=== PATIENT | male | born 1940 | race Caucasian/White ===

== ENCOUNTER → 2019-09-15 | Outpatient (CLI) | payer MEDICARE ==
[~2019-09-15] MED LIST: CIPR-225 PO; HYDR-3870 PO; IMIP50TA4 PO; OMEP20CA13 PO; PHEN-640 PO; QUET50TA PO; TAMS0.4C2 PO; VENL150C PO
[2019-09-15 11:06] LABS: BUN/CREATININE RATIO 14; CALCIUM 9.4 MG/DL (8.5-10.1); CARBON DIOXIDE 24 MMOL/L (21-32); CHLORIDE 96 MMOL/L (98-107); CREATININE SERUM 1.08 MG/DL (0.60-1.30); GFR ESTIMATED > 60; POTASSIUM 4.2 MMOL/L (3.6-5.0); SODIUM 135 MMOL/L (135-145)
[2019-09-15 11:14] LABS: GLUCOSE 408 MG/DL (70-105)
== END ==
LOC: LAB FS 09:45
PROVIDERS: ATTEND Urology
DX: N40.0 Benign prostatic hyperplasia without lower urinary tract symptoms (principal)
CPT/HCPCS: 36415; 80048; 84153; 84403

== ENCOUNTER → 2019-11-24 | Outpatient (CLI) | payer MEDICARE ==
[~2019-11-24] MED LIST changes: +AMLO5TAB4 PO; +IBUP-30 PO; +LISI10TA2 PO; -OMEP20CA13 PO; +OMEP20CA18 PO; +OMEP40CA27 PO; +QUET25TA73 PO; +TMSL.4C PO; +VENL150C98 PO
== END ==
LOC: CARD 13:42
PROVIDERS: ATTEND Internal Medicine Cardiovascular Disease
DX: K21.9 Gastro-esophageal reflux disease without esophagitis (principal); E11.9 Type 2 diabetes mellitus without complications; I10 Essential (primary) hypertension
CPT/HCPCS: 93306

== ENCOUNTER → 2019-11-28 | Outpatient (CLI) | payer MEDICARE ==
[~2019-11-28] VITALS: Ht 178 cm; Wt 108.0 kg
[~2019-11-28] MED LIST changes: +CATHETER FLUSH 10 ML SYR IV PRN
[2019-11-28 09:45] VITALS: BP 152/86
--- NOTE | 2019-11-28 12:03 | STRESS TEST ---
DATE OF SERVICE: 11/28/2019 EXERCISE MYOVIEW STRESS TEST REPORT REFERRING PHYSICIAN: Dr. Shena Mckeon. Baseline heart rate is 72. Baseline blood pressure 152/86. Baseline EKG is sinus rhythm with no ischemic changes. In summary, the patient was injected with 10.5 mCi of technetium-99 Myoview and the resting images were obtained. Then, the patient started exercising with a baseline heart rate, blood pressure and EKG mentioned above. The patient was able to exercise for a total of 4 minutes on standard Deion protocol. With peak exercise level, EKG was showing nondiagnostic changes. Blood pressure was 200/79. During recovery, heart rate and blood pressure returned to baseline. EKG returned to baseline. The resting and stress images were reviewed and compared in the short axis, horizontal long axis, and vertical long axis views. Review of the images showed good radiotracer uptake with no significant ischemia or infarction on SPECT images. SSS 1, SDS 1. TID value 0.98. On the gated images, the left ventricle appeared to be normal size with normal contractility. Calculated ejection fraction 57%. CONCLUSION: 1. Fair exercise tolerance, a total of 4 minutes on standard Deion protocol, 5.8 achieving 88% of maximum expected heart rate. 2. Hypertensive response to exercise with peak blood pressure 200/79 returned to baseline during recovery. 3. Nondiagnostic EKG changes with exercise returned to baseline during recovery. 4. No ischemia or infarction on SPECT images. 5. Normal left ventricular size with normal contractility. Calculated ejection fraction 57%. Job ID: [id number] DocumentID: [id number] Dictated Date: 11/28/2019 11:24:22 Veneer Taper Date: 11/28/2019 12:02:47 Dictated By: MICHELLE HOUGH MD
== END ==
LOC: CARD 07:48
PROVIDERS: ATTEND Internal Medicine Cardiovascular Disease
DX: I10 Essential (primary) hypertension (principal); E11.9 Type 2 diabetes mellitus without complications; K21.9 Gastro-esophageal reflux disease without esophagitis
CPT/HCPCS: 78452; 93017

== ENCOUNTER → 2020-02-28 | Outpatient (CLI) | payer MEDICARE ==
[~2020-02-28] MED LIST changes: -CATHETER FLUSH 10 ML SYR IV PRN
[2020-02-28 15:07] LABS: CREATININE SERUM 1.17 MG/DL (0.60-1.30); POTASSIUM 3.7 MMOL/L (3.6-5.0)
[2020-02-28 15:08] LABS: CALCIUM 9.2 MG/DL (8.5-10.1)
== END ==
LOC: LAB FS 14:21
PROVIDERS: ATTEND Family Medicine
DX: E11.9 Type 2 diabetes mellitus without complications (principal)
CPT/HCPCS: 36415; 80048; 83036

== ENCOUNTER → 2020-05-31 | Outpatient (CLI) | payer MEDICARE ==
[2020-05-31 14:18] LABS: BUN/CREATININE RATIO 17; CALCIUM 8.7 MG/DL (8.5-10.1); CARBON DIOXIDE 24 MMOL/L (21-32); CHLORIDE 98 MMOL/L (98-107); CREATININE SERUM 0.88 MG/DL (0.60-1.30); GFR ESTIMATED > 60; GLUCOSE 183 MG/DL (70-105); POTASSIUM 3.9 MMOL/L (3.6-5.0); SODIUM 135 MMOL/L (135-145)
[2020-05-31 14:19] LABS: ALANINE AMINOTRANSFERASE 12 U/L (0-55); ALKALINE PHOSPHATASE 93 U/L (40-136); BILIRUBIN,TOTAL 0.8 MG/DL (0.1-1.0); TOTAL PROTEIN 6.7 GM/DL (6.4-8.2)
[2020-06-01 12:01] LABS: CHOLESTEROL 185 MG/DL (< 200); HDL CHOLESTEROL 34 MG/DL (40-60); TRIGLYCERIDES 164 MG/DL (<150); VLDL CHOLESTEROL 33 MG/DL (5-40)
== END ==
LOC: LAB FS 13:11
PROVIDERS: ATTEND Family Medicine
DX: I10 Essential (primary) hypertension (principal); E11.9 Type 2 diabetes mellitus without complications
CPT/HCPCS: 36415; 80053; 80061; 83036

== ENCOUNTER → 2020-12-31 | Outpatient (CLI) | payer MEDICARE ==
[~2020-12-31] MED LIST changes: -LISI10TA2 PO; +LISI10TA25 PO; +QUET25TA34 PO; -QUET25TA73 PO
[2020-12-31 15:27] LABS: ALANINE AMINOTRANSFERASE 14 U/L (0-55); ALKALINE PHOSPHATASE 104 U/L (40-136); BILIRUBIN,TOTAL 0.8 MG/DL (0.1-1.0); BUN/CREATININE RATIO 24; CALCIUM 8.9 MG/DL (8.5-10.1); CARBON DIOXIDE 23 MMOL/L (21-32); CHLORIDE 101 MMOL/L (98-107); CREATININE SERUM 0.92 MG/DL (0.60-1.30); GFR ESTIMATED > 60; GLUCOSE 233 MG/DL (70-105); POTASSIUM 3.8 MMOL/L (3.6-5.0); SODIUM 137 MMOL/L (135-145); TOTAL PROTEIN 6.6 GM/DL (6.4-8.2)
[2021-01-01 15:04] LABS: CHOLESTEROL 178 MG/DL (< 200); HDL CHOLESTEROL 37 MG/DL (40-60); TRIGLYCERIDES 166 MG/DL (<150); VLDL CHOLESTEROL 33 MG/DL (5-40)
== END ==
LOC: LAB FS 14:23
PROVIDERS: ATTEND Family Medicine
DX: I10 Essential (primary) hypertension (principal); E11.9 Type 2 diabetes mellitus without complications
CPT/HCPCS: 36415; 80053; 80061; 83036

== ENCOUNTER → 2021-04-26 | Outpatient (CLI) | payer MEDICARE ==
[~2021-04-26] MED LIST changes: -OMEP40CA27 PO; +OMEP40CA6 PO
--- NOTE | 2021-04-26 13:22 | Diagnostic Imaging Report ---
EXAMINATION: Left knee 3 views HISTORY: Left knee osteoarthritis. COMPARISON: None available. FINDINGS: There is mild tricompartment osteoarthritis of the left knee. No fracture is seen. No joint effusion. IMPRESSION: 1. Mild tricompartmental osteoarthritis of the left knee. Dictated by: Dictated on workstation # [id number]
== END ==
LOC: RAD FS 10:44
PROVIDERS: ATTEND Family Medicine
DX: M17.12 Unilateral primary osteoarthritis, left knee (principal)
CPT/HCPCS: 73562

== ENCOUNTER 2021-06-12 19:45 | Inpatient (IN) | payer MEDICARE ==
[~2021-06-12] VITALS: Ht 177.8 cm; Wt 108.3 kg
[2021-06-12] MEDS ORDERED: NS IV 1000 ML 1,000 ML IV STA (19:51)
--- NOTE | 2021-06-12 19:51 | ED Neurological Problem ---
General Stated Complaint: STROKE LIKE SYMPTOMS History of Present Illness Date Seen by Provider: Jun 12, 2021 Time Seen by Provider: 19:51 Initial Comments 81-year-old male presents with left-sided weakness in both his arm and leg and left-sided facial droop and slurred speech. Patient reports on June 10 he went to [employer] and got his second vaccine shot and it "kicked my butt" patient reports that sometime on the he fell due to left-sided weakness laid there on the floor for 2 nights. Patient got numbness and decreased sensation in his left side. Patient denies any fever chills cough or other systemic complaints. Patient was found by his neighbor and EMS was called. Allergies and Home Medications Allergies Coded Allergies: No Known Drug Allergies (Unverified , 08/26/16) Patient Home Medication List Home Medication List Reviewed: Yes Amlodipine Besylate (Norvasc) 5 Mg Tablet, 5 MG PO DAILY Prescribed by: CIRO CABRERA on 10/12/19 113 Lisinopril (Lisinopril) 10 Mg Tablet, 10 MG PO DAILY Prescribed by: CIRO CABRERA on 10/12/19 1134 Omeprazole (Omeprazole) 40 Mg Capsule.dr, 40 MG PO DAILY, (Reported) Entered as Reported by: JULIANA MADRIGAL on 10/10/191921 Quetiapine Fumarate (Quetiapine Fumarate) 25 Mg Tablet, 25 MG PO HS, (Reported) Entered as Reported by: JULIANA MADRIGAL on 10/10/191921 Tamsulosin HCl (Flomax) 0.4 Mg Cap, 0.4 MG PO HS, (Reported) Entered as Reported by: JULIANA MADRIGAL on 10/10/191921 Venlafaxine HCl (Venlafaxine HCl ER) 150 Mg Cap.er.24h, 150 MG PO DAILY, (Repo rted) Entered as Reported by: CLARI GUERRERO on 10/11/19 1043 Review of Systems Review of Systems Constitutional: No chills, No fever Eyes: No Symptoms Reported Ears, Nose, Mouth, Throat: see HPI Respiratory: no symptoms reported; No cough, No short of breath Cardiovascular: No chest pain, No palpitations Gastrointestinal: No abdominal pain, No nausea, No vomiting Genitourinary: no symptoms reported Musculoskeletal: see HPI Skin: no symptoms reported Psychiatric/Neurological: See HPI Endocrine: No Symptoms Reported Hematologic/Lymphatic: No Symptoms Reported Past Vhhsebf-Gycgbz-Uoqpjf Hx Seasonal Allergies Seasonal Allergies: Yes (MILD) Past Medical History Surgeries: Yes (LEFT SHOULDER RCR, JAW, RIGHT KNEE SCOPE) Vasectomy Respiratory: No Cardiac: No Neurological: Yes (FRONTAL TEMPORAL DEMENTIA) Dementia Reproductive Disorders: No Sexually Transmitted Disease: No HIV/AIDS: No Genitourinary: Yes Prostate Problems, Kidney Stones Gastrointestinal: Yes Gastroesophageal Reflux, Diverticulosis Musculoskeletal: Yes Chronic Back Pain Endocrine: Yes (NOTIFIED BY UROLOGIST IN JUL 2019 BLOOD SUGAR 400) Loss of Vision: Bilateral Hearing Impairment: Denies Cancer: No Psychosocial: No (TAKES SEROQUEL AND EFFEXOR FOR DEMENTIA) Integumentary: No Blood Disorders: No Adverse Reaction/Blood Tranf: No (N/A) Physical Exam Vital Signs Vital Signs - First Documented 06/12/21 19:45 Temp 36.1 Pulse 102 Resp 19 B/P (MAP) 161/95 (117) Pulse Ox 94 O2 Delivery Room Air Capillary Refill : Height, Weight, BMI Height: 5'10.00" Weight: 252lbs. 1.0oz. 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, alert, normal mood/affect, oriented x 3 Crainal Nerves: normal hearing, facial droop (left sided ) Motor/Sensory: weak motor strength LUE, weak motor strength LLE Skin: normal color, warm/dry Stroke NIH Stroke Scale Assessment Select: Initial Level of Consciousness: 0=Alert (0), Level of Consciousness- Questions: 0=Answers both month/age (0), Visual Tamez: 0=No visual loss (0), Facial Movement (Facial Paresis): 2=Partial paralysis (2), Motor Function-Ar ms Right: 0=No drift (0), Motor Function-Arms Left: 3=No effort/gravity (3), Motor Function-Legs Right: 0=No drift (0), Motor Function-Legs Left: 3=No effort/gravity (3), Sensory: 1=Mild to Moderate loss (1), Best Language: 0=No aphasia (0), Dysarthria: 0=Normal (0), Total: 9 Progress/Results/Core Measures Results/Orders Lab Results Laboratory Tests Test 06/12/21 19:57 06/12/21 20:32 06/12/21 20:40 Range/Units White Blood Count 12.2 H 4.3-11.0 10^3/uL Red Blood Count 4.63 4.30-5.52 10^6/uL Hemoglobin 14.5 13.3-17.7 g/dL Hematocrit 42 40-54 % Mean Corpuscular Volume 90 80-99 fL Mean Corpuscular Hemoglobin 31 25-34 pg Mean Corpuscular Hemoglobin Concent 35 32-36 g/dL Red Cell Distribution Width 13.0 10.0-14.5 % Platelet Count 264 130-400 10^3/uL Mean Platelet Volume 10.7 9.0-12.2 fL Immature Granulocyte % (Auto) 1 % Neutrophils (%) (Auto) 82 H 42-75 % Lymphocytes (%) (Auto) 10 L 12-44 % Monocytes (%) (Auto) 7 0-12 % Eosinophils (%) (Auto) 0 0-10 % Basophils (%) (Auto) 0 0-10 % Neutrophils # (Auto) 10.0 H 1.8-7.8 X 10^3 Lymphocytes # (Auto) 1.2 1.0-4.0 X 10^3 Monocytes # (Auto) 0.9 0.0-1.0 X 10^3 Eosinophils # (Auto) 0.0 0.0-0.3 10^3/uL Basophils # (Auto) 0.0 0.0-0.1 10^3/uL Immature Granulocyte # (Auto) 0.1 0.0-0.1 10^3/uL Prothrombin Time 14.0 12.2-14.7 SEC INR Comment 1.1 0.8-1.4 Activated Partial Thromboplast Time 27 24-35 SEC D-Dimer 3.79 H 0.00-0.49 UG/ML Sodium Level 137 135-145 MMOL/L Potassium Level 4.3 3.6-5.0 MMOL/L Chloride Level 99 98-107 MMOL/L Carbon Dioxide Level 22 21-32 MMOL/L Anion Gap 16 H 5-14 MMOL/L Blood Urea Nitrogen 36 H 7-18 MG/DL Creatinine 1.24 0.60-1.30 MG/DL Estimat Glomerular Filtration Rate 56 BUN/Creatinine Ratio 29 Glucose Level 230 H 70-105 MG/DL Calcium Level 9.0 8.5-10.1 MG/DL Corrected Calcium 8.9 8.5-10.1 MG/DL Total Bilirubin 1.2 H 0.1-1.0 MG/DL Aspartate Amino Transf (AST/SGOT) 42 H 5-34 U/L Alanine Aminotransferase (ALT/SGPT) 19 0-55 U/L Alkaline Phosphatase 96 40-136 U/L Troponin I < 0.30 <0.30 NG/ML Total Protein 7.1 6.4-8.2 GM/DL Albumin 4.1 3.2-4.5 GM/DL Glucometer 192 H 70-110 MG/DL Urine Color YELLOW Urine Clarity CLEAR Urine pH 5.5 5-9 Urine Specific Randolph >=1.030 1.016-1.022 Urine Protein NEGATIVE NEGATIVE Urine Glucose (UA) 2+ H NEGATIVE Urine Ketones 1+ H NEGATIVE Urine Nitrite NEGATIVE NEGATIVE Urine Bilirubin NEGATIVE NEGATIVE Urine Urobilinogen 0.2 < = 1.0 MG/DL Urine Leukocyte Esterase NEGATIVE NEGATIVE Urine RBC (Auto) 1+ H NEGATIVE Urine RBC 2-5 H /HPF Urine WBC 2-5 /HPF Urine Squamous Epithelial Cells 0-2 /HPF Urine Crystals NONE /LPF Urine Bacteria TRACE /HPF Urine Casts PRESENT /LPF Urine Hyaline Casts 25-50 H /LPF Urine Mucus MODERATE H /LPF Urine Culture Indicated NO My Orders Orders - TALBOT,ROHIT L DO Cbc With Automated Diff (06/12/21 19:51) Protime With Inr (06/12/21 19:51) Partial Thromboplastin Time (06/12/21 19:51) Comprehensive Metabolic Panel (06/12/21 19:51) Fibrin Degradation Products (06/12/21 19:51) Troponin I Fs (06/12/21 19:51) Ua Culture If Indicated (06/12/21 19:51) Chest 1 View Ap/Pa Only (06/12/21 19:51) Catheter(Urinary) Insert & Ass 03,15 (06/12/21 19:51) Ekg Tracing (06/12/21 19:51) Nothing By Mouth (06/12/21 Dinner) Accucheck Stat ONCE (06/12/21 19:51) Ed Iv/Invasive Line Start (06/12/21 19:51) Vital Signs Stroke Patient Q15M (06/12/21 19:51) Ct Head Wo-R/O Stroke (06/12/21 19:51) Intake & Output 06,14,22 (06/12/21 19:51) Monitor-Rhythm Ecg Trace Only (06/12/21 19:51) Dysphagia Screening Tool (06/12/21 19:51) Lipid Panel (06/13/21 06:00) Creatine Kinase (06/12/21 19:51) Ns Iv 1000 Ml (Sodium Chloride 0.9%) (06/12/21 19:51) Ct Angio Head/Neck (06/12/21 20:37) Iohexol Injection (Omnipaque 350 Mg/Ml 1 (06/12/21 21:00) Received Contrast (Hold Metformin- Contr (06/12/21 21:00) Sodium Chloride Flush (Catheter Flush Sy (06/12/21 21:00) Ns (Ivpb) (Sodium Chloride 0.9% Ivpb Bag (06/12/21 21:00) Medications Given in ED Current Medications Medications Dose Ordered Sig/Srini Route Start Time Stop Time Status Last Admin Dose Admin Iohexol 75 ml ONCE ONCE IV 06/12/21 21:00 06/12/21 21:27 DC 06/12/21 21:31 75 ML Sodium Chloride 10 ml NEEDED PRN IV 06/12/21 21:00 06/12/21 21:31 10 ML Sodium Chloride 100 ml ONCE ONCE IV 06/12/21 21:00 06/12/21 21:27 DC 06/12/21 21:30 67 ML Vital Signs/I&O 06/12/21 06/12/21 06/12/21 06/12/21 19:45 20:00 20:15 20:30 Temp 36.1 Pulse 102 102 97 91 Resp 19 20 15 18 B/P (MAP) 161/95 (117) 152/92 135/69 179/83 Pulse Ox 94 94 94 95 O2 Delivery Room Air 06/12/21 06/12/21 06/12/21 06/12/21 21:00 21:30 22:00 22:30 Pulse 92 88 89 94 Resp 14 17 13 19 B/P (MAP) 163/92 142/94 126/92 154/77 Pulse Ox 94 95 95 94 06/12/21 06/12/21 06/12/21 22:47 23:28 23:30 Temp 36.1 36.3 Pulse 94 91 Resp 19 21 B/P (MAP) 154/77 171/102 (125) Pulse Ox 94 93 95 O2 Delivery Room Air Room Air Room Air Progress Progress Note : Progress Note Patient with CVA with left-sided deficit. CTA and CT show no definite stroke or large vessel occlusion. Discussed with neurology team at and they state that patient can be admitted to [facility] with stroke work-up, PT OT. Discussed with Dr. Cabrera who accepted patient. Patient was transferred to [facility] in stable condition Initial ECG Impression Date: Jun 13, 2021 Initial ECG Impression Time: 20:23 Initial ECG Rhythm: Normal Sinus, PAC Initial ECG Impression: Nonspecific Changes Comment nsr, PAC, no acute changes Departure Impression Primary Impression: Cerebrovascular accident due to cerebral artery occlusion Disposition: 30 STILL A PATIENT Condition: Stable Admissions Decision to Admit Reason: Admit from ER (General) Decision to Admit/Date: Jun 12, 2021 Time/Decision to Admit Time: 22:10 Departure-Patient Inst. Referrals: DENNY BRIGGS MD (PCP/Family) Primary Care Physician ROHIT TLABOT DO Jun 12, 2021 19:51
[2021-06-12 20:19] LABS: BASOPHILS % (AUTO) 0 % (0-10); EOSINOPHILS % (AUTO) 0 % (0-10); HEMATOCRIT 42 % (40-54); HEMOGLOBIN 14.5 g/dL (13.3-17.7); LYMPHOCYTES # (AUTO) 1.2 X 10^3 (1.0-4.0); LYMPHOCYTES % (AUTO) 10 % (12-44); MEAN CORPUSCULAR HEMOGLOBIN 31 pg (25-34); MEAN CORPUSCULAR HGB CONC 35 g/dL (32-36); MEAN CORPUSCULAR VOLUME 90 fL (80-99); MEAN PLATELET VOLUME 10.7 fL (9.0-12.2); MONOCYTES # (AUTO) 0.9 X 10^3 (0.0-1.0); MONOCYTES % (AUTO) 7 % (0-12); NEUTROPHILS % (AUTO) 82 % (42-75); PLATELET COUNT 264 10^3/uL (130-400); WHITE BLOOD COUNT 12.2 10^3/uL (4.3-11.0)
--- NOTE | 2021-06-12 20:21 | Diagnostic Imaging Report ---
EXAMINATION: CT head without contrast. TECHNIQUE: Multiple contiguous axial images were obtained through the brain without the use of intravenous contrast. All CT scans use one or more of the following dose optimizing techniques: automated exposure control, MA and/or KvP adjustment based on patient size and exam type or iterative reconstruction. HISTORY: Strokelike symptoms. COMPARISON: None available. FINDINGS: No large acute territorial ischemia, mass, or hemorrhage. No midline shift or mass effect. Decreased attenuation is seen in the periventricular and subcortical white matter. The ventricles and cortical sulci are prominent. The basilar cisterns are patent and unremarkable. The orbits are normal. Paranasal sinuses are normal. Mastoid air cells are clear. No soft tissue abnormality is seen. No osseus lesions or fractures are seen. IMPRESSION: 1. No large acute territorial ischemia, mass, or hemorrhage. 2. Chronic microvascular disease. 3. Generalized parenchymal volume loss. Dictated by: Dictated on workstation # [id number]
--- NOTE | 2021-06-12 20:24 | Diagnostic Imaging Report ---
EXAMINATION: Chest 1 view HISTORY: Strokelike symptoms. Left-sided weakness. COMPARISON: 10/10/2019. FINDINGS: The lung volumes are normal. No focal consolidation is seen. No large pleural effusion or pneumothorax is seen. The cardiomediastinal silhouette is prominent. No acute osseous abnormality is seen. IMPRESSION: Prominent cardiac silhouette, which may be partially due to technique. No evidence of pulmonary edema. Dictated by: Dictated on workstation # [id number]
[2021-06-12 20:35] LABS: FIBRIN DEGRADATION PRODUCTS 3.79 UG/ML (0.00-0.49); INR 1.1 (0.8-1.4)
[2021-06-12 20:36] LABS: ALANINE AMINOTRANSFERASE 19 U/L (0-55); ALKALINE PHOSPHATASE 96 U/L (40-136); BILIRUBIN,TOTAL 1.2 MG/DL (0.1-1.0); BUN/CREATININE RATIO 29; CARBON DIOXIDE 22 MMOL/L (21-32); CHLORIDE 99 MMOL/L (98-107); CREATININE SERUM 1.24 MG/DL (0.60-1.30); GFR ESTIMATED 56; GLUCOSE 230 MG/DL (70-105); POTASSIUM 4.3 MMOL/L (3.6-5.0); SODIUM 137 MMOL/L (135-145)
[2021-06-12 20:37] LABS: ALBUMIN 4.1 GM/DL (3.2-4.5); TOTAL PROTEIN 7.1 GM/DL (6.4-8.2)
[2021-06-12 20:47] LABS: BILIRUBIN,URINE NEGATIVE (NEGATIVE); CLARITY,URINE CLEAR; COLOR,URINE YELLOW; GLUCOSE, URINE (UA) 2+ (NEGATIVE); KETONES,URINE 1+ (NEGATIVE); LEUKOCYTE ESTERASE ,URINE NEGATIVE (NEGATIVE); NITRITE,URINE NEGATIVE (NEGATIVE); PH,URINE 5.5 (5-9); PROTEIN,URINE NEGATIVE (NEGATIVE)
[2021-06-12 20:52] LABS: BACTERIA,URINE TRACE /HPF; HYALINE CASTS, URINE 25-50 /LPF; SQUAMOUS EPITHELIAL CELL,UR 0-2 /HPF
[2021-06-12] MEDS ORDERED: NS 100 ML (IVPB) BAG IV ONE (21:00)
[2021-06-12] MEDS ORDERED: IOHEXOL 350 MG/ML 100 ML (OMNIPAQUE 350) VIAL IV ONE (21:00)
[2021-06-12] MEDS ORDERED: HOLD METFORMIN - RECEIVED CONTRAST 20 ML VIAL IV SCH (21:00)
[2021-06-12] MEDS ORDERED: CATHETER FLUSH 10 ML SYR IV PRN (21:00)
--- NOTE | 2021-06-12 22:05 | Diagnostic Imaging Report ---
PROCEDURE: CT angiography of the head and CT angiography of the neck with and without contrast. TECHNIQUE: Contiguous noncontrast images were obtained from the skull base through the vertex. After intravenous contrast administration, helical CT angiography of the neck was performed. Source data was reformatted into 3D MIP projections. Delayed post contrast acquisition was also obtained. Auto Exposure Controls were utilized during the CT exam to meet ALARA standards for radiation dose reduction. INDICATION: Left-sided weakness. Facial droop. COMPARISON: CT head performed earlier the same date. FINDINGS: CTA neck: The visualized portions of the aortic arch demonstrate no evidence of aneurysm or dissection. There is conventional branching pattern of the great vessels of the aorta. The brachiocephalic artery is normal in course and caliber. The right and left common carotid origins are unremarkable. The origin of the left subclavian artery is patent. The common carotid arteries and internal carotid arteries demonstrate a tortuous course. There is retropharyngeal course of the right ICA. There is calcified atherosclerotic plaque in the bilateral carotid bulbs and proximal internal carotid arteries without flow-limiting stenosis. No evidence of dissection in the carotid systems. The external carotid arteries are patent and unremarkable. The left vertebral artery is dominant. The origin of the right vertebral artery is seen and is unremarkable. The origin of the left vertebral artery is seen and is unremarkable. There is no focal stenosis seen within the neck. There is no dissection. The vertebral arteries are well visualized to up to the level of the basilar artery. The osseous structures of the cervical spine are unremarkable. Included views through the lung apices demonstrate no focal consolidation. CTA brain: Atherosclerotic plaque is seen in the charles of the bilateral terminal internal carotid arteries without significant stenosis. There is focal occlusion of the A2 segment of the left [place]. The right [place] demonstrates focal stenosis of 50-69% in the A2 segment. No stenosis is seen in the bilateral middle and posterior cerebral arteries. No evidence of aneurysm of the [place]. In the posterior circulation, both of the vertebral arteries demonstrate normal opacification. Both the right and left PICA arteries are identified. The basilar artery is normal in course and caliber. The terminal branch vessels including the superior cerebellar arteries are unremarkable. IMPRESSION: 1. Focal occlusion of the A2 segment of the left [place]. No associated parenchymal findings are seen at this time. Findings also do not correlate to the patient's symptoms of left-sided weakness and may be chronic. Consider MRI of the brain to further evaluate. 2. Stenosis of approximately 50-69% in the A2 segment of the right [place]. 3. No focal stenosis or large vessel occlusion in the bilateral MCA. No aneurysm in the [place]. 4. No stenosis or dissection the bilateral carotid and vertebral arteries. Findings were called to the emergency department at 9:55 PM on 06/12/[address] Chilo Pham. Dictated by: Dictated on workstation # [id number]
[2021-06-12 23:30] VITALS: BP 171/102
--- NOTE | 2021-06-12 23:42 | Tele-ICU Consult ---
History of Present Illness History of Present Illness Date Seen by Provider: Jun 12, 2021 Time Seen by Provider: 23:40 Date of Admission 81-year-old male presents with left-sided weakness in both his arm and leg and left-sided facial droop and slurred speech. Patient reports on June 10 he went to [employer] and got his second vaccine shot and it "kicked my butt" patient reports that sometime on the he fell due to left-sided weakness laid there on the floor for 2 nights. Patient got numbness and decreased sensation in his left side. Patient denies any fever chills cough or other systemic complaints. Patient was found by his neighbor and EMS was called. Neuro stroke service advised admission to [facility] with stroke protocol. Allergies and Home Medications Allergies Coded Allergies: No Known Drug Allergies (Unverified , 08/26/16) Home Medications Amlodipine Besylate 5 Mg Tablet, 5 MG PO DAILY Prescribed by: CIRO CABRERA on 10/12/19 1134 Lisinopril 10 Mg Tablet, 10 MG PO DAILY Prescribed by: CIRO CABRERA on 10/12/19 1134 Omeprazole 40 Mg Capsule.dr, 40 MG PO DAILY, (Reported) Quetiapine Fumarate 25 Mg Tablet, 25 MG PO HS, (Reported) Tamsulosin HCl 0.4 Mg Cap, 0.4 MG PO HS, (Reported) Venlafaxine HCl 150 Mg Cap.er.24h, 150 MG PO DAILY, (Reported) Past Medical/Social/Family Hx Patient Social History Employed/Student: retired Tobacco Use?: No Substance use?: No Alcohol Use?: Yes Alcohol type: Other Alcohol Frequency: Once in a while one mixed drink every 1-2 weeks Pt stated abuse/neglect: No Immunizations Up To Date Influenza Vaccine Up-to-Date: Yes; Up-to-Date First/Initial COVID19 Vaccinat: April 2021 Second COVID19 Vaccination [place]: 06/10/2021 Tetanus Booster (TDap): Unknown TB Skin Test: None Date of Pneumonia Vaccine: Jul 07, 2016 Current Status Advance Directives: No Communicates: Verbally Primary Language: Hungarian Preferred Spoken Language: Hungarian Is interpretation needed?: No Past Medical History HTN, BPH Review of Systems Constitutional: see HPI Sepsis Event Evaluation Height, Weight, BMI Height: 5'10.00" Weight: 252lbs. 1.0oz. 114.374204wp; 34.08 BMI Method: Exam Exam Patient acknowledged, consented, and participated in this virtual visit which was conducted using real time audio/video Vital Signs Date Time Temp Pulse Resp B/P (MAP) Pulse Ox O2 Delivery O2 Flow Rate FiO2 06/12/21 22:47 36.1 94 19 154/77 94 Room Air 06/12/21 22:30 94 19 154/77 94 06/12/21 22:00 89 13 126/92 95 06/12/21 21:30 88 17 142/94 95 06/12/21 21:00 92 14 163/92 94 06/12/21 20:30 91 18 179/83 95 06/12/21 20:15 97 15 135/69 94 06/12/21 20:00 102 20 152/92 94 06/12/21 19:45 36.1 102 19 161/95 (117) 94 Room Air Height & Weight Height: 5'10.00" Weight: 252lbs. 1.0oz. 114.818387og; 34.08 BMI Method: General Appearance: No Apparent Distress Gastrointestinal: non tender, soft Results Lab Laboratory Tests 06/12/21 19:57 Assessment/Plan Assessment/Plan 1. Acute CVA -cva protocol/ MRI in am -sp fall check lactic acid/ ck ro covid pt got his second shot 9.13 RADHA DODGE MD Jun 12, 2021 23:42
[2021-06-12 23:45] VITALS: BP 166/96
[2021-06-13] VITALS (12 sets, daily range): BP systolic 134–182; BP diastolic 91–107
[2021-06-13] MEDS: CATHETER FLUSH 10 ML SYR IV SCH ×3 (05:59→20:59)
[2021-06-13 06:42] LABS: CHOLESTEROL 152 MG/DL (< 200); HDL CHOLESTEROL 33 MG/DL (40-60); TRIGLYCERIDES 137 MG/DL (<150); VLDL CHOLESTEROL 27 MG/DL (5-40)
[2021-06-13] MEDS ORDERED: DOCUSATE SODIUM 100 MG (COLACE) CAP PO PRN (07:00)
[2021-06-13] MEDS ORDERED: CALCIUM CARBONATE 500 MG (TUMS) TAB.CHEW PO PRN (07:00)
--- NOTE | 2021-06-13 07:27 | Progress Note ---
AMISH MURILLO MED STUDENT 06/13/21 0727: Subjective Date Seen by a Provider: Jun 13, 2021 Time Seen by a Provider: 06:50 Subjective/Events-last exam Patient awake and alert in room. Denies and complaints. Has no questions currently. Vitals stable per monitor. Review of Systems General: No Chills, No Night Sweats HEENT: No Head Aches, No Visual Changes Pulmonary: No Dyspnea, No Cough Cardiovascular: No: Chest Pain, Palpitations, Edema Gastrointestinal: No: Nausea, Vomiting, Abdominal Pain Genitourinary: No Dysuria, No Frequency Musculoskeletal: No: neck pain, back pain Neurological: Weakness (L arm and L leg), Change in speech (Dyarthric); No: Confusion, Seizures Focused Exam Lactate Level 06/12/21 23:51: Lactic Acid Level 1.69 Objective Exam Last Set of Vital Signs Vital Signs Date Time Temp Pulse Resp B/P (MAP) Pulse Ox O2 Delivery O2 Flow Rate FiO2 06/13/21 06:00 70 19 134/100 (111) 95 Room Air 06/13/21 04:25 36.0 Capillary Refill : I&O Intake and Output 06/13/21 00:00 Daily Weight Change No General: Alert, Oriented X3, Cooperative, No Acute Distress, Other (Elderly appearing male appearing stated age in no acute distress. Obvious left facial droop present. ) HEENT: Atraumatic, EOMI, Mucous Memb Moist/[place]ck: Supple, No LAD Lungs: Clear to Auscultation, Normal Air Movement Heart: Regular Rate, No Murmurs Abdomen: Normal Bowel Sounds, Soft, No Tenderness Extremities: No Clubbing, No Cyanosis, No Edema, Normal Pulses, No Tenderness/Swelling Skin: No Rashes, No Significant Lesion Neuro: Sensation Intact, Other (Left sided facial droop obvious. Left arm weakness and Left leg weakness. Motor strength 3/5 left arm and left leg. Speech is slightly dysarthric. ) Psych/Mental Status: Mental Status NL, Mood NL Results Lab Laboratory Tests 06/12/21 19:57: White Blood Count 12.2H, Red Blood Count 4.63, Hemoglobin 14.5, Hematocrit 42, Mean Corpuscular Volume 90, Mean Corpuscular Hemoglobin 31, Mean Corpuscular Hemoglobin Concent 35, Red Cell Distribution Width 13.0, Platelet Count 264, Mean Platelet Volume 10.7, Immature Granulocyte % (Auto) 1, Neutrophils (%) (Auto) 82H, Lymphocytes (%) (Auto) 10L, Monocytes (%) (Auto) 7, Eosinophils (%) (Auto) 0, Basophils (%) (Auto) 0, Neutrophils # (Auto) 10.0H, Lymphocytes # (Auto) 1.2, Monocytes # (Auto) 0.9, Eosinophils # (Auto) 0.0, Basophils # (Auto) 0.0, Immature Granulocyte # (Auto) 0.1, Prothrombin Time 14.0, INR Comment 1.1, Activated Partial Thromboplast Time 27, D-Dimer 3.79H, Sodium Level 137, Potassium Level 4.3, Chloride Level 99, Carbon Dioxide Level 22, Anion Gap 16H, Blood Urea Nitrogen 36H, Creatinine 1.24, Estimat Glomerular Filtration Rate 56, BUN/Creatinine Ratio 29, Glucose Level 230H, Calcium Level 9.0, Corrected Calcium 8.9, Total Bilirubin 1.2H, Aspartate Amino Transf (AST/SGOT) 42H, Alanine Aminotransferase (ALT/SGPT) 19, Alkaline Phosphatase 96, Troponin I < 0.30, Total Protein 7.1, Albumin 4.1 06/12/21 20:32: Glucometer 192H 06/12/21 20:40: Urine Color YELLOW, Urine Clarity CLEAR, Urine pH 5.5, Urine Specific [place] >=1.030, Urine Protein NEGATIVE, Urine Glucose (UA) 2+H, Urine Ketones 1+H, Urine Nitrite NEGATIVE, Urine Bilirubin NEGATIVE, Urine Urobilinogen 0.2, Urine Leukocyte Esterase NEGATIVE, Urine RBC (Auto) 1+H, Urine RBC 2-5H, Urine WBC 2- 5, Urine Squamous Epithelial Cells 0-2, Urine Crystals NONE, Urine Bacteria TRACE, Urine Casts PRESENT, Urine Hyaline Casts 25-50H, Urine Mucus MODERATEH, Urine Culture Indicated NO 06/12/21 23:51: Lactic Acid Level 1.69, Total Creatine Kinase 1839H, Triglycerides Level 137, Cholesterol Level 152, LDL Cholesterol Direct 121, VLDL Cholesterol 27, HDL Cholesterol 33L 06/13/21 00:40: Assessment/Plan Assessment/Plan Assess & Plan/Chief Complaint CVA -[facility] neuro stroke consulted -aspiration precautions -lipitor and ASA -continue to monitor -Brain MRI today -consult cardiology -echocardiogram Elevated CK -ck 1839 -IVF's -continue to trend Elevated D dimer -US venous doppler lower extrem today -D dimer 3.79 -lovenox Hyperglycemia -add accuchecks achs, SSI HTN -monitor GERD -antacids Dementia -restart home dose effexor Diverticulosis BPH by history -restart home flomax MILLA CABRERA DO 06/14/21 1141: Supervisory-Addendum Brief Verification & Attestation Participated in pt care: history, MDM, physical Personally performed: exam, history, MDM, supervision of care Care discussed with: Medical Student Procedures: n/a Results interpretation: Verified all documentation Verification and Attestation of Medical Student E/M Service A medical student performed and documented this service in my presence. I reviewed and verified all information documented by the medical student and made modifications to such information, when appropriate. I personally performed the physical exam and medical decision making. Milla Cabrera, Jun 14, 2021,11:41 AMISH MURILLO MED STUDENT Jun 13, 2021 07:27 MILLA CABRERA DO Jun 14, 2021 11:41
[2021-06-13 07:48] LABS: BASOPHILS % (AUTO) 0 % (0-10); EOSINOPHILS # (AUTO) 0.3 10^3/uL (0.0-0.3); EOSINOPHILS % (AUTO) 3 % (0-10); HEMATOCRIT 42 % (40-54); HEMOGLOBIN 14.2 g/dL (13.3-17.7); LYMPHOCYTES # (AUTO) 1.3 10^3/uL (1.0-4.0); LYMPHOCYTES % (AUTO) 14 % (12-44); MEAN CORPUSCULAR HEMOGLOBIN 32 pg (25-34); MEAN CORPUSCULAR HGB CONC 34 g/dL (32-36); MEAN CORPUSCULAR VOLUME 93 fL (80-99); MEAN PLATELET VOLUME 10.6 fL (9.0-12.2); MONOCYTES # (AUTO) 0.9 10^3/uL (0.0-1.0); MONOCYTES % (AUTO) 10 % (0-12); NEUTROPHILS # (AUTO) 6.7 10^3/uL (1.8-7.8); NEUTROPHILS % (AUTO) 72 % (42-75); PLATELET COUNT 220 10^3/uL (130-400); WHITE BLOOD COUNT 9.2 10^3/uL (4.3-11.0)
[2021-06-13] MEDS: ASPIRIN E.C. 81 MG (ECOTRIN) TAB PO SCH (08:02)
[2021-06-13] MEDS: SENNA W/DOCUSATE (SENOKOT S) TABLET PO SCH ×2 (08:03→20:59)
[2021-06-13] MEDS: ENOXAPARIN 40 MG/0.4 ML (LOVENOX) SYR SC SCH (08:03)
[2021-06-13 08:10] LABS: ALBUMIN 3.7 GM/DL (3.2-4.5); BILIRUBIN,TOTAL 1.9 MG/DL (0.1-1.0); CALCIUM 8.9 MG/DL (8.5-10.1); CREATININE SERUM 0.85 MG/DL (0.60-1.30); POTASSIUM 3.7 MMOL/L (3.6-5.0); TOTAL PROTEIN 6.2 GM/DL (6.4-8.2)
--- NOTE | 2021-06-13 11:53 | Diagnostic Imaging Report ---
Clinical indication: Patient with left-sided weakness and facial droop. Comparison: CT angiogram of head/neck dated 06/12/2021 at 2128 hours. Exam: Real-time carotid Doppler duplex imaging is performed bilaterally. Peak systolic velocity, ICA/CCA peak systolic ratio, spectral analysis, and vascular morphology are studied. Findings: ARTERY VELOCITY Right Left CCA 0.86 m/s 0.98 m/s ICA 0.69 m/s 0.69 m/s ECA 0.73 m/s not visualized. ICA/CCA 0.8 0.7 VERT.ART Antegrade Antegrade The proximal cervical right ICA is patent. The mid and distal right ICA is not visualized. The right cervical ICA is tortuous with medialization likely limits evaluation by ultrasound. The cervical right ICA and right ECA are patent on the comparison CT angiogram. The left ECA is not visualized on this exam and cannot be evaluated by ultrasound. The left ECA was patent on the prior CT angiogram. Impression: 1: The mid and distal cervical right ICA and left ECA are not visualized on this exam and cannot be evaluated on this exam. These vessels are patent on the comparison CT angiogram. It is noted that the mid to distal cervical right ICA are tortuous and and medialized which may have limited evaluation on this exam. 2: Otherwise, there is no grayscale or Doppler evidence of significant vascular stenosis. Dictated by: Dictated on workstation # [id number]
--- NOTE | 2021-06-13 12:00 | Diagnostic Imaging Report ---
PROCEDURE: US Venous Lower Ext Jean [place]. TECHNIQUE: Multiple real-time grayscale images were obtained over the lower extremities in various projections, bilaterally. Additional duplex Doppler and color Doppler images were also obtained. INDICATION: Bilateral lower extremity pain. FINDINGS: There is no evidence of right or left lower extremity DVT. Both lower extremity deep venous systems show normal compressibility with normal response to augmentation and Valsalva. No fluid collection or mass is detected. IMPRESSION: No evidence of right or left lower extremity DVT. Dictated by: Dictated on workstation # [id number]
--- NOTE | 2021-06-13 12:46 | History & Physical ---
SYLWIA TAPIA MED STUDENT 06/13/21 1246: History of Present Illness History of Present Illness Reason for visit/HPI Harsh Capps is a 81 y.o. M with history of DM2, depression, HTN, and 2nd covid vaccination 06/10 (3 days ago) with nausea, vomiting, and left sided weakness at the arm and leg on 06/11 (2 days ago). The patient states he fell on 06/11 and was unable to get up, spending two nights on the floor. No headache, vision changes, cough, shortness of breath, calf pain, abdominal pain. No numbness, no paresthesias, no slurred speech. No current nausea or vomiting. Harsh does complain of chronic left knee pain and states he has a scheduled steroid injection with his PCP in 4 days. CTA of the head and neck in the ER indicated a focal occlusion of the A2 segment of the left JOSE GUADALUPE without parenchymal changes, not expected to produce his symptoms. The patient's CK and creatinine were elevated and he was admitted in the ICU to monitor potential rhabdomyolysis. Date of Admission Jun 12, 2021 at 23:32 I consulted on this patient on 06/13/21 12:46 Attending Physician Milla Cabrera DO Admitting Physician Shena Mckeon MD Consult Allergies and Home Medications Allergies Coded Allergies: No Known Drug Allergies (Unverified , 08/26/16) Patient Home Medication List Acetaminophen (Tylenol Extra Strength) 500 Mg Tablet, 1,000 MG PO Q8H PRN for PAIN-MILD (1-4), (Reported) Entered as Reported by: SAEED ARORA on 06/13/21 931 Last Action: Continued Amlodipine Besylate (Amlodipine Besylate) 5 Mg Tablet, 5 MG PO DAILY, (Reported) Entered as Reported by: SAEED ARORA on 06/13/211449 Last Action: Continued Ibuprofen (Ibuprofen) 200 Mg Tablet, 400-600 MG PO Q8H PRN for PAIN-MILD (1-4), (Reported) Entered as Reported by: SAEED ARORA on 06/13/211449 Last Action: Held Lisinopril (Lisinopril) 10 Mg Tablet, 10 MG PO DAILY, (Reported) Entered as Reported by: SAEED ARORA on 06/13/211449 Last Action: Continued Metformin HCl (Metformin HCl) 1,000 Mg Tablet, 1,000 MG PO BID, (Reported) Entered as Reported by: SAEED ARORA on 06/13/21 1458 Last Action: Converted Omeprazole (Omeprazole) 40 Mg Capsule.dr, 40 MG PO DAILY, (Reported) Entered as Reported by: JULIANA MADRIGAL on 10/10/191921 Last Action: Converted Quetiapine Fumarate (Quetiapine Fumarate) 25 Mg Tablet, 25 MG PO HS, (Reported) Entered as Reported by: JULIANA MADRIGAL on 10/10/191921 Last Action: Continued Tamsulosin HCl (Flomax) 0.4 Mg Cap, 0.4 MG PO HS, (Reported) Entered as Reported by: JULIANA MADRIGAL on 10/10/191921 Last Action: Continued Venlafaxine HCl (Venlafaxine HCl ER) 150 Mg Cap.er.24h, 150 MG PO DAILY, (Reported) Entered as Reported by: CLARI GUERRERO on 10/11/19 1043 Last Action: Converted Discontinued Medications Amlodipine Besylate (Norvasc) 5 Mg Tablet, 5 MG PO DAILY Discontinued Reason: Duplicate Order Prescribed by: MILLA CABRERA on 10/12/19 113 Last Action: Discontinued Lisinopril (Lisinopril) 10 Mg Tablet, 10 MG PO DAILY Discontinued Reason: New Order Prescribed by: MILLA CABRERA on 10/12/191133 Last Action: Discontinued Past Oxwbyqa-Kvvfwf-Bfjqqk Hx Patient Social History Living Status: lives alone, was independent with no assistive device for walking Employed/Student: retired Tobacco Use?: No Smoking Status: Never a Smoker Use of E-Cig and/or Vaping dev: No Substance use?: No Alcohol Use?: Yes Alcohol type: Hard Liquor, Wine Alcohol Frequency: Couple times a week Additional Alcohol Comments: one mixed drink every 1-2 weeks Pt feels they are or have been: No Immunizations Up To Date Date of Influenza Vaccine: Aug 16, 2019 First/Initial COVID19 Vaccinat: April 2021 Second COVID19 Vaccination [place]: 06/10/2021 Tetanus Booster (TDap): Unknown Hepatitis A: No Hepatitis B: No Date of Pneumonia Vaccine: Jul 07, 2016 Seasonal Allergies Seasonal Allergies: Yes (MILD) Current Status Advance Directives: Yes Communicates: Verbally Primary Language: Jamaican Preferred Spoken Language: Jamaican Is interpretation needed?: No Sensory deficits: Vision impairment Implanted or Applied Medical D: None Past Medical History Surgeries: Vasectomy Dementia Sexually Transmitted Disease: No HIV/AIDS: No Prostate Problems, Kidney Stones Gastroesophageal Reflux, Diverticulosis Chronic Back Pain Loss of Vision: Bilateral Hearing Impairment: Denies Blood Disorders: No Adverse Reaction/Blood Tranf: No (N/A) HTN, BPH Review of Systems Constitutional: No chills, No diaphoresis, No fever EENTM: No hearing loss, No double vision Respiratory: No cough, No short of breath Cardiovascular: No chest pain, No palpitations Gastrointestinal: No abdominal pain; vomiting (2 days ago; resolved) Genitourinary: No dysuria, No hematuria; other (retention; takes flomax at home) Musculoskeletal: joint pain (chronic left knee pain. Denies pain elsewhere.); No muscle pain (denies pain in the calves) Skin: No rash Psychiatric/Neurological: Depressed (takes Venlafaxine); Denies Numbness, Denies Paresthesia; Weakness (left arm, left leg, left facial droop) Physical Exam Vital Signs Vital Signs - First Documented 06/12/21 19:45 Temp 36.1 Pulse 102 Resp 19 B/P (MAP) 161/95 (117) Pulse Ox 94 O2 Delivery Room Air Capillary Refill : Height, Weight, BMI Height: 5'10.00" Weight: 252lbs. 1.0oz. 114.309417hh; 34.25 BMI Method: General Appearance: No Apparent Distress, WD/WN HEENT: PERRL/EOMI, Other (left sided facial droop.) Neck: Full Range of Motion, Normal Inspection Respiratory: Chest Non Tender, Lungs Clear, Normal Breath Sounds, No Accessory Muscle Use, No Respiratory Distress Cardiovascular: Regular Rate, Rhythm, No Edema, No Gallop, No JVD, No Murmur, Normal Peripheral Pulses Gastrointestinal: Non Tender, Soft Extremity: Normal Capillary Refill, No Pedal Edema; No Calf Tenderness; Other (left patella mild tenderness without erythema, abrasions, warmth, or swelling. Nontender distal femur, nontender tibia and fibula.) Neurologic/Psychiatric: Alert, Oriented x3, Normal Mood/Affect, Facial Droop (left), Motor Weakness (+3/5 strength with left hand flexion and extension of all digits. +3/5 left forefoot dorsiflexion and plantarflexion. 5/5 strength RUE and RLE); No Sensory Deficit Skin: Normal Color, Warm/Dry; No Diaphoresis Assessment/Plan Assessment and Plan Left sided weakness, left facial droop -CT and CTA head and neck show left JOSE GUADALUPE infarct which is not expected to be cause of the patient's symptoms -MRI scheduled today -no sensory deficits CRISTIN, immobility x2 days, concern for rhabdomyolysis -CK elevated in the 1799's. Patient is receiving IVF in the ICU. -creatinine improved to 0.85 from 1.24 yesterday. No complaint of flank pain elevated D-dimer -likely embolic stroke. COVID test pending. -US lower extremity -further workup may be warranted if MRI returns normal. DM2 -on sliding scale. States he takes metformin at home. HTN hx depression GERD hx urinary retention -resume home medications DVT/PE prophylaxis recent covid-19 vaccination nausea and vomiting -resolved 2 days ago, well prior to hospital admission. MILLA CABRERA DO 06/14/21 1211: History of Present Illness History of Present Illness Reason for visit/HPI Chief complaint: CVA History of present illness: This is a 81-year-old white male history of dementia who was found down at home for 2 days and brought to the ER found to have a CVA with left-sided weakness with left facial droop. He was not a TPA candidate. Currently we are waiting for bed on fourth floor and MRI will be ordered and he is a PUI for Covid swab. Cardiology has been consulted too. Time Seen by a Provider: 11:00 Allergies and Home Medications Allergies Coded Allergies: No Known Drug Allergies (Unverified , 08/26/16) Patient Home Medication List Home Medication List Reviewed: Yes Acetaminophen (Tylenol Extra Strength) 500 Mg Tablet, 1,000 MG PO Q8H PRN for PAIN-MILD (1-4), (Reported) Entered as Reported by: SAEED ARORA on 06/13/21 8056 Last Action: Continued Amlodipine Besylate (Amlodipine Besylate) 5 Mg Tablet, 5 MG PO DAILY, (Reported) Entered as Reported by: SAEED ARORA on 06/13/21 0040 Last Action: Continued Ibuprofen (Ibuprofen) 200 Mg Tablet, 400-600 MG PO Q8H PRN for PAIN-MILD (1-4), (Reported) Entered as Reported by: SAEED ARORA on 06/13/211449 Last Action: Held Lisinopril (Lisinopril) 10 Mg Tablet, 10 MG PO DAILY, (Reported) Entered as Reported by: SAEED ARORA on 06/13/211449 Last Action: Continued Metformin HCl (Metformin HCl) 1,000 Mg Tablet, 1,000 MG PO BID, (Reported) Entered as Reported by: SAEED ARORA on 06/13/211457 Last Action: Converted Omeprazole (Omeprazole) 40 Mg Capsule.dr, 40 MG PO DAILY, (Reported) Entered as Reported by: JULIANA MADRIGAL on 10/10/191921 Last Action: Converted Quetiapine Fumarate (Quetiapine Fumarate) 25 Mg Tablet, 25 MG PO HS, (Reported) Entered as Reported by: JULIANA MADRIGAL on 10/10/191921 Last Action: Continued Tamsulosin HCl (Flomax) 0.4 Mg Cap, 0.4 MG PO HS, (Reported) Entered as Reported by: JULIANA MADRIGAL on 10/10/191921 Last Action: Continued Venlafaxine HCl (Venlafaxine HCl ER) 150 Mg Cap.er.24h, 150 MG PO DAILY, (Reported) Entered as Reported by: CLARI GUERRERO on 10/11/19 1043 Last Action: Converted Discontinued Medications Amlodipine Besylate (Norvasc) 5 Mg Tablet, 5 MG PO DAILY Discontinued Reason: Duplicate Order Prescribed by: MILLA CABRERA on 10/12/19 113 Last Action: Discontinued Lisinopril (Lisinopril) 10 Mg Tablet, 10 MG PO DAILY Discontinued Reason: New Order Prescribed by: MILLA CABRERA on 10/12/19 113 Last Action: Discontinued Past Hhxyava-Lehixf-Mnyuwl Hx Patient Social History Marrital Status: single Employed/Student: retired Smoking Status: Unknown if Ever Smoked Past Medical History Sleep Apnea High Cholesterol, Hypertension Stroke (06/12/21) Diabetes, Non-Insulin dep Review of Systems Constitutional: see HPI, malaise, weakness EENTM: no symptoms reported Respiratory: no symptoms reported Cardiovascular: no symptoms reported Gastrointestinal: no symptoms reported Genitourinary: no symptoms reported Skin: no symptoms reported Psychiatric/Neurological: Depressed (takes Venlafaxine), Weakness (left arm, left leg, left facial droop) Physical Exam General Appearance: WD/WN, Chronically ill Eyes: Bilateral Eye Normal Inspection, Bilateral Eye PERRL, Bilateral Eye EOMI HEENT: PERRL/EOMI, Normal ENT Inspection, Pharynx Normal Neck: Full Range of Motion, Normal Inspection, Non Tender, Supple, Carotid Bruit Respiratory: Chest Non Tender, Lungs Clear, Normal Breath Sounds, No Accessory Muscle Use, No Respiratory Distress Cardiovascular: Regular Rate, Rhythm, No Edema, No Gallop, No JVD, No Murmur, Normal Peripheral Pulses Gastrointestinal: Normal Bowel Sounds, No Organomegaly, No Pulsatile Mass, Non Tender, Soft Back: Normal Inspection, No CVA Tenderness, No Vertebral Tenderness Extremity: Normal Capillary Refill, Normal Inspection, Normal Range of Motion, Non Tender, No Calf Tenderness, No Pedal Edema Neurologic/Psychiatric: Alert, Oriented x3, Normal Mood/Affect, 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 +3/5 left forefoot dorsiflexion and plantarflexion. 5/5 strength RUE and RLE) Skin: Normal Color, Warm/Dry Lymphatic: No Adenopathy Assessment/Plan Assessment and Plan Assessment: CVA with left-sided weakness and left facial droop Dementia Found down at home for 2 days Plan: Restart home meds MRI Covid swab pending Problems: (1) Cerebrovascular accident due to cerebral artery occlusion Status: Acute Admission Diagnosis Admission Status: Inpatient Order (span 2 midnights) Reason for Inpatient Admission: CVA Supervisory-Addendum Brief Verification & Attestation Participated in pt care: history, MDM, physical Personally performed: exam, history, MDM, supervision of care Care discussed with: Medical Student Procedures: n/a Results interpretation: Verified all documentation Verification and Attestation of Medical Student E/M Service A medical student performed and documented this service in my presence. I reviewed and verified all information documented by the medical student and made modifications to such information, when appropriate. I personally performed the physical exam and medical decision making. Milla Cabrera, Jun 14, 2021,12:11 SYLWIA TAPIA MED STUDENT Jun 13, 2021 12:46 MILLA CABRERA DO Jun 14, 2021 12:11
--- NOTE | 2021-06-13 13:10 | Consultation-Cardiology ---
HPI-Cardiology Cardiology Consultation Date of Consultation 06/13/21 Date of Admission Time Seen by Provider: 13:04 Indication: Acute CVA HPI 81 years old gentleman with history of hypertension, diabetes mellitus and depression, patient received his second COVID-19 Vaccine on June 10, 2021, had generalized weakness, progressed to the point that he was unable to move his left side of the body. Came into the emergency room with right hemiplegia, facial droop. Work-up showed focal occlusion of the left JOSE GUADALUPE without parenchymal changes. On my evaluation patient reported feeling weak, significant weakness on the left side, able to move his left arm with difficulties. No chest pain. No palpitation. Home Medications & Allergies Allergies: Coded Allergies: No Known Drug Allergies (Unverified , 08/26/16) Home Medication List Reviewed: Yes Discussed below ZNI-Jftthd-Sndiow Hx Patient Social History Employed/Student: retired Smoking Status: Never a Smoker Recent Hopitalizations: No Have you traveled recently?: No Alcohol Use?: Yes Immunizations Up To Date Date of Pneumonia Vaccine: Jul 07, 2016 Date of Influenza Vaccine: Aug 16, 2019 Past Medical History Discussed with Family Medical History Family Medical Hx Noncontributory Review of Systems-General Review of Systems Constitutional: see HPI; No chills, No fever; malaise, weakness EENTM: see HPI, no symptoms reported Respiratory: no symptoms reported; No cough; dyspnea on exertion; No short of breath Cardiovascular: see HPI; No chest pain; edema; No palpitations Gastrointestinal: no symptoms reported, see HPI; No abdominal pain, No nausea, No vomiting Genitourinary: no symptoms reported Musculoskeletal: see HPI Skin: no symptoms reported Psychiatric/Neurological: No Symptoms Reported, See HPI Reviewed Test Results Reviewed Test Results Lab Laboratory Tests Test 06/12/21 19:57 06/12/21 20:32 06/12/21 20:40 06/12/21 23:51 Range/Units White Blood Count 12.2 H 4.3-11.0 10^3/uL Red Blood Count 4.63 4.30-5.52 10^6/uL Hemoglobin 14.5 13.3-17.7 g/dL Hematocrit 42 40-54 % Mean Corpuscular Volume 90 80-99 fL Mean Corpuscular Hemoglobin 31 25-34 pg Mean Corpuscular Hemoglobin Concent 35 32-36 g/dL Red Cell Distribution Width 13.0 10.0-14.5 % Platelet Count 264 130-400 10^3/uL Mean Platelet Volume 10.7 9.0-12.2 fL Immature Granulocyte % (Auto) 1 % Neutrophils (%) (Auto) 82 H 42-75 % Lymphocytes (%) (Auto) 10 L 12-44 % Monocytes (%) (Auto) 7 0-12 % Eosinophils (%) (Auto) 0 0-10 % Basophils (%) (Auto) 0 0-10 % Neutrophils # (Auto) 10.0 H 1.8-7.8 X 10^3 Lymphocytes # (Auto) 1.2 1.0-4.0 X 10^3 Monocytes # (Auto) 0.9 0.0-1.0 X 10^3 Eosinophils # (Auto) 0.0 0.0-0.3 10^3/uL Basophils # (Auto) 0.0 0.0-0.1 10^3/uL Immature Granulocyte # (Auto) 0.1 0.0-0.1 10^3/uL Prothrombin Time 14.0 12.2-14.7 SEC INR Comment 1.1 0.8-1.4 Activated Partial Thromboplast Time 27 24-35 SEC D-Dimer 3.79 H 0.00-0.49 UG/ML Sodium Level 137 135-145 MMOL/L Potassium Level 4.3 3.6-5.0 MMOL/L Chloride Level 99 98-107 MMOL/L Carbon Dioxide Level 22 21-32 MMOL/L Anion Gap 16 H 5-14 MMOL/L Blood Urea Nitrogen 36 H 7-18 MG/DL Creatinine 1.24 0.60-1.30 MG/DL Estimat Glomerular Filtration Rate 56 BUN/Creatinine Ratio 29 Glucose Level 230 H 70-105 MG/DL Calcium Level 9.0 8.5-10.1 MG/DL Corrected Calcium 8.9 8.5-10.1 MG/DL Total Bilirubin 1.2 H 0.1-1.0 MG/DL Aspartate Amino Transf (AST/SGOT) 42 H 5-34 U/L Alanine Aminotransferase (ALT/SGPT) 19 0-55 U/L Alkaline Phosphatase 96 40-136 U/L Troponin I < 0.30 <0.30 NG/ML Total Protein 7.1 6.4-8.2 GM/DL Albumin 4.1 3.2-4.5 GM/DL Glucometer 192 H 70-110 MG/DL Urine Color YELLOW Urine Clarity CLEAR Urine pH 5.5 5-9 Urine Specific [place] >=1.030 1.016-1.022 Urine Protein NEGATIVE NEGATIVE Urine Glucose (UA) 2+ H NEGATIVE Urine Ketones 1+ H NEGATIVE Urine Nitrite NEGATIVE NEGATIVE Urine Bilirubin NEGATIVE NEGATIVE Urine Urobilinogen 0.2 < = 1.0 MG/DL Urine Leukocyte Esterase NEGATIVE NEGATIVE Urine RBC (Auto) 1+ H NEGATIVE Urine RBC 2-5 H /HPF Urine WBC 2-5 /HPF Urine Squamous Epithelial Cells 0-2 /HPF Urine Crystals NONE /LPF Urine Bacteria TRACE /HPF Urine Casts PRESENT /LPF Urine Hyaline Casts 25-50 H /LPF Urine Mucus MODERATE H /LPF Urine Culture Indicated NO Lactic Acid Level 1.69 0.50-2.00 MMOL/L Total Creatine Kinase 1839 H 30-200 U/L Triglycerides Level 137 <150 MG/DL Cholesterol Level 152 < 200 MG/DL LDL Cholesterol Direct 121 1-129 MG/DL VLDL Cholesterol 27 5-40 MG/DL HDL Cholesterol 33 L 40-60 MG/DL Test 06/13/21 00:40 06/13/21 07:40 06/13/21 11:13 Range/Units White Blood Count 9.2 4.3-11.0 10^3/uL Red Blood Count 4.49 4.30-5.52 10^6/uL Hemoglobin 14.2 13.3-17.7 g/dL Hematocrit 42 40-54 % Mean Corpuscular Volume 93 80-99 fL Mean Corpuscular Hemoglobin 32 25-34 pg Mean Corpuscular Hemoglobin Concent 34 32-36 g/dL Red Cell Distribution Width 12.9 10.0-14.5 % Platelet Count 220 130-400 10^3/uL Mean Platelet Volume 10.6 9.0-12.2 fL Immature Granulocyte % (Auto) 1 % Neutrophils (%) (Auto) 72 42-75 % Lymphocytes (%) (Auto) 14 12-44 % Monocytes (%) (Auto) 10 0-12 % Eosinophils (%) (Auto) 3 0-10 % Basophils (%) (Auto) 0 0-10 % Neutrophils # (Auto) 6.7 1.8-7.8 10^3/uL Lymphocytes # (Auto) 1.3 1.0-4.0 10^3/uL Monocytes # (Auto) 0.9 0.0-1.0 10^3/uL Eosinophils # (Auto) 0.3 0.0-0.3 10^3/uL Basophils # (Auto) 0.0 0.0-0.1 10^3/uL Immature Granulocyte # (Auto) 0.1 0.0-0.1 10^3/uL Sodium Level 139 135-145 MMOL/L Potassium Level 3.7 3.6-5.0 MMOL/L Chloride Level 103 98-107 MMOL/L Carbon Dioxide Level 25 21-32 MMOL/L Anion Gap 11 5-14 MMOL/L Blood Urea Nitrogen 26 H 7-18 MG/DL Creatinine 0.85 0.60-1.30 MG/DL Estimat Glomerular Filtration Rate 87 BUN/Creatinine Ratio 31 Glucose Level 156 H 70-105 MG/DL Calcium Level 8.9 8.5-10.1 MG/DL Corrected Calcium 9.1 8.5-10.1 MG/DL Total Bilirubin 1.9 H 0.1-1.0 MG/DL Aspartate Amino Transf (AST/SGOT) 38 H 5-34 U/L Alanine Aminotransferase (ALT/SGPT) 21 0-55 U/L Alkaline Phosphatase 78 40-136 U/L Total Protein 6.2 L 6.4-8.2 GM/DL Albumin 3.7 3.2-4.5 GM/DL Glucometer 152 H 70-110 MG/DL Physical Exam Physical Exam Vital Signs Vital Signs - First Documented 06/12/21 19:45 Temp 36.1 Pulse 102 Resp 19 B/P (MAP) 161/95 (117) Pulse Ox 94 O2 Delivery Room Air Capillary Refill : Height, Weight, BMI Height: 5'10.00" Weight: 252lbs. 1.0oz. 114.694294pn; 34.25 BMI Method: General Appearance: No Apparent Distress Eyes: Bilateral Eye Normal Inspection, Bilateral Eye PERRL, Bilateral Eye EOMI HEENT: PERRL/EOMI, TMs Normal, Normal ENT Inspection, Pharynx Normal, Moist Mucous Membranes Neck: Full Range of Motion, Normal Inspection, Non Tender, Supple, Carotid Bruit Respiratory: Chest Non Tender, Normal Breath Sounds, No Accessory Muscle Use, No Respiratory Distress Cardiovascular: Regular Rate, Rhythm, No Gallop, No JVD, No Murmur, Normal Peripheral Pulses Gastrointestinal: Normal Bowel Sounds, No Organomegaly, No Pulsatile Mass, Non Tender, Soft Back: Normal Inspection, No CVA Tenderness Extremity: Normal Capillary Refill, Normal Inspection, Normal Range of Motion, Non Tender, No Calf Tenderness, Pedal Edema (Mild pedal) Neurologic/Psychiatric: Alert, Oriented x3, Normal Mood/Affect, Other (Left- sided weakness) Skin: Normal Color, Warm/Dry Lymphatic: No Adenopathy A/P-Cardiology Admission Diagnosis CVA Hypertension Hyperlipidemia Assessment/Plan Left side weakness, probably CVA, CT of the head showed microvascular changes, CTA suggested occlusion of a 2 level and JOSE GUADALUPE on the left which does not correlate with his physical findings, scheduled for brain MRI. Managed by primary team Elevated D-dimer, venous Doppler was negative. Maintained on Lovenox. Monitor Hypotension, monitor blood pressure Vascular dementia, had generalized weakness in the past. History of diverticulosis, BPH. Status post COVID-19 vaccination done on June 10, 2021 triggered general ized weakness, Patient was found on the floor by his neighbor MICHELLE HOUGH MD Jun 13, 2021 13:10
[2021-06-13] MEDS: ACETAMINOPHEN 325 MG TABLET PO PRN (14:18)
[2021-06-13] MEDS ORDERED: LISI10TA25 PO (14:50)
[2021-06-13] MEDS ORDERED: IBUP-2473 PO (14:50)
[2021-06-13] MEDS ORDERED: AMLO-250 PO (14:50)
[2021-06-13] MEDS ORDERED: ACET-2267 PO (14:56)
[2021-06-13] MEDS ORDERED: METF-399 PO (14:58)
--- NOTE | 2021-06-13 15:11 | Occupational Therapy Eval ---
OT Evaluation-General/PLF Medical Diagnosis Admission Date Jun 12, 2021 at 23:32 Medical Diagnosis: Ischemic CVA Onset Date: Jun 10, 2021 Therapy Diagnosis Therapy Diagnosis: Impaired ADLs, Iadls, endurance, balance, ROM, strength, coordination, Height/Weight Height (Feet): 5 Height (Inches): 10.00 Weight (Pounds): 252 Weight (Ounces): 1.0 Precautions Precautions/Isolations: Airborne Isolation, Contact Isolation, Droplet Isolation Comments PUI precutions Medical History Pertinent Medical History: DM, HTN Additional Medical History chronic L knee pain Reviewed History: Yes Social History Home: Single Level Current Living Status: Alone Entry Into Home: Level Entry Pt presented to ER with Left sided weakness and slurred speech. Per patient, he received his 2nd Covid 19 vaccine on Jun 10 and shortly after had generalized weakness where it progressed to the point that he was unable to move his left side. He fell due to weakness and laid on the floor for 2 nights. He was found by neighbor. CTA reveals occlusion of a 2 level and Left JOSE GUADALUPE infarct which does not correlate with physical findings. Pt is scheduled for brain MRI. He reports he was indep with adls and iadls prior to admission yet reports that he has been having increased difficulty with managing home, laundry and grocery shopping. He still drives and was not using any AD P[employer]. He has a tub/shower combo where he stood to bathe. ADL-Prior Level of Function SCALE: Activities may be completed with or without assistive devices. 0-Ykuroerari-ludcrdf completes the activity by him/herself with no assistance from a helper. 5-Set-up or Clean-up Assistance-helper sets up or cleans up; patient completes activity. [place] assists only prior to or following the activity. 4-Supervision or Touching Assistance-helper provides verbal cues and/or touching/steadying and/or contact guard assistance as patient completes activity. Assistance may be provided throughout the activity or intermittently. 3-Partial/Moderate Assistance-helper does LESS THAN HALF the effort. [place] lifts, holds or supports trunk or limbs, but provides less than half the effort. 2-Substantial/Maximal Assistance-helper does MORE THAN HALF the effort. [place] lifts or holds trunk or limbs and provides more than half the effort. 5-[place]-tqiqrw does ALL the effort. Patient does none of the effort to complete the activity. Or, the assistance of 2 or more helpers is required for the patient to complete the activity. If activity was not attempted, code reason: 7-Patient Refused. 9-Not Applicable-not attempted and the patient did not perform the activity before the current illness, exacerbation or injury. 10-Not Attempted due to Environmental Limitations-(lack of equipment, weather restraints, etc.). 88-Not Attempted due to Medical Conditions or Safety Concerns. Self Care: Independent Functional Cognition: Independent Drive Self: Yes OT Current Status Subjective Pt denies pain, agreeable to eval. Appearance sitting in chair, all needs within reach, rn notified at OT departure. Mental Status/Objective Patient Orientation: Person, Situation Pt presents with L sided facial droop. Able to follow simple commands. Poor problem solving/safety Current Glasses/Contacts: Yes Hand Dominance: Right Upper Extremity ROM Impaired LUE. Minimal voluntary movement. PROM to 90 degrees, no pain. Scapular asymmetry noted sitting EOB. Upper Extremity Coordination Impaired Upper Extremity Sensation Not tested Upper Extremity Strength Impaired LUE. 2/5 ADL-Treatment Shower/Bathe Self (QC): 1 Lower Body Dressing (QC): 1 On/Off Footwear (QC): 1 Toileting Hygiene (QC): 1 Pt supine at therapist arrival. Max a to sit EOB. Retropulsive in sitting and requires frequent cues and initial min-mod a to maintain upright posture. Once feet supported on floor, pt able to maintain balance with SBA and UE support on bedrail. Stand pivot to recliner (placed to R): max a. Assist to position hand and sequence correct direction of transfer. 2nd person sba for safety. Dep to don sameer socks. At this time pt would require assist of 2nd person for clothing management and lm care. Pt would also require assist with bilateral tasks such as cutting foods or set up of oral care Education OT Patient Education: Correct positioning, Progress toward Goal/Update tx plan, Purpose of tx/functional activities, Reviewed precautions, Rehab process, Safety issues, Transfer techniques Teaching Recipient: Patient Teaching Methods: Demonstration, Discussion Response to Teaching: Reinforcement Needed OT Detention Goals Impress Associate Goals Time Frame: Jun 28, 2021 Oral Hygiene (QC): 3 Toileting Hygiene (QC): 3 Upper Body Dressing (QC): 3 Lower Body Dressing (QC): 3 On/Off Footwear (QC): 3 1=Demonstrate adherence to instructed precautions during ADL tasks. 2=Patient will verbalize/demonstrate understanding of assistive devices/modifications for ADL. 3=Patient will improve strength/tolerance for activity to enable patient to perform ADL's. OT Education/Plan Problem List/Assessment Assessment: Decreased Activ Tolerance, Decreased Safety Aware, Decreased UE Strength, Dependent Transfers, Impaired Bed Mobility, Impaired Cognition, Impaired Coordination, Impaired Funct Balance, Impaired I ADL's, Impaired Self- Care Skills, Restricted Funct UE ROM Discharge Recommendations Plan/Recommendations: Continue POC Therapy Discharge Recommendati: Post Acute OT Treatment Plan/Plan of Care Treatment,Training & Education: Yes Patient would benefit from OT for education, treatment and training to promote independence in ADL's, mobility, safety and/or upper extremity function for ADL's. Plan of Care: ADL Retraining, Cognitive Retraining, Functional Mobility, UE Funct Exercise/Act, UE Neuromus Re-Ed/Coord Treatment Duration: Jun 28, 2021 Frequency: 5 times per week Estimated Hrs Per Day: .25 hour per day Agreement: Yes Rehab Potential: Fair Time/GCodes Start Time: 14:40 Stop Time: 15:00 Total Time Billed (hr/min): 20 Billed Treatment Time 1 visit, Genia Orellana OT Jun 13, 2021 15:11
--- NOTE | 2021-06-13 15:12 | Physical Therapy Evaluation ---
PT Evaluation-General Medical Diagnosis Admission Date Jun 12, 2021 at 23:32 Medical Diagnosis: left sided weakness Onset Date: Jun 12, 2021 Therapy Diagnosis Therapy Diagnosis: impaired mobility, strength, endurance, balance Height/Weight Height (Feet): 5 Height (Inches): 10.00 Weight (Pounds): 252 Weight (Ounces): 1.0 Precautions Precautions/Isolations: Contact Isolation, Droplet Isolation Referral Physician: Milla Diaz DO Reason for Referral: Evaluation/Treatment Medical History Pertinent Medical History: DM, HTN Additional Medical History Past Medical History Surgeries: Vasectomy Dementia Sexually Transmitted Disease: No HIV/AIDS: No Prostate Problems, Kidney Stones Gastroesophageal Reflux, Diverticulosis Chronic Back Pain Loss of Vision: Bilateral Reviewed History: Yes Social History Home: Single Level Current Living Status: Alone Entry Into Home: Level Entry Prior Prior Level of Function SCALE: Activities may be completed with or without assistive devices. 6-Miamlsetdq-yligagk completes the activity by him/herself with no assistance from a helper. 5-Set-up or Clean-up Assistance-helper sets up or cleans up; patient completes activity. [place] assists only prior to or following the activity. 4-Supervision or Touching Assistance-helper provides verbal cues and/or touching/steadying and/or contact guard assistance as patient completes activity. Assistance may be provided throughout the activity or intermittently. 3-Partial/Moderate Assistance-helper does LESS THAN HALF the effort. [place] lifts, holds or supports trunk or limbs, but provides less than half the effort. 2-Substantial/Maximal Assistance-helper does MORE THAN HALF the effort. [place] lifts or holds trunk or limbs and provides more than half the effort. 7-Xriqzulpq-xlobrg does ALL the effort. Patient does none of the effort to complete the activity. Or, the assistance of 2 or more helpers is required for the patient to complete the activity. If activity was not attempted, code reason: 7-Patient Refused. 9-Not Applicable-not attempted and the patient did not perform the activity before the current illness, exacerbation or injury. 10-Not Attempted due to Environmental Limitations-(lack of equipment, weather restraints, etc.). 88-Not Attempted due to Medical Conditions or Safety Concerns. Bed Mobility: 6 Transfers (B,C,W/C): 6 Gait: 6 Stairs: 6 Indoor Mobility (Ambulation): Independent Stairs: Independent PT Evaluation-Current Subjective Patient in bed pre tx, agrees to PT, has minor arthritis pain in right knee Pt/Family Goals "to be able to move around better" Objective Patient Orientation: Person, Place, Situation ROM/Strength ROM Lower Extremities WNL Strength Lower Extremities LLE (hip flexion 1/5, knee flexion 1/5, knee extension 2/5, dorsiflexion 2/5), RLE (hip flexion 4/5, knee flexion 5/5, knee extension 5/5, dorsiflexion 5/5) Neuromuscular (Tone, Coordination, Reflexes) intact peripheral vision and tracking Sensory Hearing: Functional Sensation Right Lower Extremit: Intact Sensation Left Lower Extremity: Impaired Transfers Roll Left to Right (QC): 2 Lying to Sitting/Side of Bed(Q: 2 Sit to Stand (QC): 3 Chair/Dax-im-Cuwre Xfer(QC): 3 Max assist for supine to sit, mod assist for sit to stand and stand pivot transfer to the right side, into recliner. Patient is retropulsive with sitting and standing, he cannot take any steps at this time. Balance Sitting Static: Poor Sitting Dynamic: Poor Standing Static: Poor Standing Dynamic: Poor Assessment/Needs Patient has impaired mobility, strength, endurance, balance. Patient in recliner post tx nurse call, phone, tray, all needs met. Patient doesn't have dizziness but has poor balance and is retropulsive with sitting and standing. Rehab Potential: Fair PT Detention Goals Health Social Work Professor Goals PT Detention Goals Time Frame: Jun 20, 2021 Roll Left & Right (QC): 3 Sit to Lying (QC): 3 Lying-Sitting on Side/Bed(QC): 3 Sit to Stand (QC): 3 Chair/Oju-gd-Gzcax Xfer(QC): 3 Walk 10 feet (QC): 3 PT Plan Problem List Problem List: Activity Tolerance, Functional Strength, Safety, Balance, Gait, Transfer, Bed Mobility, ROM Treatment/Plan Treatment Plan: Continue Plan of Care Treatment Plan: Bed Mobility, Education, Functional Activity Gwendolyn, Functional Strength, Gait, Safety, Therapeutic Exercise, Transfers Treatment Duration: Jun 20, 2021 Frequency: 6 times per week Estimated Hrs Per Day: .25 hour per day Patient and/or Family Agrees t: Yes Safety Risks/Education Patient Education: Transfer Techniques, Correct Positioning, Safety Issues Teaching Recipient: Patient Teaching Methods: Demonstration, Discussion Response to Teaching: Reinforcement Needed Discharge Recommendations Plan Patient will perform bed mobility and transfer training, balance and endurance training, functional strengthening, gait training, and education, to improve functional mobility and independence at home. Therapy Discharge Recommendati: 24 Hour Supervision Time/GCodes Time In: 1440 Time Out: 1500 Total Billed Treatment Time: 20 Total Billed Treatment 1 visit JANELL 20' JASVIR ALVES PT Jun 13, 2021 15:12
[2021-06-13 15:33] LABS: CREATINE KINASE 1909 U/L (30-200)
[2021-06-13] MEDS: inSUlin ASPART (NovoLOG) 1 UNIT/0.01 ML (CHARGE PER UNIT) SC SCH ×2 (15:49→20:48)
[2021-06-14] VITALS (7 sets, daily range): BP systolic 162–202; BP diastolic 91–104
[2021-06-14] MEDS: MELATONIN 3 MG TABLET PO PRN ×2 (01:02→21:08)
[2021-06-14] MEDS: ACETAMINOPHEN 325 MG TABLET PO PRN (01:02)
[2021-06-14] MEDS: inSUlin ASPART (NovoLOG) 1 UNIT/0.01 ML (CHARGE PER UNIT) SC SCH ×4 (05:24→21:09)
[2021-06-14] MEDS: CATHETER FLUSH 10 ML SYR IV SCH ×3 (05:24→21:10)
[2021-06-14] MEDS: ENOXAPARIN 40 MG/0.4 ML (LOVENOX) SYR SC SCH (08:46)
[2021-06-14] MEDS: ASPIRIN E.C. 81 MG (ECOTRIN) TAB PO SCH (08:46)
[2021-06-14] MEDS: SENNA W/DOCUSATE (SENOKOT S) TABLET PO SCH ×2 (08:46→20:00)
--- NOTE | 2021-06-14 10:32 | Progress Note ---
Subjective Date Seen by a Provider: Jun 14, 2021 Time Seen by a Provider: 12:30 Subjective/Events-last exam Patient doing well No pain reported except chronic left leg pain prior issues and was to have knee injection by Dr Mckeon Thursday for that MRI impression: 1. Acute/subacute infarct, right paramidline yolanda. 2. Extensive periventricular and subcortical white matter signal foci consistent with chronic microvascular ischemia. No acute intracranial hemorrhage is detected. No dysphagia PT OT working with him Dementia issues have cleared a bit from yesterday IRF consult Review of Systems General: Fatigue, Malaise Neurological: Weakness, Incoordination, Confusion Focused Exam Lactate Level 06/12/21 23:51: Lactic Acid Level 1.69 Objective Exam Last Set of Vital Signs Vital Signs Date Time Temp Pulse Resp B/P (MAP) Pulse Ox O2 Delivery O2 Flow Rate FiO2 06/14/21 09:00 Room Air 06/14/21 08:00 35.9 59 20 198/95 (129) 95 Capillary Refill : I&O Intake and Output 06/14/21 00:00 Intake Total 1565 ml Output Total 275 ml Balance 1290 ml Intake Oral 565 ml IV Total 1000 ml Output Urine Total 275 ml # Voids 2 # Urine Diapers 4 General: Alert, Oriented X3, Cooperative, No Acute Distress Lungs: Clear to Auscultation Heart: Regular Rate Neuro: Other (left sided weakness 3/5) Psych/Mental Status: Mental Status NL, Mood NL Results Lab Laboratory Tests 06/13/21 11:13: Glucometer 152H 06/13/21 16:09: Glucometer 194H 06/13/21 20:41: Glucometer 166H 06/14/21 04:58: Glucometer 168H Assessment/Plan Assessment/Plan Assess & Plan/Chief Complaint Assessment: Subacute CVA with residual left sided weakness and left facial droop not a tPA candidate since found down at home 2 days after fall and unknown last well time DM HTN HLP Dementia mild Left knee pain chronic Dry eyes Plan: Statin ASA Home meds PT OT IRF CIRO CABRERA DO Jun 14, 2021 10:31
[2021-06-14] MEDS: ALPRAZolam 0.25 MG (XANAX) TAB PO PRN (11:20)
[2021-06-14] MEDS ORDERED: ACETAMINOPHEN 500 MG TAB (TYLENOL) PO PRN (12:15)
--- NOTE | 2021-06-14 12:28 | Diagnostic Imaging Report ---
PROCEDURE: MR imaging of the brain without contrast. TECHNIQUE: Multiplanar, multisequence MR imaging of the brain was performed without contrast. INDICATION: Left-sided weakness. Diffusion-weighted images demonstrate area of diffusion restriction in the right para-midline location of the yolanda consistent with acute/subacute infarct. No other regions of diffusion restriction are identified. The normal expected flow-voids within the carotid siphons are identified. Patient does have extensive periventricular and subcortical white matter disease consistent with chronic microvascular ischemia. There is no midline shift. No acute intra-axial or extra-axial hemorrhage is identified. The corpus callosum is unremarkable. The sella and parasellar structures are unremarkable. IMPRESSION: 1. Acute/subacute infarct, right paramidline yolanda. 2. Extensive periventricular and subcortical white matter signal foci consistent with chronic microvascular ischemia. No acute intracranial hemorrhage is detected. Dictated by: Dictated on workstation # [id number]
--- NOTE | 2021-06-14 13:24 | Physical Therapy Daily Note ---
PT Daily Note-Current Subjective Patient in recliner pre tx, agrees to PT, has no complaints of pain. Appearance Patient in recliner post tx with nurse call, phone, tray, all needs met. Mental Status Patient Orientation: Person, Place, Situation Transfers SCALE: Activities may be completed with or without assistive devices. 9-Kxruymmtta-kdminld completes the activity by him/herself with no assistance from a helper. 5-Set-up or Clean-up Assistance-helper sets up or cleans up; patient completes activity. [place] assists only prior to or following the activity. 4-Supervision or Touching Assistance-helper provides verbal cues and/or gayle josy/steadying and/or contact guard assistance as patient completes activity. Assistance may be provided throughout the activity or intermittently. 3-Partial/Moderate Assistance-helper does LESS THAN HALF the effort. [place] lifts, holds or supports trunk or limbs, but provides less than half the effort. 2-Substantial/Maximal Assistance-helper does MORE THAN HALF the effort. [place] lifts or holds trunk or limbs and provides more than half the effort. 1-Xifhdtgyf-divdpm does ALL the effort. Patient does none of the effort to complete the activity. Or, the assistance of 2 or more helpers is required for the patient to complete the activity. If activity was not attempted, code reason: 7-Patient Refused. 9-Not Applicable-not attempted and the patient did not perform the activity before the current illness, exacerbation or injury. 10-Not Attempted due to Environmental Limitations-(lack of equipment, weather restraints, etc.). 88-Not Attempted due to Medical Conditions or Safety Concerns. Sit to Stand (QC): 3 Chair/Xht-wr-Vzlwh Xfer(QC): 3 mod assist for sit to stand and transfers, leans to the left side Gait Training Distance: 30' Walk 10 feet (QC): 3 Gait Persons Needed: 1 Gait Assistive Device: FWW mod assist to help with balance and patient needs assist guiding walker, leans to the left, unsteady, decreased stepthrough on left side Treatments gait training Assessment Current Status: Fair Progress mod assist for transfers and ambulation PT Telegraphic Typewriter Operator Goals Retirement Goals PT Telegraphic Typewriter Operator Goals Time Frame: Jun 20, 2021 Roll Left & Right (QC): 3 Sit to Lying (QC): 3 Lying-Sitting on Side/Bed(QC): 3 Sit to Stand (QC): 3 Chair/Sec-ow-Kavcf Xfer(QC): 3 Walk 10 feet (QC): 3 PT Plan Problem List Problem List: Activity Tolerance, Functional Strength, Safety, Balance, Gait, Transfer, Bed Mobility, ROM Treatment/Plan Treatment Plan: Continue Plan of Care Treatment Plan: Bed Mobility, Education, Functional Activity Gwendolyn, Functional Strength, Gait, Safety, Therapeutic Exercise, Transfers Treatment Duration: Jun 20, 2021 Frequency: 6 times per week Estimated Hrs Per Day: .25 hour per day Patient and/or Family Agrees t: Yes Safety Risks/Education Patient Education: Gait Training, Transfer Techniques, Correct Positioning, Safety Issues Teaching Recipient: Patient Teaching Methods: Demonstration, Discussion Response to Teaching: Reinforcement Needed Time/GCodes Time In: 1305 Time Out: 1317 Total Billed Treatment Time: 12 Total Billed Treatment 1 visit GT 12' JASVIR ALVES PT Jun 14, 2021 13:24
--- NOTE | 2021-06-14 13:48 | Occupational Ther Daily Note ---
OT Current Status-Daily Note Subjective Pt denies any pain, requests to use toilet for BM. Appearance Pt left sitting in recliner, all needs within reach at OT departure. ADL-Treatment Therapy Code Descriptions/Definitions Functional [place] Measure: 0=Not Assessed/NA 4=Minimal Assistance 1=Total Assistance 5=Supervision or Setup 2=Maximal Assistance 6=Modified [place] 3=Moderate Assistance 7=Complete IndependenceSCALE: Activities may be completed with or without assistive devices. 7-Pzxnrnbual-qlettdi completes the activity by him/herself with no assistance from a helper. 5-Set-up or Clean-up Assistance-helper sets up or cleans up; patient completes activity. [place] assists only prior to or following the activity. 4-Supervision or Touching Assistance-helper provides verbal cues and/or touching/steadying and/or contact guard assistance as patient completes activity. Assistance may be provided throughout the activity or intermittently. 3-Partial/Moderate Assistance-helper does LESS THAN HALF the effort. [place] lifts, holds or supports trunk or limbs, but provides less than half the effort. 2-Substantial/Maximal Assistance-helper does MORE THAN HALF the effort. [place] lifts or holds trunk or limbs and provides more than half the effort. 8-Eyafuptrx-yfaoej does ALL the effort. Patient does none of the effort to complete the activity. Or, the assistance of 2 or more helpers is required for the patient to complete the activity. If activity was not attempted, code reason: 7-Patient Refused. 9-Not Applicable-not attempted and the patient did not perform the activity before the current illness, exacerbation or injury. 10-Not Attempted due to Environmental Limitations-(lack of equipment, weather restraints, etc.). 88-Not Attempted due to Medical Conditions or Safety Concerns. Toileting Hygiene (QC): 1 Toilet Transfer (QC): 3 Pt sitting in chair at OT arrival, requests to use toilet. Max A to scoot hips to edge of chair and stand from low surface. Once standing, mod a needed for balance. He ambulated to/from bathroom, ~12 feet x2, with Mod a and use of walker. Assist to position L hand on walker, but pt able to maintain capital project engineer once placed. Poor walker management with assist to manage. Pt listing Left. Reports more difficultly with lifting R vs Left, poor foot clearance with sameer feet. Pt able to use grab bar to lower/stand from toilet with mod a. Successful with BM. Pt attempted to wipe, yet required RUE support on grab bar, thus dep to wipe in standing with min a for balance. No clothing management performed, yet pt would likely be max-dep for task. Education OT Patient Education: Correct positioning, Energy conservation, Modified ADL techniques, Progress toward Goal/Update tx plan, Purpose of tx/functional activities, Rehab process, Safety issues, Transfer techniques Teaching Recipient: Patient Teaching Methods: Demonstration, Discussion Response to Teaching: Verbalize Understanding, Return Demonstration, Reinforcement Needed OT Long-Term Goals Long-Term Goals Time Frame: Jun 28, 2021 Oral Hygiene (QC): 3 Toileting Hygiene (QC): 3 Upper Body Dressing (QC): 3 Lower Body Dressing (QC): 3 On/Off Footwear (QC): 3 1=Demonstrate adherence to instructed precautions during ADL tasks. 2=Patient will verbalize/demonstrate understanding of assistive devices/modifications for ADL. 3=Patient will improve strength/tolerance for activity to enable patient to perform ADL's. OT Education/Plan Problem List/Assessment Assessment: Decreased Activ Tolerance, Decreased Safety Aware, Decreased UE Strength, Dependent Transfers, Impaired Cognition, Impaired Coordination, Impaired Funct Balance, Impaired I ADL's, Impaired Self-Care Skills, Restricted Funct UE ROM Discharge Recommendations Plan/Recommendations: Continue POC Treatment Plan/Plan of Care Treatment,Training & Education: Yes Patient would benefit from OT for education, treatment and training to promote independence in ADL's, mobility, safety and/or upper extremity function for ADL's. Plan of Care: ADL Retraining, Cognitive Retraining, Functional Mobility, UE Funct Exercise/Act, UE Neuromus Re-Ed/Coord Treatment Duration: Jun 28, 2021 Frequency: 5 times per week Estimated Hrs Per Day: .25 hour per day Agreement: Yes Rehab Potential: Fair Time/GCodes Start Time: 13:19 Stop Time: 13:42 Total Time Billed (hr/min): 23 Billed Treatment Time 1 visit, ADL x2 GerrimarjGenia OT Jun 14, 2021 13:48
--- NOTE | 2021-06-14 13:50 | Cardiology Progress Note ---
Subjective Date Seen by Provider: Jun 14, 2021 Time Seen by Provider: 13:47 Subjective/Events-last exam Patient is seen at bedside, sitting comfortably in a chair, eating lunch, still having left-sided weakness Review of Systems General: No Chills, No Night Sweats, No Fatigue, No Malaise, No Appetite, No Other HEENT: No Head Aches, No Visual Changes, No Eye Pain, No Ear Pain, No Dysphasia, No Sinus Congestion, No Post Nasal Drip, No Sore Throat, No Other Pulmonary: No Dyspnea, No Cough, No Pleuritic Chest Pain, No Other Cardiovascular: No: Chest Pain, Palpitations, Orthopnea, Paroxysmal Noc. Dyspnea, Edema, Lt Headedness, Other Focused Exam Lactate Level 06/12/21 23:51: Lactic Acid Level 1.69 Objective-Cardiology Exam Last Set of Vital Signs Vital Signs 06/14/21 12:00 Temp 35.5 Pulse 76 Resp 20 B/P (MAP) 202/95 (130) Pulse Ox 96 O2 Delivery Room Air I&O Intake and Output 06/14/21 00:00 Intake Total 1565 ml Output Total 275 ml Balance 1290 ml Intake Oral 565 ml IV Total 1000 ml Output Urine Total 275 ml # Voids 2 # Urine Diapers 4 General: Alert, Oriented X3, Cooperative, No Acute Distress, Other (Elderly appearing male appearing stated age in no acute distress. Obvious left facial droop present. ) HEENT: Atraumatic, EOMI, Mucous Memb Moist/[place] Neck: Supple, No LAD Lungs: Clear to Auscultation, Normal Air Movement Heart: Regular Rate, Normal S1, Normal S2, No Murmurs Abdomen: Normal Bowel Sounds, Soft, No Tenderness Extremities: No Clubbing, No Cyanosis, No Edema, Normal Pulses, No Tenderness/Swelling Skin: No Rashes, No Significant Lesion Neuro: Normal Speech, Sensation Intact, Other (Left sided facial droop obvious. Left arm weakness and Left leg weakness. Motor strength 3/5 left arm and left leg. Speech is slightly dysarthric. ) Psych/Mental Status: Mental Status NL, Mood NL Results Lab Laboratory Tests Test 06/13/21 16:09 06/13/21 20:41 06/14/21 04:58 06/14/21 12:03 Range/Units Glucometer 194 H 166 H 168 H 227 H 70-110 MG/DL Procedures Procedures 1. Acute/subacute infarct, right paramidline yolanda. 2. Extensive periventricular and subcortical white matter signal foci consistent with chronic microvascular ischemia. No acute intracranial hemorrhage is detected. 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 MRI of the head reported acute/subacute yolanda stroke. Maintained on aspirin, monitor blood pressure Hypertension, malignant blood pressure, I will try to keep his blood pressure around 160, I am increasing Norvasc to 10 mg daily and add hydralazine and monitor Elevated D-dimer, venous Doppler was negative. Maintained on Lovenox. Monitor Vascular dementia, had generalized weakness in the past. History of diverticulosis, BPH. Status post COVID-19 vaccination done on June 10, 2021 triggered gen eralized weakness, Patient was found on the floor by his neighbor MICHELLE HOUGH MD Jun 14, 2021 13:50
[2021-06-14] MEDS: hydrALAZINE (APRESOLINE) 25 MG TAB PO SCH ×2 (14:03→21:07)
[2021-06-14] MEDS: ARTIFICAL TEARS 0.4 ML UNIT DOSE (REFRESH PLUS) OU PRN ×2 (14:04→19:59)
[2021-06-14] MEDS ORDERED: NON-FORMULARY MEDICATION 1 EA EA (Metformin HCl 1,000 MG) PO SCH (21:00)
[2021-06-14] MEDS: TAMSULOSIN 0.4 MG (FLOMAX) CAP PO SCH (21:07)
[2021-06-14] MEDS: QUEtiapine 25 MG (SEROquel) TAB IMMEDIATE RELEASE PO SCH (21:08)
[2021-06-15] VITALS (7 sets, daily range): BP systolic 138–185; BP diastolic 75–95
[2021-06-15] MEDS: inSUlin ASPART (NovoLOG) 1 UNIT/0.01 ML (CHARGE PER UNIT) SC SCH ×4 (06:21→21:16)
[2021-06-15] MEDS: VENlafaxine XR 75 MG (EFFEXOR XR) CAP PO SCH (06:23)
[2021-06-15] MEDS: hydrALAZINE (APRESOLINE) 25 MG TAB PO SCH ×3 (06:23→21:16)
[2021-06-15] MEDS: CATHETER FLUSH 10 ML SYR IV SCH ×3 (06:23→21:17)
[2021-06-15 07:23] LABS: BASOPHILS % (AUTO) 0 % (0-10); EOSINOPHILS # (AUTO) 0.4 10^3/uL (0.0-0.3); EOSINOPHILS % (AUTO) 5 % (0-10); HEMATOCRIT 44 % (40-54); HEMOGLOBIN 14.9 g/dL (13.3-17.7); LYMPHOCYTES # (AUTO) 1.8 10^3/uL (1.0-4.0); LYMPHOCYTES % (AUTO) 24 % (12-44); MEAN CORPUSCULAR HEMOGLOBIN 32 pg (25-34); MEAN CORPUSCULAR HGB CONC 34 g/dL (32-36); MEAN CORPUSCULAR VOLUME 93 fL (80-99); MEAN PLATELET VOLUME 11.2 fL (9.0-12.2); MONOCYTES # (AUTO) 0.7 10^3/uL (0.0-1.0); MONOCYTES % (AUTO) 9 % (0-12); NEUTROPHILS # (AUTO) 4.5 10^3/uL (1.8-7.8); NEUTROPHILS % (AUTO) 60 % (42-75); PLATELET COUNT 182 10^3/uL (130-400); WHITE BLOOD COUNT 7.5 10^3/uL (4.3-11.0)
[2021-06-15 07:29] LABS: ALBUMIN 3.6 GM/DL (3.2-4.5)
[2021-06-15 07:30] LABS: POTASSIUM 4.1 MMOL/L (3.6-5.0)
[2021-06-15 07:32] LABS: TOTAL PROTEIN 6.5 GM/DL (6.4-8.2)
[2021-06-15 07:34] LABS: BILIRUBIN,TOTAL 1.7 MG/DL (0.1-1.0)
[2021-06-15 07:36] LABS: CREATININE SERUM 0.71 MG/DL (0.60-1.30)
[2021-06-15] MEDS ORDERED: lisINopril 10 MG (PRINIVIL) TABLET PO SCH (09:00)
[2021-06-15] MEDS ORDERED: NON-FORMULARY MEDICATION 1 EA EA (Omeprazole 40 MG) PO SCH (09:00)
[2021-06-15] MEDS ORDERED: amLODIPine 5 MG (NORVASC) TAB PO SCH (09:00)
[2021-06-15] MEDS: SENNA W/DOCUSATE (SENOKOT S) TABLET PO SCH ×2 (09:53→21:16)
[2021-06-15] MEDS: ASPIRIN E.C. 81 MG (ECOTRIN) TAB PO SCH (09:53)
[2021-06-15] MEDS: amLODIPine 10 MG (NORVASC) TAB PO SCH (09:53)
[2021-06-15] MEDS: metFORMIN 500 MG (GLUCOPHAGE) TAB PO SCH ×2 (09:53→16:27)
[2021-06-15] MEDS: ENOXAPARIN 40 MG/0.4 ML (LOVENOX) SYR SC SCH (09:54)
[2021-06-15] MEDS: lisINopril 20 MG (PRINIVIL) TABLET PO SCH (09:54)
[2021-06-15] MEDS: PANTOPRAZOLE 40 MG (PROTONIX) TAB PO SCH (09:54)
--- NOTE | 2021-06-15 11:20 | Physical Therapy Daily Note ---
PT Daily Note-Current Subjective Pt in recliner upon arrival and agrees to tx. Pt states he feels fatigued d/t just finishing a shower, but will still attempt to amb. Mental Status Patient Orientation: Person, Situation Transfers SCALE: Activities may be completed with or without assistive devices. 7-Hjvksojxep-hokovte completes the activity by him/herself with no assistance from a helper. 5-Set-up or Clean-up Assistance-helper sets up or cleans up; patient completes activity. [place] assists only prior to or following the activity. 4-Supervision or Touching Assistance-helper provides verbal cues and/or touching/steadying and/or contact guard assistance as patient completes activity. Assistance may be provided throughout the activity or intermittently. 3-Partial/Moderate Assistance-helper does LESS THAN HALF the effort. [place] lifts, holds or supports trunk or limbs, but provides less than half the effort. 2-Substantial/Maximal Assistance-helper does MORE THAN HALF the effort. [place] lifts or holds trunk or limbs and provides more than half the effort. 0-Irrlaodvu-mleymf does ALL the effort. Patient does none of the effort to complete the activity. Or, the assistance of 2 or more helpers is required for the patient to complete the activity. If activity was not attempted, code reason: 7-Patient Refused. 9-Not Applicable-not attempted and the patient did not perform the activity before the current illness, exacerbation or injury. 10-Not Attempted due to Environmental Limitations-(lack of equipment, weather restraints, etc.). 88-Not Attempted due to Medical Conditions or Safety Concerns. Sit to Stand (QC): 3 Gait Training Does the Patient Walk?: Yes Distance: 15' Walk 10 feet (QC): 3 Gait Persons Needed: 2 Gait Assistive Device: FWW Pt has slow, shuffling gait and slouched posture. Pt required VC to keep FWW close to self and to advance L LE. Pt amb to door in room and turned to go back to chair, but pt became extremely fatigued. PT tech brought recliner closer to pt. Pt able to turn to chair w/ A from IDENTITY MANAGEMENT DEVELOPER to advance L LE. Pt sat in recliner and recliner was placed back by the bed where it was previously. Treatments Pt sit to stand ModA x2 and held standing balance Marie x2. Pt stated he felt slightly dizzy, so instructed to not amb until pt felt better. Once dizziness subsided, pt amb to door in room and turned to go back to chair, but pt became extremely fatigued. PT tech brought recliner closer to pt. Pt able to turn to chair w/ A from IDENTITY MANAGEMENT DEVELOPER to advance L LE. Pt sat in recliner and recliner was placed back by the bed where it was previously. Pt required A w/ positioning of L UE and LE in chair, and was left with all needs met and call light in hand. Assessment Current Status: Fair Progress Pt limited by weakness and fatigues quickly. PT Intermediate Goals Rehabilitator Goals PT Intermediate Goals Time Frame: Jun 20, 2021 Roll Left & Right (QC): 3 Sit to Lying (QC): 3 Lying-Sitting on Side/Bed(QC): 3 Sit to Stand (QC): 3 Chair/Cta-md-Odmpj Xfer(QC): 3 Walk 10 feet (QC): 3 PT Plan Treatment/Plan Treatment Plan: Continue Plan of Care Treatment Plan: Bed Mobility, Education, Functional Activity Gwendolyn, Functional Strength, Gait, Safety, Therapeutic Exercise, Transfers Treatment Duration: Jun 20, 2021 Frequency: 6 times per week Estimated Hrs Per Day: .25 hour per day Patient and/or Family Agrees t: Yes Time/GCodes Time In: 1056 Time Out: 1108 Total Billed Treatment Time: 12 Total Billed Treatment 1, GT BRINA NAVA IDENTITY MANAGEMENT DEVELOPER Jun 15, 2021 11:20
--- NOTE | 2021-06-15 11:56 | Cardiology Progress Note ---
Subjective Date Seen by Provider: Jun 15, 2021 Time Seen by Provider: 11:54 Subjective/Events-last exam Patient was seen at bedside, sitting comfortably, feeling better. Review of Systems General: No Chills, No Night Sweats; Fatigue; No Malaise, No Appetite, No Other HEENT: No Head Aches, No Visual Changes, No Eye Pain, No Ear Pain, No Dysphasia, No Sinus Congestion, No Post Nasal Drip, No Sore Throat, No Other Pulmonary: No Dyspnea, No Cough, No Pleuritic Chest Pain, No Other Cardiovascular: No: Chest Pain, Palpitations, Orthopnea, Paroxysmal Noc. Dyspnea, Edema, Lt Headedness, Other Focused Exam Lactate Level 06/12/21 23:51: Lactic Acid Level 1.69 Objective-Cardiology Exam Last Set of Vital Signs Vital Signs 06/15/21 08:00 Temp 36.2 Pulse 72 Resp 20 B/P (MAP) 155/90 (111) Pulse Ox 93 O2 Delivery Room Air I&O Intake and Output 06/15/21 00:00 Intake Total 1500 ml Output Total 1025 ml Balance 475 ml Intake Oral 1500 ml Output Urine Total 1025 ml # Voids 4 # Bowel Movements 2 General: Alert, Oriented X3, Cooperative, No Acute Distress HEENT: Atraumatic, EOMI, Mucous Memb Moist/[place] Neck: Supple, No LAD Lungs: Clear to Auscultation Heart: Regular Rate, Normal S1, Normal S2 Abdomen: Normal Bowel Sounds, Soft, No Tenderness Extremities: No Clubbing, No Cyanosis, No Edema, Normal Pulses, No Tenderness/Swelling Skin: No Rashes, No Significant Lesion Neuro: Normal Speech, Other (left sided weakness 3/5) Psych/Mental Status: Mental Status NL, Mood NL Results Lab Laboratory Tests 06/15/21 07:02 Procedures Procedures 1. Acute/subacute infarct, right paramidline yolanda. 2. Extensive periventricular and subcortical white matter signal foci consistent with chronic microvascular ischemia. No acute intracranial hemorrhage is detected. 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 MRI of the head reported acute/subacute yolanda stroke. Maintained on aspirin, monitor blood pressure Malignant hypertension, maintained on Norvasc 10 mg and hydralazine 25 mg, started on lisinopril 20 mg daily, trying to keep systolic blood pressure around 150-160. Elevated D-dimer, venous Doppler was negative. Maintained on Lovenox. Monitor Vascular dementia, had generalized weakness in the past. History of diverticulosis, BPH. Status post COVID-19 vaccination done on June 10, 2021 triggered generalized weakness, Patient was found on the floor by his neighbor MICHELLE HOUGH MD Jun 15, 2021 11:56
[2021-06-15] MEDS: HYDROcodone/APAP 5 MG/325 MG (LORTAB) TAB PO PRN (13:06)
--- NOTE | 2021-06-15 13:21 | Progress Note - Hospitalist ---
Subjective HPI/CC On Admission Date Seen by Provider: Jun 15, 2021 Time Seen by Provider: 11:00 Subjective/Events-last exam He is feeling tired. He just worked with physical therapy. He is having some trouble with chewing his food. He denies any trouble swallowing. Focused Exam Lactate Level 06/12/21 23:51: Lactic Acid Level 1.69 Objective Exam Vital Signs Vital Signs Date Time Temp Pulse Resp B/P (MAP) Pulse Ox O2 Delivery O2 Flow Rate FiO2 06/15/21 12:00 36.4 89 16 140/78 (98) 98 Room Air Capillary Refill : General Appearance: No Apparent Distress, Obese Respiratory: Lungs Clear, Normal Breath Sounds, No Respiratory Distress Cardiovascular: Regular Rate, Rhythm, No Edema, No Murmur Gastrointestinal: Normal Bowel Sounds, Non Tender, Soft Extremity: Normal Inspection, Non Tender, No Pedal Edema Neurologic/Psychiatric: Alert, Oriented x3, Facial Droop (left), Motor Weakness Skin: Normal Color, Warm/Dry Results/Procedures Lab Laboratory Tests 06/15/21 07:02 Patient resulted labs reviewed. Imaging: Reviewed Imaging Report Assessment/Plan Assessment and Plan Assess & Plan/Chief Complaint Acute ischemic right pontine stroke HLD Debility MRI revealed right pontine stroke Continue aspirin and Lipitor PT/OT IRF accepted, awaiting insurance approval Will benefit from ongoing rehabilitation to regain function HTN Increasing antihypertensives Cardiology following T2DM Metformin Sliding scale insulin Vascular dementia Mild, no acute management needs BPH Flomax Obesity Clinically significant, no acute management needs DVT prophylaxis: Lovenox Diagnosis/Problems Diagnosis/Problems (1) Right pontine stroke Status: Acute (2) HTN (hypertension) Status: Acute Qualifiers: Hypertension type: primary hypertension Qualified Codes: I10 - Essential (primary) hypertension (3) HLD (hyperlipidemia) Status: Chronic (4) T2DM (type 2 diabetes mellitus) Status: Chronic (5) Obesity Status: Chronic (6) Dementia Status: Chronic (7) Debility Status: Acute ARLENE LAZARO MD Jun 15, 2021 13:21
[2021-06-15] MEDS: MELATONIN 3 MG TABLET PO PRN (21:16)
[2021-06-15] MEDS: QUEtiapine 25 MG (SEROquel) TAB IMMEDIATE RELEASE PO SCH (21:16)
[2021-06-15] MEDS: ALPRAZolam 0.25 MG (XANAX) TAB PO PRN (21:16)
[2021-06-15] MEDS: TAMSULOSIN 0.4 MG (FLOMAX) CAP PO SCH (21:16)
[2021-06-16 04:18] VITALS: BP 133/76
[2021-06-16] MEDS: ACETAMINOPHEN 325 MG TABLET PO PRN (05:15)
[2021-06-16] MEDS: inSUlin ASPART (NovoLOG) 1 UNIT/0.01 ML (CHARGE PER UNIT) SC SCH ×4 (06:46→20:27)
[2021-06-16] MEDS: CATHETER FLUSH 10 ML SYR IV SCH ×3 (06:52→22:26)
[2021-06-16] MEDS: hydrALAZINE (APRESOLINE) 25 MG TAB PO SCH ×3 (06:52→20:30)
[2021-06-16] MEDS: VENlafaxine XR 75 MG (EFFEXOR XR) CAP PO SCH (06:58)
[2021-06-16 07:38] VITALS: BP 150/75
[2021-06-16] MEDS: amLODIPine 10 MG (NORVASC) TAB PO SCH (08:46)
[2021-06-16] MEDS: metFORMIN 500 MG (GLUCOPHAGE) TAB PO SCH ×2 (08:46→17:27)
[2021-06-16] MEDS: PANTOPRAZOLE 40 MG (PROTONIX) TAB PO SCH (08:46)
[2021-06-16] MEDS: lisINopril 20 MG (PRINIVIL) TABLET PO SCH (08:46)
[2021-06-16] MEDS: ASPIRIN E.C. 81 MG (ECOTRIN) TAB PO SCH (08:46)
[2021-06-16] MEDS: SENNA W/DOCUSATE (SENOKOT S) TABLET PO SCH ×2 (08:46→20:27)
[2021-06-16] MEDS: ENOXAPARIN 40 MG/0.4 ML (LOVENOX) SYR SC SCH (08:47)
[2021-06-16 08:50] LABS: BASOPHILS # (AUTO) 0.1 10^3/uL (0.0-0.1); BASOPHILS % (AUTO) 1 % (0-10); EOSINOPHILS # (AUTO) 0.5 10^3/uL (0.0-0.3); EOSINOPHILS % (AUTO) 5 % (0-10); HEMATOCRIT 45 % (40-54); HEMOGLOBIN 15.6 g/dL (13.3-17.7); LYMPHOCYTES # (AUTO) 1.7 10^3/uL (1.0-4.0); LYMPHOCYTES % (AUTO) 16 % (12-44); MEAN CORPUSCULAR HEMOGLOBIN 32 pg (25-34); MEAN CORPUSCULAR HGB CONC 35 g/dL (32-36); MEAN CORPUSCULAR VOLUME 91 fL (80-99); MEAN PLATELET VOLUME 10.9 fL (9.0-12.2); MONOCYTES # (AUTO) 0.8 10^3/uL (0.0-1.0); MONOCYTES % (AUTO) 8 % (0-12); NEUTROPHILS # (AUTO) 7.4 10^3/uL (1.8-7.8); NEUTROPHILS % (AUTO) 70 % (42-75); PLATELET COUNT 202 10^3/uL (130-400); WHITE BLOOD COUNT 10.5 10^3/uL (4.3-11.0)
[2021-06-16 08:51] LABS: SMEAR SCAN COMMENT YES
[2021-06-16 09:03] LABS: CALCIUM 8.9 MG/DL (8.5-10.1)
[2021-06-16 09:07] LABS: CREATININE SERUM 0.79 MG/DL (0.60-1.30)
--- NOTE | 2021-06-16 10:17 | Cardiology Progress Note ---
Subjective Date Seen by Provider: Jun 16, 2021 Time Seen by Provider: 10:16 Subjective/Events-last exam Patient is laying down in bed, feeling better today. No new complaint. Review of Systems General: No Chills, No Night Sweats; Fatigue; No Malaise, No Appetite, No Other HEENT: No Head Aches, No Visual Changes, No Eye Pain, No Ear Pain, No Dysphasia, No Sinus Congestion, No Post Nasal Drip, No Sore Throat, No Other Pulmonary: No Dyspnea, No Cough, No Pleuritic Chest Pain, No Other Cardiovascular: No: Chest Pain, Palpitations, Orthopnea, Paroxysmal Noc. Dyspnea, Edema, Lt Headedness, Other Objective-Cardiology Exam Last Set of Vital Signs Vital Signs 06/16/21 06/16/21 07:38 08:48 Temp 36.0 Pulse 62 Resp 16 B/P (MAP) 150/75 (100) Pulse Ox 92 O2 Delivery Room Air I&O Intake and Output 06/16/21 00:00 Intake Total 1650 ml Output Total 1655 ml Balance -5 ml Intake Oral 1650 ml Output Urine Total 1655 ml # Urine Diapers 3 # Bowel Movements 1 General: Alert, Oriented X3, Cooperative, No Acute Distress HEENT: Atraumatic, EOMI, Mucous Memb Moist/[place] Neck: Supple, No LAD Lungs: Clear to Auscultation Heart: Regular Rate, Normal S1, Normal S2 Abdomen: Normal Bowel Sounds, Soft, No Tenderness Extremities: No Clubbing, No Cyanosis, No Edema, Normal Pulses, No Tenderness/Swelling Skin: No Rashes, No Significant Lesion Neuro: Normal Speech, Other (left sided weakness 3/5) Psych/Mental Status: Mental Status NL, Mood NL Results Lab Laboratory Tests 06/16/21 08:44 Procedures Procedures 1. Acute/subacute infarct, right paramidline yolanda. 2. Extensive periventricular and subcortical white matter signal foci consistent with chronic microvascular ischemia. No acute intracranial hemorrhage is detected. 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 MRI of the head reported acute/subacute pontine stroke. Maintained on aspirin, monitor blood pressure Malignant hypertension, maintained on Norvasc 10 mg and hydralazine 25 mg and started on lisinopril 20 mg daily, blood pressure is better, it dipped slightly around 130 but overall within target blood pressure around 150 Elevated D-dimer, venous Doppler was negative. Maintained on Lovenox. Monitor Vascular dementia, had generalized weakness in the past. History of diverticulosis, BPH. Status post COVID-19 vaccination done on June 10, 2021 triggered genera lized weakness, Patient was found on the floor by his neighbor MICHELLE HOUGH MD Jun 16, 2021 10:17
--- NOTE | 2021-06-16 12:40 | Progress Note - Hospitalist ---
Subjective HPI/CC On Admission Date Seen by Provider: Jun 16, 2021 Time Seen by Provider: 11:15 Subjective/Events-last exam He is doing well this morning. He says he keeps biting his lip. He is not having any trouble swallowing. He is having some left knee pain. He is asking about getting a steroid injection. Objective Exam Vital Signs Vital Signs Date Time Temp Pulse Resp B/P (MAP) Pulse Ox O2 Delivery O2 Flow Rate FiO2 06/16/21 08:48 Room Air 06/16/21 07:38 36.0 62 16 150/75 (100) 92 Capillary Refill : General Appearance: No Apparent Distress, Obese Respiratory: Lungs Clear, Normal Breath Sounds, No Respiratory Distress Cardiovascular: Regular Rate, Rhythm, No Edema, No Murmur Gastrointestinal: Normal Bowel Sounds, Non Tender, Soft Extremity: Normal Inspection, Non Tender, No Pedal Edema Neurologic/Psychiatric: Alert, Oriented x3, Facial Droop, Motor Weakness Skin: Normal Color, Warm/Dry Results/Procedures Lab Laboratory Tests 06/16/21 08:44 Patient resulted labs reviewed. Imaging: Reviewed Imaging Report Assessment/Plan Assessment and Plan Assess & Plan/Chief Complaint Acute ischemic right pontine stroke HLD Debility MRI revealed right pontine stroke Continue aspirin and Lipitor PT/OT/ST IRF accepted, awaiting insurance approval Will benefit from ongoing rehabilitation to regain function HTN Continue antihypertensives Cardiology following T2DM Metformin Sliding scale insulin Vascular dementia Mild, no acute management needs BPH Flomax Obesity Clinically significant, no acute management needs DVT prophylaxis: Lovenox Diagnosis/Problems Diagnosis/Problems (1) Right pontine stroke Status: Acute (2) HTN (hypertension) Status: Acute Qualifiers: Hypertension type: primary hypertension Qualified Codes: I10 - Essential (primary) hypertension (3) HLD (hyperlipidemia) Status: Chronic (4) T2DM (type 2 diabetes mellitus) Status: Chronic (5) Obesity Status: Chronic (6) Dementia Status: Chronic (7) Debility Status: Acute ARLENE LAZARO MD Jun 16, 2021 12:40
[2021-06-16 12:46] VITALS: BP 133/80
[2021-06-16 16:40] VITALS: BP 159/79
[2021-06-16 20:02] VITALS: BP 132/96
[2021-06-16] MEDS: TAMSULOSIN 0.4 MG (FLOMAX) CAP PO SCH (20:30)
[2021-06-16] MEDS: QUEtiapine 25 MG (SEROquel) TAB IMMEDIATE RELEASE PO SCH (20:30)
[2021-06-16] MEDS: HYDROcodone/APAP 5 MG/325 MG (LORTAB) TAB PO PRN (21:16)
[2021-06-16] MEDS: MELATONIN 3 MG TABLET PO PRN (21:16)
[2021-06-17] VITALS: BP 147/82
[2021-06-17 04:14] VITALS: BP 137/71
[2021-06-17] MEDS: inSUlin ASPART (NovoLOG) 1 UNIT/0.01 ML (CHARGE PER UNIT) SC SCH ×2 (05:53→12:00)
[2021-06-17] MEDS: CATHETER FLUSH 10 ML SYR IV SCH (05:53)
[2021-06-17 06:06] LABS: POTASSIUM 3.8 MMOL/L (3.6-5.0)
[2021-06-17 06:11] LABS: CREATININE SERUM 0.76 MG/DL (0.60-1.30)
[2021-06-17] MEDS: hydrALAZINE (APRESOLINE) 25 MG TAB PO SCH (06:31)
[2021-06-17] MEDS: VENlafaxine XR 75 MG (EFFEXOR XR) CAP PO SCH (06:31)
[2021-06-17 08:00] VITALS: BP 103/67
--- NOTE | 2021-06-17 08:26 | Cardiology Progress Note ---
Subjective Date Seen by Provider: Jun 17, 2021 Time Seen by Provider: 08:24 Subjective/Events-last exam Patient is sitting up in bed, c/o left knee pain, states was scheduled to see PCP this morning regarding knee pain. Denies any chest pain or dyspnea. Review of Systems General: No Chills, No Night Sweats; Fatigue, Malaise; No Appetite, No Other Pulmonary: No Dyspnea, No Cough, No Pleuritic Chest Pain, No Other Cardiovascular: No: Chest Pain, Palpitations, Orthopnea, Paroxysmal Noc. Dyspnea, Edema, Lt Headedness, Other Objective-Cardiology Exam Last Set of Vital Signs Vital Signs 06/17/21 06/17/21 08:00 08:30 Temp 36.9 Pulse 80 Resp 20 B/P (MAP) 103/67 (79) Pulse Ox 94 O2 Delivery Room Air I&O Intake and Output 06/17/21 00:00 Intake Total 1780 ml Output Total 600 ml Balance 1180 ml Intake Oral 1780 ml Output Urine Total 600 ml # Voids 6 # Urine Diapers 1 # Bowel Movements 1 General: Alert, Oriented X3, Cooperative, No Acute Distress HEENT: Atraumatic, EOMI, Mucous Memb Moist/[place] Neck: Supple, No LAD Lungs: Clear to Auscultation Heart: Regular Rate, Normal S1, Normal S2 Abdomen: Normal Bowel Sounds, Soft, No Tenderness Extremities: No Clubbing, No Cyanosis, No Edema, Normal Pulses, No Tenderness/Swelling Skin: No Rashes, No Significant Lesion Neuro: Normal Speech, Other (left sided weakness 3/5) Psych/Mental Status: Mental Status NL, Mood NL Results Lab Laboratory Tests 06/17/21 05:20 A/P-Cardiology Admission Diagnosis CVA Hypertension Hyperlipidemia Assessment/Plan 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 MRI of the head reported ac [place]/subacute pontine stroke. Maintained on aspirin, monitor blood pressure Malignant hypertension, maintained on Norvasc 10 mg and hydralazine 25 mg and lisinopril 20 mg daily, blood pressure is better, continue to monitor. Elevated D-dimer, venous Doppler was negative. Maintained on Lovenox. Monitor Vascular dementia, had generalized weakness in the past. History of diverticulosis, BPH. Status post COVID-19 vaccination done on June 10, 2021 triggered generalized weakness, Patient was found on the floor by his neighbor Supervisory-Addendum Brief Supervisory Addendum Participated in pt care: history, MDM, physical Personally performed: exam, history, MDM Care discussed with: CARISSA Results interpretation: Verified all documentation Notes: Patient was seen and evaluated with Mike, examination performed, management plan was discussed, agree with the current scribed note, I made few changes to the note using Italic font Patient was seen at bedside sitting comfortably, still having some right knee pain Blood pressure is better controlled Cardiac status is stable, continue to monitor blood pressure and lipids No changes from cardiology standpoint MIKE MILLER Jun 17, 2021 08:26 MICHELLE HOUGH MD Jun 17, 2021 11:02
[2021-06-17] MEDS: ASPIRIN E.C. 81 MG (ECOTRIN) TAB PO SCH (09:18)
[2021-06-17] MEDS: amLODIPine 10 MG (NORVASC) TAB PO SCH (09:18)
[2021-06-17] MEDS: ENOXAPARIN 40 MG/0.4 ML (LOVENOX) SYR SC SCH (09:18)
[2021-06-17] MEDS: lisINopril 20 MG (PRINIVIL) TABLET PO SCH (09:18)
[2021-06-17] MEDS: SENNA W/DOCUSATE (SENOKOT S) TABLET PO SCH (09:18)
[2021-06-17] MEDS: metFORMIN 500 MG (GLUCOPHAGE) TAB PO SCH (09:18)
[2021-06-17] MEDS: PANTOPRAZOLE 40 MG (PROTONIX) TAB PO SCH (09:18)
[2021-06-17] MEDS ORDERED: BUPIVACAINE 0.25% 30 ML (SENSORCAINE) VIAL INJ ONE (11:00)
[2021-06-17] MEDS ORDERED: methylPREDNISolone 80 MG/ML (DEPO MEDROL) VIAL IM ONE (11:00)
[2021-06-17 12:00] VITALS: BP 156/69
--- NOTE | 2021-06-17 12:26 | Discharge Summary ---
Diagnosis/Chief Complaint Date of Admission Jun 12, 2021 at 23:32 Date of Discharge Discharge Date: Jun 17, 2021 Primary Care Shena Mckeon MD Discharge Diagnosis (1) Right pontine stroke Status: Acute (2) HTN (hypertension) Status: Acute (3) HLD (hyperlipidemia) Status: Chronic (4) T2DM (type 2 diabetes mellitus) Status: Chronic (5) Obesity Status: Chronic (6) Dementia Status: Chronic (7) Debility Status: Acute Discharge Summary Discharge Physical Exam Allergies: Coded Allergies: No Known Drug Allergies (Unverified , 08/26/16) Vitals & I&Os Vital Signs Date Time Temp Pulse Resp B/P (MAP) Pulse Ox O2 Delivery O2 Flow Rate FiO2 06/17/21 08:30 Room Air 06/17/21 08:00 36.9 80 20 103/67 (79) 94 Hospital Course Labs (last 24 hrs) Laboratory Tests 06/16/21 16:39: Glucometer 245H 06/16/21 20:25: Glucometer 131H 06/17/21 05:20: Sodium Level 138, Potassium Level 3.8, Chloride Level 104, Carbon Dioxide Level 22, Anion Gap 12, Blood Urea Nitrogen 17, Creatinine 0.76, Estimat Glomerular Filtration Rate 99, BUN/Creatinine Ratio 22, Glucose Level 139H, Calcium Level 9.0 06/17/21 05:37: Glucometer 143H 06/17/21 11:50: Glucometer 189H Patient resulted labs reviewed. Pending Labs Laboratory Tests 06/17/21 05:20: Sodium Level 138, Potassium Level 3.8, Chloride Level 104, Carbon Dioxide Level 22, Anion Gap 12, Blood Urea Nitrogen 17, Creatinine 0.76, Estimat Glomerular Filtration Rate 99, BUN/Creatinine Ratio 22, Glucose Level 139, Calcium Level 9.0 06/17/21 05:37: Glucometer 143 06/17/21 11:50: Glucometer 189 Imaging: Reviewed Imaging Report Discharge Home Medications: Active Scripts Active Reported Metformin HCl 1,000 Mg Tablet 1,000 Mg PO BID Tylenol Extra Strength (Acetaminophen) 500 Mg Tablet 1,000 Mg PO Q8H PRN Ibuprofen 200 Mg Tablet 400-600 Mg PO Q8H PRN Amlodipine Besylate 5 Mg Tablet 5 Mg PO DAILY Lisinopril 10 Mg Tablet 10 Mg PO DAILY Venlafaxine HCl ER (Venlafaxine HCl) 150 Mg Cap.er.24h 150 Mg PO DAILY Omeprazole 40 Mg Capsule.dr 40 Mg PO DAILY Quetiapine Fumarate 25 Mg Tablet 25 Mg PO HS LAST FILLED 12-05-2020 #90 Flomax (Tamsulosin HCl) 0.4 Mg Cap 0.4 Mg PO HS Instructions to patient/family Please see electronic discharge instructions given to patient. Problem Qualifiers (1) HTN (hypertension): Hypertension type: primary hypertension Qualified Codes: I10 - Essential (primary) hypertension ARLYN HUBBARD MD Jun 17, 2021 12:26
--- NOTE | 2021-06-17 13:44 | Consultation - Ortho ---
Consult - Ortho Subjective Date of Exam 06/17/21 Chief Complaint Left knee pain HPI/Events since last exam Mr. Capps is a 81-year-old white male who has been complaining of left knee pain for several years. He stated in high school he injured his knee and then reinjured it college. He has had cortisone injections in the past last being [address] Mckeon in [place]. He states that the shot he got 3 months ago helped but did not help as much as he has had in the past with cortisone injections. He had a recent stroke and on ambulation he is having some increased pain in the left knee. He is requesting a repeat cortisone injection. I checked Dr. Harrington notes and his last injection of the left knee was on 03/11/2021.He has had no issues with injections in the past. He is diabetic. He is not sure if his blood sugar goes up after the cortisone injections or not. He has had recent x-rays Of his left knee the last being 04/26/[address] Mckeon which showed tricompartment arthritis Medical, Surgical History Reviewed and no additions or change Social History Reviewed and no additions or change Family History Reviewed and no additions or changes Review of Systems Reviewed and no additions or changes Allergies: Coded Allergies: No Known Drug Allergies (Unverified , 08/26/16) Home Meds Reported Medications Metformin HCl (Metformin HCl) 1,000 Mg Tablet, 1000 MG PO BID, TAB 06/13/21 Acetaminophen (Tylenol Extra Strength) 500 Mg Tablet, 1000 MG PO Q8H PRN for PAIN-MILD (1-4), TAB 06/13/21 Ibuprofen (Ibuprofen) 200 Mg Tablet, 400-600 MG PO Q8H PRN for PAIN-MILD (1-4), TAB 06/13/21 Amlodipine Besylate (Amlodipine Besylate) 5 Mg Tablet, 5 MG PO DAILY, TAB 06/13/21 Lisinopril (Lisinopril) 10 Mg Tablet, 10 MG PO DAILY, TAB 06/13/21 Venlafaxine HCl (Venlafaxine HCl ER) 150 Mg Cap.er.24h, 150 MG PO DAILY, CAP 10/11/19 Omeprazole (Omeprazole) 40 Mg Capsule.dr, 40 MG PO DAILY, CAP 10/10/19 Quetiapine Fumarate (Quetiapine Fumarate) 25 Mg Tablet, 25 MG PO HS, TAB LAST FILLED 12-05-2020 #90 10/10/19 Tamsulosin HCl (Flomax) 0.4 Mg Cap, 0.4 MG PO HS, CAP 10/10/19 Discontinued Scripts Amlodipine Besylate (Norvasc) 5 Mg Tablet, 5 MG PO DAILY, #30 TAB Prov:CIRO CABRERA DO 10/12/19 Lisinopril (Lisinopril) 10 Mg Tablet, 10 MG PO DAILY, #30 TAB Prov:CIRO CABRERA DO 10/12/19 Objective Exam Constitutional: [] HEENT: [] Neck: [] Cardiovascular: [] Respiratory: [] Gastrointestinal: [] Genitourinary: [] Skin: [] Back/Spine: [] Extremities: [No pain left hip with range of motion. Pain with range of motion of left knee which is full. He has increasing pain with increased flexion. He does have some joint line pain both medial laterally as well as patellofemoral pain. Good tracking the patella. No instability of the knee. Mild effusion of the knee. No calf tenderness negative Homans. Good motion ankle without pain. No instability.Does have normal sensation of the foot and toes with good cap refill and equal pulses] Neurologic: [] Psychiatric: [] Hematologic/lymphatic/immunologic: [] Vital Signs Vital Signs Date Time Temp Pulse Resp B/P (MAP) Pulse Ox O2 Delivery O2 Flow Rate FiO2 06/17/21 12:00 35.4 71 18 156/69 (98) 91 Room Air 06/17/21 08:30 Room Air 06/17/21 08:00 36.9 80 20 103/67 (79) 94 Room Air 06/17/21 04:14 36.0 67 19 137/71 (93) 93 Room Air 06/17/21 00:00 36.0 74 18 147/82 (103) 95 Room Air 06/16/21 20:30 Room Air 06/16/21 20:02 36.2 82 20 132/96 (108) 95 Room Air 06/16/21 16:40 36.4 86 20 159/79 (105) 94 Room Air I & O 06/17/21 07:00 Intake Total 1290 ml Output Total 600 ml Balance 690 ml Lab Results Laboratory Tests 06/16/21 16:39: Glucometer 245H 06/16/21 20:25: Glucometer 131H 06/17/21 05:20: Sodium Level 138, Potassium Level 3.8, Chloride Level 104, Carbon Dioxide Level 22, Anion Gap 12, Blood Urea Nitrogen 17, Creatinine 0.76, Estimat Glomerular Filtration Rate 99, BUN/Creatinine Ratio 22, Glucose Level 139H, Calcium Level 9.0 06/17/21 05:37: Glucometer 143H 06/17/21 11:50: Glucometer 189H Imaging X-rays were reviewed from 04/26/2021 Which shows tricompartment arthritis. No loose bodies. These are nonweightbearing films and the joint spaces are well- maintained but spurring is noted medial and lateral as well as patellofemoral. No evidence of fracture Assessment and Plan Assessment Tricompartment arthritis left knee Problem List Unchanged Plan Patient requested a cortisone injection. I discussed this with him and he would like to proceed. Procedureagain I discussed the procedure risk complications and the patient would like to proceed. His lateral joint space was prepped with Betadine alcohol and then cleansed with alcohol and he was injected through the lateral joint space with Depo-Medrol 80 mg and 4 mL of 0.25% Marcaine.The skin was then cleansed with alcohol and a Band-Aid was applied. Use ice as needed. 26 mL of the 0.25% Marcaine was wasted. Also 1 mL of the Depo-Medrol was wasted Final Diagonsis Tricompartment osteoarthritis left knee Level of the visit: Level 3 ARCENIO BELLA MD Jun 17, 2021 13:44
--- NOTE | 2021-06-17 14:39 | Occupational Ther Daily Note ---
OT Current Status-Daily Note ADL-Treatment Therapy Code Descriptions/Definitions Functional [place] Measure: 0=Not Assessed/NA 4=Minimal Assistance 1=Total Assistance 5=Supervision or Setup 2=Maximal Assistance 6=Modified [place] 3=Moderate Assistance 7=Complete IndependenceSCALE: Activities may be completed with or without assistive devices. 8-Svrbcxtkbn-mhojwwh completes the activity by him/herself with no assistance from a helper. 5-Set-up or Clean-up Assistance-helper sets up or cleans up; patient completes activity. [place] assists only prior to or following the activity. 4-Supervision or Touching Assistance-helper provides verbal cues and/or touching/steadying and/or contact guard assistance as patient completes activity. Assistance may be provided throughout the activity or intermittently. 3-Partial/Moderate Assistance-helper does LESS THAN HALF the effort. [place] lifts, holds or supports trunk or limbs, but provides less than half the effort. 2-Substantial/Maximal Assistance-helper does MORE THAN HALF the effort. [place] lifts or holds trunk or limbs and provides more than half the effort. 4-Soiamypkw-ykqahx does ALL the effort. Patient does none of the effort to complete the activity. Or, the assistance of 2 or more helpers is required for the patient to complete the activity. If activity was not attempted, code reason: 7-Patient Refused. 9-Not Applicable-not attempted and the patient did not perform the activity before the current illness, exacerbation or injury. 10-Not Attempted due to Environmental Limitations-(lack of equipment, weather restraints, etc.). 88-Not Attempted due to Medical Conditions or Safety Concerns. OT Mcc Goals Aligner Typewriter Goals Time Frame: Jun 28, 2021 Oral Hygiene (QC): 3 Toileting Hygiene (QC): 3 Upper Body Dressing (QC): 3 Lower Body Dressing (QC): 3 On/Off Footwear (QC): 3 1=Demonstrate adherence to instructed precautions during ADL tasks. 2=Patient will verbalize/demonstrate understanding of assistive devices/modifications for ADL. 3=Patient will improve strength/tolerance for activity to enable patient to perform ADL's. OT Education/Plan Treatment Plan/Plan of Care Patient would benefit from OT for education, treatment and training to promote independence in ADL's, mobility, safety and/or upper extremity function for ADL's. Plan of Care: ADL Retraining, Cognitive Retraining, Functional Mobility, UE Funct Exercise/Act, UE Neuromus Re-Ed/Coord Treatment Duration: Jun 28, 2021 Frequency: 5 times per week Estimated Hrs Per Day: .25 hour per day Agreement: Yes Rehab Potential: Fair HEMA RICHARDS Jun 17, 2021 14:39
== END 2021-06-17 13:10 | DRG 65 ==
LOC: EDUNIT# 19:45 → ER FS 19:46 → ICU 23:32 → 4TH 06-13 14:45
PROVIDERS: ADMIT Internal Medicine; ATTEND Internal Medicine
PROC: 3E0U33Z Introduction of Anti-inflammatory into Joints, Percutaneous Approach (ICD-10-PCS; principal; 2021-06-17)
DX: I63.50 Cerebral infarction due to unspecified occlusion or stenosis of unspecified cerebral artery (principal); G81.94 Hemiplegia, unspecified affecting left nondominant side; N17.9 Acute kidney failure, unspecified; R29.810 Facial weakness; R47.1 Dysarthria and anarthria; R47.81 Slurred speech; R29.709 NIHSS score 9; F01.50 Vascular dementia, unspecified severity, without behavioral disturbance, psychotic disturbance, mood disturbance, and anxiety; Z20.822 Contact with and (suspected) exposure to COVID-19; K21.9 Gastro-esophageal reflux disease without esophagitis; K57.90 Diverticulosis of intestine, part unspecified, without perforation or abscess without bleeding; M54.9 Dorsalgia, unspecified; H54.3 Unqualified visual loss, both eyes; E11.65 Type 2 diabetes mellitus with hyperglycemia; Z79.84 Long term (current) use of oral hypoglycemic drugs; I10 Essential (primary) hypertension; N40.0 Benign prostatic hyperplasia without lower urinary tract symptoms; E78.5 Hyperlipidemia, unspecified; M17.12 Unilateral primary osteoarthritis, left knee; H04.129 Dry eye syndrome of unspecified lacrimal gland
CPT/HCPCS: 36415; 70450; 70496; 70498; 70551; 71045; 80048; 80053; 80061; 81000; 82550; 82947; 83605; 84484; 85025; 85379; 85610; 85730; 87635; 93005; 93306; 93880; 93970

== ENCOUNTER 2021-06-17 12:08 | Inpatient (IN) | payer MEDICARE ==
[~2021-06-17] VITALS: Ht 177.8 cm; Wt 108.5 kg
[~2021-06-17 12:08] MED LIST changes: +ACET-2267 PO; +AMLO-250 PO; +IBUP-2473 PO; +METF-399 PO; -QUET25TA34 PO; +QUET25TA35 PO
[2021-06-17] MEDS ORDERED: guaiFENesin/CODEINE (ROBITUSSIN AC) 10ML UDC PO PRN (13:00)
[2021-06-17] MEDS ORDERED: CALCIUM CARBONATE 500 MG (TUMS) TAB.CHEW PO PRN ×2 (13:00→19:15)
[2021-06-17] MEDS ORDERED: BISACODYL 10 MG SUPP (DULCOLAX) PR PRN (13:00)
[2021-06-17] MEDS ORDERED: ONDANSETRON 4 MG (ZOFRAN) ORAL DISSOLVE TAB PO PRN (13:00)
[2021-06-17] MEDS ORDERED: DOCUSATE SODIUM 100 MG (COLACE) CAP PO PRN ×2 (13:00→19:15)
[2021-06-17] MEDS ORDERED: LACTULOSE SYRUP 10GM/15ML (ENULOSE) 30ML UDC PO PRN (13:00)
[2021-06-17] MEDS ORDERED: FLEET ENEMA ADULT 1 EA BTL PR PRN (13:00)
[2021-06-17] MEDS ORDERED: LOPERAMIDE 2 MG (IMODIUM) TABLET PO PRN (13:00)
--- NOTE | 2021-06-17 14:15 | Physical Therapy Evaluation ---
PT Evaluation-General Medical Diagnosis Admission Date Medical Diagnosis: CVA Onset Date: Jun 12, 2021 Therapy Diagnosis Therapy Diagnosis: impaired mobility, strength, endurance, balance Height/Weight Height (Feet): 5 Height (Inches): 10.00 Weight (Pounds): 252 Weight (Ounces): 1.0 Referral Physician: Milla Diaz DO Reason for Referral: Evaluation/Treatment Medical History Pertinent Medical History: DM, HTN Additional Medical History Past Medical History Surgeries: Vasectomy Dementia Sexually Transmitted Disease: No HIV/AIDS: No Prostate Problems, Kidney Stones Gastroesophageal Reflux, Diverticulosis Chronic Back Pain Loss of Vision: Bilateral Reviewed History: Yes Social History Home: Apartment Current Living Status: Alone Entry Into Home: Level Entry Prior Prior Level of Function SCALE: Activities may be completed with or without assistive devices. 3-Dhpsxztagv-guxtpvs completes the activity by him/herself with no assistance from a helper. 5-Set-up or Clean-up Assistance-helper sets up or cleans up; patient completes activity. [place] assists only prior to or following the activity. 4-Supervision or Touching Assistance-helper provides verbal cues and/or touching/steadying and/or contact guard assistance as patient completes activity. Assistance may be provided throughout the activity or intermittently. 3-Partial/Moderate Assistance-helper does LESS THAN HALF the effort. [place] lifts, holds or supports trunk or limbs, but provides less than half the effort. 2-Substantial/Maximal Assistance-helper does MORE THAN HALF the effort. [place] lifts or holds trunk or limbs and provides more than half the effort. 9-Nyzshtybp-jngbay does ALL the effort. Patient does none of the effort to complete the activity. Or, the assistance of 2 or more helpers is required for the patient to complete the activity. If activity was not attempted, code reason: 7-Patient Refused. 9-Not Applicable-not attempted and the patient did not perform the activity before the current illness, exacerbation or injury. 10-Not Attempted due to Environmental Limitations-(lack of equipment, weather restraints, etc.). 88-Not Attempted due to Medical Conditions or Safety Concerns. Bed Mobility: 6 Transfers (B,C,W/C): 6 Gait: 6 Stairs: 6 Indoor Mobility (Ambulation): Independent Stairs: Independent PT Evaluation-Current Subjective Patient in recliner pre tx, agrees to PT, has no complaints of pain. Will be co-treating with OT due to poor patient mobility, strength, endurance, left hemiparesis, coordinate UE and LE during activity, safety and reduce risk of falls. Pt/Family Goals to be independent at home Objective Patient Orientation: Person, Place, Situation ROM/Strength ROM Lower Extremities WNL Strength Lower Extremities LLE (hip flexion 1/5, knee flexion 0/5, knee extension 1/5, dorsiflexion 0/5), RLE (hip flexion 3+/5, knee flexion 4+/5, knee extension 4+/5, dorsiflexion 5/5) Sensory Vision: Wears Glasses Hearing: Functional Sensation Right Lower Extremit: Intact Sensation Left Lower Extremity: Intact Transfers Roll Left & Right (QC): 2 Sit to Lying (QC): 2 Lying to Sitting/Side of Bed(Q: 2 Sit to Stand (QC): 3 Chair/Pfg-xa-Eurgi Xfer(QC): 3 Toilet Transfer (QC): 3 Car Transfer (QC): 88 Patient performs bed mobility and supine <-> sit with max assist, sit <-> stand mod assist, transfers mod assist. Patient is not safe to perform a car transfer at this time. Patient needs cues for positioning and safety. He says he is very afraid of falling. Gait Does the Patient Walk?: Yes Mode of Locomotion: Walk Anticipated Mode of Locomotion: Walk Walk 10 feet (QC): 88 Walk 50 ft with 2 Turns(QC): 88 Walk 150 ft (QC): 88 Walking 10ft/uneven surface-QC: 88 Distance: 3' Gait Assistive Device: Parallel Bars Comments/Gait Description Patient can ambulate 3' in the parallel bars with max assist. Cues for steps, very afraid of falling, leans to the left side. Wheelchair Training Does the Pt Use a Wheelchair?: Yes Distance: 50' Wheel 50 ft with 2 turns (QC): 2 Wheel 150 ft (QC): 88 Type of Wheelchair: Manual Stairs 1 Step (curb) (QC): 88 4 Steps (QC): 88 12 Steps (QC): 88 Balance Sitting Static: Poor Sitting Dynamic: Poor Standing Static: Poor Standing Dynamic: Poor Picking up an Object (QC): 88 Treatment PT performed bed mobility and transfers, ambulation, WC mobility, standing and balance during bathing and dressing, patient also stood in the parallel bars x2 with max assist for about 30 seconds each time. OT performed bathing, dressing, UE positioning and safety during activity. Assessment/Needs Patient in recliner post tx with nurse call, phone, tray, all needs met. Patient has impaired mobility, strength, endurance, balance. He has left hemiparesis, leans to the left side. Rehab Potential: Guarded PT Short Term Goals Short Term Goals Time Frame: Jun 24, 2021 Roll Left & Right: 3 Sit to lyin Lying to sitting on side of be: 3 Sit to stand: 3 Chair/lbc-ls-ryywb transfer: 3 Walk 10 feet: 3 PT Fpc Goals Double Cutter Goals PT Fpc Goals Time Frame: Jul 08, 2021 Roll Left & Right (QC): 3 (Dora) Sit to Lying (QC): 3 (Dora) Lying-Sitting on Side/Bed(QC): 3 (Dora) Sit to Stand (QC): 4 (CGA) Chair/Klw-xt-Kovtj Xfer(QC): 4 (CGA) Toilet Transfer (QC): 4 (CGA) Car Transfer (QC): 4 (CGA) Does the Patient Walk: Yes Walk 10 feet (QC): 4 (CGA) Walk 50ft with 2 Turns (QC): 88 Walk 150 ft (QC): 88 Walking 10ft on Uneven Surface: 3 (Dora) 1 Step (curb) (QC): 3 (Dora) 4 Steps (QC): 88 12 Steps (QC): 88 Picking up an Object (QC): 88 Wheel 50 feet with 2 turns (QC: 5 Wheel 150 feet: 5 PT Plan Problem List Problem List: Activity Tolerance, Functional Strength, Safety, Balance, Gait, Transfer, Bed Mobility, ROM Treatment/Plan Treatment Plan: Continue Plan of Care Treatment Plan: Bed Mobility, Education, Functional Activity Gwendolyn, Functional Strength, Group Therapy, Gait, Safety, Therapeutic Exercise, Transfers Treatment Duration: Jul 08, 2021 Frequency: At least 5 of 7 days/Wk (IRF) Estimated Hrs Per Day: 1.5 hours per day Patient and/or Family Agrees t: Yes Safety Risks/Education Patient Education: Gait Training, Transfer Techniques, Correct Positioning, W/C Management, Safety Issues Teaching Recipient: Patient Teaching Methods: Demonstration, Discussion Response to Teaching: Reinforcement Needed Discharge Recommendations Plan Patient will perform bed mobility and transfer training, balance and endurance training, functional strengthening, stair training, gait training, and education, to improve functional mobility and independence at home. Therapy Discharge Recommendati: 24 Hour Supervision Time/GCodes Time In: 1310 Time Out: 1450 Total Billed Treatment Time: 90 Total Billed Treatment 1 visit EVM 10' FA 80' PT eval from [id number], OT eval from [id number], co-treat from [id number] JASVIR ALVES PT Jun 17, 2021 14:15
--- NOTE | 2021-06-17 14:35 | Occupational Therapy Eval ---
OT Evaluation-General/PLF Medical Diagnosis Admission Date Jun 17, 2021 at 13:00 Medical Diagnosis: CVA Onset Date: Jun 12, 2021 Therapy Diagnosis Therapy Diagnosis: Impaired adls, iadls, mobilty, rom, strenght, endurance, problem solving Height/Weight Height (Feet): 5 Height (Inches): 10.00 Weight (Pounds): 252 Weight (Ounces): 1.0 Referral Physician: Milla Diaz DO Referral Reason: Evaluation/Treatment Medical History Pertinent Medical History: DM, HTN Current History Pt presented to ER with Left sided weakness and slurred speech. Per patient, he received his 2nd Covid 19 vaccine on Jun 10 and shortly after had generalized weakness where it progressed to the point that he was unable to move his left side. He fell due to weakness and laid on the floor for 2 nights. He was found by neighbor. CTA reveals occlusion of a 2 level and Left JOSE GUADALUPE infarct which does not correlate with physical findings. MRI reveals: Acute/subacute infarct, right paramidline yolanda.Extensive periventricular and subcortical white matter signal foci consistent with chronic microvascular ischemia. No acute intracranial hemorrhage is detected. He reports he was indep with adls and iadls prior to admission yet reports that he has been having increased difficulty with managing home, laundry and grocery shopping. Per patient, his son has been trying to have him move in with him for a long time. his son lives in [place]. He still drives and was not using any AD MATE RELIEF. He has a tub/shower combo where he stood to bathe. Social History Home: Apartment Current Living Status: Alone Entry Into Home: Level Entry ADL-Prior Level of Function SCALE: Activities may be completed with or without assistive devices. 1-Trgwykhjrr-iwtmxry completes the activity by him/herself with no assistance from a helper. 5-Set-up or Clean-up Assistance-helper sets up or cleans up; patient completes activity. [place] assists only prior to or following the activity. 4-Supervision or Touching Assistance-helper provides verbal cues and/or touching/steadying and/or contact guard assistance as patient completes activity. Assistance may be provided throughout the activity or intermittently. 3-Partial/Moderate Assistance-helper does LESS THAN HALF the effort. [place] lifts, holds or supports trunk or limbs, but provides less than half the effort. 2-Substantial/Maximal Assistance-helper does MORE THAN HALF the effort. [place] lifts or holds trunk or limbs and provides more than half the effort. 7-Zeeipppbl-ktrsvb does ALL the effort. Patient does none of the effort to complete the activity. Or, the assistance of 2 or more helpers is required for the patient to complete the activity. If activity was not attempted, code reason: 7-Patient Refused. 9-Not Applicable-not attempted and the patient did not perform the activity before the current illness, exacerbation or injury. 10-Not Attempted due to Environmental Limitations-(lack of equipment, weather restraints, etc.). 88-Not Attempted due to Medical Conditions or Safety Concerns. Self Care: Independent Functional Cognition: Independent Drive Self: Yes OT Current Status Subjective Pt agreeable to eval. Appearance Pt left in therapy gym, DORSEY to take over treatment. Mental Status/Objective Patient Orientation: Person, Situation Current Glasses/Contacts: Yes Hand Dominance: Right Upper Extremity ROM LUE: flaccid, Full PROM (shoulder to 90 degrees only) RUE: shoulder 3/4 AROM, elbow-distally WFL Upper Extremity Coordination Impaired, Decreased proprioception. Upper Extremity Sensation intact light touch (10 out of 10) Upper Extremity Strength LUE: impaired RUE: 4/5 throughout ADL-Treatment Eating (QC): 4 Oral Hygiene (QC): 3 Shower/Bathe Self (QC): 1 Upper Body Dressing (QC): 7 Lower Body Dressing (QC): 1 On/Off Footwear (QC): 1 Toileting Hygiene (QC): 1 Pt sitting in chair at OT arrival. Incontinent of urine. Dep to thread BLE's into clean brief. Unable to lift LLE despite assist from RUE, requires assist from OT. Dep x2 to stand, maintain balance, and manage brief over hips. MAX A x1 to maintain balance as second person performed lm care. Poor body awareness/proprioception. Cues for upright posture in both sitting and standing. Able to self correct post cues to use mirror as visual aid. Scapula Asymmetry noted. LUE flaccid this date, requires assist to position/place prior to transfers. Assist x2 to take minimal steps with cues to shift body weight and transition L foot. At this time, pt would require assist with all bilateral tasks such as cutting food or tieing shoes. Pt left in therapy gym, DORSEY to take over treatment. Education OT Patient Education: Correct positioning, Disease process, Energy conservation , Modified ADL techniques, Progress toward Goal/Update tx plan, Purpose of tx/functional activities, Reviewed precautions, Rehab process, Safety issues, Transfer techniques, W/C management Teaching Recipient: Patient Teaching Methods: Demonstration, Discussion Response to Teaching: Reinforcement Needed OT Short Term Goals Short Term Goals Time Frame: Jun 28, 2021 Eatin Oral hygiene: 4 Toileting hygiene: 2 Shower/bathe self: 2 Upper body dressin Lower body dressin Putting on/taking off footwear: 2 OT Care Home Goals Customer Service Consultant Goals Time Frame: Jul 08, 2021 Eating (QC): 4 Oral Hygiene (QC): 4 Toileting Hygiene (QC): 4 Shower/Bathe Self (QC): 4 Upper Body Dressing (QC): 4 Lower Body Dressing (QC): 4 On/Off Footwear (QC): 4 1=Demonstrate adherence to instructed precautions during ADL tasks. 2=Patient will verbalize/demonstrate understanding of assistive devices/modifications for ADL. 3=Patient will improve strength/tolerance for activity to enable patient to perform ADL's. OT Education/Plan Problem List/Assessment Assessment: Decreased Activ Tolerance, Decreased Safety Aware, Decreased UE Strength, Dependent Transfers, Impaired Bed Mobility, Impaired Cognition, Impaired Coordination, Impaired Funct Balance, Impaired I ADL's, Impaired Self- Care Skills, Restricted Funct UE ROM Discharge Recommendations Plan/Recommendations: Continue POC Comment ongoing assessment Treatment Plan/Plan of Care Treatment,Training & Education: Yes Patient would benefit from OT for education, treatment and training to promote independence in ADL's, mobility, safety and/or upper extremity function for ADL's. Plan of Care: ADL Retraining, Cognitive Retraining, Functional Mobility, Group Exercise/Act as Ind, UE Funct Exercise/Act, UE Neuromus Re-Ed/Coord, W/C Management Training Treatment Duration: Jul 08, 2021 Frequency: At least 5 of 7 days/Wk (IRF) Estimated Hrs Per Day: 1.5 hours per day Agreement: Yes Rehab Potential: Fair Time/GCodes Start Time: 13:20 Stop Time: 13:45 Total Time Billed (hr/min): 25 Billed Treatment Time 1 visit, EVH 10 min, FA (15 min) PT eval [id number], OT eval [id number], co-treat: [id number] Genia Mckeon OT Jun 17, 2021 14:35
--- NOTE | 2021-06-17 14:52 | Occupational Ther Daily Note ---
OT Current Status-Daily Note Subjective Pt alert, in therapy gym. Took over care for OTR/L. Pt c/o headache, reported to nrsg. Mental Status/Objective Patient Orientation: Person, Place, Time, Situation Attachments: IV ADL-Treatment Pt. propelled w/c to shower room using R UE/LE. Pt. able to cleanse face, chest, L underarm, abdomen, lm, tops of legs using R UE while seated on BSC. Pt. required assist to cleanse R arm, lower legs, buttocks, feet. Pt. mod a. x2 to stand doff/don brief. Pt. required assist doff/don socks. Pt set up for meal. After therapy, pt sitting in recliner with call light/phone in reach. All needs met in room. Therapy Code Descriptions/Definitions Functional [place] Measure: 0=Not Assessed/NA 4=Minimal Assistance 1=Total Assistance 5=Supervision or Setup 2=Maximal Assistance 6=Modified [place] 3=Moderate Assistance 7=Complete IndependenceSCALE: Activities may be completed with or without assistive devices. 9-Ntvftbabqp-ehhtbwc completes the activity by him/herself with no assistance from a helper. 5-Set-up or Clean-up Assistance-helper sets up or cleans up; patient completes activity. [place] assists only prior to or following the activity. 4-Supervision or Touching Assistance-helper provides verbal cues and/or touching/steadying and/or contact guard assistance as patient completes activity. Assistance may be provided throughout the activity or intermittently. 3-Partial/Moderate Assistance-helper does LESS THAN HALF the effort. [place] lifts, holds or supports trunk or limbs, but provides less than half the effort. 2-Substantial/Maximal Assistance-helper does MORE THAN HALF the effort. [place] lifts or holds trunk or limbs and provides more than half the effort. 0-Seiddkoqc-qzemxh does ALL the effort. Patient does none of the effort to complete the activity. Or, the assistance of 2 or more helpers is required for the patient to complete the activity. If activity was not attempted, code reason: 7-Patient Refused. 9-Not Applicable-not attempted and the patient did not perform the activity before the current illness, exacerbation or injury. 10-Not Attempted due to Environmental Limitations-(lack of equipment, weather restraints, etc.). 88-Not Attempted due to Medical Conditions or Safety Concerns. Eating (QC): 5 (Set up for meals) Bathing Location: L Arm, R Arm, L Upper Leg, R Upper Leg, Chest, Abdomen, Perineal Area Shower/Bathe Self (QC): 3 Lower Body Dressing (QC): 1 On/Off Footwear: 2 Other Treatment Co-treat with PT ([id number]), 2 clinicians required to decrease fall risk, increase functional mobility and increase active movement in L UE/LE. PT focusing on ambulation, mobility, and transfer while OT focusing on ADLs, L UE placement during functional transfer/mobility. Assist x2 for standing at parallel bars and to ambulate using parallel bars. See PT notes for progress. OT Half-Way Goals Can Operator Goals Eating (QC): 4 Oral Hygiene (QC): 4 Toileting Hygiene (QC): 4 Shower/Bathe Self (QC): 4 Upper Body Dressing (QC): 4 Lower Body Dressing (QC): 4 On/Off Footwear (QC): 4 1=Demonstrate adherence to instructed precautions during ADL tasks. 2=Patient will verbalize/demonstrate understanding of assistive devices/modifications for ADL. 3=Patient will improve strength/tolerance for activity to enable patient to perform ADL's. OT Education/Plan Problem List/Assessment Assessment: Decreased Activ Tolerance, Decreased Safety Aware, Decreased UE Strength, Dependent Transfers, Impaired Bed Mobility, Impaired Coordination, Impaired Funct Balance, Impaired Self-Care Skills, Restricted Funct UE ROM Discharge Recommendations Plan/Recommendations: Continue POC Treatment Plan/Plan of Care Patient would benefit from OT for education, treatment and training to promote independence in ADL's, mobility, safety and/or upper extremity function for ADL's. Plan of Care: ADL Retraining, Caregiver Training, Cognitive Retraining, Functional Mobility, Group Exercise/Act as Ind, UE Funct Exercise/Act, UE Neuromus Re-Ed/Coord, W/C Management Training Treatment Duration: Jul 08, 2021 Frequency: At least 5 of 7 days/Wk (IRF) Estimated Hrs Per Day: 1.5 hours per day Agreement: Yes Rehab Potential: Fair Time/GCodes Start Time: 13:45 Stop Time: 14:50 Total Time Billed (hr/min): 65 Billed Treatment Time 1 visit-NM 1 (20 min) ADL 3 (45 min) co-treat with PT [id number] HEMA RICHARDS Jun 17, 2021 14:52
--- NOTE | 2021-06-17 14:57 | Progress Note ---
SYLWIA TAPIA MED STUDENT 06/17/21 1457: Progress Note History and Physical Harsh Capps is a 81 y.o. M with history of DM2, depression, HTN, and 2nd covid vaccination 06/10. He experienced with nausea, vomiting, and left sided weakness at the arm and leg on 06/11. The patient fell on 06/11 and was unable to get up, spending two nights on the floor before a friend called EMS. Mr. Capps was outside the tPA window for his stroke symptoms. He was admitted to the ICU on 06/13 and initially had CRISTIN with concerns of rhabdomyolysis but creatinine rapidly stabilized to normal. MRI identified a right paramidline yolanda infarct. The patient had some issues with chronic arthritic knee pain and ortho was consulted regarding a steroid shot option. The patient was transferred to rehab in stable condition to improve functionality on 06/17/21. PMH: DM2, depression, hypertension, GERD, left knee arthritis, obesity, new onset left pontine CVA PSH: jaw surgery, left shoulder surgery, right knee surgery Medications: metformin, amlodipine, lisinopril, omeprazole, Quetiapine, Venlafaxine, Tamsulosin Allergies: NKDA. Denies food allergies. Social History: 4 cousins live in [place] and are close. Lives alone at home. Family History: father: history of lung cancer in his 70's, (4 pack per year smoker). Sister: history of lung cancer, former smoker, . ROS: Constitutional: denies fevers, chills HEENT: denies sore throat, congestion CV: denies palpitations, chest pain Respiratory: denies SOB, cough GI: denies abdominal pain, nausea Neuro: reports left facial droop, left arm weakness, left leg weakness. Denies loss of sensation Extremities: reports left knee pain, denies leg swelling PE: Constitutional: A&O x3, alert, pleasant HEENT: left sided facial droop. mucous membranes moist. CV: regular rate and rhythm, no JVD Respiratory: lungs clear, no dyspnea Abdominal: nontender, nondistended Neuro: left arm strength +0/5, left forefoot plantarflexion and dorsiflexion +0/5, +5/5 strength RUE and RLE. left facial droop. A&P: right pontine CVA left hemiparesis -strength significantly decreased compared to strength at initial hospitalization. -PT and OT left knee arthritic pain -received glucocorticoid shot today DM2 -glycemic control HTN -continue home medications GERD -continue home medications DVT/PE prophylaxis MILLA CABRERA DO 06/18/21 0537: Supervisory-Addendum Brief Verification & Attestation Participated in pt care: history, MDM, physical Personally performed: exam, history, MDM, supervision of care Care discussed with: Medical Student Procedures: n/a Results interpretation: Verified all documentation Verification and Attestation of Medical Student E/M Service A medical student performed and documented this service in my presence. I reviewed and verified all information documented by the medical student and made modifications to such information, when appropriate. I personally performed the physical exam and medical decision making. Milla Cabrera, Jun 18, 2021,05:37 SYLWIA TAPIA MED STUDENT Jun 17, 2021 14:57 MILLA CABRERA DO Jun 18, 2021 05:37
[2021-06-17 15:00] VITALS: BP 112/68
[2021-06-17] MEDS ORDERED: ALPRAZolam 0.25 MG (XANAX) TAB PO PRN (19:15)
[2021-06-17] MEDS ORDERED: MELATONIN 3 MG TABLET PO PRN (19:15)
[2021-06-17 20:00] VITALS: BP 152/71
[2021-06-17] MEDS: polyethylene glycoL POWDER 17 GM (MIRALAX) PACK PO SCH (21:00)
[2021-06-17] MEDS: SENNA W/DOCUSATE (SENOKOT S) TABLET PO SCH ×2 (21:00→22:24)
--- NOTE | 2021-06-17 21:10 | PM&R Post Admission Assessment ---
PM&R HP Date of Visit: Jun 17, 2021 Time of Visit: 19:00 History of Present Illness Chief complaint: CVA History of present illness: This is a 81-year-old white male who presented to the inpatient rehab unit in need of aggressive rehab following CVA and subsequent left-sided weakness. He was not a TPA candidate due to presenting at least 2 days after last well time after being found down at home for 2 days. Currently patient is just received a steroid injection in his left knee which he obtains every 3 months by his primary care provider and now doing a lot better. Bowels are moving really well and denies any other new issues. Harsh Capps is a 81 y.o. M with history of DM2, depression, HTN, and 2nd covid vaccination 06/10. He experienced with nausea, vomiting, and left sided weakness at the arm and leg on 06/11. The patient fell on 06/11 and was unable to get up, spending two nights on the floor before a friend called EMS. Mr. Capps was outside the tPA window for his stroke symptoms. He was admitted to the ICU on 06/13 and initially had CRISTIN with concerns of rhabdomyolysis but creatinine rapidly stabilized to normal. MRI identified a right paramidline yolanda infarct. The patient had some issues with chronic arthritic knee pain and ortho was consulted regarding a steroid shot option. The patient was transferred to rehab in stable condition to improve functionality on 06/17/21. PMH: DM2, depression, hypertension, GERD, left knee arthritis, obesity, new onset left pontine CVA PSH: jaw surgery, left shoulder surgery, right knee surgery Medications: metformin, amlodipine, lisinopril, omeprazole, Quetiapine, Venlafaxine, Tamsulosin Allergies: NKDA. Denies food allergies. Social History: 4 cousins live in [place] and are close. Lives alone at home. Family History: father: history of lung cancer in his 70's, (4 pack per year smoker). Sister: history of lung cancer, former smoker, . ROS: Constitutional: denies fevers, chills HEENT: denies sore throat, congestion CV: denies palpitations, chest pain Respiratory: denies SOB, cough GI: denies abdominal pain, nausea Neuro: reports left facial droop, left arm weakness, left leg weakness. Denies loss of sensation Extremities: reports left knee pain, denies leg swelling PE: Constitutional: A&O x3, alert, pleasant HEENT: left sided facial droop. mucous membranes moist. CV: regular rate and rhythm, no JVD Respiratory: lungs clear, no dyspnea Abdominal: nontender, nondistended Neuro: left arm strength +0/5, left forefoot plantarflexion and dorsiflexion +0/5, +5/5 strength RUE and RLE. left facial droop. A&P: right pontine CVA left hemiparesis -strength significantly decreased compared to strength at initial hospit alization. -PT and OT left knee arthritic pain -received glucocorticoid shot today DM2 -glycemic control HTN -continue home medications GERD -continue home medications DVT/PE prophylaxis SYLWIA TAPIA MED STUDENT Past Qgbsyts-Nqghqr-Nepqon Hx Past Med/Social Hx: Reviewed Nursing Past Med/Soc Hx, Reviewed and Corrections made Patient Social History Marrital Status: single Employed/Student: retired Alcohol Use: Denies Use Smoking Status: Former Smoker Recent Hopitalizations: No Immunizations Up To Date Date of Pneumonia Vaccine: Jul 07, 2016 Date of Influenza Vaccine: Aug 16, 2019 Seasonal Allergies Seasonal Allergies: Yes (MILD) Past Medical History Surgeries: Vasectomy Cardiac: High Cholesterol, Hypertension Neurological: Stroke Reproductive: No Sexually Transmitted Disease: No HIV/AIDS: No Genitourinary: Prostate Problems, Kidney Stones Gastrointestinal: Gastroesophageal Reflux, Diverticulosis Musculoskeletal: Chronic Back Pain Endocrine: Diabetes, Non-Insulin dep Loss of Vision: Bilateral Hearing Impairment: Denies History of Blood Disorders: No Adverse Reaction to Blood Bridges: No (N/A) Prior Level of Function Bed Mobility: 6 Transfers: 6 Gait: 6 Stairs: 6 Indoor Mobility (Ambulation): Independent Stairs: Independent Self Care: Independent Functional Cognition: Independent Occupation: retired Drive Self: Yes Current Level of Fuctioning Roll Left to Right: 2 Sit to Lyin Lying to Sitting/Side of Bed: 2 Sit to Stand: 3 Chair/Cwj-ru-Tnonz Xfer: 3 Car Transfer: 88 Does the Patient Walk: Yes Mode of Locomotion: Walk Anticipated Mode of Locomotion: Walk Walk 10 feet: 88 Walk 50 ft with 2 Turns: 88 Walk 150 ft: 88 Walking 10ft on uneven surface: 88 Gait Assistive Device: Parallel Bars Does the Pt Use a Wheelchair: Yes Wheelchair Distance: 50' Wheel 50 ft with 2 turns: 2 Wheel 150 ft: 88 Type of Wheelchair: Manual 1 Step (curb): 88 4 Steps: 88 12 Steps: 88 Picking up an Object: 88 Eatin (Set up for meals) Oral Hygiene: 3 Shower/Bathe Self: 3 Upper Body Dressin Lower Body Dressin On/Off Footwear: 2 Toileting Hygiene: 1 PM&R Allergy/Meds/Data Review Allergies Coded Allergies: No Known Drug Allergies (Unverified , 08/26/16) Home Medications Scheduled Amlodipine Besylate (Amlodipine Besylate), 5 MG PO DAILY, (Reported) Lisinopril (Lisinopril), 10 MG PO DAILY, (Reported) Metformin HCl (Metformin HCl), 1,000 MG PO BID, (Reported) Omeprazole (Omeprazole), 40 MG PO DAILY, (Reported) Quetiapine Fumarate (Quetiapine Fumarate), 25 MG PO HS, (Reported) Tamsulosin HCl (Flomax), 0.4 MG PO HS, (Reported) Venlafaxine HCl (Venlafaxine HCl ER), 150 MG PO DAILY, (Reported) Scheduled PRN Acetaminophen (Tylenol Extra Strength), 1,000 MG PO Q8H PRN for PAIN-MILD (1-4), (Reported) Ibuprofen (Ibuprofen), 400-600 MG PO Q8H PRN for PAIN-MILD (1-4), (Reported) Discontinued Medications Amlodipine Besylate (Norvasc), 5 MG PO DAILY Discontinued Reason: Duplicate Order Lisinopril (Lisinopril), 10 MG PO DAILY Discontinued Reason: New Order Current Medications Current Medications Reviewed Laboratory Data Laboratory Tests 06/17/21 16:53: Glucometer 214H Review of Systems Constitutional: see HPI, malaise, weakness EENTM: no symptoms reported Respiratory: no symptoms reported Cardiovascular: no symptoms reported Gastrointestinal: no symptoms reported Genitourinary: no symptoms reported Musculoskeletal: joint pain Skin: no symptoms reported Psychiatric/Neurological: Weakness All Other Systems Reviewed Negative Unless Noted: Yes Physical Exam Physical Exam Vital Signs Vital Signs - First Documented 06/17/21 15:00 Temp 36.9 Pulse 80 Resp 20 B/P (MAP) 112/68 (83) Pulse Ox 94 O2 Delivery Room Air Capillary Refill : Height, Weight, BMI Height: 5'10.00" Weight: 252lbs. 1.0oz. [id number]; 34.25 BMI Method: General Appearance: No Apparent Distress, WD/WN, Chronically ill, Obese Eyes: Bilateral Eye Normal Inspection, Bilateral Eye PERRL HEENT: PERRL/EOMI, Normal ENT Inspection, Pharynx Normal Neck: Full Range of Motion, Normal Inspection, Non Tender, Supple, Carotid Bruit Respiratory: Chest Non Tender, Lungs Clear, Normal Breath Sounds, No Accessory Muscle Use, No Respiratory Distress Cardiovascular: Regular Rate, Rhythm, No Edema, No Gallop, No JVD, No Murmur, Normal Peripheral Pulses Gastrointestinal: Normal Bowel Sounds, No Organomegaly, No Pulsatile Mass, Non Tender, Soft Back: Normal Inspection, No CVA Tenderness, No Vertebral Tenderness Extremity: Normal Capillary Refill, Normal Inspection, Normal Range of Motion, Non Tender, No Calf Tenderness, No Pedal Edema Neurologic/Psychiatric: Alert, Oriented x3, 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 assistant II-XII Norm as Tested, Abnormal Gait, Depressed Affect, Facial Droop (Left), Motor Weakness (Left-sided weakness 2/5) Skin: Normal Color, Warm/Dry Lymphatic: No Adenopathy PM&R Medical Assessment & Plan REHAB/MEDICAL ASSESSMENT AND PLAN: REHAB IMPAIRMENT GROUP: CVA ETIOLOGIC DIAGNOSIS: CVA The comorbidities that impact the patients function and/or functional outcome by: Advanced age, profound deficit, mild dementia, left knee pain none REHAB PLAN: The patient is being admitted to our comprehensive inpatient rehabilitation facility and can tolerate the intensity of service consisting of at least: 180 minutes of therapy a day, 5 out of 7 days a week Rehab treatment will consist of: PT and OT will focus on regaining function of the left sided weakness to increase ambulatory skills with assistive devices and increase independence in ADLs in order to return home to independent living The patient/family has a good understanding of our discharge process and will benefit from an interdisciplinary inpatient rehabilitation program. The patient has potential to make improvement and is in need of at least two of the following multidisciplinary therapies including but not limited to physical, occupational, speech, and prosthetics and orthotics. Additionally the patient will need services from respiratory, nutritional services, wound care, psychology, etc. (Customize this to each patient). Given the patients complex condition and risk of further medical complications, rehabilitation services cannot be safely or effectively provided at a lower level of care such as a long term facility. BARRIERS TO DISCHARGE: Advanced age ESTIMATED LOS: 14 days DISPOSITION: Home RELEVANT CHANGES SINCE PREADMISSION SCREENING: I have compared the patients medical and functional status at the time of the preadmission screening and there are: No changes PROGNOSIS: Fair REHABILITATION GOALS: 1. PT and OT will focus on regaining function of the left sided weakness to increase ambulatory skills with assistive devices and increase independence in ADLs in order to return home to independent living All the above goals were reviewed with the patient and he/she is in agreement. By signing this document, I acknowledge that I have personally performed a full physical examination on this patient within 24 hours of admission to this inpatient rehabilitation facility and have determined the patient to be able to tolerate the above course of treatment at an intensive level for a reasonable period of time. I will be completing a detailed individualized Plan of Care for this patient by day #4 of the patients stay based upon the Preadmission Screen, the Post-Admission Evaluation, and the therapy evaluations. Admission Dx/Comorbidities: (1) Cerebrovascular accident due to cerebral artery occlusion Status: Acute ICD Codes: I63.50 - Cerebral infarction due to unspecified occlusion or stenosis of unspecified cerebral artery (2) T2DM (type 2 diabetes mellitus) Status: Chronic ICD Codes: E11.9 - Type 2 diabetes mellitus without complications (3) HLD (hyperlipidemia) Status: Chronic ICD Codes: E78.5 - Hyperlipidemia, unspecified (4) Obesity Status: Chronic ICD Codes: E66.9 - Obesity, unspecified (5) Debility Status: Acute ICD Codes: R53.81 - Other malaise (6) Dementia Status: Chronic ICD Codes: F03.90 - Unspecified dementia without behavioral disturbance (7) Right pontine stroke Status: Acute ICD Codes: I63.50 - Cerebral infarction due to unspecified occlusion or stenosis of unspecified cerebral artery (8) HTN (hypertension) Status: Acute ICD Codes: I10 - Essential (primary) hypertension Assessment/Plan Assessment and Plan Assess & Plan/Chief Complaint Assessment: CVA with left-sided weakness Diabetes Hypertension Hyperlipidemia Dementia Left knee pain chronic status post steroid injection per Dr. Cummings Plan: Aggressive therapy Supportive care [facility] CIRO CABRERA DO Jun 17, 2021 21:10
[2021-06-17] MEDS: ENOXAPARIN 40 MG/0.4 ML (LOVENOX) SYR SC SCH (22:24)
[2021-06-17] MEDS: TAMSULOSIN 0.4 MG (FLOMAX) CAP PO SCH (22:24)
[2021-06-17] MEDS: DOCUSATE SODIUM 100 MG (COLACE) CAP PO SCH (22:24)
[2021-06-17] MEDS: QUEtiapine 25 MG (SEROquel) TAB IMMEDIATE RELEASE PO SCH (22:25)
[2021-06-17] MEDS: inSUlin ASPART (NovoLOG) 1 UNIT/0.01 ML (CHARGE PER UNIT) SC SCH (22:30)
[2021-06-17] MEDS: hydrALAZINE (APRESOLINE) 25 MG TAB PO SCH (22:30)
[2021-06-17] MEDS: CATHETER FLUSH 10 ML SYR IV SCH (22:55)
[2021-06-18] MEDS: MELATONIN 3 MG TABLET PO PRN ×2 (01:09→21:42)
[2021-06-18] MEDS: inSUlin ASPART (NovoLOG) 1 UNIT/0.01 ML (CHARGE PER UNIT) SC SCH ×4 (05:36→21:57)
[2021-06-18] MEDS: CATHETER FLUSH 10 ML SYR IV SCH ×3 (06:52→21:43)
[2021-06-18] MEDS: hydrALAZINE (APRESOLINE) 25 MG TAB PO SCH ×3 (06:52→21:42)
[2021-06-18] MEDS: VENlafaxine XR 75 MG (EFFEXOR XR) CAP PO SCH (06:52)
[2021-06-18 07:16] LABS: BASOPHILS % (AUTO) 0 % (0-10); EOSINOPHILS % (AUTO) 0 % (0-10); HEMATOCRIT 42 % (40-54); HEMOGLOBIN 14.1 g/dL (13.3-17.7); LYMPHOCYTES # (AUTO) 1.3 10^3/uL (1.0-4.0); LYMPHOCYTES % (AUTO) 11 % (12-44); MEAN CORPUSCULAR HEMOGLOBIN 31 pg (25-34); MEAN CORPUSCULAR HGB CONC 33 g/dL (32-36); MEAN CORPUSCULAR VOLUME 94 fL (80-99); MEAN PLATELET VOLUME 10.8 fL (9.0-12.2); MONOCYTES # (AUTO) 0.6 10^3/uL (0.0-1.0); MONOCYTES % (AUTO) 5 % (0-12); NEUTROPHILS # (AUTO) 9.2 10^3/uL (1.8-7.8); NEUTROPHILS % (AUTO) 82 % (42-75); PLATELET COUNT 225 10^3/uL (130-400); WHITE BLOOD COUNT 11.2 10^3/uL (4.3-11.0)
[2021-06-18 07:30] LABS: ALBUMIN 3.6 GM/DL (3.2-4.5); POTASSIUM 4.4 MMOL/L (3.6-5.0)
[2021-06-18 07:32] LABS: CALCIUM 9.3 MG/DL (8.5-10.1)
[2021-06-18 07:33] LABS: TOTAL PROTEIN 6.3 GM/DL (6.4-8.2)
[2021-06-18 07:35] LABS: BILIRUBIN,TOTAL 1.2 MG/DL (0.1-1.0)
[2021-06-18 07:37] LABS: CREATININE SERUM 0.77 MG/DL (0.60-1.30)
[2021-06-18 08:08] VITALS: BP 162/71
--- NOTE | 2021-06-18 08:24 | Cardiology Progress Note ---
Subjective Date Seen by Provider: Jun 18, 2021 Time Seen by Provider: 08:22 Subjective/Events-last exam Patient is sitting up in chair, no new complaints. Review of Systems General: No Chills, No Night Sweats; Fatigue, Malaise; No Appetite, No Other HEENT: No Head Aches, No Visual Changes, No Eye Pain, No Ear Pain, No Dysphasia, No Sinus Congestion, No Post Nasal Drip, No Sore Throat, No Other Pulmonary: Dyspnea; No Cough, No Pleuritic Chest Pain, No Other Cardiovascular: No: Chest Pain, Palpitations, Orthopnea, Paroxysmal Noc. Dyspnea, Edema, Lt Headedness, Other Objective-Cardiology Exam Last Set of Vital Signs Vital Signs 06/18/21 06/18/21 08:08 09:00 Temp 36.2 Pulse 73 Resp 16 B/P (MAP) 162/71 (101) Pulse Ox 98 O2 Delivery Room Air General: Alert, Oriented X3, Cooperative HEENT: Atraumatic, PERRLA Neck: Supple, No JVD, No Thyromegaly Lungs: Clear to Auscultation, Normal Air Movement Heart: Regular Rate, Normal S1, Normal S2, No Murmurs Abdomen: Soft, No Tenderness Extremities: No Clubbing, No Edema Skin: No Rashes, No Significant Lesion Neuro: Other (right sided facial droop, right sided weakness) Psych/Mental Status: Mental Status NL, Mood NL Results Lab Laboratory Tests 06/18/21 06:09 06/18/21 07:02 A/P-Cardiology Admission Diagnosis CVA HTN Dementia Assessment/Plan 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 MRI of the head reported acute/subacute pontine stroke. Maintained on aspirin, monitor blood pressure Malignant hypertension, maintained on Norvasc 10 mg and hydralazine 25 mg and lisinopril 20 mg daily, blood pressure is better, continue to monitor. Elevated D-dimer, venous Doppler was negative. Maintained on Lovenox. Monitor Vascular dementia, had generalized weakness in the past. History of diverticulosis, BPH. Status post COVID-19 vaccination done on June 10, 2021 triggered generalized weakness, Patient was found on the floor by his neighbor Patient was seen and evaluated with Fern, examination performed, management plan was discussed, agree with the current scribed note, I made few changes to the note using Italic font Patient was seen at bedside, sitting comfortably Blood pressure is moderately elevated Continue on current medication continue to monitor, monitor blood pressure No changes from cardiology standpoint FERN MILLER Jun 18, 2021 08:24 MICHELLE HOUGH MD Jun 18, 2021 11:57
[2021-06-18] MEDS: SENNA W/DOCUSATE (SENOKOT S) TABLET PO SCH ×4 (08:28→21:57)
[2021-06-18] MEDS: DOCUSATE SODIUM 100 MG (COLACE) CAP PO SCH ×2 (08:42→21:41)
[2021-06-18] MEDS: polyethylene glycoL POWDER 17 GM (MIRALAX) PACK PO SCH ×2 (08:42→21:58)
[2021-06-18] MEDS: lisINopril 20 MG (PRINIVIL) TABLET PO SCH (08:42)
[2021-06-18] MEDS: ENOXAPARIN 40 MG/0.4 ML (LOVENOX) SYR SC SCH ×3 (08:42→18:23)
[2021-06-18] MEDS: PANTOPRAZOLE 40 MG (PROTONIX) TAB PO SCH (08:42)
[2021-06-18] MEDS: ASPIRIN E.C. 81 MG (ECOTRIN) TAB PO SCH (08:42)
[2021-06-18] MEDS: amLODIPine 10 MG (NORVASC) TAB PO SCH (08:42)
[2021-06-18] MEDS: metFORMIN 500 MG (GLUCOPHAGE) TAB PO SCH ×2 (08:42→18:17)
--- NOTE | 2021-06-18 08:48 | PM&R Progress Note ---
Subjective HPI/CC On Admission Date Seen by Provider: Jun 18, 2021 Time Seen by Provider: 08:45 Subjective/Events-last exam 06/18/2021: Pt doing really well Eating very well Sugars are okay Incontinent Bowels are moving No pain Obtaining good relief with left knee injection Review of Systems Musculoskeletal: leg pain Neurological: Weakness, Incoordination Objective Exam Vital Signs Vital Signs Date Time Temp Pulse Resp B/P (MAP) Pulse Ox O2 Delivery O2 Flow Rate FiO2 06/18/21 21:00 Room Air 06/18/21 20:36 36.2 80 20 137/65 (89) 96 Capillary Refill : General Appearance: No Apparent Distress, WD/WN, Chronically ill, Obese HEENT: PERRL/EOMI, Normal ENT Inspection, Pharynx Normal Neck: Full Range of Motion, Normal Inspection, Non Tender, Supple, Carotid Bruit Respiratory: Chest Non Tender, Lungs Clear, Normal Breath Sounds, No Accessory Muscle Use, No Respiratory Distress Cardiovascular: Regular Rate, Rhythm, No Edema, No Gallop, No JVD, No Murmur, Normal Peripheral Pulses Gastrointestinal: Normal Bowel Sounds, No Organomegaly, No Pulsatile Mass, Non Tender, Soft Back: Normal Inspection, No CVA Tenderness, No Vertebral Tenderness Extremity: Normal Capillary Refill, Normal Inspection, Normal Range of Motion, Non Tender, No Calf Tenderness, No Pedal Edema Neurologic/Psychiatric: Alert, Oriented x3, dungeon master II-XII Norm as Tested, Abnormal Gait, Depressed Affect, Facial Droop (Left), Motor Weakness (Left-sided weakness 2/5) Skin: Normal Color, Warm/Dry Lymphatic: No Adenopathy Results/Procedures Lab Laboratory Tests 06/18/21 06:09 06/18/21 07:02 Patient resulted labs reviewed. FIM Transfers Therapy Code Descriptions/Definitions Functional [place] Measure: 0=Not Assessed/NA 4=Minimal Assistance 1=Total Assistance 5=Supervision or Setup 2=Maximal Assistance 6=Modified [place] 3=Moderate Assistance 7=Complete IndependenceSCALE: Activities may be completed with or without assistive devices. 3-Elxbfxwslx-lbefkpr completes the activity by him/herself with no assistance from a helper. 5-Set-up or Clean-up Assistance-helper sets up or cleans up; patient completes activity. Kulm assists only prior to or following the activity. 4-Supervision or Touching Assistance-helper provides verbal cues and/or touching/steadying and/or contact guard assistance as patient completes activity. Assistance may be provided throughout the activity or intermittently. 3-Partial/Moderate Assistance-helper does LESS THAN HALF the effort. Kulm lif ts, holds or supports trunk or limbs, but provides less than half the effort. 2-Substantial/Maximal Assistance-helper does MORE THAN HALF the effort. Kulm lifts or holds trunk or limbs and provides more than half the effort. 1-Xsajvyhsf-pimwde does ALL the effort. Patient does none of the effort to complete the activity. Or, the assistance of 2 or more helpers is required for the patient to complete the activity. If activity was not attempted, code reason: 7-Patient Refused. 9-Not Applicable-not attempted and the patient did not perform the activity before the current illness, exacerbation or injury. 10-Not Attempted due to Environmental Limitations-(lack of equipment, weather restraints, etc.). 88-Not Attempted due to Medical Conditions or Safety Concerns. Roll Left to Right (QC): 2 Sit to Lying (QC): 2 Sit to Stand (QC): 3 Chair/Xee-ah-Frqyh Xfer(QC): 3 Car Transfer (QC): 88 Gait Training Does the Patient Walk?: Yes Walk 10 feet (QC): 88 Walk 50 ft with 2 Turns(QC): 88 Walk 150 ft (QC): 88 Walking 10ft/uneven surface-QC: 88 Gait Assistive Device: Parallel Bars Wheelchair Training Does the Pt Use a Wheelchair?: Yes Distance: 50' Wheel 50 ft with 2 turns (QC): 2 Wheel 150 ft (QC): 88 Type of Wheelchair: Manual Stair Training 1 Step (curb) (QC): 88 4 Steps (QC): 88 12 Steps (QC): 88 Balance Picking up an Object (QC): 88 ADL-Treatment Eating (QC): 5 (Set up for meals) Oral Hygiene (QC): 3 Bathing Location: L Arm, R Arm, L Upper Leg, R Upper Leg, Chest, Abdomen, Perineal Area Shower/Bathe Self (QC): 3 Upper Body Dressing (QC): 7 Lower Body Dressing (QC): 1 On/Off Footwear (QC): 2 Toileting Hygiene (QC): 1 Assessment/Plan Assessment and Plan Assess & Plan/Chief Complaint Assessment: CVA with left-sided weakness Diabetes Hypertension Hyperlipidemia Dementia Left knee pain chronic status post steroid injection per Dr. Cummings Plan: Aggressive therapy Supportive care [facility] 06/18/2021: Much improved status Fall risk (1) Cerebrovascular accident due to cerebral artery occlusion Status: Acute (2) T2DM (type 2 diabetes mellitus) Status: Chronic (3) HLD (hyperlipidemia) Status: Chronic (4) Obesity Status: Chronic (5) Debility Status: Acute (6) Dementia Status: Chronic (7) Right pontine stroke Status: Acute (8) HTN (hypertension) Status: Acute CIRO CABRERA DO Jun 18, 2021 08:48
--- NOTE | 2021-06-18 08:49 | Individualized Plan of Care ---
Individualized Plan of Care Rehab Nursing IPOC Order Admission Date Jun 17, 2021 at 13:00 Current Orders Orders Admission Order(Inpt,Obs,Sdc) (06/17/21 12:46) Vital Signs: Per Unit Policy ( ,16,00 (06/17/21 12:46) Assembler Insulator-Inpt Rehab Con (06/17/21 12:46) Rehab Nursing Orders-Ipoc (06/17/21 12:46) Physical Therapy Rehab Orders (06/17/21 12:46) Occupational Therapy Rehab Ord (06/17/21 12:46) Speech Therapy Rehab Orders (06/17/21 12:46) Cbc With Automated Diff (06/18/21 06:00) Comprehensive Metabolic Panel (06/18/21 06:00) Precautions (Aru) (06/17/21 12:46) Weekly Weight WEEK (06/17/21 12:46) Rehab-Intensity Of Therapy (06/17/21 12:46) Initiate Admission Nursing Pro .admission (06/17/21 12:46) Alprazolam Tablet (Xanax Tablet) (06/17/21 13:00) Calcium Carbonate Chew Tablet (Antacid C (06/17/21 13:00) Diphenhydramine Tablet (Benadryl Tablet) (06/17/21 13:00) Docusate Sodium Capsule (Colace Capsule) (06/17/21 21:00) Docusate Sodium Capsule (Colace Capsule) (06/17/21 13:00) Bisacodyl Suppository (Dulcolax Supposit (06/17/21 13:00) Lactulose Oral Solution (Enulose Oral So (06/17/21 13:00) Na Phos/Na Biphos Enema (Fleet Enema [place] (06/17/21 13:00) Guaifenesin/Codeine Syrup (Robitussin Ac (06/17/21 13:00) Loperamide Tablet (Imodium Tablet) (06/17/21 13:00) Melatonin Tablet (Melatonin Tablet) (06/17/21 13:00) Polyethylene Glycol Powder Pkt (Miralax (06/17/21 21:00) Ondansetron Oral Dissolve Tab (Zofran (06/17/21 13:00) Senna S Tablet (Senokot S Tablet) (06/17/21 21:00) Initiate Admission Nursing Pro .admission (06/17/21 12:46) Transfer - Bed/Room/Location (06/17/21 13:42) Enoxaparin Injection (Lovenox Injection) (06/18/21 09:00) Patient Visit (06/17/21 ) Pt Eval Moderate Complexity (06/17/21 ) Functional Activities, Ea 15 (06/17/21 ) Code/Resuscitation (06/17/21 19:12) Alprazolam Tablet (Xanax Tablet) (06/17/21 19:15) Acetaminophen Tablet/Caplet (Tylenol T (06/17/21 19:15) Aspirin Enteric Coated Tablet (Ecotrin T (06/18/21 09:00) Atorvastatin Tablet (Lipitor Tablet) (06/17/21 21:00) Calcium Carbonate Chew Tablet (Antacid C (06/17/21 19:15) Hydrocodone/Apap 5/325 Tablet (Lortab 5 (06/17/21 19:15) Melatonin Tablet (Melatonin Tablet) (06/17/21 19:15) Pantoprazole Tablet (Protonix Tablet) (06/18/21 09:00) Quetiapine Immediate Release (Seroquel I (06/17/21 21:00) Senna S Tablet (Senokot S Tablet) (06/17/21 21:00) Sodium Chloride Flush (Catheter Flush Sy (06/17/21 22:00) Tamsulosin Capsule (Flomax Capsule) (06/17/21 21:00) Venlafaxine Xr Capsule (Effexor Xr Capsu (06/18/21 07:00) Amlodipine Tablet (Norvasc Tablet) (06/18/21 09:00) Hydralazine Tablet (Apresoline Tablet) (06/17/21 22:00) Insulin Aspart (Novolog) (Novolog (Charg (06/17/21 21:00) Lisinopril Tablet (Zestril Tablet) (06/18/21 09:00) Metformin Tablet (Glucophage Tablet) (06/18/21 08:00) Consult Cardiology (06/17/21 19:12) Cho 60g/M 0snack (16-2000 Curt) (06/17/21 Dinner) Carboxymethylcell Ophth Soln (Refresh Pl (06/17/21 19:15) Docusate Sodium Capsule (Colace Capsule) (06/17/21 19:15) Enoxaparin Injection (Lovenox Injection) (06/17/21 19:15) Diabetes Education (06/18/21 10:00) Functional Activities, Ea 15 (06/17/21 ) Patient Visit (06/18/21 ) Exercise Therap, Ea 15 Min (06/18/21 ) Functional Activities, Ea 15 (06/18/21 ) Rehab Nursing Orders: Ongoing Assess. of Cognitive Status, Ongoing Assess. of Function Status, Bladder Management, Bladder Scan, Bladder Training, Bowel Management, Bowel Training, Disease Management & Educaiton, DVT Prophylaxis, Fall Prevention, Fluid/Electrolyte/Nutrition Mgmt, Infection Prevention, Medication Management & Education, Management of Risks & Complications, Management of Skin Intergrity, Nutrition Management, Pain Management, Pat ient/Family Support, Safety Management Intensity of Therapy to be met Patient to be seen: Min.3h per day/5 of 7d PT IPOC Problem List: Activity Tolerance, Functional Strength, Safety, Balance, Gait, Transfer, Bed Mobility, ROM Treatment Plan: Continue Plan of Care Bed Mobility, Education, Functional Activity Gwendolyn, Functional Strength, Group Therapy, Gait, Safety, Therapeutic Exercise, Transfers Treatment Duration: Jul 08, 2021 Frequency: At least 5 of 7 days/Wk (IRF) Estimated Hrs Per Day: 1.5 hours per day OT IPOC Problems: Decreased Activ Tolerance, Decreased Safety Aware, Decreased UE Strength, Dependent Transfers, Impaired Bed Mobility, Impaired Coordination, Impaired Funct Balance, Impaired Self-Care Skills, Restricted Funct UE ROM OT Treatment, Training and Edu: Yes Plan of Care: ADL Retraining, Caregiver Training, Cognitive Retraining, Functional Mobility, Group Exercise/Act as Ind, UE Funct Exercise/Act, UE Neuromus Re-Ed/Coord, W/C Management Training Treatment Duration: Jul 08, 2021 Frequency: At least 5 of 7 days/Wk (IRF) Estimated Hrs Per Day: 1.[address] IPOC Speech Therapy Treatment Plan: Continue Plan of Care Treatment Duration: Jun 18, 2021 Frequency: Modified Program (IRF) Estimated Hrs Per Day: Other Assembler Insulator/Case Mgmt Assembler Insulator/Case Managemen: Discharge Planning Dietitian/Motion Picture Director Dietitian/Motion Picture Director to monitor nutritional status and make changes and/or recommendations as needed and work with speech pathology on dietary upgrades as the occur. Physician IPOC Medical Issues being managed closely and that require the 24 hour availability of a physician: Recent CVA with labile diabetes and hypertension with high risk for falls will require close monitoring for any decompensation or expansion of CVA Medical Issues: Bowel/Bladder Function, DVT Prophylaxis, Falls Precautions, Fluid/Electrolyte/Nutrition Balance, Infection Protection, Pain Management Brief Synthesis of Preadmission Screen, Post-Admission Evaluation, and Therapy Evaluations: PT and OT will focus on regaining function with the use of assistive devices to help with ambulation with fall risk prevention and speech therapy will focus on cognition Medical Prognosis: Fair Anticipated Length of Stay: 14 days CIRO CABRERA DO Jun 18, 2021 08:48
--- NOTE | 2021-06-18 09:57 | Physical Therapy Daily Note ---
PT Daily Note-Current Subjective Patient in recliner pre tx, agrees to PT, has a headache. Patient needs dressed and brief changed. Appearance Patient in WC post tx, will continue with OT Mental Status Patient Orientation: Person, Place, Situation Transfers SCALE: Activities may be completed with or without assistive devices. 3-Jmcsmgwgsb-zibbtpl completes the activity by him/herself with no assistance from a helper. 5-Set-up or Clean-up Assistance-helper sets up or cleans up; patient completes activity. [place] assists only prior to or following the activity. 4-Supervision or Touching Assistance-helper provides verbal cues and/or touching/steadying and/or contact guard assistance as patient completes activity. Assistance may be provided throughout the activity or intermittently. 3-Partial/Moderate Assistance-helper does LESS THAN HALF the effort. [place] lifts, holds or supports trunk or limbs, but provides less than half the effort. 2-Substantial/Maximal Assistance-helper does MORE THAN HALF the effort. [place] lifts or holds trunk or limbs and provides more than half the effort. 0-Hltmtnvkf-rdipbi does ALL the effort. Patient does none of the effort to complete the activity. Or, the assistance of 2 or more helpers is required for the patient to complete the activity. If activity was not attempted, code reason: 7-Patient Refused. 9-Not Applicable-not attempted and the patient did not perform the activity before the current illness, exacerbation or injury. 10-Not Attempted due to Environmental Limitations-(lack of equipment, weather restraints, etc.). 88-Not Attempted due to Medical Conditions or Safety Concerns. Sit to Stand (QC): 3 Chair/Bhf-sz-Kcytd Xfer(QC): 3 Wheelchair Training Does the Pt Use a Wheelchair?: Yes Wheel 50 ft with 2 turns (QC): 3 Type of Wheelchair: Manual 120'x2, mod assist, patient can propel with his right foot and arm Exercises practiced seated limits of stability training and trunk strengthening, forward and back and side to side, then 3 sets of sit to stands from [facility] therapy table 5 reps Treatments PT performed transfers, WC mobility, trunk strengthening, LE strengthening, standing and positioning with dressing, OT performed dressing, assisted with transfers, UE positioning and safety during activity Assessment Current Status: Poor Progress Patient needs detailed cues for positioning during transfers PT Short Term Goals Short Term Goals Time Frame: Jun 24, 2021 Roll Left & Right: 3 Sit to lyin Lying to sitting on side of be: 3 Sit to stand: 3 Chair/tjb-xb-koxeb transfer: 3 Walk 10 feet: 3 PT Commercial Sales Specialist Goals Residential Goals PT Commercial Sales Specialist Goals Time Frame: Jul 08, 2021 Roll Left & Right (QC): 3 (Dora) Sit to Lying (QC): 3 (Dora) Lying-Sitting on Side/Bed(QC): 3 (Dora) Sit to Stand (QC): 4 (CGA) Chair/Jvo-ri-Xqdsz Xfer(QC): 4 (CGA) Toilet Transfer (QC): 4 (CGA) Car Transfer (QC): 4 (CGA) Does the Patient Walk: Yes Walk 10 feet (QC): 4 (CGA) Walk 50ft with 2 Turns (QC): 88 Walk 150 ft (QC): 88 Walking 10ft on Uneven Surface: 3 (Dora) 1 Step (curb) (QC): 3 (Dora) 4 Steps (QC): 88 12 Steps (QC): 88 Picking up an Object (QC): 88 Wheel 50 feet with 2 turns (QC: 5 Wheel 150 feet: 5 PT Plan Problem List Problem List: Activity Tolerance, Functional Strength, Safety, Balance, Gait, Transfer, Bed Mobility, ROM Treatment/Plan Treatment Plan: Continue Plan of Care Treatment Plan: Bed Mobility, Education, Functional Activity Gwendolyn, Functional Strength, Group Therapy, Gait, Safety, Therapeutic Exercise, Transfers Treatment Duration: Jul 08, 2021 Frequency: At least 5 of 7 days/Wk (IRF) Estimated Hrs Per Day: 1.5 hours per day Patient and/or Family Agrees t: Yes Safety Risks/Education Patient Education: Transfer Techniques, Correct Positioning, W/C Management, Safety Issues Teaching Recipient: Patient Teaching Methods: Demonstration, Discussion Response to Teaching: Reinforcement Needed Time/GCodes Time In: 0900 Time Out: 1000 Total Billed Treatment Time: 60 Total Billed Treatment 1 visit EX 15' FA 45' co-treated for 60' JASVIR ALVES PT Jun 18, 2021 09:57
[2021-06-18] MEDS: ACETAMINOPHEN 325 MG TABLET PO PRN (10:21)
--- NOTE | 2021-06-18 10:24 | Occupational Ther Daily Note ---
OT Current Status-Daily Note Subjective Pt. alert in recliner. Pt. agrees to therapy. Mental Status/Objective Patient Orientation: Person, Place, Time, Situation ADL-Treatment Pt. edu. on techniques for one handed dressing, required continued verbal cues to utilize technique. Pt. participated in w/c mobility to propel self to gym. Pt. transported back from gym using w/c to bathroom sink, able to perform oral care after set up seated in w/c. Therapy Code Descriptions/Definitions Functional [place] Measure: 0=Not Assessed/NA 4=Minimal Assistance 1=Total Assistance 5=Supervision or Setup 2=Maximal Assistance 6=Modified [place] 3=Moderate Assistance 7=Complete IndependenceSCALE: Activities may be completed with or without assistive devices. 6-Jixaorpsha-fxzzony completes the activity by him/herself with no assistance from a helper. 5-Set-up or Clean-up Assistance-helper sets up or cleans up; patient completes activity. [place] assists only prior to or following the activity. 4-Supervision or Touching Assistance-helper provides verbal cues and/or touching/steadying and/or contact guard assistance as patient completes activity. Assistance may be provided throughout the activity or intermittently. 3-Partial/Moderate Assistance-helper does LESS THAN HALF the effort. [place] lifts, holds or supports trunk or limbs, but provides less than half the effort. 2-Substantial/Maximal Assistance-helper does MORE THAN HALF the effort. [place] lifts or holds trunk or limbs and provides more than half the effort. 1-Zzcwvlklz-dgxhyt does ALL the effort. Patient does none of the effort to complete the activity. Or, the assistance of 2 or more helpers is required for the patient to complete the activity. If activity was not attempted, code reason: 7-Patient Refused. 9-Not Applicable-not attempted and the patient did not perform the activity before the current illness, exacerbation or injury. 10-Not Attempted due to Environmental Limitations-(lack of equipment, weather restraints, etc.). 88-Not Attempted due to Medical Conditions or Safety Concerns. Eating (QC): 5 (Set up, per clinical judgment.) Oral Hygiene (QC): 5 Upper Body Dressing (QC): 2 Lower Body Dressing (QC): 1 (1 person to stand and stabalize, 2nd person to manipulate clothing. ) On/Off Footwear: 2 (Max A) Toileting Hygiene (QC): 1 (Per clinical judgment. 1 person assist to stand, while other person assist to cleanse and manipulate clothing.) Other Treatment Co-treat with PT ([id number]) 2 clinicians required to decrease fall risk, pain, and increase functional mobility. PT focusing on standing, dynamic sitting balance, and transfers while OT focusing on ADLs, B UE strengthening/weight bearing, and functional mobility. Pt. participating in w/c mobility from room to therapy gym by propelling w/c. Pt. participated in core strengthening front/back , weight bearing side/side for sitting balance focusing on position of L UE, sit to stands 15 reps. Pt. transported from gym to room using w/c. Education OT Patient Education: Modified ADL techniques Teaching Recipient: Patient Teaching Methods: Demonstration, Discussion Response to Teaching: Reinforcement Needed OT Short Term Goals Short Term Goals Time Frame: Jun 28, 2021 Eatin Oral hygiene: 4 Toileting hygiene: 2 Shower/bathe self: 2 Upper body dressin Lower body dressin Putting on/taking off footwear: 2 OT Nursing Home Goals Receptionist Nurse Goals Time Frame: Jul 08, 2021 Eating (QC): 4 Oral Hygiene (QC): 4 Toileting Hygiene (QC): 4 Shower/Bathe Self (QC): 4 Upper Body Dressing (QC): 4 Lower Body Dressing (QC): 4 On/Off Footwear (QC): 4 1=Demonstrate adherence to instructed precautions during ADL tasks. 2=Patient will verbalize/demonstrate understanding of assistive devices/modifications for ADL. 3=Patient will improve strength/tolerance for activity to enable patient to perform ADL's. OT Education/Plan Problem List/Assessment Assessment: Decreased Activ Tolerance, Decreased Safety Aware, Decreased UE Strength, Dependent Transfers, Impaired Coordination, Impaired Funct Balance, Impaired Self-Care Skills, Restricted Funct UE ROM Discharge Recommendations Plan/Recommendations: Continue POC Treatment Plan/Plan of Care Patient would benefit from OT for education, treatment and training to promote independence in ADL's, mobility, safety and/or upper extremity function for ADL's. Plan of Care: ADL Retraining, Caregiver Training, Cognitive Retraining, Functional Mobility, Group Exercise/Act as Ind, UE Funct Exercise/Act, UE Neuromus Re-Ed/Coord, W/C Management Training Treatment Duration: Jul 08, 2021 Frequency: At least 5 of 7 days/Wk (IRF) Estimated Hrs Per Day: 1.5 hours per day Agreement: Yes Rehab Potential: Guarded Time/GCodes Start Time: 09:00 Stop Time: 10:30 Total Time Billed (hr/min): 90 Billed Treatment Time 1 visit- ADL 3 (45 min), NM 2 (30 min), Ex 1 (15 min) Co-Treat with PT (0900- 1000) Individual [id number] HEMA RICHARDS Jun 18, 2021 10:24
--- NOTE | 2021-06-18 13:51 | Physical Therapy Daily Note ---
PT Daily Note-Current Subjective Patient in recliner pre tx, agrees to PT, has no complaints of pain at rest. Appearance Patient in recliner post tx with nurse call, phone, tray, all needs met. Mental Status Patient Orientation: Person, Place, Situation Transfers SCALE: Activities may be completed with or without assistive devices. 8-Limmxgsmdy-opuqtra completes the activity by him/herself with no assistance from a helper. 5-Set-up or Clean-up Assistance-helper sets up or cleans up; patient completes activity. [place] assists only prior to or following the activity. 4-Supervision or Touching Assistance-helper provides verbal cues and/or touching/steadying and/or contact guard assistance as patient completes activity. Assistance may be provided throughout the activity or intermittently. 3-Partial/Moderate Assistance-helper does LESS THAN HALF the effort. [place] lifts, holds or supports trunk or limbs, but provides less than half the effort. 2-Substantial/Maximal Assistance-helper does MORE THAN HALF the effort. [place] lifts or holds trunk or limbs and provides more than half the effort. 0-Puecvirtu-wxhrfo does ALL the effort. Patient does none of the effort to complete the activity. Or, the assistance of 2 or more helpers is required for the patient to complete the activity. If activity was not attempted, code reason: 7-Patient Refused. 9-Not Applicable-not attempted and the patient did not perform the activity before the current illness, exacerbation or injury. 10-Not Attempted due to Environmental Limitations-(lack of equipment, weather restraints, etc.). 88-Not Attempted due to Medical Conditions or Safety Concerns. Exercises Supine Ex: Ankle pumps, Quad Set, Glut sets, Heel Slides, Short Arc Quads, Straight leg raise, Hip abd/add Supine Reps: 20 (done in recliner with legs elevated) Seated Therapy Exercises: Ankle pumps, Hip flexion, Hamstring Curls Seated Reps: 20 all exercises on the left side done with AAROM, patient is able to assist very little Treatments LE exercise Assessment Current Status: Poor Progress very little active movement in left leg PT Short Term Goals Short Term Goals Time Frame: Jun 24, 2021 Roll Left & Right: 3 Sit to lyin Lying to sitting on side of be: 3 Sit to stand: 3 Chair/bnd-zd-vnbpv transfer: 3 Walk 10 feet: 3 PT Penitentiary Goals Penitentiary Goals PT Fermenting Cellars Supervisor Goals Time Frame: Jul 08, 2021 Roll Left & Right (QC): 3 (Dora) Sit to Lying (QC): 3 (Dora) Lying-Sitting on Side/Bed(QC): 3 (Dora) Sit to Stand (QC): 4 (CGA) Chair/Kma-pm-Jkxum Xfer(QC): 4 (CGA) Toilet Transfer (QC): 4 (CGA) Car Transfer (QC): 4 (CGA) Does the Patient Walk: Yes Walk 10 feet (QC): 4 (CGA) Walk 50ft with 2 Turns (QC): 88 Walk 150 ft (QC): 88 Walking 10ft on Uneven Surface: 3 (Dora) 1 Step (curb) (QC): 3 (Dora) 4 Steps (QC): 88 12 Steps (QC): 88 Picking up an Object (QC): 88 Wheel 50 feet with 2 turns (QC: 5 Wheel 150 feet: 5 PT Plan Problem List Problem List: Activity Tolerance, Functional Strength, Safety, Balance, Gait, Transfer, Bed Mobility, ROM Treatment/Plan Treatment Plan: Continue Plan of Care Treatment Plan: Bed Mobility, Education, Functional Activity Gwendolyn, Functional Strength, Group Therapy, Gait, Safety, Therapeutic Exercise, Transfers Treatment Duration: Jul 08, 2021 Frequency: At least 5 of 7 days/Wk (IRF) Estimated Hrs Per Day: 1.5 hours per day Patient and/or Family Agrees t: Yes Safety Risks/Education Patient Education: Correct Positioning, Safety Issues Teaching Recipient: Patient Teaching Methods: Demonstration, Discussion Response to Teaching: Reinforcement Needed Time/GCodes Time In: 1330 Time Out: 1400 Total Billed Treatment Time: 30 Total Billed Treatment 1 visit EX 30' JASVIR ALVES PT Jun 18, 2021 13:51
[2021-06-18 20:36] VITALS: BP 137/65
[2021-06-18] MEDS: TAMSULOSIN 0.4 MG (FLOMAX) CAP PO SCH (21:41)
[2021-06-18] MEDS: QUEtiapine 25 MG (SEROquel) TAB IMMEDIATE RELEASE PO SCH (21:42)
[2021-06-19] MEDS: ALPRAZolam 0.25 MG (XANAX) TAB PO PRN (01:08)
[2021-06-19] MEDS: ACETAMINOPHEN 325 MG TABLET PO PRN ×2 (01:09→14:39)
[2021-06-19] MEDS: inSUlin ASPART (NovoLOG) 1 UNIT/0.01 ML (CHARGE PER UNIT) SC SCH ×4 (06:01→20:40)
[2021-06-19] MEDS: VENlafaxine XR 75 MG (EFFEXOR XR) CAP PO SCH (06:42)
[2021-06-19] MEDS: CATHETER FLUSH 10 ML SYR IV SCH ×3 (06:42→20:52)
[2021-06-19 07:39] VITALS: BP 139/70
[2021-06-19] MEDS: ASPIRIN E.C. 81 MG (ECOTRIN) TAB PO SCH (08:59)
[2021-06-19] MEDS: metFORMIN 500 MG (GLUCOPHAGE) TAB PO SCH ×2 (08:59→17:42)
[2021-06-19] MEDS: amLODIPine 10 MG (NORVASC) TAB PO SCH (09:00)
[2021-06-19] MEDS: SENNA W/DOCUSATE (SENOKOT S) TABLET PO SCH ×4 (09:00→19:36)
[2021-06-19] MEDS: hydrALAZINE (APRESOLINE) 25 MG TAB PO SCH ×3 (09:00→20:52)
[2021-06-19] MEDS: PANTOPRAZOLE 40 MG (PROTONIX) TAB PO SCH (09:00)
[2021-06-19] MEDS: lisINopril 20 MG (PRINIVIL) TABLET PO SCH (09:00)
--- NOTE | 2021-06-19 09:00 | Occupational Ther Daily Note ---
OT Current Status-Daily Note Subjective Pt. alert in recliner eating breakfast. Pt. states didn't sleep well, 04/06 pain in L knee nursing notified. Mental Status/Objective Patient Orientation: Person, Place, Time, Situation Attachments: IV ADL-Treatment Pt. educated on figure 4 technique to don brief, attempted required assist to thread R foot through proper hole. Pt.showing signs of impulsiveness wanting to thread R LE through brief/pants despite cues to place affected limb through clothing first. Pt Max A to stand from recliner assist to manipulate clothing over hips. Pt. Max A to transfer from standing to recliner, required verbal cues/encouragement. Pt. able to perform oral care by self with supervision. Pt. requested to use toilet Max A x2, one to stand and stabilize while the second person manipulated clothing and cleansed buttocks/lm area, toilet transfer Therapy Code Descriptions/Definitions Functional [place] Measure: 0=Not Assessed/NA 4=Minimal Assistance 1=Total Assistance 5=Supervision or Setup 2=Maximal Assistance 6=Modified [place] 3=Moderate Assistance 7=Complete IndependenceSCALE: Activities may be completed with or without assistive devices. 8-Ukusuxsmmq-lmwidej completes the activity by him/herself with no assistance from a helper. 5-Set-up or Clean-up Assistance-helper sets up or cleans up; patient completes activity. [place] assists only prior to or following the activity. 4-Supervision or Touching Assistance-helper provides verbal cues and/or touching/steadying and/or contact guard assistance as patient completes act ivity. Assistance may be provided throughout the activity or intermittently. 3-Partial/Moderate Assistance-helper does LESS THAN HALF the effort. [place] lifts, holds or supports trunk or limbs, but provides less than half the effort. 2-Substantial/Maximal Assistance-helper does MORE THAN HALF the effort. [place] lifts or holds trunk or limbs and provides more than half the effort. 8-Sddrcxifp-yokktx does ALL the effort. Patient does none of the effort to complete the activity. Or, the assistance of 2 or more helpers is required for the patient to complete the activity. If activity was not attempted, code reason: 7-Patient Refused. 9-Not Applicable-not attempted and the patient did not perform the activity before the current illness, exacerbation or injury. 10-Not Attempted due to Environmental Limitations-(lack of equipment, weather restraints, etc.). 88-Not Attempted due to Medical Conditions or Safety Concerns. Oral Hygiene (QC): 4 Lower Body Dressing (QC): 1 Toileting Hygiene (QC): 1 Toilet Transfer (QC): 1 Other Treatment Co-Treat with PT ([id number]) 2 clinicians needed for safety standing and with transfers. PT focusing on transfers, LE strengthening while OT focusing on UE strengthening, endurance to activity tolerance, safety awareness, attention to task. Pt. participated in w/c mobility from room to therapy gym. Pt. wheeled to // bars, participating in sit to stand activities, noted L neglect/vision field cut required verbal cues to scan to that side and maintain proper alignment/positioning of L arm through weight bearing with bars to stabilize. Pt. tired was transferred using w/c to room from gym. Pt. transferred to recliner Max A. x2. Pt. requested to doff pants Max A x2. Pt. seated in recliner, call light/phone in reach. All needs met in room. OT Short Term Goals Short Term Goals Time Frame: Jun 28, 2021 Eatin Oral hygiene: 4 Toileting hygiene: 2 Shower/bathe self: 2 Upper body dressin Lower body dressin Putting on/taking off footwear: 2 OT Custodial Goals Custodial Goals Time Frame: Jul 08, 2021 Eating (QC): 4 Oral Hygiene (QC): 4 Toileting Hygiene (QC): 4 Shower/Bathe Self (QC): 4 Upper Body Dressing (QC): 4 Lower Body Dressing (QC): 4 On/Off Footwear (QC): 4 1=Demonstrate adherence to instructed precautions during ADL tasks. 2=Patient will verbalize/demonstrate understanding of assistive devices/modifications for ADL. 3=Patient will improve strength/tolerance for activity to enable patient to perform ADL's. OT Education/Plan Problem List/Assessment Assessment: Decreased Activ Tolerance, Decreased Safety Aware, Decreased UE Strength, Impaired Cognition, Impaired Funct Balance, Impaired Self-Care Skills, Restricted Funct UE ROM, Visual-Perceptual Deficit Discharge Recommendations Plan/Recommendations: Continue POC Treatment Plan/Plan of Care Patient would benefit from OT for education, treatment and training to promote independence in ADL's, mobility, safety and/or upper extremity function for ADL's. Plan of Care: ADL Retraining, Caregiver Training, Cognitive Retraining, Functional Mobility, Group Exercise/Act as Ind, UE Funct Exercise/Act, UE Neuromus Re-Ed/Coord, W/C Management Training Treatment Duration: Jul 08, 2021 Frequency: At least 5 of 7 days/Wk (IRF) Estimated Hrs Per Day: 1.5 hours per day Agreement: Yes Rehab Potential: Guarded Time/GCodes Start Time: 07:30 Stop Time: 09:00 Total Time Billed (hr/min): 90 Billed Treatment Time 1 visit- ADL 5 (70 min), FA (20 min) Individual (45 min) [id number], [id number] Co- Treat ([id number]) HEMA RICHARDS Jun 19, 2021 09:00
[2021-06-19] MEDS: ENOXAPARIN 40 MG/0.4 ML (LOVENOX) SYR SC SCH (09:01)
[2021-06-19] MEDS: DOCUSATE SODIUM 100 MG (COLACE) CAP PO SCH ×2 (09:02→19:35)
[2021-06-19] MEDS: polyethylene glycoL POWDER 17 GM (MIRALAX) PACK PO SCH ×2 (09:03→19:36)
--- NOTE | 2021-06-19 09:44 | Physical Therapy Daily Note ---
PT Daily Note-Current Subjective Pt brushing teeth in BR with OT upon arrival. Pt agree to PT/OT co-treat. Pain Numeric Pain Scale: 7 Location: Left Location Body Site: Knee Pain Description: Ache Mental Status Patient Orientation: Person, Place, Situation Transfers SCALE: Activities may be completed with or without assistive devices. 4-Lbhwiarydu-stmvlam completes the activity by him/herself with no assistance from a helper. 5-Set-up or Clean-up Assistance-helper sets up or cleans up; patient completes activity. [place] assists only prior to or following the activity. 4-Supervision or Touching Assistance-helper provides verbal cues and/or touching/steadying and/or contact guard assistance as patient completes activity. Assistance may be provided throughout the activity or intermittently. 3-Partial/Moderate Assistance-helper does LESS THAN HALF the effort. [place] lifts, holds or supports trunk or limbs, but provides less than half the effort. 2-Substantial/Maximal Assistance-helper does MORE THAN HALF the effort. [place] lifts or holds trunk or limbs and provides more than half the effort. 3-Keieteeeg-twpodo does ALL the effort. Patient does none of the effort to complete the activity. Or, the assistance of 2 or more helpers is required for the patient to complete the activity. If activity was not attempted, code reason: 7-Patient Refused. 9-Not Applicable-not attempted and the patient did not perform the activity before the current illness, exacerbation or injury. 10-Not Attempted due to Environmental Limitations-(lack of equipment, weather restraints, etc.). 88-Not Attempted due to Medical Conditions or Safety Concerns. Sit to Stand (QC): 2 Toilet Transfer (QC): 2 Weight Bearing Full Weight Bearing Full Weight Bearing Wheelchair Training Does the Pt Use a Wheelchair?: Yes Wheel 50 ft with 2 turns (QC): 3 Wheel 150 ft (QC): 3 Type of Wheelchair: Manual Treatments Co-Treat with PT ([id number]) 2 clinicians needed for safety standing and with transfers. PT focusing on transfers, LE strengthening while OT focusing on UE strengthening, endurance to activity tolerance, safety awareness, attention to task. Pt. participated in w/c mobility from room to therapy gym. Pt. wheeled to // bars, participating in sit to stand activities, noted L neglect/vision field cut required verbal cues to scan to that side and maintain proper alignment/positioning of L arm through weight bearing with bars to stabilize. Pt. tired was transferred using w/c to room from gym. Pt. transferred to [facility] A. x2. PT departs and OT finishes tx. Assessment Current Status: Fair Progress Pt fatigues easily, needing RB. Pt given VC & TC to engage L thigh muscle to lock L knee in place when standing. PT Short Term Goals Short Term Goals Time Frame: Jun 24, 2021 Roll Left & Right: 3 Sit to lyin Lying to sitting on side of be: 3 Sit to stand: 3 Chair/ppu-wj-fsnpa transfer: 3 Walk 10 feet: 3 PT Geriatric Personal Care Aide Goals Geriatric Personal Care Aide Goals PT Detention Goals Time Frame: Jul 08, 2021 Roll Left & Right (QC): 3 (Dora) Sit to Lying (QC): 3 (Dora) Lying-Sitting on Side/Bed(QC): 3 (Dora) Sit to Stand (QC): 4 (CGA) Chair/Lqk-ek-Gwrgf Xfer(QC): 4 (CGA) Toilet Transfer (QC): 4 (CGA) Car Transfer (QC): 4 (CGA) Does the Patient Walk: Yes Walk 10 feet (QC): 4 (CGA) Walk 50ft with 2 Turns (QC): 88 Walk 150 ft (QC): 88 Walking 10ft on Uneven Surface: 3 (Dora) 1 Step (curb) (QC): 3 (Dora) 4 Steps (QC): 88 12 Steps (QC): 88 Picking up an Object (QC): 88 Wheel 50 feet with 2 turns (QC: 5 Wheel 150 feet: 5 PT Plan Problem List Problem List: Activity Tolerance, Functional Strength, Transfer Treatment/Plan Treatment Plan: Continue Plan of Care Treatment Plan: Bed Mobility, Education, Functional Activity Gwendolyn, Functional Strength, Group Therapy, Gait, Safety, Therapeutic Exercise, Transfers Treatment Duration: Jul 08, 2021 Frequency: At least 5 of 7 days/Wk (IRF) Estimated Hrs Per Day: 1.5 hours per day Patient and/or Family Agrees t: Yes Safety Risks/Education Patient Education: Transfer Techniques, Correct Positioning, W/C Management, Safety Issues Teaching Recipient: Patient Teaching Methods: Demonstration, Discussion Response to Teaching: Return Demonstration Time/GCodes Time In: 800 Time Out: 845 Total Billed Treatment Time: 45 Total Billed Treatment Co-treat w/OT for 45m (115-046) 1, WC (20m) 7 FA x2 (25m) MARIO SMITH CARAMEL CANDY MAKER Jun 19, 2021 09:44
--- NOTE | 2021-06-19 09:51 | Cardiology Progress Note ---
Subjective Date Seen by Provider: Jun 19, 2021 Time Seen by Provider: 08:25 Subjective/Events-last exam Patient with PT, no new complaints. Review of Systems General: No Chills, No Night Sweats; Fatigue; No Malaise, No Appetite, No Other HEENT: No Head Aches, No Visual Changes, No Eye Pain, No Ear Pain, No Dysphasia, No Sinus Congestion, No Post Nasal Drip, No Sore Throat, No Other Pulmonary: No Dyspnea, No Cough, No Pleuritic Chest Pain, No Other Cardiovascular: No: Chest Pain, Palpitations, Orthopnea, Paroxysmal Noc. Dyspnea, Edema, Lt Headedness, Other Objective-Cardiology Exam Last Set of Vital Signs Vital Signs 06/19/21 06/19/21 07:39 09:10 Temp 36.5 Pulse 71 Resp 18 B/P (MAP) 139/70 (93) Pulse Ox 93 O2 Delivery Room Air General: Alert, Oriented X3, Cooperative HEENT: Atraumatic, PERRLA Neck: Supple, No JVD, No Thyromegaly Lungs: Clear to Auscultation, Normal Air Movement Heart: Regular Rate, Normal S1, Normal S2, No Murmurs Abdomen: Soft, No Tenderness Extremities: No Clubbing, No Edema Skin: No Rashes, No Significant Lesion Neuro: Other (right sided facial droop, right sided weakness) Psych/Mental Status: Mental Status NL, Mood NL A/P-Cardiology Admission Diagnosis CVA HTN Dementia Assessment/Plan 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 MRI of the head reported acute/subacute pontine stroke. Maintained on aspirin, monitor blood pressure Malignant hypertension, maintained on Norvasc 10 mg and hydralazine 25 mg and lisinopril 20 mg daily, blood pressure is better, continue to monitor. Elevated D-dimer, venous Doppler was negative. Maintained on Lovenox. Monitor Vascular dementia, had generalized weakness in the past. History of diverticulosis, BPH. Status post COVID-19 vaccination done on June 10, 2021 triggered generalized weakness, Patient was found on the floor by his neighbor Patient was seen and evaluated with Fern, examination performed, management plan was discussed, agree with the current scribed note, I made few changes to the note using Italic font Patient was seen at bedside, sitting comfortably, in good spirit No new complaint Continue to monitor blood pressure, no changes are recommended by cardiology Supervisory-Addendum Brief Supervisory Addendum Participated in pt care: history, MDM, physical Personally performed: exam, history, MDM Care discussed with: PA Results interpretation: Verified all documentation FERN MILLER Jun 19, 2021 09:51 MICHELLE HOUGH MD Jun 19, 2021 16:17
--- NOTE | 2021-06-19 13:48 | PM&R Progress Note ---
Subjective HPI/CC On Admission Date Seen by Provider: Jun 19, 2021 Time Seen by Provider: 13:30 Subjective/Events-last exam 06/19/2021: Pt doing really well Left-sided weakness is a challenge Bowels moved twice today Magic mouthwash will be initiated because he keeps on biting the inside of his cheek Knee pain is chronic Voltaren gel will be added 06/18/2021: Pt doing really well Eating very well Sugars are okay Incontinent Bowels are moving No pain Obtaining good relief with left knee injection Review of Systems General: Fatigue, Malaise Musculoskeletal: leg pain Neurological: Weakness, Incoordination Objective Exam Vital Signs Vital Signs Date Time Temp Pulse Resp B/P (MAP) Pulse Ox O2 Delivery O2 Flow Rate FiO2 06/19/21 21:28 Room Air 06/19/21 20:00 36.7 77 20 135/63 (87) 94 Capillary Refill : General Appearance: No Apparent Distress, WD/WN, Chronically ill, Obese HEENT: PERRL/EOMI, Normal ENT Inspection, Pharynx Normal Neck: Full Range of Motion, Normal Inspection, Non Tender, Supple, Carotid Bruit Respiratory: Chest Non Tender, Lungs Clear, Normal Breath Sounds, No Accessory Muscle Use, No Respiratory Distress Cardiovascular: Regular Rate, Rhythm, No Edema, No Gallop, No JVD, No Murmur, Normal Peripheral Pulses Gastrointestinal: Normal Bowel Sounds, No Organomegaly, No Pulsatile Mass, Non Tender, Soft Back: Normal Inspection, No CVA Tenderness, No Vertebral Tenderness Extremity: Normal Capillary Refill, Normal Inspection, Normal Range of Motion, Non Tender, No Calf Tenderness, No Pedal Edema Neurologic/Psychiatric: Alert, Oriented x3, rapid extractor operator II-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 FIM Transfers Therapy Code Descriptions/Definitions Functional [place] Measure: 0=Not Assessed/NA 4=Minimal Assistance 1=Total Assistance 5=Supervision or Setup 2=Maximal Assistance 6=Modified [place] 3=Moderate Assistance 7=Complete IndependenceSCALE: Activities may be completed with or without assistive devices. 3-Lgvqxmgdnb-ezyeqgp completes the activity by him/herself with no assistance from a helper. 5-Set-up or Clean-up Assistance-helper sets up or cleans up; patient completes activity. [place] assists only prior to or following the activity. 4-Supervision or Touching Assistance-helper provides verbal cues and/or touching/steadying and/or contact guard assistance as patient completes activity. Assistance may be provided throughout the activity or intermittently. 3-Partial/Moderate Assistance-helper does LESS THAN HALF the effort. [place] l ifts, holds or supports trunk or limbs, but provides less than half the effort. 2-Substantial/Maximal Assistance-helper does MORE THAN HALF the effort. [place] lifts or holds trunk or limbs and provides more than half the effort. 2-Bhdcywduq-hpttau does ALL the effort. Patient does none of the effort to complete the activity. Or, the assistance of 2 or more helpers is required for t he patient to complete the activity. If activity was not attempted, code reason: 7-Patient Refused. 9-Not Applicable-not attempted and the patient did not perform the activity before the current illness, exacerbation or injury. 10-Not Attempted due to Environmental Limitations-(lack of equipment, weather restraints, etc.). 88-Not Attempted due to Medical Conditions or Safety Concerns. Roll Left to Right (QC): 2 Sit to Lying (QC): 2 Sit to Stand (QC): 2 Chair/Ger-oo-Psycn Xfer(QC): 3 Car Transfer (QC): 88 Gait Training Does the Patient Walk?: Yes Walk 10 feet (QC): 88 Walk 50 ft with 2 Turns(QC): 88 Walk 150 ft (QC): 88 Walking 10ft/uneven surface-QC: 88 Gait Assistive Device: Parallel Bars Wheelchair Training Does the Pt Use a Wheelchair?: Yes Distance: 50' Wheel 50 ft with 2 turns (QC): 3 Wheel 150 ft (QC): 3 Type of Wheelchair: Manual Stair Training 1 Step (curb) (QC): 88 4 Steps (QC): 88 12 Steps (QC): 88 Balance Picking up an Object (QC): 88 ADL-Treatment Eating (QC): 5 (Set up, per clinical judgment.) Oral Hygiene (QC): 4 Bathing Location: L Arm, R Arm, L Upper Leg, R Upper Leg, Chest, Abdomen, Perineal Area Shower/Bathe Self (QC): 3 Upper Body Dressing (QC): 2 Lower Body Dressing (QC): 1 On/Off Footwear (QC): 2 (Max A) Toileting Hygiene (QC): 1 Toilet Transfer (QC): 1 Assessment/Plan Assessment and Plan Assess & Plan/Chief Complaint Assessment: CVA with left-sided weakness Diabetes Hypertension Hyperlipidemia Dementia Left knee pain chronic status post steroid injection per Dr. Cummings Plan: Aggressive therapy Supportive care Statin Cardiology 06/18/2021: Much improved status Fall risk 06/19/2021: Continue treatment Aggressive therapy (1) Cerebrovascular accident due to cerebral artery occlusion Status: Acute (2) T2DM (type 2 diabetes mellitus) Status: Chronic (3) HLD (hyperlipidemia) Status: Chronic (4) Obesity Status: Chronic (5) Debility Status: Acute (6) Dementia Status: Chronic (7) Right pontine stroke Status: Acute (8) HTN (hypertension) Status: Acute CIRO CABRERA DO Jun 19, 2021 13:48
--- NOTE | 2021-06-19 14:07 | Physical Therapy Daily Note ---
PT Daily Note-Current Subjective Pt sitting up in recliner upon arrival. Pt agrees to PT. Pain Location: Left Location Body Site: Knee Pain Description: Ache Mental Status Patient Orientation: Person, Place Transfers SCALE: Activities may be completed with or without assistive devices. 3-Csleexvslu-zwnajjw completes the activity by him/herself with no assistance from a helper. 5-Set-up or Clean-up Assistance-helper sets up or cleans up; patient completes activity. [place] assists only prior to or following the activity. 4-Supervision or Touching Assistance-helper provides verbal cues and/or touching/steadying and/or contact guard assistance as patient completes activity. Assistance may be provided throughout the activity or intermittently. 3-Partial/Moderate Assistance-helper does LESS THAN HALF the effort. [place] lifts, holds or supports trunk or limbs, but provides less than half the effort. 2-Substantial/Maximal Assistance-helper does MORE THAN HALF the effort. [place] lifts or holds trunk or limbs and provides more than half the effort. 4-Wwbajwuaa-wqjsfu does ALL the effort. Patient does none of the effort to complete the activity. Or, the assistance of 2 or more helpers is required for the patient to complete the activity. If activity was not attempted, code reason: 7-Patient Refused. 9-Not Applicable-not attempted and the patient did not perform the activity before the current illness, exacerbation or injury. 10-Not Attempted due to Environmental Limitations-(lack of equipment, weather restraints, etc.). 88-Not Attempted due to Medical Conditions or Safety Concerns. Weight Bearing Full Weight Bearing Full Weight Bearing Exercises Supine Ex: Ankle pumps, Quad Set, Glut sets, Heel Slides, Hip abd/add Supine Reps: 10 (10-15 reps as pt can tolerate, AAROM for L side) Treatments Pt completes Supine Ex with RB as needed. Pt asks about Weekly ARU Mtg and when pt might d/c. Pt was advised that SW will visit with pt but expect to continue tx until told otherwise. Pt resting at end of tx. All needs met, call light in hand. Assessment Current Status: Good Progress Pt continues to try to work hard but fatigues easily. PT Short Term Goals Short Term Goals Time Frame: Jun 24, 2021 Roll Left & Right: 3 Sit to lyin Lying to sitting on side of be: 3 Sit to stand: 3 Chair/axp-je-arhko transfer: 3 Walk 10 feet: 3 PT Senior Care Goals Senior Care Goals PT Senior Care Goals Time Frame: Jul 08, 2021 Roll Left & Right (QC): 3 (Dora) Sit to Lying (QC): 3 (Dora) Lying-Sitting on Side/Bed(QC): 3 (Dora) Sit to Stand (QC): 4 (CGA) Chair/Qmg-jt-Tcets Xfer(QC): 4 (CGA) Toilet Transfer (QC): 4 (CGA) Car Transfer (QC): 4 (CGA) Does the Patient Walk: Yes Walk 10 feet (QC): 4 (CGA) Walk 50ft with 2 Turns (QC): 88 Walk 150 ft (QC): 88 Walking 10ft on Uneven Surface: 3 (Dora) 1 Step (curb) (QC): 3 (Dora) 4 Steps (QC): 88 12 Steps (QC): 88 Picking up an Object (QC): 88 Wheel 50 feet with 2 turns (QC: 5 Wheel 150 feet: 5 PT Plan Problem List Problem List: Activity Tolerance, Functional Strength, Transfer Treatment/Plan Treatment Plan: Continue Plan of Care Treatment Plan: Bed Mobility, Education, Functional Activity Gwendolyn, Functional Strength, Group Therapy, Gait, Safety, Therapeutic Exercise, Transfers Treatment Duration: Jul 08, 2021 Frequency: At least 5 of 7 days/Wk (IRF) Estimated Hrs Per Day: 1.5 hours per day Patient and/or Family Agrees t: Yes Safety Risks/Education Patient Education: Transfer Techniques, Correct Positioning Teaching Recipient: Patient Teaching Methods: Discussion Response to Teaching: Verbalize Understanding Time/GCodes Time In: 1330 Time Out: 1415 Total Billed Treatment Time: 45 Total Billed Treatment 1, EX x2 (30m) & FA (15m) MARIO SMITH STAFF [employer] OFFICER Jun 19, 2021 14:07
[2021-06-19] MEDS: MAGIC MOUTHWASH (ADULT) PO SCH ×8 (17:39→20:35)
[2021-06-19] MEDS: MAGIC MOUTHWASH, ADULT 155 ML BOTTLE PO SCH ×2 (17:40→19:39)
[2021-06-19] MEDS: DICLOFENAC 1% GEL 100 GM (VOLTAREN) TUBE TOP SCH ×2 (17:42→20:38)
[2021-06-19 20:00] VITALS: BP 135/63
[2021-06-19] MEDS: QUEtiapine 25 MG (SEROquel) TAB IMMEDIATE RELEASE PO SCH (20:33)
[2021-06-19] MEDS: MELATONIN 3 MG TABLET PO PRN (20:33)
[2021-06-19] MEDS: TAMSULOSIN 0.4 MG (FLOMAX) CAP PO SCH (20:33)
[2021-06-20] MEDS: hydrALAZINE (APRESOLINE) 25 MG TAB PO SCH ×3 (05:48→20:51)
[2021-06-20] MEDS: VENlafaxine XR 75 MG (EFFEXOR XR) CAP PO SCH (05:48)
[2021-06-20] MEDS: inSUlin ASPART (NovoLOG) 1 UNIT/0.01 ML (CHARGE PER UNIT) SC SCH ×4 (05:49→20:57)
[2021-06-20] MEDS: CATHETER FLUSH 10 ML SYR IV SCH (05:49)
[2021-06-20] MEDS: amLODIPine 10 MG (NORVASC) TAB PO SCH (07:35)
[2021-06-20] MEDS: PANTOPRAZOLE 40 MG (PROTONIX) TAB PO SCH (07:35)
[2021-06-20] MEDS: ASPIRIN E.C. 81 MG (ECOTRIN) TAB PO SCH (07:35)
[2021-06-20] MEDS: lisINopril 20 MG (PRINIVIL) TABLET PO SCH (07:35)
[2021-06-20] MEDS: metFORMIN 500 MG (GLUCOPHAGE) TAB PO SCH ×2 (07:35→17:10)
[2021-06-20] MEDS: ENOXAPARIN 40 MG/0.4 ML (LOVENOX) SYR SC SCH (07:35)
[2021-06-20] MEDS: MAGIC MOUTHWASH (ADULT) PO SCH ×20 (07:36→20:58)
[2021-06-20] MEDS: DICLOFENAC 1% GEL 100 GM (VOLTAREN) TUBE TOP SCH ×4 (07:37→20:51)
[2021-06-20] MEDS: DOCUSATE SODIUM 100 MG (COLACE) CAP PO SCH ×2 (07:40→19:32)
[2021-06-20 07:41] VITALS: BP 172/84
[2021-06-20] MEDS: MAGIC MOUTHWASH, ADULT 155 ML BOTTLE PO SCH ×4 (07:41→19:33)
[2021-06-20] MEDS: SENNA W/DOCUSATE (SENOKOT S) TABLET PO SCH ×4 (07:41→19:33)
[2021-06-20] MEDS: polyethylene glycoL POWDER 17 GM (MIRALAX) PACK PO SCH ×2 (07:41→19:33)
--- NOTE | 2021-06-20 08:58 | Occupational Ther Daily Note ---
OT Current Status-Daily Note Subjective Pt. alert eating breakfast in recliner. Pt. states pain in L knee, nursing notified. Pt also states frustration due to stroke symptoms. Pt. agrees to therapy. Mental Status/Objective Patient Orientation: Person, Place, Time, Situation Attachments: IV ADL-Treatment Pt. transferred from recliner to w/c with Max A. Pt. states concerned of falling. Pt. transported to shower room using w/c. Pt. transferred max a using grabbars to stand BSC switched out with w/c in shower room. Pt. able to wash face, chest, abdomen, L arm, under L arm, top of L leg, top of R leg, R lower leg, and lm area. Pt. requested assist with R arm, L lower leg, B feet, and buttocks. Pt. dried except under L arm, L lower leg, buttocks and both feet. Pt set up to [facility] gown, required max a assist to thread feet in proper holes of brief/shorts, Max x2 one to stand with pt. another to hike pants over hips. Max a for footwear and transported to therapy gym using w/c. Therapy Code Descriptions/Definitions Functional [place] Measure: 0=Not Assessed/NA 4=Minimal Assistance 1=Total Assistance 5=Supervision or Setup 2=Maximal Assistance 6=Modified [place] 3=Moderate Assistance 7=Complete IndependenceSCALE: Activities may be completed with or without assistive devices. 9-Nymiceurgq-zwylhvj completes the activity by him/herself with no assistance from a helper. 5-Set-up or Clean-up Assistance-helper sets up or cleans up; patient completes activity. [place] assists only prior to or following the activity. 4-Supervision or Touching Assistance-helper provides verbal cues and/or touching/steadying and/or contact guard assistance as patient completes activity. Assistance may be provided throughout the activity or intermittently. 3-Partial/Moderate Assistance-helper does LESS THAN HALF the effort. [place] lifts, holds or supports trunk or limbs, but provides less than half the effort. 2-Substantial/Maximal Assistance-helper does MORE THAN HALF the effort. [place] lifts or holds trunk or limbs and provides more than half the effort. 1-Ysiktzqgd-mdawxb does ALL the effort. Patient does none of the effort to complete the activity. Or, the assistance of 2 or more helpers is required for the patient to complete the activity. If activity was not attempted, code reason: 7-Patient Refused. 9-Not Applicable-not attempted and the patient did not perform the activity before the current illness, exacerbation or injury. 10-Not Attempted due to Environmental Limitations-(lack of equipment, weather restraints, etc.). 88-Not Attempted due to Medical Conditions or Safety Concerns. Eating (QC): 5 Bathing Location: L Arm, L Upper Leg, R Upper Leg, R Lower Leg (including foot), Chest, Abdomen, Buttocks Shower/Bathe Self (QC): 3 Lower Body Dressing (QC): 3 On/Off Footwear: 2 Co-Treat with PT ([id number]). 2 clinicians necessary for safety and instruction while transferring and ambu. PT focusing on dynamic standing balance, transfers, gait while OT focusing on attending to task, visual scanning, UE strength, and ADLs. Other Treatment Pt. wheeled to // bars to work on dynamic standing balance and ambu. Pt. participated in R AROM arc while standing in // bars once moving rings to op posite side of arm, after rest break moving rings back to other side. Pt. stood and with max a x2. ambulated from one end of // bars to the other, rested and performed again. Pt. was left in care of PT. All needs met in gym. OT Short Term Goals Short Term Goals Time Frame: Jun 28, 2021 Eatin Oral hygiene: 4 Toileting hygiene: 2 Shower/bathe self: 2 Upper body dressin Lower body dressin Putting on/taking off footwear: 2 OT Account Support Analyst Goals Account Support Analyst Goals Time Frame: Jul 08, 2021 Eating (QC): 4 Oral Hygiene (QC): 4 Toileting Hygiene (QC): 4 Shower/Bathe Self (QC): 4 Upper Body Dressing (QC): 4 Lower Body Dressing (QC): 4 On/Off Footwear (QC): 4 1=Demonstrate adherence to instructed precautions during ADL tasks. 2=Patient will verbalize/demonstrate understanding of assistive devices/modifications for ADL. 3=Patient will improve strength/tolerance for activity to enable patient to perform ADL's. OT Education/Plan Problem List/Assessment Assessment: Decreased Activ Tolerance, Decreased Safety Aware, Decreased UE Strength, Impaired Coordination, Impaired Funct Balance, Impaired Self-Care Skills, Restricted Funct UE ROM, Visual-Perceptual Deficit Discharge Recommendations Plan/Recommendations: Continue POC Treatment Plan/Plan of Care Patient would benefit from OT for education, treatment and training to promote independence in ADL's, mobility, safety and/or upper extremity function for ADL's. Plan of Care: ADL Retraining, Caregiver Training, Cognitive Retraining, Functional Mobility, Group Exercise/Act as Ind, UE Funct Exercise/Act, UE Neuromus Re-Ed/Coord, W/C Management Training Treatment Duration: Jul 08, 2021 Frequency: At least 5 of 7 days/Wk (IRF) Estimated Hrs Per Day: 1.5 hours per day Agreement: Yes Rehab Potential: Guarded Time/GCodes Start Time: 07:30 Stop Time: 09:00 Total Time Billed (hr/min): 90 Billed Treatment Time 1 visit- ADL 4, NM1, FA 1 co-treat [id number], individual [id number] HEMA RICHARDS Jun 20, 2021 08:58
--- NOTE | 2021-06-20 09:25 | Physical Therapy Daily Note ---
PT Daily Note-Current Subjective Patient in shower room pre tx, already working with OT, agrees to PT, has unrated pain in left knee. Will be co-treating with OT due to poor patient mobility, strength, endurance, balance, left hemiparesis, coordinate UE and LE during activity, safety and reduce risk of falls. Appearance Patient in bed post tx with nurse call, phone, tray, all needs met. Mental Status Patient Orientation: Person, Place, Situation Transfers SCALE: Activities may be completed with or without assistive devices. 3-Wmumgbcxww-zstbyrs completes the activity by him/herself with no assistance from a helper. 5-Set-up or Clean-up Assistance-helper sets up or cleans up; patient completes activity. [place] assists only prior to or following the activity. 4-Supervision or Touching Assistance-helper provides verbal cues and/or touching/steadying and/or contact guard assistance as patient completes activity. Assistance may be provided throughout the activity or intermittently. 3-Partial/Moderate Assistance-helper does LESS THAN HALF the effort. [place] lifts, holds or supports trunk or limbs, but provides less than half the effort. 2-Substantial/Maximal Assistance-helper does MORE THAN HALF the effort. [place] lifts or holds trunk or limbs and provides more than half the effort. 1-Brcffboku-nmmmry does ALL the effort. Patient does none of the effort to complete the activity. Or, the assistance of 2 or more helpers is required for the patient to complete the activity. If activity was not attempted, code reason: 7-Patient Refused. 9-Not Applicable-not attempted and the patient did not perform the activity before the current illness, exacerbation or injury. 10-Not Attempted due to Environmental Limitations-(lack of equipment, weather restraints, etc.). 88-Not Attempted due to Medical Conditions or Safety Concerns. Roll Left & Right (QC): 3 Sit to Lying (QC): 3 Sit to Stand (QC): 3 Chair/Qfr-wr-Eieiq Xfer(QC): 3 In shower room patient needs to get dressed, has to stand a couple of times to dry off and get his shorts on. After getting back to his room, mod assist for sit to supine, transfers are mod assist. Weight Bearing Full Weight Bearing Full Weight Bearing Gait Training Distance: 6'x3 Gait Assistive Device: Parallel Bars mod assist, needs assist with weight shifting and advancing his left leg, cues for foot placement and positioning Wheelchair Training Does the Pt Use a Wheelchair?: Yes Type of Wheelchair: Manual 120'x2, min/mod assist, patient uses his right arm and leg to assist propelling WC Exercises NuStep Minutes: 15 NuStep Workload: 5 Treatments PT performed standing and positioning during dressing, functional strengthening, ambulation, WC mobility, transfers and bed mobility, OT worked on bathing, dr salas, assisted with ambulation and transfers, UE positioning and safety during activity Assessment Current Status: Fair Progress improved advancement of left leg in parallel bars during ambulation PT Short Term Goals Short Term Goals Time Frame: Jun 24, 2021 Roll Left & Right: 3 Sit to lyin Lying to sitting on side of be: 3 Sit to stand: 3 Chair/ixi-wz-yiybp transfer: 3 Walk 10 feet: 3 PT Junior Copywriter Goals Mcfp Goals PT Mcfp Goals Time Frame: Jul 08, 2021 Roll Left & Right (QC): 3 (Dora) Sit to Lying (QC): 3 (Dora) Lying-Sitting on Side/Bed(QC): 3 (Dora) Sit to Stand (QC): 4 (CGA) Chair/Mdy-eu-Wwnwn Xfer(QC): 4 (CGA) Toilet Transfer (QC): 4 (CGA) Car Transfer (QC): 4 (CGA) Does the Patient Walk: Yes Walk 10 feet (QC): 4 (CGA) Walk 50ft with 2 Turns (QC): 88 Walk 150 ft (QC): 88 Walking 10ft on Uneven Surface: 3 (Dora) 1 Step (curb) (QC): 3 (Dora) 4 Steps (QC): 88 12 Steps (QC): 88 Picking up an Object (QC): 88 Wheel 50 feet with 2 turns (QC: 5 Wheel 150 feet: 5 PT Plan Problem List Problem List: Activity Tolerance, Functional Strength, Safety, Balance, Gait, Transfer, Bed Mobility, ROM Treatment/Plan Treatment Plan: Continue Plan of Care Treatment Plan: Bed Mobility, Education, Functional Activity Gwendolyn, Functional Strength, Group Therapy, Gait, Safety, Therapeutic Exercise, Transfers Treatment Duration: Jul 08, 2021 Frequency: At least 5 of 7 days/Wk (IRF) Estimated Hrs Per Day: 1.5 hours per day Patient and/or Family Agrees t: Yes Safety Risks/Education Patient Education: Gait Training, Transfer Techniques, Correct Positioning, W/C Management, Safety Issues Teaching Recipient: Patient Teaching Methods: Demonstration, Discussion Response to Teaching: Reinforcement Needed Time/GCodes Time In: 799 Time Out: 929 Total Billed Treatment Time: 90 Total Billed Treatment 1 visit EX 15' FA 75' co-treated from [id number] JASVIR ALVES PT Jun 20, 2021 09:25
--- NOTE | 2021-06-20 12:06 | PM&R Progress Note ---
Subjective HPI/CC On Admission Date Seen by Provider: Jun 20, 2021 Time Seen by Provider: 10:00 Subjective/Events-last exam 06/20/2021: Patient progressing nicely Blood sugar 128 Bowels moved yesterday Discontinue the Hep-Lock 06/19/2021: Pt doing really well Left-sided weakness is a challenge Bowels moved twice today Magic mouthwash will be initiated because he keeps on biting the inside of his cheek Knee pain is chronic Voltaren gel will be added 06/18/2021: Pt doing really well Eating very well Sugars are okay Incontinent Bowels are moving No pain Obtaining good relief with left knee injection Review of Systems General: Fatigue, Malaise Neurological: Weakness, Incoordination Objective Exam Vital Signs Vital Signs Date Time Temp Pulse Resp B/P (MAP) Pulse Ox O2 Delivery O2 Flow Rate FiO2 06/20/21 20:40 Room Air 06/20/21 20:00 37.5 80 18 142/75 (97) 94 Capillary Refill : General Appearance: No Apparent Distress, WD/WN, Chronically ill, Obese HEENT: PERRL/EOMI, Normal ENT Inspection, Pharynx Normal Neck: Full Range of Motion, Normal Inspection, Non Tender, Supple, Carotid Bruit Respiratory: Chest Non Tender, Lungs Clear, Normal Breath Sounds, No Accessory Muscle Use, No Respiratory Distress Cardiovascular: Regular Rate, Rhythm, No Edema, No Gallop, No JVD, No Murmur, Normal Peripheral Pulses Gastrointestinal: Normal Bowel Sounds, No Organomegaly, No Pulsatile Mass, Non Tender, Soft Back: Normal Inspection, No CVA Tenderness, No Vertebral Tenderness Extremity: Normal Capillary Refill, Normal Inspection, Normal Range of Motion, Non Tender, No Calf Tenderness, No Pedal Edema Neurologic/Psychiatric: Alert, Oriented x3, sample steamer II-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 FIM Transfers Therapy Code Descriptions/Definitions Functional [place] Measure: 0=Not Assessed/NA 4=Minimal Assistance 1=Total Assistance 5=Supervision or Setup 2=Maximal Assistance 6=Modified [place] 3=Moderate Assistance 7=Complete IndependenceSCALE: Activities may be completed with or without assistive devices. 5-Wyzpfrfxbk-eyoawpc completes the activity by him/herself with no assistance from a helper. 5-Set-up or Clean-up Assistance-helper sets up or cleans up; patient completes activity. [place] assists only prior to or following the activity. 4-Supervision or Touching Assistance-helper provides verbal cues and/or touching/steadying and/or contact guard assistance as patient completes activity. Assistance may be provided throughout the activity or intermittently. 3-Partial/Moderate Assistance-helper does LESS THAN HALF the effort. [place] lifts, holds or supports trunk or limbs, but provides less than half the effort. 2-Substantial/Maximal Assistance-helper does MORE THAN HALF the effort. [place] lifts or holds trunk or limbs and provides more than half the effort. 1-Idojliryk-hguktu does ALL the effort. Patient does none of the effort to complete the activity. Or, the assistance of 2 or more helpers is required for the patient to complete the activity. If activity was not attempted, code reason: 7-Patient Refused. 9-Not Applicable-not attempted and the patient did not perform the activity before the current illness, exacerbation or injury. 10-Not Attempted due to Environmental Limitations-(lack of equipment, weather restraints, etc.). 88-Not Attempted due to Medical Conditions or Safety Concerns. Roll Left to Right (QC): 3 Sit to Lying (QC): 3 Sit to Stand (QC): 3 Chair/Hmm-bp-Rkmdg Xfer(QC): 3 Car Transfer (QC): 88 Gait Training Does the Patient Walk?: Yes Distance: 6'x3 Walk 10 feet (QC): 88 Walk 50 ft with 2 Turns(QC): 88 Walk 150 ft (QC): 88 Walking 10ft/uneven surface-QC: 88 Gait Assistive Device: Parallel Bars Wheelchair Training Does the Pt Use a Wheelchair?: Yes Distance: 50' Wheel 50 ft with 2 turns (QC): 3 Wheel 150 ft (QC): 3 Type of Wheelchair: Manual Stair Training 1 Step (curb) (QC): 88 4 Steps (QC): 88 12 Steps (QC): 88 Balance Picking up an Object (QC): 88 ADL-Treatment Eating (QC): 5 Oral Hygiene (QC): 4 Bathing Location: L Arm, L Upper Leg, R Upper Leg, R Lower Leg (including foot), Chest, Abdomen, Buttocks Shower/Bathe Self (QC): 3 Upper Body Dressing (QC): 2 Lower Body Dressing (QC): 3 On/Off Footwear (QC): 2 Toileting Hygiene (QC): 1 Toilet Transfer (QC): 1 Assessment/Plan Assessment and Plan Assess & Plan/Chief Complaint Assessment: CVA with left-sided weakness Diabetes Hypertension Hyperlipidemia Dementia Left knee pain chronic status post steroid injection per Dr. Cummings Plan: Aggressive therapy Supportive care Statin Cardiology 06/18/2021: Much improved status Fall risk 06/19/2021: Continue treatment Aggressive therapy 06/20/2021: Supportive care Aggressive therapy (1) Cerebrovascular accident due to cerebral artery occlusion Status: Acute (2) T2DM (type 2 diabetes mellitus) Status: Chronic (3) HLD (hyperlipidemia) Status: Chronic (4) Obesity Status: Chronic (5) Debility Status: Acute (6) Dementia Status: Chronic (7) Right pontine stroke Status: Acute (8) HTN (hypertension) Status: Acute CIRO CABRERA DO Jun 20, 2021 12:05
--- NOTE | 2021-06-20 14:16 | ST Dysphagia Evaluation ---
Speech Evaluation-General Medical Diagnosis CVA Onset Date: Jun 12, 2021 Medical History Pertinent Medical History: DM, HTN Reviewed History: Yes Social History Current Living Status: Alone Speech PLF/Current-Dysphagia Subjective Pt asleep upon arrival with lunch tray on table. Pt woke up and agreed to eating lunch. He reports he prefers to eat soft foods like mashed potatoes as it is difficulty to chew and swallow. Cognitive Status Patient Orientation: Person, Time Oral Motor Skills Denture Type: Full- Upper & Lower Current Food Consistancy: Dysphagia Soft, Thin Liquids Ability to Follow Directions: Good Face Left side droop Oral-Facial Assessment Labial Seal Description: Droops Left Smile: Droops Left Puff Cheeks: Reduced Strength Lingual Strength: Abnormal Volitional Dry Swallow: Yes Voluntary Cough: Yes Can Clear Throat Volitionally: Yes Productive Cough: Yes Dysphagia Evaluation Consistencies Presented: Mechanical Soft, Pureed Oral Phase: Anterior Spillage Dietary Recommendations: Mechanical Soft Liquid Recommendations: Thin Swallowing Precautions: Alternate Liquids/Solids, Small Bites and Sips, Sitting Upright 90 Degrees, Sitting 90 Degrees 30 Post Intake Pt presents with mild dysphagia characterized by left side oral weakness. Pt cough x1 during observed lunch meal with puree/soft consistencies. Pt reports he bites his left side of his mouth a lot and it is very sore. RN states he has medicine that can be given after lunch. Speech Short Term Goals Short Term Goals Short Term Goals 1. The pt will follow compensatory swallow strategies for safe PO intake with 90% accy. 2. The pt will complete labial/lingual exercises to increase strength on left side. 3. Pt will complete laryngeal exercises x10. Speech Residential Goals Fire Pot Operator Goals 1. The pt will tolerate least restrictive diet with no overt s/s of aspiration/penetration during observed snack/meal. Speech-Plan Treatment Plan Speech Therapy Treatment Plan: Continue Plan of Care Treatment Duration: Jun 18, 2021 Frequency: 3 times per week Estimated Hrs Per Day: .5 hour per day Rehab Potential: Fair Time Speech Therapy Time In: 13:00 Speech Therapy Time Out: 13:15 Billed Treatment Time [address] Jun 20, 2021 14:16
--- NOTE | 2021-06-20 14:21 | ST Cognitive Linguistic Eval ---
Speech Evaluation-General Medical Diagnosis CVA Onset Date: Jun 12, 2021 Medical History Pertinent Medical History: DM, HTN Reviewed History: Yes Social History Current Living Status: Alone Speech PLF-Current Status Subjective Dysphagia evaluation also completed. Pt pleasant and cooperative. Language Eval: Auditory Comprehends Simple Yes/No Ques: Functional Indent/Objects Multiple Tamez: Functional Ident/Pics in Multiple Tamez: Functional Follows 1-Step Commands: Functional Follows Complex Directions: Functional Follows General Conversations: Functional Language Eval: Verbal Language Completes Spontaneous Greeting: Functional Produces Auto, Serial Info: Functional Imitates Simple Words/Phrases: Functional Word Finding: Functional Requests Basic Needs: Functional States Basic Personal Info: Functional Expresses Complex Ideas: Functional Objective Results Pt states he feels his speech is slurred. He rates his speech at a 7 with 10 being PLOF. Oral Motor/Speech Production Left side oral weakness and decreased coordination. Left side labial droop at rest and with movement. Impression Pt presents with mild dysarthria characterized by decreased precision of speech and left side weakness. Speech Patient Assess Expression of Ideas/Wants: Expression (4) (Expresses complex messages) Understanding Verbal Content: Understands (4) (Clear comprehension without) Brief Interview-Mental Status: Yes (Three Words) Repetition of Three Words: Three (3) Temporal Orientation: Year: Correct (3) Temporal Orientation: Month: Accurate within 5 days(2) Temporal Orientation: Day: Correct (1) Recall : Wear to say "Sock": Yes, no cue required (2) Recall : Color: Yes, no cue required (2) Recall : Bed: Yes,after cueing (1) Memory/Recall Ability: That he or she is in a hsp/hsp unit Speech Short Term Goals Short Term Goals Short Term Goals 1. The pt will follow compensatory swallow strategies for safe PO intake with 90% accy. 2. The pt will complete labial/lingual exercises to increase strength on left side. 3. Pt will complete laryngeal exercises x10. Speech Web User Experience Strategist Goals Web User Experience Strategist Goals 1. The pt will tolerate least restrictive diet with no overt s/s of aspiration/ penetration during observed snack/meal. Speech-Plan Treatment Plan Speech Therapy Treatment Plan: Continue Plan of Care Treatment Duration: Jun 18, 2021 Frequency: 3 times per week Estimated Hrs Per Day: .5 hour per day Rehab Potential: Fair Time Speech Therapy Time In: 13:15 Speech Therapy Time Out: 13:30 Billed Treatment Time 1, COGN TEST MUNA GARCIA Jun 20, 2021 14:21
[2021-06-20 14:52] VITALS: BP 125/63
[2021-06-20] MEDS: HYDROcodone/APAP 5 MG/325 MG (LORTAB) TAB PO PRN (14:52)
[2021-06-20 20:00] VITALS: BP 142/75
[2021-06-20] MEDS: TAMSULOSIN 0.4 MG (FLOMAX) CAP PO SCH (20:51)
[2021-06-20] MEDS: QUEtiapine 25 MG (SEROquel) TAB IMMEDIATE RELEASE PO SCH (20:51)
[2021-06-20] MEDS: MELATONIN 3 MG TABLET PO PRN (20:51)
[2021-06-20] MEDS: ACETAMINOPHEN 325 MG TABLET PO PRN (21:33)
[2021-06-21] MEDS: inSUlin ASPART (NovoLOG) 1 UNIT/0.01 ML (CHARGE PER UNIT) SC SCH ×4 (05:26→21:04)
[2021-06-21] MEDS: VENlafaxine XR 75 MG (EFFEXOR XR) CAP PO SCH (06:07)
[2021-06-21] MEDS: hydrALAZINE (APRESOLINE) 25 MG TAB PO SCH ×3 (06:07→21:46)
[2021-06-21 06:09] VITALS: BP 166/75
--- NOTE | 2021-06-21 06:55 | PM&R Progress Note ---
Subjective HPI/CC On Admission Date Seen by Provider: Jun 21, 2021 Time Seen by Provider: 09:00 Subjective/Events-last exam 06/21/2021: Patient doing really well Having some incontinence No pain is reported Progressing with therapy 06/20/2021: Patient progressing nicely Blood sugar 128 Bowels moved yesterday Discontinue the Hep-Lock 06/19/2021: Pt doing really well Left-sided weakness is a challenge Bowels moved twice today Magic mouthwash will be initiated because he keeps on biting the inside of his cheek Knee pain is chronic Voltaren gel will be added 06/18/2021: Pt doing really well Eating very well Sugars are okay Incontinent Bowels are moving No pain Obtaining good relief with left knee injection Review of Systems Musculoskeletal: leg pain Neurological: Weakness, Incoordination Objective Exam Vital Signs Vital Signs Date Time Temp Pulse Resp B/P (MAP) Pulse Ox O2 Delivery O2 Flow Rate FiO2 06/21/21 20:15 93 Room Air 06/21/21 20:15 37.4 75 20 134/73 (93) Capillary Refill : General Appearance: No Apparent Distress, WD/WN, Chronically ill, Obese HEENT: PERRL/EOMI, Normal ENT Inspection, Pharynx Normal Neck: Full Range of Motion, Normal Inspection, Non Tender, Supple, Carotid Bruit Respiratory: Chest Non Tender, Lungs Clear, Normal Breath Sounds, No Accessory Muscle Use, No Respiratory Distress Cardiovascular: Regular Rate, Rhythm, No Edema, No Gallop, No JVD, No Murmur, Normal Peripheral Pulses Gastrointestinal: Normal Bowel Sounds, No Organomegaly, No Pulsatile Mass, Non Tender, Soft Back: Normal Inspection, No CVA Tenderness, No Vertebral Tenderness Extremity: Normal Capillary Refill, Normal Inspection, Normal Range of Motion, Non Tender, No Calf Tenderness, No Pedal Edema Neurologic/Psychiatric: Alert, Oriented x3, drug abuse social worker II-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 FIM Transfers Therapy Code Descriptions/Definitions Functional [place] Measure: 0=Not Assessed/NA 4=Minimal Assistance 1=Total Assistance 5=Supervision or Setup 2=Maximal Assistance 6=Modified [place] 3=Moderate Assistance 7=Complete IndependenceSCALE: Activities may be completed with or without assistive devices. 2-Owxqxkydlv-jfflnua completes the activity by him/herself with no assistance from a helper. 5-Set-up or Clean-up Assistance-helper sets up or cleans up; patient completes activity. [place] assists only prior to or following the activity. 4-Supervision or Touching Assistance-helper provides verbal cues and/or touching/steadying and/or contact guard assistance as patient completes activity. Assistance may be provided throughout the activity or intermittently. 3-Partial/Moderate Assistance-helper does LESS THAN HALF the effort. [place] lifts, holds or supports trunk or limbs, but provides less than half the effort. 2-Substantial/Maximal Assistance-helper does MORE THAN HALF the effort. [place] lifts or holds trunk or limbs and provides more than half the effort. 4-Qdbklzisn-ldnlxi does ALL the effort. Patient does none of the effort to complete the activity. Or, the assistance of 2 or more helpers is required for the patient to complete the activity. If activity was not attempted, code reason: 7-Patient Refused. 9-Not Applicable-not attempted and the patient did not perform the activity before the current illness, exacerbation or injury. 10-Not Attempted due to Environmental Limitations-(lack of equipment, weather restraints, etc.). 88-Not Attempted due to Medical Conditions or Safety Concerns. Roll Left to Right (QC): 3 Sit to Lying (QC): 3 Sit to Stand (QC): 3 Chair/Goy-nz-Oluri Xfer(QC): 3 Car Transfer (QC): 88 Gait Training Does the Patient Walk?: Yes Distance: 6'x3 Walk 10 feet (QC): 88 Walk 50 ft with 2 Turns(QC): 88 Walk 150 ft (QC): 88 Walking 10ft/uneven surface-QC: 88 Gait Assistive Device: Parallel Bars Wheelchair Training Does the Pt Use a Wheelchair?: Yes Distance: 50' Wheel 50 ft with 2 turns (QC): 3 Wheel 150 ft (QC): 3 Type of Wheelchair: Manual Stair Training 1 Step (curb) (QC): 88 4 Steps (QC): 88 12 Steps (QC): 88 Balance Picking up an Object (QC): 88 ADL-Treatment Eating (QC): 5 Oral Hygiene (QC): 4 Bathing Location: L Arm, L Upper Leg, R Upper Leg, R Lower Leg (including foot), Chest, Abdomen, Buttocks Shower/Bathe Self (QC): 3 Upper Body Dressing (QC): 2 Lower Body Dressing (QC): 3 On/Off Footwear (QC): 2 Toileting Hygiene (QC): 1 Toilet Transfer (QC): 1 Assessment/Plan Assessment and Plan Assess & Plan/Chief Complaint Assessment: CVA with left-sided weakness Diabetes Hypertension Hyperlipidemia Dementia Left knee pain chronic status post steroid injection per Dr. Cummings Plan: Aggressive therapy Supportive care Statin Cardiology 06/18/2021: Much improved status Fall risk 06/19/2021: Continue treatment Aggressive therapy 06/20/2021: Supportive care Aggressive therapy 06/21/2021: Monitor closely Fall risk (1) Cerebrovascular accident due to cerebral artery occlusion Status: Acute (2) T2DM (type 2 diabetes mellitus) Status: Chronic (3) HLD (hyperlipidemia) Status: Chronic (4) Obesity Status: Chronic (5) Debility Status: Acute (6) Dementia Status: Chronic (7) Right pontine stroke Status: Acute (8) HTN (hypertension) Status: Acute CIRO CABRERA DO Jun 21, 2021 06:55
--- NOTE | 2021-06-21 07:38 | Cardiology Progress Note ---
Subjective Date Seen by Provider: Jun 21, 2021 Time Seen by Provider: 12:39 Subjective/Events-last exam Pt reports that he is doing well. Denies any concerns. Review of Systems General: No Chills; Fatigue; No Other (fever) HEENT: No Head Aches, No Visual Changes Pulmonary: No Dyspnea, No Cough Cardiovascular: No: Chest Pain, Palpitations, Lt Headedness Gastrointestinal: No: Nausea, Vomiting, Abdominal Pain Neurological: No: Numbness, Other (Tingling ) Objective-Cardiology Exam Last Set of Vital Signs Vital Signs 06/21/21 06/21/21 07:43 09:45 Temp 36.0 Pulse 62 Resp 14 B/P (MAP) 134/65 (88) Pulse Ox 92 O2 Delivery Room Air General: Alert, Oriented X3, Cooperative HEENT: Atraumatic, PERRLA Neck: Supple, No JVD Lungs: Clear to Auscultation, Normal Air Movement Heart: Regular Rate, Normal S1, Normal S2, No Murmurs Abdomen: Soft, No Tenderness Extremities: No Clubbing, No Edema Skin: No Rashes, No Significant Lesion Neuro: Other (left sided facial droop, left sided weakness) Psych/Mental Status: Mental Status NL, Mood NL Results Lab Laboratory Tests Test 06/20/21 15:52 06/20/21 20:55 06/21/21 05:23 06/21/21 11:09 Range/Units Glucometer 155 H 145 H 128 H 126 H 70-110 MG/DL A/P-Cardiology Admission Diagnosis CVA HTN Dementia Assessment/Plan 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 MRI of the head reported acute/subacute pontine stroke. Maintained on aspirin, monitor blood pressure Malignant hypertension, maintained on Norvasc 10 mg and hydralazine 25 mg and lisinopril 20 mg daily, blood pressure is better, continue to monitor. Elevated D-dimer, venous Doppler was negative. Maintained on Lovenox. Monitor Vascular dementia, had generalized weakness in the past. History of diverticulosis, BPH. Status post COVID-19 vaccination done on June 10, 2021 triggered generalized weakness, Patient was found on the floor by his neighbor Supervisory-Addendum Brief Verification & Attestation Participated in pt care: history, MDM, physical Personally performed: exam, history, MDM, supervision of care Care discussed with: Medical Student Procedures: n/a Results interpretation: Verified all documentation Verification and Attestation of Medical Student E/M Service A medical student performed and documented this service in my presence. I reviewed and verified all information documented by the medical student and made modifications to such information, when appropriate. I personally performed the physical exam and medical decision making. Patient was seen at bedside, sitting comfortably, no new complaint Blood pressure is still labile, having some reading at 150 and others at 130 systolic blood pressure. He is on hydralazine, amlodipine and lisinopril. Continue to monitor Michelle Donaldson, Jun 21, 2021,12:40 ESAU ORTEGA Jun 21, 2021 07:38 MICHELLE DONALDSON MD Jun 21, 2021 12:41
--- NOTE | 2021-06-21 07:40 | Occupational Ther Daily Note ---
OT Current Status-Daily Note Subjective Pt. alert in bed eating. Pt. not as talkative this morning, states kind of down but doesn't want to discuss. Pt. did not c/o pain agrees to therapy. Mental Status/Objective Patient Orientation: Person, Place, Time, Situation Attachments: IV Attempted to ask Pt. questions about family, just giving "yes", "no" answers. Asked about where he is planning on going when he leaves [facility], states to live with his son in [place]. Son has an A frame house on [address] acres that he has built a ramp for Pt. to get into. The shower is a tub shower. ADL-Treatment Pt. declined shower, showered yesterday. Pt. required cleansing/ changing brief. Pt. Max A x2 to stand, one person to stand while the other doffed soiled brief and cleansing then donning clean brief/shorts. Co-Treat with PT ([id number]) 2 clinicians needed for safety and instruction of techniques. PT focusing on standing, dynamic standing while OT focusing on functional mobility, endurance for participation in daily activities, ADLs. Therapy Code Descriptions/Definitions Functional [place] Measure: 0=Not Assessed/NA 4=Minimal Assistance 1=Total Assistance 5=Supervision or Setup 2=Maximal Assistance 6=Modified [place] 3=Moderate Assistance 7=Complete IndependenceSCALE: Activities may be completed with or without assistive devices. 0-Mlybpfxcur-vtkjara completes the activity by him/herself with no assistance from a helper. 5-Set-up or Clean-up Assistance-helper sets up or cleans up; patient completes activity. [place] assists only prior to or following the activity. 4-Supervision or Touching Assistance-helper provides verbal cues and/or touching/steadying and/or contact guard assistance as patient completes activity. Assistance may be provided throughout the activity or intermittently. 3-Partial/Moderate Assistance-helper does LESS THAN HALF the effort. [place] lifts, holds or supports trunk or limbs, but provides less than half the effort. 2-Substantial/Maximal Assistance-helper does MORE THAN HALF the effort. [place] lifts or holds trunk or limbs and provides more than half the effort. 8-Tnyuqictd-entven does ALL the effort. Patient does none of the effort to complete the activity. Or, the assistance of 2 or more helpers is required for the patient to complete the activity. If activity was not attempted, code reason: 7-Patient Refused. 9-Not Applicable-not attempted and the patient did not perform the activity before the current illness, exacerbation or injury. 10-Not Attempted due to Environmental Limitations-(lack of equipment, weather restraints, etc.). 88-Not Attempted due to Medical Conditions or Safety Concerns. Lower Body Dressing (QC): 1 Toileting Hygiene (QC): 1 Other Treatment Pt. participated in w/c mobility while performing scanning activity to identify hopkins bags retrieving them with sales representative business courses to increase familiarity with equipment. See PT notes for progress on transfers. Sequencing for modified squat pivot transfer difficult for Pt. due to being a new skill. Pt stood with PT in paral lel bars 5x's, OT assists with L UE for placement, stability and wt bearing. Pt then working on using sales representative business courses to thread feet through theraband loop, stand to hike over hips with verbal cues and mod A. After therapy, pt sitting in recliner with call light/phone in reach. All needs met in room. OT Short Term Goals Short Term Goals Time Frame: Jun 28, 2021 Eatin Oral hygiene: 4 Toileting hygiene: 2 Shower/bathe self: 2 Upper body dressin Lower body dressin Putting on/taking off footwear: 2 OT Mercury Purifier Goals Mercury Purifier Goals Time Frame: Jul 08, 2021 Eating (QC): 4 Oral Hygiene (QC): 4 Toileting Hygiene (QC): 4 Shower/Bathe Self (QC): 4 Upper Body Dressing (QC): 4 Lower Body Dressing (QC): 4 On/Off Footwear (QC): 4 1=Demonstrate adherence to instructed precautions during ADL tasks. 2=Patient will verbalize/demonstrate understanding of assistive devices/modifi cations for ADL. 3=Patient will improve strength/tolerance for activity to enable patient to perform ADL's. OT Education/Plan Problem List/Assessment Assessment: Decreased Activ Tolerance, Decreased Safety Aware, Decreased UE Strength, Impaired Funct Balance, Impaired Self-Care Skills, Restricted Funct UE ROM Discharge Recommendations Plan/Recommendations: Continue POC Treatment Plan/Plan of Care Patient would benefit from OT for education, treatment and training to promote independence in ADL's, mobility, safety and/or upper extremity function for ADL's. Plan of Care: ADL Retraining, Caregiver Training, Cognitive Retraining, Functional Mobility, Group Exercise/Act as Ind, UE Funct Exercise/Act, UE Neuromus Re-Ed/Coord, W/C Management Training Treatment Duration: Jul 08, 2021 Frequency: At least 5 of 7 days/Wk (IRF) Estimated Hrs Per Day: 1.5 hours per day Agreement: Yes Rehab Potential: Fair Time/GCodes Start Time: 07:30 Stop Time: 09:00 Total Time Billed (hr/min): 90 Billed Treatment Time 1 visit-ADL 3 (45 min) FA 3 (45 min) co-treat with PT [id number], individual [id number] HEMA RICHARDS Jun 21, 2021 07:40
[2021-06-21 07:43] VITALS: BP 134/65
--- NOTE | 2021-06-21 08:55 | Physical Therapy Daily Note ---
PT Daily Note-Current Subjective Patient in bed pre tx, agrees to PT, has no complaints of pain, will be co- treating with OT due to poor patient mobility, strength, endurance, left hemiparesis, coordinate UE and LE during activity, safety and reduce risk of falls. Appearance Patient in recliner post tx with nurse call, phone, tray, all needs met. Mental Status Patient Orientation: Person, Place, Situation Transfers SCALE: Activities may be completed with or without assistive devices. 8-Kfvuyccjqm-ilaoimu completes the activity by him/herself with no assistance from a helper. 5-Set-up or Clean-up Assistance-helper sets up or cleans up; patient completes activity. [place] assists only prior to or following the activity. 4-Supervision or Touching Assistance-helper provides verbal cues and/or touching/steadying and/or contact guard assistance as patient completes activity. Assistance may be provided throughout the activity or intermittently. 3-Partial/Moderate Assistance-helper does LESS THAN HALF the effort. [place] lifts, holds or supports trunk or limbs, but provides less than half the effort. 2-Substantial/Maximal Assistance-helper does MORE THAN HALF the effort. [place] lifts or holds trunk or limbs and provides more than half the effort. 4-Lafmvejiu-ptwpyu does ALL the effort. Patient does none of the effort to complete the activity. Or, the assistance of 2 or more helpers is required for the patient to complete the activity. If activity was not attempted, code reason: 7-Patient Refused. 9-Not Applicable-not attempted and the patient did not perform the activity before the current illness, exacerbation or injury. 10-Not Attempted due to Environmental Limitations-(lack of equipment, weather restraints, etc.). 88-Not Attempted due to Medical Conditions or Safety Concerns. Roll Left & Right (QC): 2 Lying to Sitting/Side of Bed(Q: 2 Sit to Stand (QC): 2 Chair/Uis-ab-Akdws Xfer(QC): 2 Patient performed worse today with transfers and bed mobility, was retropulsive in sitting and standing. Weight Bearing Full Weight Bearing Full Weight Bearing Wheelchair Training Does the Pt Use a Wheelchair?: Yes Wheel 50 ft with 2 turns (QC): 3 Wheel 150 ft (QC): 3 Type of Wheelchair: Manual mod assist with propelling WC, patient performed an activity where he had to scan for small hopkins bags, roll WC to them and pick them up with a bump grader operator Exercises standing activity practicing don/doff a theraband designed to simulate pants, sit <-> digital project coordinator parallel bars x5 (also stood about 4 times with the pants don/doff) Treatments PT performed bed mobility and transfers, LE strengthening, WC mobility, standing during theraband activity, OT performed dressing and cleaning (patient had soiled his clothes and bed initially), theraband activity, bump grader operator activity Assessment Current Status: Poor Progress Patient performed worse with general mobility PT Short Term Goals Short Term Goals Time Frame: Jun 24, 2021 Roll Left & Right: 3 Sit to lyin Lying to sitting on side of be: 3 Sit to stand: 3 Chair/frn-qo-fzjzv transfer: 3 Walk 10 feet: 3 PT Shelter Goals Shelter Goals PT Shelter Goals Time Frame: Jul 08, 2021 Roll Left & Right (QC): 3 (Dora) Sit to Lying (QC): 3 (Dora) Lying-Sitting on Side/Bed(QC): 3 (Dora) Sit to Stand (QC): 4 (CGA) Chair/Hxu-za-Fijfj Xfer(QC): 4 (CGA) Toilet Transfer (QC): 4 (CGA) Car Transfer (QC): 4 (CGA) Does the Patient Walk: Yes Walk 10 feet (QC): 4 (CGA) Walk 50ft with 2 Turns (QC): 88 Walk 150 ft (QC): 88 Walking 10ft on Uneven Surface: 3 (Dora) 1 Step (curb) (QC): 3 (Dora) 4 Steps (QC): 88 12 Steps (QC): 88 Picking up an Object (QC): 88 Wheel 50 feet with 2 turns (QC: 5 Wheel 150 feet: 5 PT Plan Problem List Problem List: Activity Tolerance, Functional Strength, Safety, Balance, Gait, Transfer, Bed Mobility, ROM Treatment/Plan Treatment Plan: Continue Plan of Care Treatment Plan: Bed Mobility, Education, Functional Activity Gwendolyn, Functional Strength, Group Therapy, Gait, Safety, Therapeutic Exercise, Transfers Treatment Duration: Jul 08, 2021 Frequency: At least 5 of 7 days/Wk (IRF) Estimated Hrs Per Day: 1.5 hours per day Patient and/or Family Agrees t: Yes Safety Risks/Education Patient Education: Transfer Techniques, Correct Positioning, W/C Management, Safety Issues Teaching Recipient: Patient Teaching Methods: Demonstration, Discussion Response to Teaching: Reinforcement Needed Time/GCodes Time In: 0800 Time Out: 0900 Total Billed Treatment Time: 60 Total Billed Treatment 1 visit FA 60' co-treated with OT for 60' JASVIR ALVES PT Jun 21, 2021 08:55
[2021-06-21] MEDS: ASPIRIN E.C. 81 MG (ECOTRIN) TAB PO SCH (09:00)
[2021-06-21] MEDS: amLODIPine 10 MG (NORVASC) TAB PO SCH (09:00)
[2021-06-21] MEDS: DICLOFENAC 1% GEL 100 GM (VOLTAREN) TUBE TOP SCH ×4 (09:01→21:46)
[2021-06-21] MEDS: PANTOPRAZOLE 40 MG (PROTONIX) TAB PO SCH (09:01)
[2021-06-21] MEDS: MAGIC MOUTHWASH, ADULT 155 ML BOTTLE PO SCH (09:01)
[2021-06-21] MEDS: ENOXAPARIN 40 MG/0.4 ML (LOVENOX) SYR SC SCH (09:01)
[2021-06-21] MEDS: metFORMIN 500 MG (GLUCOPHAGE) TAB PO SCH ×2 (09:01→17:22)
[2021-06-21] MEDS: lisINopril 20 MG (PRINIVIL) TABLET PO SCH (09:01)
[2021-06-21] MEDS: SENNA W/DOCUSATE (SENOKOT S) TABLET PO SCH ×4 (09:03→21:00)
[2021-06-21] MEDS: polyethylene glycoL POWDER 17 GM (MIRALAX) PACK PO SCH ×2 (09:03→21:00)
[2021-06-21] MEDS: DOCUSATE SODIUM 100 MG (COLACE) CAP PO SCH ×2 (09:04→21:00)
[2021-06-21] MEDS: MAGIC MOUTHWASH (ADULT) PO SCH ×16 (09:05→21:00)
--- NOTE | 2021-06-21 10:51 | Physical Therapy Daily Note ---
PT Daily Note-Current Subjective Patient in recliner pre tx, agrees to PT but is very tired, has no complaints of pain. Appearance Patient in recliner post tx with nurse call, phone, tray, legs elevated. Mental Status Patient Orientation: Person, Place, Situation Transfers SCALE: Activities may be completed with or without assistive devices. 8-Nfamqftzhp-twxnrug completes the activity by him/herself with no assistance from a helper. 5-Set-up or Clean-up Assistance-helper sets up or cleans up; patient completes a ctivity. [place] assists only prior to or following the activity. 4-Supervision or Touching Assistance-helper provides verbal cues and/or touching/steadying and/or contact guard assistance as patient completes activity. Assistance may be provided throughout the activity or intermittently. 3-Partial/Moderate Assistance-helper does LESS THAN HALF the effort. [place] lifts, holds or supports trunk or limbs, but provides less than half the effort. 2-Substantial/Maximal Assistance-helper does MORE THAN HALF the effort. [place] lifts or holds trunk or limbs and provides more than half the effort. 0-Fdooshahq-cqhqnt does ALL the effort. Patient does none of the effort to complete the activity. Or, the assistance of 2 or more helpers is required for the patient to complete the activity. If activity was not attempted, code reason: 7-Patient Refused. 9-Not Applicable-not attempted and the patient did not perform the activity before the current illness, exacerbation or injury. 10-Not Attempted due to Environmental Limitations-(lack of equipment, weather restraints, etc.). 88-Not Attempted due to Medical Conditions or Safety Concerns. Weight Bearing Full Weight Bearing Full Weight Bearing Exercises Supine Ex: Ankle pumps, Quad Set, Glut sets, Heel Slides, Short Arc Quads, Straight leg raise, Hip abd/add Seated Therapy Exercises: Ankle pumps, Long arc quads, Hip flexion Seated Reps: 20 AAROM on the left side with AP, HS, hip abd/add, SLR, LAQ, seated hip flexion Treatments BLE strengthening Assessment Current Status: Fair Progress slightly improved quad strength on the left side PT Short Term Goals Short Term Goals Time Frame: Jun 24, 2021 Roll Left & Right: 3 Sit to lyin Lying to sitting on side of be: 3 Sit to stand: 3 Chair/gyy-ri-axqbk transfer: 3 Walk 10 feet: 3 PT Usp Goals Usp Goals PT Guide Delegate Goals Time Frame: Jul 08, 2021 Roll Left & Right (QC): 3 (Dora) Sit to Lying (QC): 3 (Dora) Lying-Sitting on Side/Bed(QC): 3 (Dora) Sit to Stand (QC): 4 (CGA) Chair/Bdw-ld-Xafzz Xfer(QC): 4 (CGA) Toilet Transfer (QC): 4 (CGA) Car Transfer (QC): 4 (CGA) Does the Patient Walk: Yes Walk 10 feet (QC): 4 (CGA) Walk 50ft with 2 Turns (QC): 88 Walk 150 ft (QC): 88 Walking 10ft on Uneven Surface: 3 (Dora) 1 Step (curb) (QC): 3 (Dora) 4 Steps (QC): 88 12 Steps (QC): 88 Picking up an Object (QC): 88 Wheel 50 feet with 2 turns (QC: 5 Wheel 150 feet: 5 PT Plan Problem List Problem List: Activity Tolerance, Functional Strength, Safety, Balance, Gait, Transfer, Bed Mobility, ROM Treatment/Plan Treatment Plan: Continue Plan of Care Treatment Plan: Bed Mobility, Education, Functional Activity Gwendolyn, Functional Strength, Group Therapy, Gait, Safety, Therapeutic Exercise, Transfers Treatment Duration: Jul 08, 2021 Frequency: At least 5 of 7 days/Wk (IRF) Estimated Hrs Per Day: 1.5 hours per day Patient and/or Family Agrees t: Yes Safety Risks/Education Patient Education: Correct Positioning, Safety Issues Teaching Recipient: Patient Teaching Methods: Demonstration, Discussion Response to Teaching: Reinforcement Needed Time/GCodes Time In: 1030 Time Out: 1100 Total Billed Treatment Time: 30 Total Billed Treatment 1 visit EX 30' JASVIR ALVES PT Jun 21, 2021 10:51
[2021-06-21 13:20] VITALS: BP 141/67
[2021-06-21] MEDS: ACETAMINOPHEN 325 MG TABLET PO PRN (17:08)
[2021-06-21 20:15] VITALS: BP 134/73
[2021-06-21] MEDS: TAMSULOSIN 0.4 MG (FLOMAX) CAP PO SCH (21:46)
[2021-06-21] MEDS: QUEtiapine 25 MG (SEROquel) TAB IMMEDIATE RELEASE PO SCH (21:46)
[2021-06-21] MEDS: MELATONIN 3 MG TABLET PO PRN (21:47)
[2021-06-21] MEDS: HYDROcodone/APAP 5 MG/325 MG (LORTAB) TAB PO PRN (21:47)
[2021-06-22 06:25] VITALS: BP 160/80
[2021-06-22] MEDS: inSUlin ASPART (NovoLOG) 1 UNIT/0.01 ML (CHARGE PER UNIT) SC SCH ×2 (06:26→11:29)
[2021-06-22] MEDS: hydrALAZINE (APRESOLINE) 25 MG TAB PO SCH ×3 (06:49→21:33)
[2021-06-22] MEDS: VENlafaxine XR 75 MG (EFFEXOR XR) CAP PO SCH (06:49)
--- NOTE | 2021-06-22 07:55 | PM&R Progress Note ---
Subjective HPI/CC On Admission Date Seen by Provider: Jun 22, 2021 Time Seen by Provider: 12:30 Subjective/Events-last exam 06/22/2021: Patient doing well Knee still hurts but that is chronic Changing sliding scale to twice daily Accu-Cheks 06/21/2021: Patient doing really well Having some incontinence No pain is reported Progressing with therapy 06/20/2021: Patient progressing nicely Blood sugar 128 Bowels moved yesterday Discontinue the Hep-Lock 06/19/2021: Pt doing really well Left-sided weakness is a challenge Bowels moved twice today Magic mouthwash will be initiated because he keeps on biting the inside of his cheek Knee pain is chronic Voltaren gel will be added 06/18/2021: Pt doing really well Eating very well Sugars are okay Incontinent Bowels are moving No pain Obtaining good relief with left knee injection Review of Systems Musculoskeletal: leg pain Neurological: Weakness, Incoordination Objective Exam Vital Signs Vital Signs Date Time Temp Pulse Resp B/P (MAP) Pulse Ox O2 Delivery O2 Flow Rate FiO2 06/22/21 13:36 145/62 (89) 06/22/21 09:00 Room Air 06/22/21 08:47 36.6 78 18 95 Capillary Refill : General Appearance: No Apparent Distress, WD/WN, Chronically ill, Obese HEENT: PERRL/EOMI, Normal ENT Inspection, Pharynx Normal Neck: Full Range of Motion, Normal Inspection, Non Tender, Supple, Carotid Bruit Respiratory: Chest Non Tender, Lungs Clear, Normal Breath Sounds, No Accessory Muscle Use, No Respiratory Distress Cardiovascular: Regular Rate, Rhythm, No Edema, No Gallop, No JVD, No Murmur, Normal Peripheral Pulses Gastrointestinal: Normal Bowel Sounds, No Organomegaly, No Pulsatile Mass, Non Tender, Soft Back: Normal Inspection, No CVA Tenderness, No Vertebral Tenderness Extremity: Normal Capillary Refill, Normal Inspection, Normal Range of Motion, Non Tender, No Calf Tenderness, No Pedal Edema Neurologic/Psychiatric: Alert, Oriented x3, power 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 FIM Transfers Therapy Code Descriptions/Definitions Functional [place] Measure: 0=Not Assessed/NA 4=Minimal Assistance 1=Total Assistance 5=Supervision or Setup 2=Maximal Assistance 6=Modified [place] 3=Moderate Assistance 7=Complete IndependenceSCALE: Activities may be completed with or without assistive devices. 0-Ddioblpxrj-cvqhujx completes the activity by him/herself with no assistance from a helper. 5-Set-up or Clean-up Assistance-helper sets up or cleans up; patient completes activity. [place] assists only prior to or following the activity. 4-Supervision or Touching Assistance-helper provides verbal cues and/or touching/steadying and/or contact guard assistance as patient completes activity. Assistance may be provided throughout the activity or intermittently. 3-Partial/Moderate Assistance-helper does LESS THAN HALF the effort. [place] lifts, holds or supports trunk or limbs, but provides less than half the effort. 2-Substantial/Maximal Assistance-helper does MORE THAN HALF the effort. [place] lifts or holds trunk or limbs and provides more than half the effort. 7-Obepbhgen-dhvtqa does ALL the effort. Patient does none of the effort to complete the activity. Or, the assistance of 2 or more helpers is required for the patient to complete the activity. If activity was not attempted, code reason: 7-Patient Refused. 9-Not Applicable-not attempted and the patient did not perform the activity before the current illness, exacerbation or injury. 10-Not Attempted due to Environmental Limitations-(lack of equipment, weather restraints, etc.). 88-Not Attempted due to Medical Conditions or Safety Concerns. Roll Left to Right (QC): 2 Sit to Lying (QC): 3 Sit to Stand (QC): 2 Chair/Zek-zr-Hqnes Xfer(QC): 2 Car Transfer (QC): 88 Gait Training Does the Patient Walk?: Yes Distance: 6'x3 Walk 10 feet (QC): 88 Walk 50 ft with 2 Turns(QC): 88 Walk 150 ft (QC): 88 Walking 10ft/uneven surface-QC: 88 Gait Assistive Device: Parallel Bars Wheelchair Training Does the Pt Use a Wheelchair?: Yes Distance: 50' Wheel 50 ft with 2 turns (QC): 3 Wheel 150 ft (QC): 3 Type of Wheelchair: Manual Stair Training 1 Step (curb) (QC): 88 4 Steps (QC): 88 12 Steps (QC): 88 Balance Picking up an Object (QC): 88 ADL-Treatment Eating (QC): 5 Oral Hygiene (QC): 4 Bathing Location: L Arm, L Upper Leg, R Upper Leg, R Lower Leg (including foot), Chest, Abdomen, Buttocks Shower/Bathe Self (QC): 3 Upper Body Dressing (QC): 2 Lower Body Dressing (QC): 1 On/Off Footwear (QC): 2 Toileting Hygiene (QC): 1 Toilet Transfer (QC): 1 Assessment/Plan Assessment and Plan Assess & Plan/Chief Complaint Assessment: CVA with left-sided weakness Diabetes Hypertension Hyperlipidemia Dementia Left knee pain chronic status post steroid injection per Dr. Cmumings Plan: Aggressive therapy Supportive care Statin Cardiology 06/18/2021: Much improved status Fall risk 06/19/2021: Continue treatment Aggressive therapy 06/20/2021: Supportive care Aggressive therapy 06/21/2021: Monitor closely Fall risk 06/22/2021: Pain control Monitor closely (1) Cerebrovascular accident due to cerebral artery occlusion Status: Acute (2) T2DM (type 2 diabetes mellitus) Status: Chronic (3) HLD (hyperlipidemia) Status: Chronic (4) Obesity Status: Chronic (5) Debility Status: Acute (6) Dementia Status: Chronic (7) Right pontine stroke Status: Acute (8) HTN (hypertension) Status: Acute CIRO CABRERA DO Jun 22, 2021 07:55
[2021-06-22] MEDS: amLODIPine 10 MG (NORVASC) TAB PO SCH (08:27)
[2021-06-22] MEDS: DICLOFENAC 1% GEL 100 GM (VOLTAREN) TUBE TOP SCH ×4 (08:27→21:36)
[2021-06-22] MEDS: lisINopril 20 MG (PRINIVIL) TABLET PO SCH (08:27)
[2021-06-22] MEDS: ASPIRIN E.C. 81 MG (ECOTRIN) TAB PO SCH (08:27)
[2021-06-22] MEDS: metFORMIN 500 MG (GLUCOPHAGE) TAB PO SCH ×2 (08:27→17:46)
[2021-06-22] MEDS: PANTOPRAZOLE 40 MG (PROTONIX) TAB PO SCH (08:27)
[2021-06-22] MEDS: ENOXAPARIN 40 MG/0.4 ML (LOVENOX) SYR SC SCH (08:27)
[2021-06-22] MEDS: MAGIC MOUTHWASH (ADULT) PO SCH ×24 (08:28→21:35)
[2021-06-22] MEDS: HYDROcodone/APAP 5 MG/325 MG (LORTAB) TAB PO PRN (08:45)
[2021-06-22 08:47] VITALS: BP 136/63
[2021-06-22] MEDS: polyethylene glycoL POWDER 17 GM (MIRALAX) PACK PO SCH ×2 (09:43→21:35)
[2021-06-22] MEDS: SENNA W/DOCUSATE (SENOKOT S) TABLET PO SCH ×4 (09:43→21:35)
[2021-06-22] MEDS: DOCUSATE SODIUM 100 MG (COLACE) CAP PO SCH ×2 (09:44→21:35)
--- NOTE | 2021-06-22 12:04 | Physical Therapy Daily Note ---
PT Daily Note-Current Subjective Pt laying Supine in bed. Pt agrees to PT. Pain Numeric Pain Scale: 5-Moderate Pain Location: Left Location Body Site: Knee Pain Description: Ache Mental Status Patient Orientation: Person, Place, [place] Transfers SCALE: Activities may be completed with or without assistive devices. 2-Ekcqidpttu-tbpfasr completes the activity by him/herself with no assistance from a helper. 5-Set-up or Clean-up Assistance-helper sets up or cleans up; patient completes activity. [place] assists only prior to or following the activity. 4-Supervision or Touching Assistance-helper provides verbal cues and/or touching/steadying and/or contact guard assistance as patient completes activity. Assistance may be provided throughout the activity or intermittently. 3-Partial/Moderate Assistance-helper does LESS THAN HALF the effort. [place] lifts, holds or supports trunk or limbs, but provides less than half the effort. 2-Substantial/Maximal Assistance-helper does MORE THAN HALF the effort. [place] lifts or holds trunk or limbs and provides more than half the effort. 5-Ufayzkoov-wbtgzp does ALL the effort. Patient does none of the effort to complete the activity. Or, the assistance of 2 or more helpers is required for the patient to complete the activity. If activity was not attempted, code reason: 7-Patient Refused. 9-Not Applicable-not attempted and the patient did not perform the activity befo re the current illness, exacerbation or injury. 10-Not Attempted due to Environmental Limitations-(lack of equipment, weather re straints, etc.). 88-Not Attempted due to Medical Conditions or Safety Concerns. Weight Bearing Full Weight Bearing Full Weight Bearing Exercises Supine Ex: Ankle pumps, Quad Set, Glut sets, Heel Slides, Straight leg raise, Hip abd/add Supine Reps: 15 Treatments Pt completes Supine Ex with RB as needed as well as B hamstring stretching due to tightness. Contract/relax technique used for stretching. All needs met, call light in hand. Assessment Current Status: Fair Progress AROM for R LE & AAROM for L LE. RB for fatigue and discomfort. PT Short Term Goals Short Term Goals Time Frame: Jun 24, 2021 Roll Left & Right: 3 Sit to lyin Lying to sitting on side of be: 3 Sit to stand: 3 Chair/jva-cp-toqcs transfer: 3 Walk 10 feet: 3 PT Snf Goals Snf Goals PT Firearms Assembly Supervisor Goals Time Frame: Jul 08, 2021 Roll Left & Right (QC): 3 (Dora) Sit to Lying (QC): 3 (Dora) Lying-Sitting on Side/Bed(QC): 3 (Dora) Sit to Stand (QC): 4 (CGA) Chair/Fwi-qx-Zbjac Xfer(QC): 4 (CGA) Toilet Transfer (QC): 4 (CGA) Car Transfer (QC): 4 (CGA) Does the Patient Walk: Yes Walk 10 feet (QC): 4 (CGA) Walk 50ft with 2 Turns (QC): 88 Walk 150 ft (QC): 88 Walking 10ft on Uneven Surface: 3 (Dora) 1 Step (curb) (QC): 3 (Dora) 4 Steps (QC): 88 12 Steps (QC): 88 Picking up an Object (QC): 88 Wheel 50 feet with 2 turns (QC: 5 Wheel 150 feet: 5 PT Plan Problem List Problem List: Activity Tolerance, Functional Strength Treatment/Plan Treatment Plan: Continue Plan of Care Treatment Plan: Bed Mobility, Education, Functional Activity Gwendolyn, Functional Strength, Group Therapy, Gait, Safety, Therapeutic Exercise, Transfers Treatment Duration: Jul 08, 2021 Frequency: At least 5 of 7 days/Wk (IRF) Estimated Hrs Per Day: 1.5 hours per day Patient and/or Family Agrees t: Yes Safety Risks/Education Patient Education: Correct Positioning Teaching Recipient: Patient Teaching Methods: Discussion Response to Teaching: Verbalize Understanding Time/GCodes Time In: 1100 Time Out: 1125 Total Billed Treatment Time: 25 Total Billed Treatment 1, EX x2 (25m) MARIO SMITH PTA Jun 22, 2021 12:04
[2021-06-22 13:36] VITALS: BP 145/62
[2021-06-22 20:15] VITALS: BP 143/72
[2021-06-22] MEDS: ARTIFICAL TEARS 0.4 ML UNIT DOSE (REFRESH PLUS) OU PRN (21:32)
[2021-06-22] MEDS: TAMSULOSIN 0.4 MG (FLOMAX) CAP PO SCH (21:33)
[2021-06-22] MEDS: MELATONIN 3 MG TABLET PO PRN (21:33)
[2021-06-22] MEDS: QUEtiapine 25 MG (SEROquel) TAB IMMEDIATE RELEASE PO SCH (21:33)
[2021-06-23] MEDS: hydrALAZINE (APRESOLINE) 25 MG TAB PO SCH ×3 (06:32→20:56)
[2021-06-23] MEDS: VENlafaxine XR 75 MG (EFFEXOR XR) CAP PO SCH (06:32)
--- NOTE | 2021-06-23 06:48 | PM&R Progress Note ---
Subjective HPI/CC On Admission Date Seen by Provider: Jun 23, 2021 Time Seen by Provider: 13:30 Subjective/Events-last exam 06/23/2021: Patient in a good mood No significant concerns Check meds and labs Blood sugar is good 06/22/2021: Patient doing well Knee still hurts but that is chronic Changing sliding scale to twice daily Accu-Cheks 06/21/2021: Patient doing really well Having some incontinence No pain is reported Progressing with therapy 06/20/2021: Patient progressing nicely Blood sugar 128 Bowels moved yesterday Discontinue the Hep-Lock 06/19/2021: Pt doing really well Left-sided weakness is a challenge Bowels moved twice today Magic mouthwash will be initiated because he keeps on biting the inside of his cheek Knee pain is chronic Voltaren gel will be added 06/18/2021: Pt doing really well Eating very well Sugars are okay Incontinent Bowels are moving No pain Obtaining good relief with left knee injection Review of Systems Neurological: Weakness, Incoordination Objective Exam Vital Signs Vital Signs Date Time Temp Pulse Resp B/P (MAP) Pulse Ox O2 Delivery O2 Flow Rate FiO2 06/23/21 21:00 96 Room Air 06/23/21 20:00 35.7 72 18 133/63 (86) Capillary Refill : General Appearance: No Apparent Distress, WD/WN, Chronically ill, Obese HEENT: PERRL/EOMI, Normal ENT Inspection, Pharynx Normal Neck: Full Range of Motion, Normal Inspection, Non Tender, Supple, Carotid Bruit Respiratory: Chest Non Tender, Lungs Clear, Normal Breath Sounds, No Accessory Muscle Use, No Respiratory Distress Cardiovascular: Regular Rate, Rhythm, No Edema, No Gallop, No JVD, No Murmur, Normal Peripheral Pulses Gastrointestinal: Normal Bowel Sounds, No Organomegaly, No Pulsatile Mass, Non Tender, Soft Back: Normal Inspection, No CVA Tenderness, No Vertebral Tenderness Extremity: Normal Capillary Refill, Normal Inspection, Normal Range of Motion, Non Tender, No Calf Tenderness, No Pedal Edema Neurologic/Psychiatric: Alert, Oriented x3, 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 FIM Transfers Therapy Code Descriptions/Definitions Functional [place] Measure: 0=Not Assessed/NA 4=Minimal Assistance 1=Total Assistance 5=Supervision or Setup 2=Maximal Assistance 6=Modified [place] 3=Moderate Assistance 7=Complete IndependenceSCALE: Activities may be completed with or without assistive devices. 7-Fyjqlcrvcs-quyskmb completes the activity by him/herself with no assistance from a helper. 5-Set-up or Clean-up Assistance-helper sets up or cleans up; patient completes activity. [place] assists only prior to or following the activity. 4-Supervision or Touching Assistance-helper provides verbal cues and/or touching/steadying and/or contact guard assistance as patient completes activity. Assistance may be provided throughout the activity or intermittently. 3-Partial/Moderate Assistance-helper does LESS THAN HALF the effort. [place] lifts, holds or supports trunk or limbs, but provides less than half the effort. 2-Substantial/Maximal Assistance-helper does MORE THAN HALF the effort. [place] lifts or holds trunk or limbs and provides more than half the effort. 8-Plpxoklvg-mnexrf does ALL the effort. Patient does none of the effort to c omplete the activity. Or, the assistance of 2 or more helpers is required for the patient to complete the activity. If activity was not attempted, code reason: 7-Patient Refused. 9-Not Applicable-not attempted and the patient did not perform the activity before the current illness, exacerbation or injury. 10-Not Attempted due to Environmental Limitations-(lack of equipment, weather restraints, etc.). 88-Not Attempted due to Medical Conditions or Safety Concerns. Roll Left to Right (QC): 2 Sit to Lying (QC): 3 Sit to Stand (QC): 2 Chair/Nkm-jg-Uvecg Xfer(QC): 2 Car Transfer (QC): 88 Gait Training Does the Patient Walk?: Yes Distance: 6'x3 Walk 10 feet (QC): 88 Walk 50 ft with 2 Turns(QC): 88 Walk 150 ft (QC): 88 Walking 10ft/uneven surface-QC: 88 Gait Assistive Device: Parallel Bars Wheelchair Training Does the Pt Use a Wheelchair?: Yes Distance: 50' Wheel 50 ft with 2 turns (QC): 3 Wheel 150 ft (QC): 3 Type of Wheelchair: Manual Stair Training 1 Step (curb) (QC): 88 4 Steps (QC): 88 12 Steps (QC): 88 Balance Picking up an Object (QC): 88 ADL-Treatment Eating (QC): 5 Oral Hygiene (QC): 4 Bathing Location: L Arm, L Upper Leg, R Upper Leg, R Lower Leg (including foot), Chest, Abdomen, Buttocks Shower/Bathe Self (QC): 3 Upper Body Dressing (QC): 2 Lower Body Dressing (QC): 1 On/Off Footwear (QC): 2 Toileting Hygiene (QC): 1 Toilet Transfer (QC): 1 Assessment/Plan Assessment and Plan Assess & Plan/Chief Complaint Assessment: CVA with left-sided weakness Diabetes Hypertension Hyperlipidemia Dementia Left knee pain chronic status post steroid injection per Dr. Cummings Plan: Aggressive therapy Supportive care Statin Cardiology 06/18/2021: Much improved status Fall risk 06/19/2021: Continue treatment Aggressive therapy 06/20/2021: Supportive care Aggressive therapy 06/21/2021: Monitor closely Fall risk 06/22/2021: Pain control Monitor closely 06/23/2021: Check meds Labs due tomorrow (1) Cerebrovascular accident due to cerebral artery occlusion Status: Acute (2) T2DM (type 2 diabetes mellitus) Status: Chronic (3) HLD (hyperlipidemia) Status: Chronic (4) Obesity Status: Chronic (5) Debility Status: Acute (6) Dementia Status: Chronic (7) Right pontine stroke Status: Acute (8) HTN (hypertension) Status: Acute CIRO CABRERA DO Jun 23, 2021 06:48
[2021-06-23 07:22] VITALS: BP 147/68
[2021-06-23] MEDS: ENOXAPARIN 40 MG/0.4 ML (LOVENOX) SYR SC SCH (07:41)
[2021-06-23] MEDS: ASPIRIN E.C. 81 MG (ECOTRIN) TAB PO SCH (07:41)
[2021-06-23] MEDS: metFORMIN 500 MG (GLUCOPHAGE) TAB PO SCH ×2 (07:41→17:23)
[2021-06-23] MEDS: SENNA W/DOCUSATE (SENOKOT S) TABLET PO SCH ×4 (07:41→21:05)
[2021-06-23] MEDS: amLODIPine 10 MG (NORVASC) TAB PO SCH (07:41)
[2021-06-23] MEDS: lisINopril 20 MG (PRINIVIL) TABLET PO SCH (07:42)
[2021-06-23] MEDS: DOCUSATE SODIUM 100 MG (COLACE) CAP PO SCH ×2 (07:42→20:56)
[2021-06-23] MEDS: PANTOPRAZOLE 40 MG (PROTONIX) TAB PO SCH (07:42)
[2021-06-23] MEDS: MAGIC MOUTHWASH (ADULT) PO SCH ×16 (07:42→21:02)
[2021-06-23] MEDS: polyethylene glycoL POWDER 17 GM (MIRALAX) PACK PO SCH ×2 (07:42→21:05)
[2021-06-23] MEDS: DICLOFENAC 1% GEL 100 GM (VOLTAREN) TUBE TOP SCH ×4 (07:43→21:05)
[2021-06-23 13:16] VITALS: BP 131/67
[2021-06-23] MEDS: HYDROcodone/APAP 5 MG/325 MG (LORTAB) TAB PO PRN ×2 (13:21→20:57)
[2021-06-23 20:00] VITALS: BP 133/63
[2021-06-23] MEDS: QUEtiapine 25 MG (SEROquel) TAB IMMEDIATE RELEASE PO SCH (20:56)
[2021-06-23] MEDS: TAMSULOSIN 0.4 MG (FLOMAX) CAP PO SCH (20:56)
[2021-06-23] MEDS: diphenhydrAMINE 25 MG TAB (BENADRYL) PO PRN (20:57)
[2021-06-24 05:55] LABS: HEMOGLOBIN 13.4 g/dL (13.3-17.7)
[2021-06-24 05:57] LABS: BASOPHILS % (AUTO) 1 % (0-10); EOSINOPHILS # (AUTO) 0.4 10^3/uL (0.0-0.3); EOSINOPHILS % (AUTO) 5 % (0-10); HEMATOCRIT 40 % (40-54); LYMPHOCYTES # (AUTO) 1.6 10^3/uL (1.0-4.0); LYMPHOCYTES % (AUTO) 20 % (12-44); MEAN CORPUSCULAR HEMOGLOBIN 32 pg (25-34); MEAN CORPUSCULAR HGB CONC 34 g/dL (32-36); MEAN CORPUSCULAR VOLUME 94 fL (80-99); MONOCYTES # (AUTO) 0.5 10^3/uL (0.0-1.0); MONOCYTES % (AUTO) 6 % (0-12); NEUTROPHILS # (AUTO) 5.3 10^3/uL (1.8-7.8); NEUTROPHILS % (AUTO) 66 % (42-75); PLATELET COUNT 184 10^3/uL (130-400)
[2021-06-24 06:10] VITALS: BP 133/64
[2021-06-24] MEDS: hydrALAZINE (APRESOLINE) 25 MG TAB PO SCH ×3 (06:18→22:00)
[2021-06-24] MEDS: VENlafaxine XR 75 MG (EFFEXOR XR) CAP PO SCH (06:18)
[2021-06-24 06:19] LABS: SMEAR SCAN COMMENT YES
[2021-06-24 06:20] LABS: ALBUMIN 3.3 GM/DL (3.2-4.5); BILIRUBIN,TOTAL 0.6 MG/DL (0.1-1.0); CALCIUM 8.8 MG/DL (8.5-10.1); CREATININE SERUM 0.77 MG/DL (0.60-1.30); POTASSIUM 4.1 MMOL/L (3.6-5.0); TOTAL PROTEIN 5.8 GM/DL (6.4-8.2)
[2021-06-24 07:29] VITALS: BP 167/79
[2021-06-24] MEDS: metFORMIN 500 MG (GLUCOPHAGE) TAB PO SCH ×2 (08:24→17:59)
[2021-06-24] MEDS: lisINopril 20 MG (PRINIVIL) TABLET PO SCH (08:25)
[2021-06-24] MEDS: ASPIRIN E.C. 81 MG (ECOTRIN) TAB PO SCH (08:25)
[2021-06-24] MEDS: SENNA W/DOCUSATE (SENOKOT S) TABLET PO SCH ×4 (08:25→21:28)
[2021-06-24] MEDS: DOCUSATE SODIUM 100 MG (COLACE) CAP PO SCH ×2 (08:25→21:19)
[2021-06-24] MEDS: amLODIPine 10 MG (NORVASC) TAB PO SCH (08:25)
[2021-06-24] MEDS: PANTOPRAZOLE 40 MG (PROTONIX) TAB PO SCH (08:25)
[2021-06-24] MEDS: DICLOFENAC 1% GEL 100 GM (VOLTAREN) TUBE TOP SCH ×4 (08:26→21:26)
[2021-06-24] MEDS: ENOXAPARIN 40 MG/0.4 ML (LOVENOX) SYR SC SCH (08:26)
[2021-06-24] MEDS: HYDROcodone/APAP 5 MG/325 MG (LORTAB) TAB PO PRN ×3 (08:28→21:20)
--- NOTE | 2021-06-24 08:36 | Cardiology Progress Note ---
Subjective Date Seen by Provider: Jun 24, 2021 Time Seen by Provider: 08:35 Subjective/Events-last exam Patient is sitting up in bed, denies any chest pain or dyspnea. Continues to have left sided weakness. Review of Systems General: No Chills, No Night Sweats, No Fatigue, No Malaise, No Appetite, No Other HEENT: No Head Aches, No Visual Changes, No Eye Pain, No Ear Pain, No Dysphasia, No Sinus Congestion, No Post Nasal Drip, No Sore Throat, No Other Pulmonary: No Dyspnea, No Cough, No Pleuritic Chest Pain, No Other Cardiovascular: No: Chest Pain, Palpitations, Orthopnea, Paroxysmal Noc. Dyspnea, Edema, Lt Headedness, Other Objective-Cardiology Exam Last Set of Vital Signs Vital Signs 06/24/21 06/24/21 07:29 09:40 Temp 36.2 Pulse 76 Resp 16 B/P (MAP) 167/79 (108) Pulse Ox 95 O2 Delivery Room Air General: Alert, Oriented X3, Cooperative HEENT: Atraumatic, PERRLA Neck: Supple, No JVD Lungs: Clear to Auscultation, Normal Air Movement Heart: Regular Rate, Normal S1, Normal S2, No Murmurs Abdomen: Soft, No Tenderness Extremities: No Clubbing, No Edema Skin: No Rashes, No Significant Lesion Neuro: Other (left sided facial droop, left sided weakness) Psych/Mental Status: Mental Status NL, Mood NL Results Lab Laboratory Tests 06/24/21 05:42 A/P-Cardiology Admission Diagnosis CVA HTN Dementia Assessment/Plan 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 MRI of the head reported acute/subacute pontine stroke. Maintained on aspirin, monitor blood pressure Malignant hypertension, maintained on Norvasc 10 mg and hydralazine 25 mg and lisinopril 20 mg daily, blood pressure is better, continue to monitor. Elevated D-dimer, venous Doppler was negative. Maintained on Lovenox. Monitor Vascular dementia, had generalized weakness in the past. History of diverticulosis, BPH. Status post COVID-19 vaccination done on June 10, 2021 triggered generalized weakness, Patient was found on the floor by his neighbor Supervisory-Addendum Brief Supervisory Addendum Participated in pt care: history, MDM, physical Personally performed: exam, history, MDM Care discussed with: CARISSA Results interpretation: Verified all documentation Notes: Patient was seen and evaluated with Mike, examination performed, management plan was discussed, agree with the current scribed note, I made few changes to the note using Italic font Patient was seen at bedside, sitting comfortably Feeling better Blood pressure overall is better controlled Continue on current medication continue physical therapy. MIKE MILLER Jun 24, 2021 08:36 MICHELLE HOUGH MD Jun 24, 2021 13:00
--- NOTE | 2021-06-24 09:23 | Physical Therapy Daily Note ---
PT Daily Note-Current Subjective Patient in bed pre tx, agrees to PT, has no complaints of pain. Needs dressed, max assist for pants, patient wants to keep his gown on instead of putting on a shirt. Appearance Patient in recliner post tx with nurse call, phone, tray, all needs met. Mental Status Patient Orientation: Person, Place, Situation Transfers SCALE: Activities may be completed with or without assistive devices. 9-Cfhlzhjkzk-tbhughn completes the activity by him/herself with no assistance from a helper. 5-Set-up or Clean-up Assistance-helper sets up or cleans up; patient completes activity. [place] assists only prior to or following the activity. 4-Supervision or Touching Assistance-helper provides verbal cues and/or touching/steadying and/or contact guard assistance as patient completes activity. Assistance may be provided throughout the activity or intermittently. 3-Partial/Moderate Assistance-helper does LESS THAN HALF the effort. [place] lifts, holds or supports trunk or limbs, but provides less than half the effort. 2-Substantial/Maximal Assistance-helper does MORE THAN HALF the effort. [place] lifts or holds trunk or limbs and provides more than half the effort. 6-Qfrhteege-tgjcwh does ALL the effort. Patient does none of the effort to compl ete the activity. Or, the assistance of 2 or more helpers is required for the patient to complete the activity. If activity was not attempted, code reason: 7-Patient Refused. 9-Not Applicable-not attempted and the patient did not perform the activity before the current illness, exacerbation or injury. 10-Not Attempted due to Environmental Limitations-(lack of equipment, weather restraints, etc.). 88-Not Attempted due to Medical Conditions or Safety Concerns. Roll Left & Right (QC): 3 Lying to Sitting/Side of Bed(Q: 3 Sit to Stand (QC): 3 Chair/Ldv-dl-Iteaa Xfer(QC): 3 mod assist for supine to sit and sit to stand, min assist transfer to the right side, mod to the left Weight Bearing Full Weight Bearing Full Weight Bearing Gait Training Gait Persons Needed: 1 Gait Assistive Device: Parallel Bars 6'x3, max assist, needs assist advancing his left leg, WC follow Wheelchair Training Does the Pt Use a Wheelchair?: Yes Type of Wheelchair: Manual 120'x2, min assist Exercises NuStep Minutes: 15 NuStep Workload: 5 Treatments bed mobility and transfers, ambulation, dressing, functional strengthening, WC mobility Assessment Current Status: Poor Progress Patient has made some progress with advancing his left leg during ambulation, needs assist still after he gets fatigued, overall though has made poor progress. PT Short Term Goals Short Term Goals Time Frame: Jun 24, 2021 Roll Left & Right: 3 Sit to lyin Lying to sitting on side of be: 3 Sit to stand: 3 Chair/egm-yt-dczto transfer: 3 Walk 10 feet: 3 PT [facility] Goals Raker Buffing Wheel Goals PT Raker Buffing Wheel Goals Time Frame: Jul 08, 2021 Roll Left & Right (QC): 3 (Dora) Sit to Lying (QC): 3 (Dora) Lying-Sitting on Side/Bed(QC): 3 (Dora) Sit to Stand (QC): 4 (CGA) Chair/Wfi-ad-Pyqmy Xfer(QC): 4 (CGA) Toilet Transfer (QC): 4 (CGA) Car Transfer (QC): 4 (CGA) Does the Patient Walk: Yes Walk 10 feet (QC): 4 (CGA) Walk 50ft with 2 Turns (QC): 88 Walk 150 ft (QC): 88 Walking 10ft on Uneven Surface: 3 (Dora) 1 Step (curb) (QC): 3 (Doar) 4 Steps (QC): 88 12 Steps (QC): 88 Picking up an Object (QC): 88 Wheel 50 feet with 2 turns (QC: 5 Wheel 150 feet: 5 PT Plan Problem List Problem List: Activity Tolerance, Functional Strength, Safety, Balance, Gait, Transfer, Bed Mobility, ROM Treatment/Plan Treatment Plan: Continue Plan of Care Treatment Plan: Bed Mobility, Education, Functional Activity Gwendolyn, Functional Strength, Group Therapy, Gait, Safety, Therapeutic Exercise, Transfers Treatment Duration: Jul 08, 2021 Frequency: At least 5 of 7 days/Wk (IRF) Estimated Hrs Per Day: 1.5 hours per day Patient and/or Family Agrees t: Yes Safety Risks/Education Patient Education: Gait Training, Transfer Techniques, Correct Positioning, W/C Management, Safety Issues Teaching Recipient: Patient Teaching Methods: Demonstration, Discussion Response to Teaching: Reinforcement Needed Time/GCodes Time In: 829 Time Out: 929 Total Billed Treatment Time: 60 Total Billed Treatment 1 visit EX 15' FA 45' JASVIR ALVES PT Jun 24, 2021 09:23
[2021-06-24] MEDS: MAGIC MOUTHWASH (ADULT) PO SCH ×16 (09:34→21:24)
[2021-06-24] MEDS: polyethylene glycoL POWDER 17 GM (MIRALAX) PACK PO SCH ×2 (09:36→21:28)
--- NOTE | 2021-06-24 10:42 | Physical Therapy Daily Note ---
PT Daily Note-Current Subjective Patient in recliner pre tx, agrees to PT, has no complaints of pain. Will be co-treating with OT due to poor patient mobility, strength, endurance, left hemiparesis, coordinate UE and LE during activity, safety and reduce risk of falls. Appearance patient to continue therapy with OT Mental Status Patient Orientation: Person, Place, Situation Transfers SCALE: Activities may be completed with or without assistive devices. 3-Zrxjqfhcyg-gzcfdxn completes the activity by him/herself with no assistance from a helper. 5-Set-up or Clean-up Assistance-helper sets up or cleans up; patient completes activity. [place] assists only prior to or following the activity. 4-Supervision or Touching Assistance-helper provides verbal cues and/or touching/steadying and/or contact guard assistance as patient completes activity. Assistance may be provided throughout the activity or intermittently. 3-Partial/Moderate Assistance-helper does LESS THAN HALF the effort. [place] lifts, holds or supports trunk or limbs, but provides less than half the effort. 2-Substantial/Maximal Assistance-helper does MORE THAN HALF the effort. [place] lifts or holds trunk or limbs and provides more than half the effort. 5-Pmnlehuzt-yywxqr does ALL the effort. Patient does none of the effort to complete the activity. Or, the assistance of 2 or more helpers is required for the patient to complete the activity. If activity was not attempted, code reason: 7-Patient Refused. 9-Not Applicable-not attempted and the patient did not perform the activity before the current illness, exacerbation or injury. 10-Not Attempted due to Environmental Limitations-(lack of equipment, weather restraints, etc.). 88-Not Attempted due to Medical Conditions or Safety Concerns. Sit to Stand (QC): 3 Chair/Bif-tm-Glaje Xfer(QC): 3 Patient in recliner, transfers to with mod assist, propel to shower room, stands with mod assist and assist to remove pants, sits in shower chair, showers, stands with mod assist for dressing and drying off, sit back into and finishes dressing, left with OT. Weight Bearing Full Weight Bearing Full Weight Bearing Treatments PT performed transfers, standing, safety and positioning during shower and dressing, OT performed shower and dressing, UE positioning and safety during activity. Assessment Current Status: Poor Progress no change in mobility PT Short Term Goals Short Term Goals Time Frame: Jun 24, 2021 Roll Left & Right: 3 Sit to lyin Lying to sitting on side of be: 3 Sit to stand: 3 Chair/kij-ov-jtgjs transfer: 3 Walk 10 feet: 3 PT Director Of Social Services Goals Fpc Goals PT Fpc Goals Time Frame: Jul 08, 2021 Roll Left & Right (QC): 3 (Dora) Sit to Lying (QC): 3 (Dora) Lying-Sitting on Side/Bed(QC): 3 (Dora) Sit to Stand (QC): 4 (CGA) Chair/Grv-am-Hmlod Xfer(QC): 4 (CGA) Toilet Transfer (QC): 4 (CGA) Car Transfer (QC): 4 (CGA) Does the Patient Walk: Yes Walk 10 feet (QC): 4 (CGA) Walk 50ft with 2 Turns (QC): 88 Walk 150 ft (QC): 88 Walking 10ft on Uneven Surface: 3 (Dora) 1 Step (curb) (QC): 3 (Dora) 4 Steps (QC): 88 12 Steps (QC): 88 Picking up an Object (QC): 88 Wheel 50 feet with 2 turns (QC: 5 Wheel 150 feet: 5 PT Plan Problem List Problem List: Activity Tolerance, Functional Strength, Safety, Balance, Gait, Transfer, Bed Mobility, ROM Treatment/Plan Treatment Plan: Continue Plan of Care Treatment Plan: Bed Mobility, Education, Functional Activity Gwendolyn, Functional Strength, Group Therapy, Gait, Safety, Therapeutic Exercise, Transfers Treatment Duration: Jul 08, 2021 Frequency: At least 5 of 7 days/Wk (IRF) Estimated Hrs Per Day: 1.5 hours per day Patient and/or Family Agrees t: Yes Safety Risks/Education Patient Education: Transfer Techniques, Correct Positioning, Safety Issues Teaching Recipient: Patient Teaching Methods: Demonstration, Discussion Response to Teaching: Reinforcement Needed Time/GCodes Time In: 1030 Time Out: 1100 Total Billed Treatment Time: 30 Total Billed Treatment 1 visit FA 30' JASVIR ALVES PT Jun 24, 2021 10:42
--- NOTE | 2021-06-24 11:58 | Occupational Ther Daily Note ---
OT Current Status-Daily Note Subjective Pt. alert in recliner. Pt. agrees to therapy. Mental Status/Objective Patient Orientation: Person, Place, Time, Situation ADL-Treatment Pt. agrees to shower. Pt. Max A SPT transfer from recliner to w/c. Pt. transported using w/c to shower room. Pt. stood in shower using grabbars Max A x2 one person to stabilize the other to switch out w/c for shower commode and doff LB dressing. Pt. able to cleanse face, chest, abdomen, L UE, tops of both legs required LH sponge to cleanse under R arm, lower legs, feet, buttocks and back. Pt. dried Face, chest, abdomen, L UE, tops of both legs, required assist to dry lower legs, feet, and buttocks. Pt. required assist to thread feet through proper leg holes of brief/shorts. Pt. Max A x2 to stand, one person to stabilize, the other to pull up brief/pants and switch out BSC for w/c. Pt required assist to don footwear. Pt. propelled w/c to room min a to observe L side. Pt. able to perform oral care sitting at sink independently using modified one handed techniques. Therapy Code Descriptions/Definitions Functional [place] Measure: 0=Not Assessed/NA 4=Minimal Assistance 1=Total Assistance 5=Supervision or Setup 2=Maximal Assistance 6=Modified [place] 3=Moderate Assistance 7=Complete IndependenceSCALE: Activities may be completed with or without assistive devices. 4-Livuczlclj-aiiljad completes the activity by him/herself with no assistance from a helper. 5-Set-up or Clean-up Assistance-helper sets up or cleans up; patient completes activity. [place] assists only prior to or following the activity. 4-Supervision or Touching Assistance-helper provides verbal cues and/or touching/steadying and/or contact guard assistance as patient completes activity. Assistance may be provided throughout the activity or intermittently. 3-Partial/Moderate Assistance-helper does LESS THAN HALF the effort. [place] lifts, holds or supports trunk or limbs, but provides less than half the effort. 2-Substantial/Maximal Assistance-helper does MORE THAN HALF the effort. [place] lifts or holds trunk or limbs and provides more than half the effort. 4-Ghxcevajj-jywemx does ALL the effort. Patient does none of the effort to complete the activity. Or, the assistance of 2 or more helpers is required for the patient to complete the activity. If activity was not attempted, code reason: 7-Patient Refused. 9-Not Applicable-not attempted and the patient did not perform the activity before the current illness, exacerbation or injury. 10-Not Attempted due to Environmental Limitations-(lack of equipment, weather restraints, etc.). 88-Not Attempted due to Medical Conditions or Safety Concerns. Oral Hygiene (QC): 6 Bathing Location: L Arm, R Arm, L Upper Leg, R Upper Leg, L Lower Leg (including foot) (Pt. able to wash, rinse, unable to dry feet), R Lower Leg (including foot) (Pt able to wash, rinse, required assist to dry feet.), Chest, Abdomen, Buttocks, Perineal Area Shower/Bathe Self (QC): 3 Upper Body Dressing (QC): 2 (per clinical judgment, pt. continues to request using hospital gown.) Lower Body Dressing (QC): 1 On/Off Footwear: 1 Co-Treat with PT ([id number]) 2 clinicians needed for safety and instruction of techniques. PT focusing on standing, dynamic standing while OT focusing on functional mobility, endurance for participation in daily activities, ADLs. Other Treatment Pt. participated in fine motor activity pinching in releasing various tension clothes pins with R UE, placing on the left side of the dowel geno bin, then retrieving from L side of bin and replacing on dowels two times. Pt. then used r ight hand to pinch pegs from foam board pulling them up and placing peg in bin on L side, once all pegs removed Pt. replaced all pegs into holes in foam board this activity performed once. After therapy, pt sitting in recliner with call light/phone in reach. All needs met in room. OT Short Term Goals Short Term Goals Time Frame: Jun 28, 2021 Eatin Oral hygiene: 4 Toileting hygiene: 2 Shower/bathe self: 2 Upper body dressin Lower body dressin Putting on/taking off footwear: 2 OT Senior Living Goals Video Library Assistant Goals Time Frame: Jul 08, 2021 Eating (QC): 4 Oral Hygiene (QC): 4 Toileting Hygiene (QC): 4 Shower/Bathe Self (QC): 4 Upper Body Dressing (QC): 4 Lower Body Dressing (QC): 4 On/Off Footwear (QC): 4 1=Demonstrate adherence to instructed precautions during ADL tasks. 2=Patient will verbalize/demonstrate understanding of assistive devices/modifications for ADL. 3=Patient will improve strength/tolerance for activity to enable patient to perform ADL's. OT Education/Plan Problem List/Assessment Assessment: Decreased Activ Tolerance, Decreased Safety Aware, Decreased UE Strength, Impaired Coordination, Impaired Funct Balance, Impaired Self-Care Skills, Restricted Funct UE ROM Discharge Recommendations Plan/Recommendations: Continue POC Treatment Plan/Plan of Care Patient would benefit from OT for education, treatment and training to promote independence in ADL's, mobility, safety and/or upper extremity function for ADL's. Plan of Care: ADL Retraining, Caregiver Training, Cognitive Retraining, Functional Mobility, Group Exercise/Act as Ind, UE Funct Exercise/Act, UE Neuromus Re-Ed/Coord, W/C Management Training Treatment Duration: Jul 08, 2021 Frequency: At least 5 of 7 days/Wk (IRF) Estimated Hrs Per Day: 1.5 hours per day Agreement: Yes Rehab Potential: Fair Time/GCodes Start Time: 10:30 Stop Time: 12:00 Total Time Billed (hr/min): 90 Billed Treatment Time 1 visit- ADL4 (60 min), EX 2 (30 min) co-treat with PT [id number], individual [id number] HEMA RICHARDS Jun 24, 2021 11:57
[2021-06-24 13:17] VITALS: BP 142/72
[2021-06-24 19:37] VITALS: BP 127/72
--- NOTE | 2021-06-24 21:04 | PM&R Progress Note ---
Subjective HPI/CC On Admission Date Seen by Provider: Jun 24, 2021 Time Seen by Provider: 09:15 Subjective/Events-last exam 06/24/2021: Patient participating in therapy No bowels movement for the last couple of days will give laxatives Check meds and labs 06/23/2021: Patient in a good mood No significant concerns Check meds and labs Blood sugar is good 06/22/2021: Patient doing well Knee still hurts but that is chronic Changing sliding scale to twice daily Accu-Cheks 06/21/2021: Patient doing really well Having some incontinence No pain is reported Progressing with therapy 06/20/2021: Patient progressing nicely Blood sugar 128 Bowels moved yesterday Discontinue the Hep-Lock 06/19/2021: Pt doing really well Left-sided weakness is a challenge Bowels moved twice today Magic mouthwash will be initiated because he keeps on biting the inside of his cheek Knee pain is chronic Voltaren gel will be added 06/18/2021: Pt doing really well Eating very well Sugars are okay Incontinent Bowels are moving No pain Obtaining good relief with left knee injection Review of Systems General: Fatigue Neurological: Weakness Objective Exam Vital Signs Vital Signs Date Time Temp Pulse Resp B/P (MAP) Pulse Ox O2 Delivery O2 Flow Rate FiO2 06/24/21 21:23 94 Room Air 06/24/21 19:37 36.6 74 16 127/72 (90) Capillary Refill : General Appearance: No Apparent Distress, WD/WN, Chronically ill, Obese HEENT: PERRL/EOMI, Normal ENT Inspection, Pharynx Normal Neck: Full Range of Motion, Normal Inspection, Non Tender, Supple, Carotid Bruit Respiratory: Chest Non Tender, Lungs Clear, Normal Breath Sounds, No Accessory Muscle Use, No Respiratory Distress Cardiovascular: Regular Rate, Rhythm, No Edema, No Gallop, No JVD, No Murmur, Normal Peripheral Pulses Gastrointestinal: Normal Bowel Sounds, No Organomegaly, No Pulsatile Mass, Non Tender, Soft Back: Normal Inspection, No CVA Tenderness, No Vertebral Tenderness Extremity: Normal Capillary Refill, Normal Inspection, Normal Range of Motion, Non Tender, No Calf Tenderness, No Pedal Edema Neurologic/Psychiatric: Alert, Oriented x3, typing section chief II-XII Norm as Tested, Abnormal Gait, Depressed Affect, Facial Droop (Left), Motor Weakness (Left-sided weakness 2/5) Skin: Normal Color, Warm/Dry Lymphatic: No Adenopathy Results/Procedures Lab Laboratory Tests 06/24/21 05:42 Patient resulted labs reviewed. FIM Transfers Therapy Code Descriptions/Definitions Functional [place] Measure: 0=Not Assessed/NA 4=Minimal Assistance 1=Total Assistance 5=Supervision or Setup 2=Maximal Assistance 6=Modified [place] 3=Moderate Assistance 7=Complete IndependenceSCALE: Activities may be completed with or without assistive devices. 7-Mwdlusbtlr-zrlmfkg completes the activity by him/herself with no assistance from a helper. 5-Set-up or Clean-up Assistance-helper sets up or cleans up; patient completes activity. [place] assists only prior to or following the activity. 4-Supervision or Touching Assistance-helper provides verbal cues and/or touching/steadying and/or contact guard assistance as patient completes activity. Assistance may be provided throughout the activity or intermittently. 3-Partial/Moderate Assistance-helper does LESS THAN HALF the effort. [place] lifts, holds or supports trunk or limbs, but provides less than half the effort. 2-Substantial/Maximal Assistance-helper does MORE THAN HALF the effort. [place] lifts or holds trunk or limbs and provides more than half the effort. 7-Errfavqvz-ghhlvx does ALL the effort. Patient does none of the effort to complete the activity. Or, the assistance of 2 or more helpers is required for the patient to complete the activity. If activity was not attempted, code reason: 7-Patient Refused. 9-Not Applicable-not attempted and the patient did not perform the activity before the current illness, exacerbation or injury. 10-Not Attempted due to Environmental Limitations-(lack of equipment, weather restraints, etc.). 88-Not Attempted due to Medical Conditions or Safety Concerns. Roll Left to Right (QC): 3 Sit to Lying (QC): 3 Sit to Stand (QC): 3 Chair/Liv-wg-Lmtae Xfer(QC): 3 Car Transfer (QC): 88 Gait Training Does the Patient Walk?: Yes Distance: 6'x3 Walk 10 feet (QC): 88 Walk 50 ft with 2 Turns(QC): 88 Walk 150 ft (QC): 88 Walking 10ft/uneven surface-QC: 88 Gait Persons Needed: 1 Gait Assistive Device: Parallel Bars Wheelchair Training Does the Pt Use a Wheelchair?: Yes Distance: 50' Wheel 50 ft with 2 turns (QC): 3 Wheel 150 ft (QC): 3 Type of Wheelchair: Manual Stair Training 1 Step (curb) (QC): 88 4 Steps (QC): 88 12 Steps (QC): 88 Balance Picking up an Object (QC): 88 ADL-Treatment Eating (QC): 5 Oral Hygiene (QC): 6 Bathing Location: L Arm, R Arm, L Upper Leg, R Upper Leg, L Lower Leg (including foot) (Pt. able to wash, rinse, unable to dry feet), R Lower Leg (including foot) (Pt able to wash, rinse, required assist to dry feet.), Chest, Abdomen, Buttocks, Perineal Area Shower/Bathe Self (QC): 3 Upper Body Dressing (QC): 2 (per clinical judgment, pt. continues to request using hospital gown.) Lower Body Dressing (QC): 1 On/Off Footwear (QC): 1 Toileting Hygiene (QC): 1 Toilet Transfer (QC): 1 Assessment/Plan Assessment and Plan Assess & Plan/Chief Complaint Assessment: CVA with left-sided weakness Diabetes Hypertension Hyperlipidemia Dementia Left knee pain chronic status post steroid injection per Dr. Cummings Plan: Aggressive therapy Supportive care Statin Cardiology 06/18/2021: Much improved status Fall risk 06/19/2021: Continue treatment Aggressive therapy 06/20/2021: Supportive care Aggressive therapy 06/21/2021: Monitor closely Fall risk 06/22/2021: Pain control Monitor closely 06/23/2021: Check meds Labs due tomorrow 06/24/2021: Supportive care Monitor closely (1) Cerebrovascular accident due to cerebral artery occlusion Status: Acute (2) T2DM (type 2 diabetes mellitus) Status: Chronic (3) HLD (hyperlipidemia) Status: Chronic (4) Obesity Status: Chronic (5) Debility Status: Acute (6) Dementia Status: Chronic (7) Right pontine stroke Status: Acute (8) HTN (hypertension) Status: Acute CIRO CABRERA DO Jun 24, 2021 21:04
[2021-06-24] MEDS: TAMSULOSIN 0.4 MG (FLOMAX) CAP PO SCH (21:19)
[2021-06-24] MEDS: QUEtiapine 25 MG (SEROquel) TAB IMMEDIATE RELEASE PO SCH (21:19)
[2021-06-24] MEDS: diphenhydrAMINE 25 MG TAB (BENADRYL) PO PRN (21:20)
[2021-06-25 06:20] VITALS: BP 126/60
[2021-06-25] MEDS: hydrALAZINE (APRESOLINE) 25 MG TAB PO SCH ×3 (06:20→21:41)
[2021-06-25] MEDS: VENlafaxine XR 75 MG (EFFEXOR XR) CAP PO SCH (06:24)
[2021-06-25 07:51] VITALS: BP 158/72
[2021-06-25] MEDS: ENOXAPARIN 40 MG/0.4 ML (LOVENOX) SYR SC SCH (08:00)
[2021-06-25] MEDS: PANTOPRAZOLE 40 MG (PROTONIX) TAB PO SCH (08:00)
[2021-06-25] MEDS: amLODIPine 10 MG (NORVASC) TAB PO SCH (08:00)
[2021-06-25] MEDS: ASPIRIN E.C. 81 MG (ECOTRIN) TAB PO SCH (08:00)
[2021-06-25] MEDS: metFORMIN 500 MG (GLUCOPHAGE) TAB PO SCH ×2 (08:00→17:23)
[2021-06-25] MEDS: DOCUSATE SODIUM 100 MG (COLACE) CAP PO SCH ×2 (08:00→21:41)
[2021-06-25] MEDS: lisINopril 20 MG (PRINIVIL) TABLET PO SCH (08:00)
[2021-06-25] MEDS: polyethylene glycoL POWDER 17 GM (MIRALAX) PACK PO SCH ×2 (08:01→21:50)
[2021-06-25] MEDS: SENNA W/DOCUSATE (SENOKOT S) TABLET PO SCH ×4 (08:01→21:50)
[2021-06-25] MEDS: MAGIC MOUTHWASH (ADULT) PO SCH ×16 (08:02→21:47)
[2021-06-25] MEDS: DICLOFENAC 1% GEL 100 GM (VOLTAREN) TUBE TOP SCH ×4 (08:02→21:48)
--- NOTE | 2021-06-25 08:10 | Cardiology Progress Note ---
Subjective Date Seen by Provider: Jun 25, 2021 Time Seen by Provider: 08:10 Subjective/Events-last exam Patient is sitting up in bed, complaining of dry cough, no chest pain or sh ortness of breath Review of Systems General: No Chills, No Night Sweats; Fatigue; No Malaise, No Appetite, No Other HEENT: No Head Aches, No Visual Changes, No Eye Pain, No Ear Pain, No Dysphasia, No Sinus Congestion, No Post Nasal Drip, No Sore Throat, No Other Pulmonary: No Dyspnea; Cough; No Pleuritic Chest Pain, No Other Cardiovascular: No: Chest Pain, Palpitations, Orthopnea, Paroxysmal Noc. Dyspnea, Edema, Lt Headedness, Other Objective-Cardiology Exam Last Set of Vital Signs Vital Signs 06/25/21 07:51 Temp 36.7 Pulse 79 Resp 16 B/P (MAP) 158/72 (100) Pulse Ox 92 O2 Delivery Room Air General: Alert, Oriented X3, Cooperative HEENT: Atraumatic, PERRLA Neck: Supple, No JVD Lungs: Clear to Auscultation, Normal Air Movement Heart: Regular Rate, Normal S1, Normal S2, No Murmurs Abdomen: Soft, No Tenderness Extremities: No Clubbing, No Edema Skin: No Rashes, No Significant Lesion Neuro: Other (left sided facial droop, left sided weakness) Psych/Mental Status: Mental Status NL, Mood NL A/P-Cardiology Admission Diagnosis CVA HTN Dementia Assessment/Plan 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 MRI of the head reported acute/subacute pontine stroke. Maintained on aspirin, monitor blood pressure Malignant hypertension, maintained on Norvasc 10 mg and hydralazine 25 mg and lisinopril 20 mg daily, I am changing lisinopril to losartan 100 mg daily due to persistent cough Elevated D-dimer, venous Doppler was negative. Maintained on Lovenox. Monitor Vascular dementia, had generalized weakness in the past. History of diverticulosis, BPH. Status post COVID-19 vaccination done on June 10, 2021 triggered generalized weakness, Patient was found on the floor by his neighbor Supervisory-Addendum Brief Supervisory Addendum Participated in pt care: history, MDM, physical Personally performed: exam, history, MDM Care discussed with: CARISSA Results interpretation: Verified all documentation Notes: Patient was seen and evaluated with Mike, examination performed, management plan was discussed, agree with the current scribed note, I made few changes to the note using Italic font MIKE MILLER Jun 25, 2021 08:10 MICHELLE HOUGH MD Jun 25, 2021 08:51
--- NOTE | 2021-06-25 09:29 | Physical Therapy Daily Note ---
PT Daily Note-Current Subjective Patient in bed pre tx, agrees to PT, has no complaints of pain. Will be co- treating with OT due to poor patient mobility, strength, endurance, left hemiparesis, coordinate UE and LE during activity, safety and reduce risk of falls. Appearance Patient in therapy gym post tx to continue with OT Mental Status Patient Orientation: Person, Place, Situation Transfers SCALE: Activities may be completed with or without assistive devices. 9-Udfxuibclq-knccryp completes the activity by him/herself with no assistance from a helper. 5-Set-up or Clean-up Assistance-helper sets up or cleans up; patient completes activity. [place] assists only prior to or following the activity. 4-Supervision or Touching Assistance-helper provides verbal cues and/or touching/steadying and/or contact guard assistance as patient completes activity. Assistance may be provided throughout the activity or intermittently. 3-Partial/Moderate Assistance-helper does LESS THAN HALF the effort. [place] lifts, holds or supports trunk or limbs, but provides less than half the effort. 2-Substantial/Maximal Assistance-helper does MORE THAN HALF the effort. [place] lifts or holds trunk or limbs and provides more than half the effort. 8-Edaexxosc-ddpjhq does ALL the effort. Patient does none of the effort to complete the activity. Or, the assistance of 2 or more helpers is required for the patient to complete the activity. If activity was not attempted, code reason: 7-Patient Refused. 9-Not Applicable-not attempted and the patient did not perform the activity before the current illness, exacerbation or injury. 10-Not Attempted due to Environmental Limitations-(lack of equipment, weather restraints, etc.). 88-Not Attempted due to Medical Conditions or Safety Concerns. Roll Left & Right (QC): 3 Lying to Sitting/Side of Bed(Q: 3 Sit to Stand (QC): 3 Chair/Llj-hv-Mtnto Xfer(QC): 3 Practiced transfers with less assist given to patient and more cues for positioning. Weight Bearing Full Weight Bearing Full Weight Bearing Wheelchair Training Does the Pt Use a Wheelchair?: Yes Wheel 50 ft with 2 turns (QC): 3 Wheel 150 ft (QC): 3 Type of Wheelchair: Manual Exercises Seated limits of stability training and trunk strengthening (all 4 directions), sit to stand 3 sets of 5 Treatments PT performed bed mobility and transfers, standing and positioning during dressing, trunk strengthening, balance and LE strengthening, OT performed dressing, UE positioning and safety during activity, assist with balance and positioning during limits of stability training Assessment Current Status: Poor Progress no change in mobility PT Short Term Goals Short Term Goals Time Frame: Jun 24, 2021 Roll Left & Right: 3 Sit to lyin Lying to sitting on side of be: 3 Sit to stand: 3 Chair/syu-sg-syonk transfer: 3 Walk 10 feet: 3 PT Survey Operations Director Goals Intermediate Goals PT Survey Operations Director Goals Time Frame: Jul 08, 2021 Roll Left & Right (QC): 3 (Dora) Sit to Lying (QC): 3 (Dora) Lying-Sitting on Side/Bed(QC): 3 (Dora) Sit to Stand (QC): 4 (CGA) Chair/Ofw-zh-Smoun Xfer(QC): 4 (CGA) Toilet Transfer (QC): 4 (CGA) Car Transfer (QC): 4 (CGA) Does the Patient Walk: Yes Walk 10 feet (QC): 4 (CGA) Walk 50ft with 2 Turns (QC): 88 Walk 150 ft (QC): 88 Walking 10ft on Uneven Surface: 3 (Dora) 1 Step (curb) (QC): 3 (Dora) 4 Steps (QC): 88 12 Steps (QC): 88 Picking up an Object (QC): 88 Wheel 50 feet with 2 turns (QC: 5 Wheel 150 feet: 5 PT Plan Problem List Problem List: Activity Tolerance, Functional Strength, Safety, Balance, Gait, Transfer, Bed Mobility, ROM Treatment/Plan Treatment Plan: Continue Plan of Care Treatment Plan: Bed Mobility, Education, Functional Activity Gwendolyn, Functional Strength, Group Therapy, Gait, Safety, Therapeutic Exercise, Transfers Treatment Duration: Jul 08, 2021 Frequency: At least 5 of 7 days/Wk (IRF) Estimated Hrs Per Day: 1.5 hours per day Patient and/or Family Agrees t: Yes Safety Risks/Education Patient Education: Transfer Techniques, Correct Positioning, W/C Management, Safety Issues Teaching Recipient: Patient Teaching Methods: Demonstration, Discussion Response to Teaching: Reinforcement Needed Time/GCodes Time In: 829 Time Out: 929 Total Billed Treatment Time: 60 Total Billed Treatment 1 visit FA 60' co-treated with OT for 60' JASVIR ALVES PT Jun 25, 2021 09:29
--- NOTE | 2021-06-25 10:18 | PM&R Progress Note ---
Subjective HPI/CC On Admission Date Seen by Provider: Jun 25, 2021 Time Seen by Provider: 09:45 Subjective/Events-last exam 06/25/2021: Patient doing pretty well Lisinopril will be changed to losartan due to reportedly cough Bowels moved today 06/24/2021: Patient participating in therapy No bowels movement for the last couple of days will give laxatives Check meds and labs 06/23/2021: Patient in a good mood No significant concerns Check meds and labs Blood sugar is good 06/22/2021: Patient doing well Knee still hurts but that is chronic Changing sliding scale to twice daily Accu-Cheks 06/21/2021: Patient doing really well Having some incontinence No pain is reported Progressing with therapy 06/20/2021: Patient progressing nicely Blood sugar 128 Bowels moved yesterday Discontinue the Hep-Lock 06/19/2021: Pt doing really well Left-sided weakness is a challenge Bowels moved twice today Magic mouthwash will be initiated because he keeps on biting the inside of his cheek Knee pain is chronic Voltaren gel will be added 06/18/2021: Pt doing really well Eating very well Sugars are okay Incontinent Bowels are moving No pain Obtaining good relief with left knee injection Review of Systems General: Fatigue, Malaise Objective Exam Vital Signs Vital Signs Date Time Temp Pulse Resp B/P (MAP) Pulse Ox O2 Delivery O2 Flow Rate FiO2 06/25/21 21:44 94 Room Air 06/25/21 20:00 36.4 74 18 140/67 (91) Capillary Refill : General Appearance: No Apparent Distress, WD/WN, Chronically ill, Obese HEENT: PERRL/EOMI, Normal ENT Inspection, Pharynx Normal Neck: Full Range of Motion, Normal Inspection, Non Tender, Supple, Carotid Bruit Respiratory: Chest Non Tender, Lungs Clear, Normal Breath Sounds, No Accessory Muscle Use, No Respiratory Distress Cardiovascular: Regular Rate, Rhythm, No Edema, No Gallop, No JVD, No Murmur, Normal Peripheral Pulses Gastrointestinal: Normal Bowel Sounds, No Organomegaly, No Pulsatile Mass, Non Tender, Soft Back: Normal Inspection, No CVA Tenderness, No Vertebral Tenderness Extremity: Normal Capillary Refill, Normal Inspection, Normal Range of Motion, Non Tender, No Calf Tenderness, No Pedal Edema Neurologic/Psychiatric: Alert, Oriented x3, 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 FIM Transfers Therapy Code Descriptions/Definitions Functional [place] Measure: 0=Not Assessed/NA 4=Minimal Assistance 1=Total Assistance 5=Supervision or Setup 2=Maximal Assistance 6=Modified [place] 3=Moderate Assistance 7=Complete IndependenceSCALE: Activities may be completed with or without assistive devices. 8-Qulmpczqin-iyunron completes the activity by him/herself with no assistance from a helper. 5-Set-up or Clean-up Assistance-helper sets up or cleans up; patient completes activity. [place] assists only prior to or following the activity. 4-Supervision or Touching Assistance-helper provides verbal cues and/or touching/steadying and/or contact guard assistance as patient completes activity. Assistance may be provided throughout the activity or intermittently. 3-Partial/Moderate Assistance-helper does LESS THAN HALF the effort. [place] lifts, holds or supports trunk or limbs, but provides less than half the effort. 2-Substantial/Maximal Assistance-helper does MORE THAN HALF the effort. [place] lifts or holds trunk or limbs and provides more than half the effort. 0-Awomhcjjt-dycsbz does ALL the effort. Patient does none of the effort to complete the activity. Or, the assistance of 2 or more helpers is required for the patient to complete the activity. If activity was not attempted, code reason: 7-Patient Refused. 9-Not Applicable-not attempted and the patient did not perform the activity before the current illness, exacerbation or injury. 10-Not Attempted due to Environmental Limitations-(lack of equipment, weather restraints, etc.). 88-Not Attempted due to Medical Conditions or Safety Concerns. Roll Left to Right (QC): 3 Sit to Lying (QC): 3 Sit to Stand (QC): 3 Chair/Vfo-fe-Wpucz Xfer(QC): 3 Car Transfer (QC): 88 Gait Training Does the Patient Walk?: Yes Distance: 6'x3 Walk 10 feet (QC): 88 Walk 50 ft with 2 Turns(QC): 88 Walk 150 ft (QC): 88 Walking 10ft/uneven surface-QC: 88 Gait Persons Needed: 1 Gait Assistive Device: Parallel Bars Wheelchair Training Does the Pt Use a Wheelchair?: Yes Distance: 50' Wheel 50 ft with 2 turns (QC): 3 Wheel 150 ft (QC): 3 Type of Wheelchair: Manual Stair Training 1 Step (curb) (QC): 88 4 Steps (QC): 88 12 Steps (QC): 88 Balance Picking up an Object (QC): 88 ADL-Treatment Eating (QC): 5 Oral Hygiene (QC): 6 Bathing Location: L Arm, R Arm, L Upper Leg, R Upper Leg, L Lower Leg (including foot) (Pt. able to wash, rinse, unable to dry feet), R Lower Leg (including foot) (Pt able to wash, rinse, required assist to dry feet.), Chest, Abdomen, Buttocks, Perineal Area Shower/Bathe Self (QC): 3 Upper Body Dressing (QC): 2 (per clinical judgment, pt. continues to request using hospital gown.) Lower Body Dressing (QC): 1 On/Off Footwear (QC): 1 Toileting Hygiene (QC): 1 Toilet Transfer (QC): 1 Assessment/Plan Assessment and Plan Assess & Plan/Chief Complaint Assessment: CVA with left-sided weakness Diabetes Hypertension Hyperlipidemia Dementia Left knee pain chronic status post steroid injection per Dr. Cummings Plan: Aggressive therapy Supportive care Statin Cardiology 06/18/2021: Much improved status Fall risk 06/19/2021: Continue treatment Aggressive therapy 06/20/2021: Supportive care Aggressive therapy 06/21/2021: Monitor closely Fall risk 06/22/2021: Pain control Monitor closely 06/23/2021: Check meds Labs due tomorrow 06/24/2021: Supportive care Monitor closely 06/25/2021: Change lisinopril to losartan per Dr. Donaldson Continue aggressive therapy (1) Cerebrovascular accident due to cerebral artery occlusion Status: Acute (2) T2DM (type 2 diabetes mellitus) Status: Chronic (3) HLD (hyperlipidemia) Status: Chronic (4) Obesity Status: Chronic (5) Debility Status: Acute (6) Dementia Status: Chronic (7) Right pontine stroke Status: Acute (8) HTN (hypertension) Status: Acute CIRO CABRERA DO Jun 25, 2021 10:18
--- NOTE | 2021-06-25 11:23 | Physical Therapy Daily Note ---
PT Daily Note-Current Subjective Patient in recliner pre tx, agrees to PT, has no complaints of pain. Appearance Patient in recliner post tx with nurse call, phone, tray, all needs met. Mental Status Patient Orientation: Person, Place, Situation Transfers SCALE: Activities may be completed with or without assistive devices. 2-Cltzlejkjy-erjvwxt completes the activity by him/herself with no assistance from a helper. 5-Set-up or Clean-up Assistance-helper sets up or cleans up; patient completes activity. [place] assists only prior to or following the activity. 4-Supervision or Touching Assistance-helper provides verbal cues and/or gayle josy/steadying and/or contact guard assistance as patient completes activity. Assistance may be provided throughout the activity or intermittently. 3-Partial/Moderate Assistance-helper does LESS THAN HALF the effort. [place] lifts, holds or supports trunk or limbs, but provides less than half the effort. 2-Substantial/Maximal Assistance-helper does MORE THAN HALF the effort. [place] lifts or holds trunk or limbs and provides more than half the effort. 6-Dhgidreli-gnvqqc does ALL the effort. Patient does none of the effort to complete the activity. Or, the assistance of 2 or more helpers is required for the patient to complete the activity. If activity was not attempted, code reason: 7-Patient Refused. 9-Not Applicable-not attempted and the patient did not perform the activity before the current illness, exacerbation or injury. 10-Not Attempted due to Environmental Limitations-(lack of equipment, weather restraints, etc.). 88-Not Attempted due to Medical Conditions or Safety Concerns. Sit to Stand (QC): 3 mod assist for sit to stand, cues for positioning, needs assist blocking knee and left foot/leg tends to adduct with sit to stand Weight Bearing Full Weight Bearing Full Weight Bearing Exercises Seated Therapy Exercises: Ankle pumps (AAROM on the left side), Long arc quads (AAROM on the left side), Hip abd/add Standing: Sit to Stand (3 sets of 5) Treatments LE strengthening Assessment Current Status: Poor Progress no change in mobility PT Short Term Goals Short Term Goals Time Frame: Jun 24, 2021 Roll Left & Right: 3 Sit to lyin Lying to sitting on side of be: 3 Sit to stand: 3 Chair/ktg-gp-slfxo transfer: 3 Walk 10 feet: 3 PT [facility] Goals [facility] Goals PT [facility] Goals Time Frame: Jul 08, 2021 Roll Left & Right (QC): 3 (Dora) Sit to Lying (QC): 3 (Dora) Lying-Sitting on Side/Bed(QC): 3 (Dora) Sit to Stand (QC): 4 (CGA) Chair/Jab-hh-Hgmcx Xfer(QC): 4 (CGA) Toilet Transfer (QC): 4 (CGA) Car Transfer (QC): 4 (CGA) Does the Patient Walk: Yes Walk 10 feet (QC): 4 (CGA) Walk 50ft with 2 Turns (QC): 88 Walk 150 ft (QC): 88 Walking 10ft on Uneven Surface: 3 (Dora) 1 Step (curb) (QC): 3 (Dora) 4 Steps (QC): 88 12 Steps (QC): 88 Picking up an Object (QC): 88 Wheel 50 feet with 2 turns (QC: 5 Wheel 150 feet: 5 PT Plan Problem List Problem List: Activity Tolerance, Functional Strength, Safety, Balance, Gait, Transfer, Bed Mobility, ROM Treatment/Plan Treatment Plan: Continue Plan of Care Treatment Plan: Bed Mobility, Education, Functional Activity Gwendolyn, Functional Strength, Group Therapy, Gait, Safety, Therapeutic Exercise, Transfers Treatment Duration: Jul 08, 2021 Frequency: At least 5 of 7 days/Wk (IRF) Estimated Hrs Per Day: 1.5 hours per day Patient and/or Family Agrees t: Yes Safety Risks/Education Patient Education: Correct Positioning, Safety Issues Teaching Recipient: Patient Teaching Methods: Demonstration, Discussion Response to Teaching: Reinforcement Needed Time/GCodes Time In: 1100 Time Out: 1130 Total Billed Treatment Time: 30 Total Billed Treatment 1 visit EX 30' JASVIR ALVES PT Jun 25, 2021 11:23
--- NOTE | 2021-06-25 12:03 | Occupational Ther Daily Note ---
OT Current Status-Daily Note Subjective Pt. alert in bed. Pt. agrees to therapy. Co-Treat with PT () Mental Status/Objective Patient Orientation: Person, Place, Time, Situation ADL-Treatment Co-Treat with PT ([id number]) 2 clinicians required for safety and instruction. PT focusing on transfers, dynamic sitting balance, core strengthening while OT focusing on wt. bearing, dressing education, and activity tolerance. Pt. Min A to sit EOB. Pt. edu. on one handed UBD techniques reinforcement needed. Pt. able to thread R foot into brief/pants required assist to thread L foot. Pt. required assist to don socks on both feet due to inflexibility and fear of falling. Pt. d emonstrating retropulsion when sitting EOB. Pt Mod. A to transfer from bed to w/c. Therapy Code Descriptions/Definitions Functional [place] Measure: 0=Not Assessed/NA 4=Minimal Assistance 1=Total Assistance 5=Supervision or Setup 2=Maximal Assistance 6=Modified [place] 3=Moderate Assistance 7=Complete IndependenceSCALE: Activities may be completed with or without assistive devices. 6-Axhvykiewf-aexqflq completes the activity by him/herself with no assistance from a helper. 5-Set-up or Clean-up Assistance-helper sets up or cleans up; patient completes activity. [place] assists only prior to or following the activity. 4-Supervision or Touching Assistance-helper provides verbal cues and/or touching/steadying and/or contact guard assistance as patient completes activity. Assistance may be provided throughout the activity or intermittently. 3-Partial/Moderate Assistance-helper does LESS THAN HALF the effort. [place] lifts, holds or supports trunk or limbs, but provides less than half the effort. 2-Substantial/Maximal Assistance-helper does MORE THAN HALF the effort. [place] lifts or holds trunk or limbs and provides more than half the effort. 1-Mqeszhmcw-aybewl does ALL the effort. Patient does none of the effort to complete the activity. Or, the assistance of 2 or more helpers is required for the patient to complete the activity. If activity was not attempted, code reason: 7-Patient Refused. 9-Not Applicable-not attempted and the patient did not perform the activity before the current illness, exacerbation or injury. 10-Not Attempted due to Environmental Limitations-(lack of equipment, weather restraints, etc.). 88-Not Attempted due to Medical Conditions or Safety Concerns. Upper Body Dressing (QC): 2 (Edu. on one handed dressing techniques.) Lower Body Dressing (QC): 2 (required assist to thread feet into proper holes. ) On/Off Footwear: 1 Other Treatment Pt. participated in w/c mobility around ARU to therapy gym. PT. Mod A. to stand from w/c and transfer to therapy mat. Pt. participated in wt. bearing on ea. elbow for ~ 3 seconds 5x's ea. Pt. performed front sliding of UE and core strengthening down the therapy table then returning to an upright seated position again 10x's then a side to side with the L UE. Pt. participated in a lowered UE resistance ex's for 5 min isolating L UE for ~[address] rengthening. Pt is demonstrating muscle activation spontaneously during arm bike exercises from L elbow to shldr. Pt. transported using w/c back to room. Pt. returned to recliner call light/phone in reach. All needs met in room. OT Short Term Goals Short Term Goals Time Frame: Jun 28, 2021 Eatin Oral hygiene: 4 Toileting hygiene: 2 Shower/bathe self: 2 Upper body dressin Lower body dressin Putting on/taking off footwear: 2 OT Mcc Goals Mcc Goals Time Frame: Jul 08, 2021 Eating (QC): 4 Oral Hygiene (QC): 4 Toileting Hygiene (QC): 4 Shower/Bathe Self (QC): 4 Upper Body Dressing (QC): 4 Lower Body Dressing (QC): 4 On/Off Footwear (QC): 4 1=Demonstrate adherence to instructed precautions during ADL tasks. 2=Patient will verbalize/demonstrate understanding of assistive devices/modifications for ADL. 3=Patient will improve strength/tolerance for activity to enable patient to perform ADL's. OT Education/Plan Problem List/Assessment Assessment: Decreased Activ Tolerance, Decreased Safety Aware, Decreased UE Strength, Impaired Bed Mobility, Impaired Cognition, Impaired Funct Balance, Impaired Self-Care Skills, Restricted Funct UE ROM Discharge Recommendations Plan/Recommendations: Continue POC Treatment Plan/Plan of Care Patient would benefit from OT for education, treatment and training to promote independence in ADL's, mobility, safety and/or upper extremity function for ADL's. Plan of Care: ADL Retraining, Caregiver Training, Cognitive Retraining, Functional Mobility, Group Exercise/Act as Ind, UE Funct Exercise/Act, UE Neuromus Re-Ed/Coord, W/C Management Training Treatment Duration: Jul 08, 2021 Frequency: At least 5 of 7 days/Wk (IRF) Estimated Hrs Per Day: 1.5 hours per day Agreement: Yes Rehab Potential: Fair Time/GCodes Start Time: 08:30 Stop Time: 10:00 Total Time Billed (hr/min): 90 Billed Treatment Time 1 visit- ADL 1 (20 min), EX 3 ( 40 min), NM 2( 30 min) Co-Treat with PT([id number]) Individual (30 min) HEMA RICHARDS Jun 25, 2021 12:03
[2021-06-25 15:00] VITALS: BP 135/69
[2021-06-25 20:00] VITALS: BP 140/67
[2021-06-25] MEDS: QUEtiapine 25 MG (SEROquel) TAB IMMEDIATE RELEASE PO SCH (21:41)
[2021-06-25] MEDS: HYDROcodone/APAP 5 MG/325 MG (LORTAB) TAB PO PRN (21:42)
[2021-06-25] MEDS: TAMSULOSIN 0.4 MG (FLOMAX) CAP PO SCH (21:42)
[2021-06-26 05:59] VITALS: BP 128/61
[2021-06-26] MEDS: hydrALAZINE (APRESOLINE) 25 MG TAB PO SCH ×3 (06:00→21:32)
[2021-06-26] MEDS: VENlafaxine XR 75 MG (EFFEXOR XR) CAP PO SCH (06:01)
[2021-06-26 07:37] VITALS: BP 175/84
--- NOTE | 2021-06-26 07:41 | Cardiology Progress Note ---
Subjective Date Seen by Provider: Jun 26, 2021 Time Seen by Provider: 15:24 Subjective/Events-last exam Pt reports that he was doing well. Sitting up and eating breakfast when I was in the room. Denies having any other concerns. Review of Systems General: No Chills, No Other (fever) HEENT: No Head Aches, No Visual Changes, No Eye Pain Pulmonary: No Dyspnea; Cough Cardiovascular: No: Chest Pain, Palpitations, Lt Headedness Gastrointestinal: No: Nausea, Vomiting, Abdominal Pain Musculoskeletal: leg pain (rt knee); No: neck pain, shoulder pain, back pain Neurological: Confusion; No: Weakness, Numbness Objective-Cardiology Exam Last Set of Vital Signs Vital Signs 06/26/21 06/26/21 07:37 09:00 Temp 35.8 Pulse 78 Resp 18 B/P (MAP) 175/84 (114) Pulse Ox 93 O2 Delivery Room Air General: Alert, Oriented X3, Cooperative HEENT: Atraumatic, PERRLA Neck: Supple, No JVD Lungs: Clear to Auscultation, Normal Air Movement Heart: Regular Rate, Normal S1, Normal S2, No Murmurs Abdomen: Soft, No Tenderness Extremities: No Clubbing, No Edema Skin: No Rashes, No Significant Lesion Neuro: Normal Speech, Other (left sided facial droop, left sided weakness) Psych/Mental Status: Mental Status NL, Mood NL Results Lab Laboratory Tests Test 06/25/21 15:59 06/26/21 05:33 Range/Units Glucometer 129 H 104 70-110 MG/DL A/P-Cardiology Admission Diagnosis CVA HTN Dementia Assessment/Plan 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 MRI of the head reported acute/subacute pontine stroke. Maintained on aspirin, monitor blood pressure Malignant hypertension, maintained on Norvasc 10 mg and hydralazine 25 mg and Changed from lisinopril to losartan 100 mg daily due to persistent cough Elevated D-dimer, venous Doppler was negative. Maintained on Lovenox. Monitor Vascular dementia, had generalized weakness in the past. History of diverticulosis, BPH. Status post COVID-19 vaccination done on June 10, 2021 triggered generalized weakness, Patient was found on the floor by his neighbor Supervisory-Addendum Brief Verification & Attestation Participated in pt care: history, MDM, physical Personally performed: exam, history, MDM, supervision of care Care discussed with: Medical Student Procedures: n/a Results interpretation: Verified all documentation Verification and Attestation of Medical Student E/M Service A medical student performed and documented this service in my presence. I reviewed and verified all information documented by the medical student and made modifications to such information, when appropriate. I personally performed the physical exam and medical decision making. Michelle Donaldson, Jun 26, 2021,15:24 ESAU ORTEGA Jun 26, 2021 07:41 MICHELLE DONALDSON MD Jun 26, 2021 15:24
[2021-06-26] MEDS: metFORMIN 500 MG (GLUCOPHAGE) TAB PO SCH ×2 (07:58→17:45)
[2021-06-26] MEDS: PANTOPRAZOLE 40 MG (PROTONIX) TAB PO SCH (07:59)
[2021-06-26] MEDS: ENOXAPARIN 40 MG/0.4 ML (LOVENOX) SYR SC SCH (07:59)
[2021-06-26] MEDS: DOCUSATE SODIUM 100 MG (COLACE) CAP PO SCH ×2 (07:59→21:32)
[2021-06-26] MEDS: MAGIC MOUTHWASH (ADULT) PO SCH ×4 (07:59)
[2021-06-26] MEDS: amLODIPine 10 MG (NORVASC) TAB PO SCH (07:59)
[2021-06-26] MEDS: LOSARTAN 100 MG (COZAAR) TABLET PO SCH (07:59)
[2021-06-26] MEDS: polyethylene glycoL POWDER 17 GM (MIRALAX) PACK PO SCH ×2 (07:59→21:32)
[2021-06-26] MEDS: SENNA W/DOCUSATE (SENOKOT S) TABLET PO SCH ×4 (07:59→21:32)
[2021-06-26] MEDS: DICLOFENAC 1% GEL 100 GM (VOLTAREN) TUBE TOP SCH ×4 (08:00→21:34)
[2021-06-26] MEDS: ASPIRIN E.C. 81 MG (ECOTRIN) TAB PO SCH (08:02)
--- NOTE | 2021-06-26 09:20 | PM&R Progress Note ---
Subjective HPI/CC On Admission Date Seen by Provider: Jun 26, 2021 Time Seen by Provider: 09:30 Subjective/Events-last exam 06/26/2021: Patient doing really well Eliquis and Plavix maintain Losartan started for blood pressure elevation Discontinue nystatin Singulair and Claritin will be started for congestion 06/25/2021: Patient doing pretty well Lisinopril will be changed to losartan due to reportedly cough Bowels moved today 06/24/2021: Patient participating in therapy No bowels movement for the last couple of days will give laxatives Check meds and labs 06/23/2021: Patient in a good mood No significant concerns Check meds and labs Blood sugar is good 06/22/2021: Patient doing well Knee still hurts but that is chronic Changing sliding scale to twice daily Accu-Cheks 06/21/2021: Patient doing really well Having some incontinence No pain is reported Progressing with therapy 06/20/2021: Patient progressing nicely Blood sugar 128 Bowels moved yesterday Discontinue the Hep-Lock 06/19/2021: Pt doing really well Left-sided weakness is a challenge Bowels moved twice today Magic mouthwash will be initiated because he keeps on biting the inside of his cheek Knee pain is chronic Voltaren gel will be added 06/18/2021: Pt doing really well Eating very well Sugars are okay Incontinent Bowels are moving No pain Obtaining good relief with left knee injection Review of Systems General: Fatigue Neurological: Weakness, Incoordination Objective Exam Vital Signs Vital Signs Date Time Temp Pulse Resp B/P (MAP) Pulse Ox O2 Delivery O2 Flow Rate FiO2 06/26/21 22:28 36.2 06/26/21 21:00 94 Room Air 06/26/21 20:00 90 20 138/68 (91) Capillary Refill : General Appearance: No Apparent Distress, WD/WN, Chronically ill, Obese HEENT: PERRL/EOMI, Normal ENT Inspection, Pharynx Normal Neck: Full Range of Motion, Normal Inspection, Non Tender, Supple, Carotid Bruit Respiratory: Chest Non Tender, Lungs Clear, Normal Breath Sounds, No Accessory Muscle Use, No Respiratory Distress Cardiovascular: Regular Rate, Rhythm, No Edema, No Gallop, No JVD, No Murmur, Normal Peripheral Pulses Gastrointestinal: Normal Bowel Sounds, No Organomegaly, No Pulsatile Mass, Non Tender, Soft Back: Normal Inspection, No CVA Tenderness, No Vertebral Tenderness Extremity: Normal Capillary Refill, Normal Inspection, Normal Range of Motion, Non Tender, No Calf Tenderness, No Pedal Edema Neurologic/Psychiatric: Alert, Oriented x3, research and development chemist II-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 FIM Transfers Therapy Code Descriptions/Definitions Functional [place] Measure: 0=Not Assessed/NA 4=Minimal Assistance 1=Total Assistance 5=Supervision or Setup 2=Maximal Assistance 6=Modified [place] 3=Moderate Assistance 7=Complete IndependenceSCALE: Activities may be completed with or without assistive devices. 7-Mgqulpbwgc-fnyoeul completes the activity by him/herself with no assistance from a helper. 5-Set-up or Clean-up Assistance-helper sets up or cleans up; patient completes activity. [place] assists only prior to or following the activity. 4-Supervision or Touching Assistance-helper provides verbal cues and/or touching/steadying and/or contact guard assistance as patient completes activity. Assistance may be provided throughout the activity or intermittently. 3-Partial/Moderate Assistance-helper does LESS THAN HALF the effort. [place] lifts, holds or supports trunk or limbs, but provides less than half the effort. 2-Substantial/Maximal Assistance-helper does MORE THAN HALF the effort. [place] lifts or holds trunk or limbs and provides more than half the effort. 3-Ujnfvncuv-coxrel does ALL the effort. Patient does none of the effort to complete the activity. Or, the assistance of 2 or more helpers is required for the patient to complete the activity. If activity was not attempted, code reason: 7-Patient Refused. 9-Not Applicable-not attempted and the patient did not perform the activity be fore the current illness, exacerbation or injury. 10-Not Attempted due to Environmental Limitations-(lack of equipment, weather restraints, etc.). 88-Not Attempted due to Medical Conditions or Safety Concerns. Roll Left to Right (QC): 3 Sit to Lying (QC): 3 Sit to Stand (QC): 3 Chair/Xlt-bz-Bqlnb Xfer(QC): 3 Car Transfer (QC): 88 Gait Training Does the Patient Walk?: Yes Distance: 6'x3 Walk 10 feet (QC): 88 Walk 50 ft with 2 Turns(QC): 88 Walk 150 ft (QC): 88 Walking 10ft/uneven surface-QC: 88 Gait Persons Needed: 1 Gait Assistive Device: Parallel Bars Wheelchair Training Does the Pt Use a Wheelchair?: Yes Distance: 50' Wheel 50 ft with 2 turns (QC): 3 Wheel 150 ft (QC): 3 Type of Wheelchair: Manual Stair Training 1 Step (curb) (QC): 88 4 Steps (QC): 88 12 Steps (QC): 88 Balance Picking up an Object (QC): 88 ADL-Treatment Eating (QC): 5 Oral Hygiene (QC): 6 Bathing Location: L Arm, R Arm, L Upper Leg, R Upper Leg, L Lower Leg (including foot) (Pt. able to wash, rinse, unable to dry feet), R Lower Leg (including foot) (Pt able to wash, rinse, required assist to dry feet.), Chest, Abdomen, Buttocks, Perineal Area Shower/Bathe Self (QC): 3 Upper Body Dressing (QC): 2 (Edu. on one handed dressing techniques.) Lower Body Dressing (QC): 2 (required assist to thread feet into proper holes. ) On/Off Footwear (QC): 1 Toileting Hygiene (QC): 1 Toilet Transfer (QC): 1 Assessment/Plan Assessment and Plan Assess & Plan/Chief Complaint Assessment: CVA with left-sided weakness Diabetes Hypertension Hyperlipidemia Dementia Left knee pain chronic status post steroid injection per Dr. Cummings Plan: Aggressive therapy Supportive care Statin Cardiology 06/18/2021: Much improved status Fall risk 06/19/2021: Continue treatment Aggressive therapy 06/20/2021: Supportive care Aggressive therapy 06/21/2021: Monitor closely Fall risk 06/22/2021: Pain control Monitor closely 06/23/2021: Check meds Labs due tomorrow 06/24/2021: Supportive care Monitor closely 06/25/2021: Change lisinopril to losartan per Dr. Donaldson Continue aggressive therapy 06/26/2021: Supportive care Look for skilled care Medicaid application started Claritin and Singulair for congestion (1) Cerebrovascular accident due to cerebral artery occlusion Status: Acute (2) T2DM (type 2 diabetes mellitus) Status: Chronic (3) HLD (hyperlipidemia) Status: Chronic (4) Obesity Status: Chronic (5) Debility Status: Acute (6) Dementia Status: Chronic (7) Right pontine stroke Status: Acute (8) HTN (hypertension) Status: Acute CIRO CABRERA DO Jun 26, 2021 09:19
--- NOTE | 2021-06-26 10:29 | Physical Therapy Daily Note ---
PT Daily Note-Current Subjective Patient in bed pre tx, agrees to PT, has no complaints of pain. Will be co- treating with OT due to poor patient mobility, strength, endurance, left hemiparesis, coordinate UE and LE during activity, safety and reduce risk of falls. Appearance Patient in therapy gym post tx to continue with OT. Mental Status Patient Orientation: Person, Place, Situation Transfers SCALE: Activities may be completed with or without assistive devices. 4-Mmswswwylv-tibmuil completes the activity by him/herself with no assistance from a helper. 5-Set-up or Clean-up Assistance-helper sets up or cleans up; patient completes activity. [place] assists only prior to or following the activity. 4-Supervision or Touching Assistance-helper provides verbal cues and/or touching/steadying and/or contact guard assistance as patient completes activity. Assistance may be provided throughout the activity or intermittently. 3-Partial/Moderate Assistance-helper does LESS THAN HALF the effort. [place] lifts, holds or supports trunk or limbs, but provides less than half the effort. 2-Substantial/Maximal Assistance-helper does MORE THAN HALF the effort. [place] lifts or holds trunk or limbs and provides more than half the effort. 4-Bqxzvexvf-ftyutl does ALL the effort. Patient does none of the effort to complete the activity. Or, the assistance of 2 or more helpers is required for the patient to complete the activity. If activity was not attempted, code reason: 7-Patient Refused. 9-Not Applicable-not attempted and the patient did not perform the activity before the current illness, exacerbation or injury. 10-Not Attempted due to Environmental Limitations-(lack of equipment, weather restraints, etc.). 88-Not Attempted due to Medical Conditions or Safety Concerns. Roll Left & Right (QC): 2 Lying to Sitting/Side of Bed(Q: 2 Sit to Stand (QC): 3 Chair/Xav-wb-Mvhxh Xfer(QC): 3 max assist for supine to sit today, worse sitting balance initially. Patient transferred to shower chair and taken to shower, undressed, showered, dressed and dried off, transferred to . Patient had to stand several times for undressing/dressing, transfers, drying off. Weight Bearing Full Weight Bearing Full Weight Bearing Gait Training Distance: 6'x3 Gait Assistive Device: Parallel Bars max assist, needs assist with balance and to advance his left foot Wheelchair Training Does the Pt Use a Wheelchair?: Yes Type of Wheelchair: Manual 120', min assist Treatments PT performed bed mobility and transfers, ambulation, standing and safety during bathing and dressing, WC mobility, OT performed dressing, bathing, assisted with LUE during activity and ambulation. Assessment Current Status: Poor Progress no change in mobility. PT Short Term Goals Short Term Goals Time Frame: Jun 24, 2021 Roll Left & Right: 3 Sit to lyin Lying to sitting on side of be: 3 Sit to stand: 3 Chair/qup-pz-nxfew transfer: 3 Walk 10 feet: 3 PT Intermediate Goals Fleet Maintenance Manager Goals PT Fleet Maintenance Manager Goals Time Frame: Jul 08, 2021 Roll Left & Right (QC): 3 (Dora) Sit to Lying (QC): 3 (Dora) Lying-Sitting on Side/Bed(QC): 3 (Dora) Sit to Stand (QC): 4 (CGA) Chair/Ppc-sz-Vkuzo Xfer(QC): 4 (CGA) Toilet Transfer (QC): 4 (CGA) Car Transfer (QC): 4 (CGA) Does the Patient Walk: Yes Walk 10 feet (QC): 4 (CGA) Walk 50ft with 2 Turns (QC): 88 Walk 150 ft (QC): 88 Walking 10ft on Uneven Surface: 3 (Dora) 1 Step (curb) (QC): 3 (Dora) 4 Steps (QC): 88 12 Steps (QC): 88 Picking up an Object (QC): 88 Wheel 50 feet with 2 turns (QC: 5 Wheel 150 feet: 5 PT Plan Problem List Problem List: Activity Tolerance, Functional Strength, Safety, Balance, Gait, Transfer, Bed Mobility, ROM Treatment/Plan Treatment Plan: Continue Plan of Care Treatment Plan: Bed Mobility, Education, Functional Activity Gwendolyn, Functional Strength, Group Therapy, Gait, Safety, Therapeutic Exercise, Transfers Treatment Duration: Jul 08, 2021 Frequency: At least 5 of 7 days/Wk (IRF) Estimated Hrs Per Day: 1.5 hours per day Patient and/or Family Agrees t: Yes Safety Risks/Education Patient Education: Gait Training, Transfer Techniques, Correct Positioning, W/C Management, Safety Issues Teaching Recipient: Patient Teaching Methods: Demonstration, Discussion Response to Teaching: Reinforcement Needed Time/GCodes Time In: 0930 Time Out: 1030 Total Billed Treatment Time: 60 Total Billed Treatment 1 visit FA 60' co-treated for 60' JASVIR ALVES PT Jun 26, 2021 10:29
[2021-06-26] MEDS ORDERED: LORATADINE (CLARITIN) 10 MG TAB PO ONE (10:30)
--- NOTE | 2021-06-26 11:41 | Occupational Ther Daily Note ---
OT Current Status-Daily Note Subjective Pt. dozing in bed, easy to wake. Pt. agrees to therapy. Pt. expresses need to use restroom first. Mental Status/Objective Patient Orientation: Person, Place, Situation ADL-Treatment Co-Treat with PT [phone]) 2 clinicians rquired for safety and instruction. PT focusing on transfers, and LE strengthening while OT focusing on cognition, activity tolerance, and ADLs.Pt. able to situate urinal after being handed. Pt. spilled some on bedding and self when finished urinating. Pt. Mod A to sit up in bed. Pt. retropulsive requiring verbal cues to lean forward and not back. Pt. transferred from bed to shower chair with cut out and transferred to in room shower. Pt. able to cleanse self, but required assist to squeeze soap onto wash cloth and LH sponge to reach lower leg, feet, and buttocks. Edu. on drying technique placing one foot on the towel and using the other to dry lower leg and foot, Pt. states unable to today because in too much pain while sitting on shower chair with cutout. Pt. able to assist in threading feet into brief and shorts. Assist x2 to hike pants over hips, one to stand and one to hike pants. Pt. assist to lift R foot and affected foot up for placement of socks. Pt. able to perform oral hygiene independently. Therapy Code Descriptions/Definitions Functional [place] Measure: 0=Not Assessed/NA 4=Minimal Assistance 1=Total Assistance 5=Supervision or Setup 2=Maximal Assistance 6=Modified [place] 3=Moderate Assistance 7=Complete IndependenceSCALE: Activities may be completed with or without assistive devices. 2-Qzopzgxaps-jcjrnyd completes the activity by him/herself with no assistance from a helper. 5-Set-up or Clean-up Assistance-helper sets up or cleans up; patient completes activity. [place] assists only prior to or following the activity. 4-Supervision or Touching Assistance-helper provides verbal cues and/or touching/steadying and/or contact guard assistance as patient completes activ ity. Assistance may be provided throughout the activity or intermittently. 3-Partial/Moderate Assistance-helper does LESS THAN HALF the effort. [place] lifts, holds or supports trunk or limbs, but provides less than half the effort. 2-Substantial/Maximal Assistance-helper does MORE THAN HALF the effort. [place] lifts or holds trunk or limbs and provides more than half the effort. 5-Olzsqhgqz-iymarl does ALL the effort. Patient does none of the effort to complete the activity. Or, the assistance of 2 or more helpers is required for the patient to complete the activity. If activity was not attempted, code reason: 7-Patient Refused. 9-Not Applicable-not attempted and the patient did not perform the activity before the current illness, exacerbation or injury. 10-Not Attempted due to Environmental Limitations-(lack of equipment, weather restraints, etc.). 88-Not Attempted due to Medical Conditions or Safety Concerns. Oral Hygiene (QC): 6 Bathing Location: L Arm, R Arm, L Upper Leg, R Upper Leg, L Lower Leg (including foot), R Lower Leg (including foot), Chest, Abdomen, Buttocks, Perine al Area Shower/Bathe Self (QC): 5 Lower Body Dressing (QC): 1 On/Off Footwear: 1 Other Treatment Pt. propelled w/c from room to therapy gym. Pt. participated in standing at parallel bars with Mod A. moving feet using L UE to support and wt. bearing with L UE with gait. Pt. then performed a fine motor activity matching rubber bands and patterns with minimal requests to refocus and re-preform pattern correction. Pt. transported using w/c to room. Pt. Max x2 transfer to affected side into recliner in room. Call light/phone in reach. All needs met in room. OT Short Term Goals Short Term Goals Time Frame: Jun 28, 2021 Eatin Oral hygiene: 4 Toileting hygiene: 2 Shower/bathe self: 2 Upper body dressin Lower body dressin Putting on/taking off footwear: 2 OT Mcfp Goals Mcfp Goals Time Frame: Jul 08, 2021 Eating (QC): 4 Oral Hygiene (QC): 4 Toileting Hygiene (QC): 4 Shower/Bathe Self (QC): 4 Upper Body Dressing (QC): 4 Lower Body Dressing (QC): 4 On/Off Footwear (QC): 4 1=Demonstrate adherence to instructed precautions during ADL tasks. 2=Patient will verbalize/demonstrate understanding of assistive devices/modifications for ADL. 3=Patient will improve strength/tolerance for activity to enable patient to perform ADL's. OT Education/Plan Problem List/Assessment Assessment: Decreased Activ Tolerance, Decreased Safety Aware, Impaired Cognition, Impaired Coordination, Impaired Self-Care Skills Discharge Recommendations Plan/Recommendations: Continue POC Treatment Plan/Plan of Care Patient would benefit from OT for education, treatment and training to promote independence in ADL's, mobility, safety and/or upper extremity function for ADL's. Plan of Care: ADL Retraining, Caregiver Training, Cognitive Retraining, Functional Mobility, Group Exercise/Act as Ind, UE Funct Exercise/Act, UE Neuromus Re-Ed/Coord, W/C Management Training Treatment Duration: Jul 08, 2021 Frequency: At least 5 of 7 days/Wk (IRF) Estimated Hrs Per Day: 1.5 hours per day Agreement: Yes Rehab Potential: Fair Time/GCodes Start Time: 09:30 Stop Time: 11:00 Total Time Billed (hr/min): 90 Billed Treatment Time 1 visit- ADL 5 (45 min), EX 2 (30 min), NM 1 (15 min) Co-Treat withPT([id number]) Individual ([id number]) HEMA RICHARDS Jun 26, 2021 11:41
--- NOTE | 2021-06-26 13:27 | Physical Therapy Daily Note ---
PT Daily Note-Current Subjective Patient in recliner pre tx, agrees to PT, has no complaints of pain. Appearance Patient in recliner post tx with nurse call, phone, tray, all needs met. Mental Status Patient Orientation: Person, Place, Situation Transfers SCALE: Activities may be completed with or without assistive devices. 8-Bsxptjejiw-bhricjd completes the activity by him/herself with no assistance from a helper. 5-Set-up or Clean-up Assistance-helper sets up or cleans up; patient completes activity. [place] assists only prior to or following the activity. 4-Supervision or Touching Assistance-helper provides verbal cues and/or gayle josy/steadying and/or contact guard assistance as patient completes activity. Assistance may be provided throughout the activity or intermittently. 3-Partial/Moderate Assistance-helper does LESS THAN HALF the effort. [place] lifts, holds or supports trunk or limbs, but provides less than half the effort. 2-Substantial/Maximal Assistance-helper does MORE THAN HALF the effort. [place] lifts or holds trunk or limbs and provides more than half the effort. 0-Kxxapuquw-dghbar does ALL the effort. Patient does none of the effort to complete the activity. Or, the assistance of 2 or more helpers is required for the patient to complete the activity. If activity was not attempted, code reason: 7-Patient Refused. 9-Not Applicable-not attempted and the patient did not perform the activity before the current illness, exacerbation or injury. 10-Not Attempted due to Environmental Limitations-(lack of equipment, weather restraints, etc.). 88-Not Attempted due to Medical Conditions or Safety Concerns. Sit to Stand (QC): 3 Chair/Mfs-on-Ptlrx Xfer(QC): 3 mod assist for stand pivot transfers and sit to stand, cues for hand placement and safety Weight Bearing Full Weight Bearing Full Weight Bearing Wheelchair Training Does the Pt Use a Wheelchair?: Yes Wheel 50 ft with 2 turns (QC): 3 Wheel 150 ft (QC): 3 Type of Wheelchair: Manual min assist, 300', uses right arm and leg, has a lot of difficulty turning using his right foot. Treatments transfers, WC mobility Assessment Current Status: Poor Progress no change in mobility PT Short Term Goals Short Term Goals Time Frame: Jun 24, 2021 Roll Left & Right: 3 Sit to lyin Lying to sitting on side of be: 3 Sit to stand: 3 Chair/rac-gd-ymuzn transfer: 3 Walk 10 feet: 3 PT Php Consultant Goals Php Consultant Goals PT Php Consultant Goals Time Frame: Jul 08, 2021 Roll Left & Right (QC): 3 (Dora) Sit to Lying (QC): 3 (Dora) Lying-Sitting on Side/Bed(QC): 3 (Dora) Sit to Stand (QC): 4 (CGA) Chair/Khe-ol-Botyx Xfer(QC): 4 (CGA) Toilet Transfer (QC): 4 (CGA) Car Transfer (QC): 4 (CGA) Does the Patient Walk: Yes Walk 10 feet (QC): 4 (CGA) Walk 50ft with 2 Turns (QC): 88 Walk 150 ft (QC): 88 Walking 10ft on Uneven Surface: 3 (Dora) 1 Step (curb) (QC): 3 (Dora) 4 Steps (QC): 88 12 Steps (QC): 88 Picking up an Object (QC): 88 Wheel 50 feet with 2 turns (QC: 5 Wheel 150 feet: 5 PT Plan Problem List Problem List: Activity Tolerance, Functional Strength, Safety, Balance, Gait, Transfer, Bed Mobility, ROM Treatment/Plan Treatment Plan: Continue Plan of Care Treatment Plan: Bed Mobility, Education, Functional Activity Gwendolyn, Functional Strength, Group Therapy, Gait, Safety, Therapeutic Exercise, Transfers Treatment Duration: Jul 08, 2021 Frequency: At least 5 of 7 days/Wk (IRF) Estimated Hrs Per Day: 1.5 hours per day Patient and/or Family Agrees t: Yes Safety Risks/Education Patient Education: Transfer Techniques, Correct Positioning, W/C Management, Safety Issues Teaching Recipient: Patient Teaching Methods: Demonstration, Discussion Response to Teaching: Reinforcement Needed Time/GCodes Time In: 1300 Time Out: 1330 Total Billed Treatment Time: 30 Total Billed Treatment 1 visit FA 30' JASVIR ALVES PT Jun 26, 2021 13:27
[2021-06-26 20:00] VITALS: BP 138/68
[2021-06-26] MEDS: ALPRAZolam 0.25 MG (XANAX) TAB PO PRN (21:31)
[2021-06-26] MEDS: MELATONIN 3 MG TABLET PO PRN (21:31)
[2021-06-26] MEDS: TAMSULOSIN 0.4 MG (FLOMAX) CAP PO SCH (21:31)
[2021-06-26] MEDS: QUEtiapine 25 MG (SEROquel) TAB IMMEDIATE RELEASE PO SCH (21:32)
[2021-06-26] MEDS: MONTELUKAST 10 MG (SINGULAIR) TAB PO SCH (21:32)
[2021-06-27] MEDS: hydrALAZINE (APRESOLINE) 25 MG TAB PO SCH ×3 (06:22→21:18)
[2021-06-27] MEDS: VENlafaxine XR 75 MG (EFFEXOR XR) CAP PO SCH (06:22)
[2021-06-27 06:23] VITALS: BP 137/61
[2021-06-27 07:35] VITALS: BP 147/69
--- NOTE | 2021-06-27 07:47 | Cardiology Progress Note ---
Subjective Date Seen by Provider: Jun 27, 2021 Time Seen by Provider: 08:39 Subjective/Events-last exam Pt reports that he is doing fine. Appetite is good. When asked he denies having any additional concerns. Review of Systems General: No Chills, No Other (fever) HEENT: No Head Aches, No Visual Changes, No Eye Pain Pulmonary: No Dyspnea; Cough Cardiovascular: No: Chest Pain, Palpitations, Edema, Lt Headedness Gastrointestinal: No: Nausea, Vomiting, Abdominal Pain Musculoskeletal: leg pain (left leg); No: neck pain, back pain Neurological: No: Weakness, Numbness, Change in speech, Confusion Objective-Cardiology Exam Last Set of Vital Signs Vital Signs 06/27/21 07:35 Temp 36.1 Pulse 79 Resp 20 B/P (MAP) 147/69 (95) Pulse Ox 93 O2 Delivery Room Air General: Alert, Oriented X3, Cooperative HEENT: Atraumatic, PERRLA Neck: Supple, No JVD Lungs: Clear to Auscultation, Normal Air Movement Heart: Regular Rate, Normal S1, Normal S2, No Murmurs Abdomen: Soft, No Tenderness Extremities: No Clubbing, No Edema Skin: No Rashes, No Significant Lesion Neuro: Normal Speech, Other (left sided facial droop, left sided weakness) Psych/Mental Status: Mental Status NL, Mood NL Results Lab A/P-Cardiology Admission Diagnosis CVA HTN Dementia Assessment/Plan 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 MRI of the head reported acute/subacute pontine stroke. Maintained on aspirin, monitor blood pressure Malignant hypertension, maintained on Norvasc 10 mg, hydralazine 25 mg and changed from lisinopril to losartan 100 mg daily due to persistent cough Elevated D-dimer, venous Doppler was negative. Maintained on Lovenox. Continue to monitor Vascular dementia, had generalized weakness in the past. History of diverticulosis, BPH. Status post COVID-19 vaccination done on June 10, 2021 triggered generalized weakness, Patient was found on the floor by his neighbor Supervisory-Addendum Brief Verification & Attestation Participated in pt care: history, MDM, physical Personally performed: exam, history, MDM, supervision of care Care discussed with: Medical Student Procedures: n/a Results interpretation: Verified all documentation Verification and Attestation of Medical Student E/M Service A medical student performed and documented this service in my presence. I reviewed and verified all information documented by the medical student and made modifications to such information, when appropriate. I personally performed the physical exam and medical decision making. Patient was seen at bedside, sitting comfortably, no new complaint Still having generalized weakness Still having some labile blood pressure but overall under good control Continue on current medication and continue physical therapy Michelle Donaldson, Jun 27, 2021,08:40 ESAU ORTEGA Jun 27, 2021 07:47 MICHELLE DONALDSON MD Jun 27, 2021 08:41
[2021-06-27] MEDS: SENNA W/DOCUSATE (SENOKOT S) TABLET PO SCH ×4 (08:13→21:15)
[2021-06-27] MEDS: metFORMIN 500 MG (GLUCOPHAGE) TAB PO SCH ×2 (08:13→17:14)
[2021-06-27] MEDS: polyethylene glycoL POWDER 17 GM (MIRALAX) PACK PO SCH ×2 (08:13→21:15)
[2021-06-27] MEDS: LORATADINE (CLARITIN) 10 MG TAB PO SCH (08:13)
[2021-06-27] MEDS: amLODIPine 10 MG (NORVASC) TAB PO SCH (08:13)
[2021-06-27] MEDS: ENOXAPARIN 40 MG/0.4 ML (LOVENOX) SYR SC SCH (08:13)
[2021-06-27] MEDS: ASPIRIN E.C. 81 MG (ECOTRIN) TAB PO SCH (08:13)
[2021-06-27] MEDS: PANTOPRAZOLE 40 MG (PROTONIX) TAB PO SCH (08:13)
[2021-06-27] MEDS: LOSARTAN 100 MG (COZAAR) TABLET PO SCH (08:13)
[2021-06-27] MEDS: DOCUSATE SODIUM 100 MG (COLACE) CAP PO SCH ×2 (08:13→21:15)
[2021-06-27] MEDS: DICLOFENAC 1% GEL 100 GM (VOLTAREN) TUBE TOP SCH ×4 (08:14→21:19)
--- NOTE | 2021-06-27 10:27 | Physical Therapy Daily Note ---
PT Daily Note-Current Subjective Patient in bed pre tx, agrees to PT, has 6/10 left knee pain. Will be co- treating with OT due to poor patient mobility, strength, endurance, left hemiparesis, coordinate UE and LE during activity, safety and reduce risk of falls. Appearance Patient in recliner post tx with nurse call, phone, tray, all needs met. Mental Status Patient Orientation: Person, Place, Situation Transfers SCALE: Activities may be completed with or without assistive devices. 6-Qjgfomsayv-rpsigrm completes the activity by him/herself with no assistance from a helper. 5-Set-up or Clean-up Assistance-helper sets up or cleans up; patient completes activity. [place] assists only prior to or following the activity. 4-Supervision or Touching Assistance-helper provides verbal cues and/or touching/steadying and/or contact guard assistance as patient completes activity. Assistance may be provided throughout the activity or intermittently. 3-Partial/Moderate Assistance-helper does LESS THAN HALF the effort. [place] lifts, holds or supports trunk or limbs, but provides less than half the effort. 2-Substantial/Maximal Assistance-helper does MORE THAN HALF the effort. [place] lifts or holds trunk or limbs and provides more than half the effort. 7-Xczypmira-xrrknx does ALL the effort. Patient does none of the effort to complete the activity. Or, the assistance of 2 or more helpers is required for the patient to complete the activity. If activity was not attempted, code reason: 7-Patient Refused. 9-Not Applicable-not attempted and the patient did not perform the activity before the current illness, exacerbation or injury. 10-Not Attempted due to Environmental Limitations-(lack of equipment, weather restraints, etc.). 88-Not Attempted due to Medical Conditions or Safety Concerns. Roll Left & Right (QC): 2 Lying to Sitting/Side of Bed(Q: 2 Sit to Stand (QC): 3 Chair/Yai-jh-Nqhjq Xfer(QC): 3 Toilet Transfer (QC): 3 mod assist for sit to stand and stand pivot transfers, patient had to use the restroom for a BM and still mod assist for the transfer there and back, OT took care of cleaning and brief/shorts don/doff. Patient needs cues for hand placement and safety. Weight Bearing Full Weight Bearing Full Weight Bearing Wheelchair Training Does the Pt Use a Wheelchair?: Yes Wheel 50 ft with 2 turns (QC): 4 Type of Wheelchair: Manual 120'x4 Exercises Sitting balance and trunk strengthening hitting balloon, standing activities with pegboard and clothespins working on balance and LE strength Treatments PT worked on bed mobility and transfers, toileting, WC mobility, sitting and standing balance, trunk strengthening, OT worked on toileting, dressing, balance, UE activity and safety during activity. Assessment Current Status: Poor Progress slightly improved WC mobility when he wears shoes PT Short Term Goals Short Term Goals Time Frame: Jun 24, 2021 Roll Left & Right: 3 Sit to lyin Lying to sitting on side of be: 3 Sit to stand: 3 Chair/qkj-xd-cnfgy transfer: 3 Walk 10 feet: 3 PT Prison Goals Plow Holder Goals PT Plow Holder Goals Time Frame: Jul 08, 2021 Roll Left & Right (QC): 3 (Dora) Sit to Lying (QC): 3 (Dora) Lying-Sitting on Side/Bed(QC): 3 (Dora) Sit to Stand (QC): 4 (CGA) Chair/Pxe-gf-Pmmgt Xfer(QC): 4 (CGA) Toilet Transfer (QC): 4 (CGA) Car Transfer (QC): 4 (CGA) Does the Patient Walk: Yes Walk 10 feet (QC): 4 (CGA) Walk 50ft with 2 Turns (QC): 88 Walk 150 ft (QC): 88 Walking 10ft on Uneven Surface: 3 (Dora) 1 Step (curb) (QC): 3 (Dora) 4 Steps (QC): 88 12 Steps (QC): 88 Picking up an Object (QC): 88 Wheel 50 feet with 2 turns (QC: 5 Wheel 150 feet: 5 PT Plan Problem List Problem List: Activity Tolerance, Functional Strength, Safety, Balance, Gait, Transfer, Bed Mobility, ROM Treatment/Plan Treatment Plan: Continue Plan of Care Treatment Plan: Bed Mobility, Education, Functional Activity Gwendolyn, Functional Strength, Group Therapy, Gait, Safety, Therapeutic Exercise, Transfers Treatment Duration: Jul 08, 2021 Frequency: At least 5 of 7 days/Wk (IRF) Estimated Hrs Per Day: 1.5 hours per day Patient and/or Family Agrees t: Yes Safety Risks/Education Patient Education: Transfer Techniques, Correct Positioning, W/C Management, Safety Issues Teaching Recipient: Patient Teaching Methods: Demonstration, Discussion Response to Teaching: Reinforcement Needed Time/GCodes Time In: 0900 Time Out: 1030 Total Billed Treatment Time: 90 Total Billed Treatment 1 visit EX 30' FA 60' JASVIR ALVES PT Jun 27, 2021 10:27
--- NOTE | 2021-06-27 10:35 | PM&R Progress Note ---
Subjective HPI/CC On Admission Date Seen by Provider: Jun 27, 2021 Time Seen by Provider: 10:45 Subjective/Events-last exam 06/27/2021: Patient doing really well Bowels are moving Taking a nap currently Denies any issues 06/26/2021: Patient doing really well Eliquis and Plavix maintain Losartan started for blood pressure elevation Discontinue nystatin Singulair and Claritin will be started for congestion 06/25/2021: Patient doing pretty well Lisinopril will be changed to losartan due to reportedly cough Bowels moved today 06/24/2021: Patient participating in therapy No bowels movement for the last couple of days will give laxatives Check meds and labs 06/23/2021: Patient in a good mood No significant concerns Check meds and labs Blood sugar is good 06/22/2021: Patient doing well Knee still hurts but that is chronic Changing sliding scale to twice daily Accu-Cheks 06/21/2021: Patient doing really well Having some incontinence No pain is reported Progressing with therapy 06/20/2021: Patient progressing nicely Blood sugar 128 Bowels moved yesterday Discontinue the Hep-Lock 06/19/2021: Pt doing really well Left-sided weakness is a challenge Bowels moved twice today Magic mouthwash will be initiated because he keeps on biting the inside of his cheek Knee pain is chronic Voltaren gel will be added 06/18/2021: Pt doing really well Eating very well Sugars are okay Incontinent Bowels are moving No pain Obtaining good relief with left knee injection Review of Systems General: Fatigue Neurological: Weakness, Incoordination Objective Exam Vital Signs Vital Signs Date Time Temp Pulse Resp B/P (MAP) Pulse Ox O2 Delivery O2 Flow Rate FiO2 06/27/21 20:10 96 Room Air 06/27/21 20:10 36.4 76 20 141/60 (87) Capillary Refill : General Appearance: No Apparent Distress, WD/WN, Chronically ill, Obese HEENT: PERRL/EOMI, Normal ENT Inspection, Pharynx Normal Neck: Full Range of Motion, Normal Inspection, Non Tender, Supple, Carotid Bruit Respiratory: Chest Non Tender, Lungs Clear, Normal Breath Sounds, No Accessory Muscle Use, No Respiratory Distress Cardiovascular: Regular Rate, Rhythm, No Edema, No Gallop, No JVD, No Murmur, Normal Peripheral Pulses Gastrointestinal: Normal Bowel Sounds, No Organomegaly, No Pulsatile Mass, Non Tender, Soft Back: Normal Inspection, No CVA Tenderness, No Vertebral Tenderness Extremity: Normal Capillary Refill, Normal Inspection, Normal Range of Motion, Non Tender, No Calf Tenderness, No Pedal Edema Neurologic/Psychiatric: Alert, Oriented x3, cheese blender II-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 FIM Transfers Therapy Code Descriptions/Definitions Functional [place] Measure: 0=Not Assessed/NA 4=Minimal Assistance 1=Total Assistance 5=Supervision or Setup 2=Maximal Assistance 6=Modified [place] 3=Moderate Assistance 7=Complete IndependenceSCALE: Activities may be completed with or without assistive devices. 4-Imursqmnzf-zkacksk completes the activity by him/herself with no assistance from a helper. 5-Set-up or Clean-up Assistance-helper sets up or cleans up; patient completes activity. [place] assists only prior to or following the activity. 4-Supervision or Touching Assistance-helper provides verbal cues and/or touching/steadying and/or contact guard assistance as patient completes activity. Assistance may be provided throughout the activity or intermittently. 3-Partial/Moderate Assistance-helper does LESS THAN HALF the effort. [place] lifts, holds or supports trunk or limbs, but provides less than half the effort. 2-Substantial/Maximal Assistance-helper does MORE THAN HALF the effort. [place] lifts or holds trunk or limbs and provides more than half the effort. 3-Lluyxjhbf-jfnhln does ALL the effort. Patient does none of the effort to complete the activity. Or, the assistance of 2 or more helpers is required for the patient to complete the activity. If activity was not attempted, code reason: 7-Patient Refused. 9-Not Applicable-not attempted and the patient did not perform the activity before the current illness, exacerbation or injury. 10-Not Attempted due to Environmental Limitations-(lack of equipment, weather restraints, etc.). 88-Not Attempted due to Medical Conditions or Safety Concerns. Roll Left to Right (QC): 2 Sit to Lying (QC): 3 Sit to Stand (QC): 3 Chair/Dnw-dl-Gzdbk Xfer(QC): 3 Car Transfer (QC): 88 Gait Training Does the Patient Walk?: Yes Distance: 6'x3 Walk 10 feet (QC): 88 Walk 50 ft with 2 Turns(QC): 88 Walk 150 ft (QC): 88 Walking 10ft/uneven surface-QC: 88 Gait Persons Needed: 1 Gait Assistive Device: Parallel Bars Wheelchair Training Does the Pt Use a Wheelchair?: Yes Distance: 50' Wheel 50 ft with 2 turns (QC): 4 Wheel 150 ft (QC): 3 Type of Wheelchair: Manual Stair Training 1 Step (curb) (QC): 88 4 Steps (QC): 88 12 Steps (QC): 88 Balance Picking up an Object (QC): 88 ADL-Treatment Eating (QC): 5 Oral Hygiene (QC): 6 Bathing Location: L Arm, R Arm, L Upper Leg, R Upper Leg, L Lower Leg (including foot), R Lower Leg (including foot), Chest, Abdomen, Buttocks, Perineal Area Shower/Bathe Self (QC): 5 Upper Body Dressing (QC): 2 (Edu. on one handed dressing techniques.) Lower Body Dressing (QC): 1 On/Off Footwear (QC): 1 Toileting Hygiene (QC): 1 Toilet Transfer (QC): 1 Assessment/Plan Assessment and Plan Assess & Plan/Chief Complaint Assessment: CVA with left-sided weakness Diabetes Hypertension Hyperlipidemia Dementia Left knee pain chronic status post steroid injection per Dr. Cummings Plan: Aggressive therapy Supportive care Statin Cardiology 06/18/2021: Much improved status Fall risk 06/19/2021: Continue treatment Aggressive therapy 06/20/2021: Supportive care Aggressive therapy 06/21/2021: Monitor closely Fall risk 06/22/2021: Pain control Monitor closely 06/23/2021: Check meds Labs due tomorrow 06/24/2021: Supportive care Monitor closely 06/25/2021: Change lisinopril to losartan per Dr. Donaldson Continue aggressive therapy 06/26/2021: Supportive care Look for skilled care Medicaid application started Claritin and Singulair for congestion 06/27/2021: Supportive care (1) Cerebrovascular accident due to cerebral artery occlusion Status: Acute (2) T2DM (type 2 diabetes mellitus) Status: Chronic (3) HLD (hyperlipidemia) Status: Chronic (4) Obesity Status: Chronic (5) Debility Status: Acute (6) Dementia Status: Chronic (7) Right pontine stroke Status: Acute (8) HTN (hypertension) Status: Acute CIRO CABRERA DO Jun 27, 2021 10:35
--- NOTE | 2021-06-27 10:58 | Occupational Ther Daily Note ---
OT Current Status-Daily Note Subjective Pt. dozing in bed. Pt. c/o of pain in L knee 04/06 rating Voltaren Gel applied. Pt. agrees to therapy. Co-Treat with PT () Mental Status/Objective Patient Orientation: Person, Place, Situation ADL-Treatment Co-Treat with PT () 2 clinicians required for safety and instruction. PT focusing on transfers, LE strength, and standing while OT is focusing on L side awareness, cognition, and wt. bearing. Pt. able to plantar extend R foot to assist in donning of sock, and placement of shoe. Pt. able assist and lift thread R foot through foot of brief/shorts required assist to manipulate and maneuver L leg/foot. Pt. Mod A to transition supine to EOB. Pt. is retropulsive required minimal verbal cues and one physical cue to maintain upright posture. Pt. Mod A. x2 one person to stand with while the second person hiked pants and brief over hips. Pt. Mod A transfer to w/c then perform w/c mobility from room to therapy gym, see PT notes for further detail. Pt. requested to use restroom transferred to w/c Mod A. and transported to room. Pt. transfer w/c to toilet on L side, see PT note for details. Pt. completed BM transfer x2 one person to stand while the other person cleansed buttocks. . Therapy Code Descriptions/Definitions Functional [place] Measure: 0=Not Assessed/NA 4=Minimal Assistance 1=Total Assistance 5=Supervision or Setup 2=Maximal Assistance 6=Modified [place] 3=Moderate Assistance 7=Complete IndependenceSCALE: Activities may be completed with or without assistive devices. 3-Kvvrsngxkq-csvxafe completes the activity by him/herself with no assistance from a helper. 5-Set-up or Clean-up Assistance-helper sets up or cleans up; patient completes activity. [place] assists only prior to or following the activity. 4-Supervision or Touching Assistance-helper provides verbal cues and/or touching/steadying and/or contact guard assistance as patient completes activity. Assistance may be provided throughout the activity or intermittently. 3-Partial/Moderate Assistance-helper does LESS THAN HALF the effort. [place] lift s, holds or supports trunk or limbs, but provides less than half the effort. 2-Substantial/Maximal Assistance-helper does MORE THAN HALF the effort. [place] lifts or holds trunk or limbs and provides more than half the effort. 9-Uczxpibwn-emgnvy does ALL the effort. Patient does none of the effort to complete the activity. Or, the assistance of 2 or more helpers is required for the patient to complete the activity. If activity was not attempted, code reason: 7-Patient Refused. 9-Not Applicable-not attempted and the patient did not perform the activity before the current illness, exacerbation or injury. 10-Not Attempted due to Environmental Limitations-(lack of equipment, weather restraints, etc.). 88-Not Attempted due to Medical Conditions or Safety Concerns. Lower Body Dressing (QC): 1 (Mod A x2) On/Off Footwear: 1 Toileting Hygiene (QC): 1 (Mod A x2) Other Treatment Pt. transfer with minimal verbal cues and two attempts from w/c to therapy mat, see PT note for details. Pt. performed R UE activity in all planes of the shoulder while L maintained wt. bearing ~ 10 mins. one rest break at half way. Pt. then performed a fine motor activity seated on therapy mat, pinching pegs, removing them form foam board and placing them in designated area on L side crossing midline. Pt. then stood and placed 9 of 18 pegs back into the peg board before fatigued. See above note for toileting. Pt. transferred to w/ then propelled to therapy gym. Pt. stood in parallel bars performing the AROM arc. Pt. increased tolerance from moving the rings to one direction and resting to moving them one direction and then back before sitting in w/, this activity was performed twice. Pt. propelled w/c to room. Pt. transferred to recliner on L side. Call light/phone in reach. All needs met in room OT Short Term Goals Short Term Goals Time Frame: Jun 28, 2021 Eatin Oral hygiene: 4 Toileting hygiene: 2 Shower/bathe self: 2 Upper body dressin Lower body dressin Putting on/taking off footwear: 2 OT Demurrage Agent Goals Care Home Goals Time Frame: Jul 08, 2021 Eating (QC): 4 Oral Hygiene (QC): 4 Toileting Hygiene (QC): 4 Shower/Bathe Self (QC): 4 Upper Body Dressing (QC): 4 Lower Body Dressing (QC): 4 On/Off Footwear (QC): 4 1=Demonstrate adherence to instructed precautions during ADL tasks. 2=Patient will verbalize/demonstrate understanding of assistive devices/modifications for ADL. 3=Patient will improve strength/tolerance for activity to enable patient to perform ADL's. OT Education/Plan Problem List/Assessment Assessment: Decreased Activ Tolerance, Decreased Safety Aware, Decreased UE Strength, Dependent Transfers, Impaired Bed Mobility, Impaired Cognition, Impaired Coordination, Impaired Funct Balance, Impaired Self-Care Skills, Restricted Funct UE ROM Discharge Recommendations Plan/Recommendations: Continue POC Treatment Plan/Plan of Care Patient would benefit from OT for education, treatment and training to promote independence in ADL's, mobility, safety and/or upper extremity function for ADL's. Plan of Care: ADL Retraining, Caregiver Training, Cognitive Retraining, Functional Mobility, Group Exercise/Act as Ind, UE Funct Exercise/Act, UE Neuromus Re-Ed/Coord, W/C Management Training Treatment Duration: Jul 08, 2021 Frequency: At least 5 of 7 days/Wk (IRF) Estimated Hrs Per Day: 1.5 hours per day Agreement: Yes Rehab Potential: Fair Time/GCodes Start Time: 09:00 Stop Time: 10:30 Total Time Billed (hr/min): 90 Billed Treatment Time 1 visit- ADL 2 (30 min), EX4 (60 min) Co-Treat PT (90 min) HEMA RICHARDS Jun 27, 2021 10:58
[2021-06-27 20:10] VITALS: BP 141/60
[2021-06-27] MEDS: MONTELUKAST 10 MG (SINGULAIR) TAB PO SCH (21:18)
[2021-06-27] MEDS: QUEtiapine 25 MG (SEROquel) TAB IMMEDIATE RELEASE PO SCH (21:18)
[2021-06-27] MEDS: TAMSULOSIN 0.4 MG (FLOMAX) CAP PO SCH (21:18)
--- NOTE | 2021-06-28 05:50 | PM&R Progress Note ---
Subjective HPI/CC On Admission Date Seen by Provider: Jun 28, 2021 Time Seen by Provider: 12:00 Subjective/Events-last exam 06/28/2021: Patient doing pretty well Awaiting placement Bowels are moving well Denies any pain Told me about his dementia diagnosis 20 years ago 06/27/2021: Patient doing really well Bowels are moving Taking a nap currently Denies any issues 06/26/2021: Patient doing really well Eliquis and Plavix maintain Losartan started for blood pressure elevation Discontinue nystatin Singulair and Claritin will be started for congestion 06/25/2021: Patient doing pretty well Lisinopril will be changed to losartan due to reportedly cough Bowels moved today 06/24/2021: Patient participating in therapy No bowels movement for the last couple of days will give laxatives Check meds and labs 06/23/2021: Patient in a good mood No significant concerns Check meds and labs Blood sugar is good 06/22/2021: Patient doing well Knee still hurts but that is chronic Changing sliding scale to twice daily Accu-Cheks 06/21/2021: Patient doing really well Having some incontinence No pain is reported Progressing with therapy 06/20/2021: Patient progressing nicely Blood sugar 128 Bowels moved yesterday Discontinue the Hep-Lock 06/19/2021: Pt doing really well Left-sided weakness is a challenge Bowels moved twice today Magic mouthwash will be initiated because he keeps on biting the inside of his cheek Knee pain is chronic Voltaren gel will be added 06/18/2021: Pt doing really well Eating very well Sugars are okay Incontinent Bowels are moving No pain Obtaining good relief with left knee injection Review of Systems General: Fatigue Neurological: Weakness, Incoordination Objective Exam Vital Signs Vital Signs Date Time Temp Pulse Resp B/P (MAP) Pulse Ox O2 Delivery O2 Flow Rate FiO2 06/28/21 20:10 Room Air 06/28/21 20:00 36.0 66 16 133/65 (87) 93 Capillary Refill : General Appearance: No Apparent Distress, WD/WN, Chronically ill, Obese HEENT: PERRL/EOMI, Normal ENT Inspection, Pharynx Normal Neck: Full Range of Motion, Normal Inspection, Non Tender, Supple, Carotid Bruit Respiratory: Chest Non Tender, Lungs Clear, Normal Breath Sounds, No Accessory Muscle Use, No Respiratory Distress Cardiovascular: Regular Rate, Rhythm, No Edema, No Gallop, No JVD, No Murmur, Normal Peripheral Pulses Gastrointestinal: Normal Bowel Sounds, No Organomegaly, No Pulsatile Mass, Non Tender, Soft Back: Normal Inspection, No CVA Tenderness, No Vertebral Tenderness Extremity: Normal Capillary Refill, Normal Inspection, Normal Range of Motion, Non Tender, No Calf Tenderness, No Pedal Edema Neurologic/Psychiatric: Alert, Oriented x3, refrigerator room clerk II-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 FIM Transfers Therapy Code Descriptions/Definitions Functional [place] Measure: 0=Not Assessed/NA 4=Minimal Assistance 1=Total Assistance 5=Supervision or Setup 2=Maximal Assistance 6=Modified [place] 3=Moderate Assistance 7=Complete IndependenceSCALE: Activities may be completed with or without assistive devices. 0-Pisstwjsgd-hbumezg completes the activity by him/herself with no assistance from a helper. 5-Set-up or Clean-up Assistance-helper sets up or cleans up; patient completes activity. [place] assists only prior to or following the activity. 4-Supervision or Touching Assistance-helper provides verbal cues and/or touching/steadying and/or contact guard assistance as patient completes activity. Assistance may be provided throughout the activity or intermittently. 3-Partial/Moderate Assistance-helper does LESS THAN HALF the effort. [place] lifts, holds or supports trunk or limbs, but provides less than half the effort. 2-Substantial/Maximal Assistance-helper does MORE THAN HALF the effort. [place] lifts or holds trunk or limbs and provides more than half the effort. 3-Bnjioindr-pdemqb does ALL the effort. Patient does none of the effort to complete the activity. Or, the assistance of 2 or more helpers is required for the patient to complete the activity. If activity was not attempted, code reason: 7-Patient Refused. 9-Not Applicable-not attempted and the patient did not perform the activity before the current illness, exacerbation or injury. 10-Not Attempted due to Environmental Limitations-(lack of equipment, weather restraints, etc.). 88-Not Attempted due to Medical Conditions or Safety Concerns. Roll Left to Right (QC): 2 Sit to Lying (QC): 3 Sit to Stand (QC): 3 Chair/Azc-si-Ygcow Xfer(QC): 3 Car Transfer (QC): 88 Gait Training Does the Patient Walk?: Yes Distance: 6'x3 Walk 10 feet (QC): 88 Walk 50 ft with 2 Turns(QC): 88 Walk 150 ft (QC): 88 Walking 10ft/uneven surface-QC: 88 Gait Persons Needed: 1 Gait Assistive Device: Parallel Bars Wheelchair Training Does the Pt Use a Wheelchair?: Yes Distance: 50' Wheel 50 ft with 2 turns (QC): 4 Wheel 150 ft (QC): 3 Type of Wheelchair: Manual Stair Training 1 Step (curb) (QC): 88 4 Steps (QC): 88 12 Steps (QC): 88 Balance Picking up an Object (QC): 88 ADL-Treatment Eating (QC): 5 Oral Hygiene (QC): 6 Bathing Location: L Arm, R Arm, L Upper Leg, R Upper Leg, L Lower Leg (including foot), R Lower Leg (including foot), Chest, Abdomen, Buttocks, Perineal Area Shower/Bathe Self (QC): 5 Upper Body Dressing (QC): 2 (Edu. on one handed dressing techniques.) Lower Body Dressing (QC): 1 (Mod A x2) On/Off Footwear (QC): 1 Toileting Hygiene (QC): 1 (Mod A x2) Toilet Transfer (QC): 1 Assessment/Plan Assessment and Plan Assess & Plan/Chief Complaint Assessment: CVA with left-sided weakness Diabetes Hypertension Hyperlipidemia Dementia Left knee pain chronic status post steroid injection per Dr. Cummings Plan: Aggressive therapy Supportive care Statin Cardiology 06/18/2021: Much improved status Fall risk 06/19/2021: Continue treatment Aggressive therapy 06/20/2021: Supportive care Aggressive therapy 06/21/2021: Monitor closely Fall risk 06/22/2021: Pain control Monitor closely 06/23/2021: Check meds Labs due tomorrow 06/24/2021: Supportive care Monitor closely 06/25/2021: Change lisinopril to losartan per Dr. Donaldson Continue aggressive therapy 06/26/2021: Supportive care Look for skilled care Medicaid application started Claritin and Singulair for congestion 06/27/2021: Supportive care 06/28/2021: Supportive care Aggressive therapy Awaiting placement (1) Cerebrovascular accident due to cerebral artery occlusion Status: Acute (2) T2DM (type 2 diabetes mellitus) Status: Chronic (3) HLD (hyperlipidemia) Status: Chronic (4) Obesity Status: Chronic (5) Debility Status: Acute (6) Dementia Status: Chronic (7) Right pontine stroke Status: Acute (8) HTN (hypertension) Status: Acute CIRO CABRERA DO Jun 28, 2021 05:50
[2021-06-28 05:52] VITALS: BP 140/70
[2021-06-28] MEDS: VENlafaxine XR 75 MG (EFFEXOR XR) CAP PO SCH (06:31)
[2021-06-28] MEDS: hydrALAZINE (APRESOLINE) 25 MG TAB PO SCH ×3 (06:31→21:29)
[2021-06-28 08:00] VITALS: BP 127/58
--- NOTE | 2021-06-28 08:30 | Cardiology Progress Note ---
Subjective Date Seen by Provider: Jun 28, 2021 Time Seen by Provider: 08:30 Subjective/Events-last exam Patient was seen at bedside, laying down comfortably, no new complaint. No chest pain or shortness of breath Review of Systems General: No Chills, No Night Sweats; Fatigue; No Malaise, No Appetite, No Other HEENT: No Head Aches, No Visual Changes, No Eye Pain, No Ear Pain, No Dysphasia, No Sinus Congestion, No Post Nasal Drip, No Sore Throat, No Other Pulmonary: No Dyspnea, No Cough, No Pleuritic Chest Pain, No Other Cardiovascular: No: Chest Pain, Palpitations, Orthopnea, Paroxysmal Noc. Dyspnea, Edema, Lt Headedness, Other Objective-Cardiology Exam Last Set of Vital Signs Vital Signs 06/28/21 08:00 Temp 36.3 Pulse 80 Resp 16 B/P (MAP) 127/58 (81) Pulse Ox 92 O2 Delivery Room Air General: Alert, Oriented X3, Cooperative HEENT: Atraumatic, PERRLA Neck: Supple, No JVD Lungs: Clear to Auscultation, Normal Air Movement Heart: Regular Rate, Normal S1, Normal S2, No Murmurs Abdomen: Soft, No Tenderness Extremities: No Clubbing, No Edema Skin: No Rashes, No Significant Lesion Neuro: Normal Speech, Other Psych/Mental Status: Mental Status NL, Mood NL Results Lab Laboratory Tests Test 06/27/21 15:18 06/28/21 05:52 Range/Units Glucometer 134 H 100 70-110 MG/DL A/P-Cardiology Admission Diagnosis CVA HTN Dementia Assessment/Plan 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 MRI of the head reported acute/subacute pontine stroke. Maintained on aspirin, monitor blood pressure Malignant hypertension, maintained on Norvasc 10 mg, hydralazine 25 mg and greg nged from lisinopril to losartan 100 mg daily due to persistent cough Elevated D-dimer, venous Doppler was negative. Maintained on Lovenox. Continue to monitor Vascular dementia, had generalized weakness in the past. History of diverticulosis, BPH. Status post COVID-19 vaccination done on June 10, 2021 triggered generalized weakness, Patient was found on the floor by his neighbor MICHELLE HOUGH MD Jun 28, 2021 08:30
[2021-06-28] MEDS: DOCUSATE SODIUM 100 MG (COLACE) CAP PO SCH ×2 (08:40→21:29)
[2021-06-28] MEDS: ASPIRIN E.C. 81 MG (ECOTRIN) TAB PO SCH (08:40)
[2021-06-28] MEDS: metFORMIN 500 MG (GLUCOPHAGE) TAB PO SCH ×2 (08:40→17:49)
[2021-06-28] MEDS: SENNA W/DOCUSATE (SENOKOT S) TABLET PO SCH ×4 (08:40→21:29)
[2021-06-28] MEDS: PANTOPRAZOLE 40 MG (PROTONIX) TAB PO SCH (08:40)
[2021-06-28] MEDS: LOSARTAN 100 MG (COZAAR) TABLET PO SCH (08:40)
[2021-06-28] MEDS: LORATADINE (CLARITIN) 10 MG TAB PO SCH (08:40)
[2021-06-28] MEDS: amLODIPine 10 MG (NORVASC) TAB PO SCH (08:41)
[2021-06-28] MEDS: ENOXAPARIN 40 MG/0.4 ML (LOVENOX) SYR SC SCH (08:41)
[2021-06-28] MEDS: HYDROcodone/APAP 5 MG/325 MG (LORTAB) TAB PO PRN (08:44)
[2021-06-28] MEDS: polyethylene glycoL POWDER 17 GM (MIRALAX) PACK PO SCH ×2 (08:45→20:04)
[2021-06-28] MEDS: DICLOFENAC 1% GEL 100 GM (VOLTAREN) TUBE TOP SCH ×4 (08:45→21:29)
--- NOTE | 2021-06-28 09:54 | Physical Therapy Daily Note ---
PT Daily Note-Current Subjective Patient finishing up shower with OT pre tx, agrees to PT, has no complaints of pain a rest. Will be co-treating with OT due to poor patient mobility, strength, endurance, left hemiparesis, coordinate UE and LE during activity, safety and reduce risk of falls. Appearance Patient in recliner post tx with nurse call, phone, tray, all needs met. Mental Status Patient Orientation: Person, Place, Situation Transfers SCALE: Activities may be completed with or without assistive devices. 8-Tsjtpyycju-rooaoqt completes the activity by him/herself with no assistance from a helper. 5-Set-up or Clean-up Assistance-helper sets up or cleans up; patient completes activity. [place] assists only prior to or following the activity. 4-Supervision or Touching Assistance-helper provides verbal cues and/or touching/steadying and/or contact guard assistance as patient completes activity. Assistance may be provided throughout the activity or intermittently. 3-Partial/Moderate Assistance-helper does LESS THAN HALF the effort. [place] lifts, holds or supports trunk or limbs, but provides less than half the effort. 2-Substantial/Maximal Assistance-helper does MORE THAN HALF the effort. [place] lifts or holds trunk or limbs and provides more than half the effort. 0-Ynjwwqomw-qnilzj does ALL the effort. Patient does none of the effort to complete the activity. Or, the assistance of 2 or more helpers is required for the patient to complete the activity. If activity was not attempted, code reason: 7-Patient Refused. 9-Not Applicable-not attempted and the patient did not perform the activity before the current illness, exacerbation or injury. 10-Not Attempted due to Environmental Limitations-(lack of equipment, weather restraints, etc.). 88-Not Attempted due to Medical Conditions or Safety Concerns. Sit to Stand (QC): 3 Chair/Eav-bm-Lxirh Xfer(QC): 3 mod assist for sit to stand and transfers, cues for hand placement and positioning Weight Bearing Full Weight Bearing Full Weight Bearing Gait Training Distance: 6'x3 Gait Assistive Device: Parallel Bars mod assist, needs assist for balance and weight shifting, assist to help advance his left foot Wheelchair Training Does the Pt Use a Wheelchair?: Yes Wheel 50 ft with 2 turns (QC): 4 Wheel 150 ft (QC): 4 Type of Wheelchair: Manual 200', 120', SBA, patient needs many rest breaks, uses right arm and foot to propel, cues for obstacles on the left side Treatments PT performed transfers, ambulation, WC mobility, standing and transfers after shower and for dressing, OT performed shower, dressing, UE positioning and safety during activity. Assessment Current Status: Poor Progress no change in mobility PT Short Term Goals Short Term Goals Time Frame: Jun 24, 2021 Roll Left & Right: 3 Sit to lyin Lying to sitting on side of be: 3 Sit to stand: 3 Chair/zuf-ji-qajfy transfer: 3 Walk 10 feet: 3 PT Retirement Goals Data Entry Email Processor Goals PT Retirement Goals Time Frame: Jul 08, 2021 Roll Left & Right (QC): 3 (Dora) Sit to Lying (QC): 3 (Dora) Lying-Sitting on Side/Bed(QC): 3 (Dora) Sit to Stand (QC): 4 (CGA) Chair/Oyb-ty-Vigpd Xfer(QC): 4 (CGA) Toilet Transfer (QC): 4 (CGA) Car Transfer (QC): 4 (CGA) Does the Patient Walk: Yes Walk 10 feet (QC): 4 (CGA) Walk 50ft with 2 Turns (QC): 88 Walk 150 ft (QC): 88 Walking 10ft on Uneven Surface: 3 (Dora) 1 Step (curb) (QC): 3 (Dora) 4 Steps (QC): 88 12 Steps (QC): 88 Picking up an Object (QC): 88 Wheel 50 feet with 2 turns (QC: 5 Wheel 150 feet: 5 PT Plan Problem List Problem List: Activity Tolerance, Functional Strength, Safety, Balance, Gait, Transfer, Bed Mobility, ROM Treatment/Plan Treatment Plan: Continue Plan of Care Treatment Plan: Bed Mobility, Education, Functional Activity Gwendolyn, Functional Strength, Group Therapy, Gait, Safety, Therapeutic Exercise, Transfers Treatment Duration: Jul 08, 2021 Frequency: At least 5 of 7 days/Wk (IRF) Estimated Hrs Per Day: 1.5 hours per day Patient and/or Family Agrees t: Yes Safety Risks/Education Patient Education: Gait Training, Transfer Techniques, Correct Positioning, W/C Management, Safety Issues Teaching Recipient: Patient Teaching Methods: Demonstration, Discussion Response to Teaching: Reinforcement Needed Time/GCodes Time In: 0900 Time Out: 1000 Total Billed Treatment Time: 60 Total Billed Treatment 1 visit FA 60' JASVIR ALVES PT Jun 28, 2021 09:54
--- NOTE | 2021-06-28 10:13 | Occupational Ther Daily Note ---
OT Current Status-Daily Note Subjective Pt. dozing in bed upon entry, easy to wake. Pt. c/o 6/10 pain in L knee nursing aware, pain meds and Voltaren gel given. Pt. agrees to therapy. Mental Status/Objective Patient Orientation: Person, Place ADL-Treatment CO-Treat with PT ([id number]) 2 clinicians required for safety and instruction. PT focusing on transfers, standing, and LE strengthening while OT focuses on UE strengthening, cognition, and ADLs. Pt. Mod A to move supine to EOB. Pt. required Mod verbal cuing to lean forward. Pt. Mod A transfer from EOB to shower chair with cut out, transported to in room shower. Pt. declined using toilet. Pt. able to doff hospital gown like shirt, off over head thread arms out. Pt. able to wash face, chest, abdomen, L underarm/arm, legs to ankles, lm area wit h wash cloth. Pt. required sponge to cleanse under R arm, back, buttocks, and feet. Pt. used wash clothe strung through LH sponge handle and dried back, R under arm, partial buttocks, and toes. Pt. able to indicate which limb should be thread into clothing items first, unable to lift and assist. Pt. able to lift R leg and thread through brief/pants. Pt. able to recall and use one handed dressing technique threading R hand through L arm hole, clasping L hand and maneuvering L limb through clothing while manipulating clothing up arm before placing head in neck hole and R arm through proper hole. Pt. transported to room in shower chair with cut out. PT assist Pt. to transfer from shower chair with cut out to w/c required two people one to stand while the other pulled brief and shorts over hips. See PT note for progress. Therapy Code Descriptions/Definitions Functional [place] Measure: 0=Not Assessed/NA 4=Minimal Assistance 1=Total Assistance 5=Supervision or Setup 2=Maximal Assistance 6=Modified [place] 3=Moderate Assistance 7=Complete IndependenceSCALE: Activities may be completed with or without assistive devices. 0-Szdbnffmnr-pxjygoq completes the activity by him/herself with no assistance from a helper. 5-Set-up or Clean-up Assistance-helper sets up or cleans up; patient completes activity. [place] assists only prior to or following the activity. 4-Supervision or Touching Assistance-helper provides verbal cues and/or touching/steadying and/or contact guard assistance as patient completes activity. Assistance may be provided throughout the activity or intermittently. 3-Partial/Moderate Assistance-helper does LESS THAN HALF the effort. [place] lifts, holds or supports trunk or limbs, but provides less than half the effort. 2-Substantial/Maximal Assistance-helper does MORE THAN HALF the effort. [place] lifts or holds trunk or limbs and provides more than half the effort. 0-Dnvdlyoje-rgdxny does ALL the effort. Patient does none of the effort to complete the activity. Or, the assistance of 2 or more helpers is required for the patient to complete the activity. If activity was not attempted, code reason: 7-Patient Refused. 9-Not Applicable-not attempted and the patient did not perform the activity before the current illness, exacerbation or injury. 10-Not Attempted due to Environmental Limitations-(lack of equipment, weather restraints, etc.). 88-Not Attempted due to Medical Conditions or Safety Concerns. Bathing Location: L Arm, R Arm, L Upper Leg, R Upper Leg, L Lower Leg (including foot), R Lower Leg (including foot), Chest, Abdomen, Buttocks, Perineal Area Shower/Bathe Self (QC): 4 (Supervision) Upper Body Dressing (QC): 2 (required verbal cues. ) Lower Body Dressing (QC): 2 On/Off Footwear: 2 Other Treatment Pt. participated in w/c mobility to therapy gym. Pt. stood in parallel bars, see PT note for progress. Pt. walked in parallel bars Pt. participated in wt. bearing through L arm while walking, see PT note for progress. Pt. participated in w/c mobility from therapy gym to room with min verbal cue to turn and which room was theres. See PT note for progress on w/c to recliner transfer. Pt in recliner call light/phone in reach. All needs met in room. OT Short Term Goals Short Term Goals Time Frame: Jun 28, 2021 Eatin Oral hygiene: 4 Toileting hygiene: 2 Shower/bathe self: 2 Upper body dressin Lower body dressin Putting on/taking off footwear: 2 OT Usp Goals Usp Goals Time Frame: Jul 08, 2021 Eating (QC): 4 Oral Hygiene (QC): 4 Toileting Hygiene (QC): 4 Shower/Bathe Self (QC): 4 Upper Body Dressing (QC): 4 Lower Body Dressing (QC): 4 On/Off Footwear (QC): 4 1=Demonstrate adherence to instructed precautions during ADL tasks. 2=Patient will verbalize/demonstrate understanding of assistive devices/modifications for ADL. 3=Patient will improve strength/tolerance for activity to enable patient to perform ADL's. OT Education/Plan Problem List/Assessment Assessment: Decreased Activ Tolerance, Decreased Safety Aware, Decreased UE Strength, Impaired Bed Mobility, Impaired Cognition, Impaired Coordination, Impaired Funct Balance, Impaired Self-Care Skills Discharge Recommendations Plan/Recommendations: Continue POC Treatment Plan/Plan of Care Patient would benefit from OT for education, treatment and training to promote independence in ADL's, mobility, safety and/or upper extremity function for ADL's. Plan of Care: ADL Retraining, Caregiver Training, Cognitive Retraining, Functional Mobility, Group Exercise/Act as Ind, UE Funct Exercise/Act, UE Neuromus Re-Ed/Coord, W/C Management Training Treatment Duration: Jul 08, 2021 Frequency: At least 5 of 7 days/Wk (IRF) Estimated Hrs Per Day: 1.5 hours per day Agreement: Yes Rehab Potential: Fair Time/GCodes Start Time: 08:30 Stop Time: 10:00 Total Time Billed (hr/min): 90 Billed Treatment Time 1 visit- ADL 3 (40 min), EX 3 (50 min) Co-Treat with PT ([id number]) Individual ([id number]) HEMA RICHARDS Jun 28, 2021 10:13
--- NOTE | 2021-06-28 13:23 | Physical Therapy Daily Note ---
PT Daily Note-Current Subjective Patient in recliner pre tx, agrees to PT, has no complaints of pain at rest. Appearance Patient in recliner post tx with nurse call, phone, tray, all needs met. Mental Status Patient Orientation: Person, Place, Situation Transfers SCALE: Activities may be completed with or without assistive devices. 1-Vaxhpwhdsw-nvpxidl completes the activity by him/herself with no assistance from a helper. 5-Set-up or Clean-up Assistance-helper sets up or cleans up; patient completes activity. [place] assists only prior to or following the activity. 4-Supervision or Touching Assistance-helper provides verbal cues and/or touching/steadying and/or contact guard assistance as patient completes activity. Assistance may be provided throughout the activity or intermittently. 3-Partial/Moderate Assistance-helper does LESS THAN HALF the effort. [place] lifts, holds or supports trunk or limbs, but provides less than half the effort. 2-Substantial/Maximal Assistance-helper does MORE THAN HALF the effort. [place] lifts or holds trunk or limbs and provides more than half the effort. 8-Vqnyrjjri-aqbqoo does ALL the effort. Patient does none of the effort to complete the activity. Or, the assistance of 2 or more helpers is required for the patient to complete the activity. If activity was not attempted, code reason: 7-Patient Refused. 9-Not Applicable-not attempted and the patient did not perform the activity before the current illness, exacerbation or injury. 10-Not Attempted due to Environmental Limitations-(lack of equipment, weather restraints, etc.). 88-Not Attempted due to Medical Conditions or Safety Concerns. Weight Bearing Full Weight Bearing Full Weight Bearing Exercises Supine Ex: Ankle pumps (PROM on left side), Quad Set, Glut sets, Heel Slides (AAROM on left side), Straight leg raise (AAROM on the left side), Hip abd/add (AAROM on the left side) Seated Therapy Exercises: Long arc quads, Hip flexion sit to stands 3 sets of 5 Treatments LE exercise Assessment Current Status: Poor Progress slightly improved strength in left leg PT Short Term Goals Short Term Goals Time Frame: Jun 24, 2021 Roll Left & Right: 3 Sit to lyin Lying to sitting on side of be: 3 Sit to stand: 3 Chair/grz-mo-bnshj transfer: 3 Walk 10 feet: 3 PT Business Resiliency Manager Goals Residential Goals PT Residential Goals Time Frame: Jul 08, 2021 Roll Left & Right (QC): 3 (Dora) Sit to Lying (QC): 3 (Dora) Lying-Sitting on Side/Bed(QC): 3 (Dora) Sit to Stand (QC): 4 (CGA) Chair/Glk-jy-Zykrn Xfer(QC): 4 (CGA) Toilet Transfer (QC): 4 (CGA) Car Transfer (QC): 4 (CGA) Does the Patient Walk: Yes Walk 10 feet (QC): 4 (CGA) Walk 50ft with 2 Turns (QC): 88 Walk 150 ft (QC): 88 Walking 10ft on Uneven Surface: 3 (Dora) 1 Step (curb) (QC): 3 (Dora) 4 Steps (QC): 88 12 Steps (QC): 88 Picking up an Object (QC): 88 Wheel 50 feet with 2 turns (QC: 5 Wheel 150 feet: 5 PT Plan Problem List Problem List: Activity Tolerance, Functional Strength, Safety, Balance, Gait, Transfer, Bed Mobility, ROM Treatment/Plan Treatment Plan: Continue Plan of Care Treatment Plan: Bed Mobility, Education, Functional Activity Gwendolyn, Functional Strength, Group Therapy, Gait, Safety, Therapeutic Exercise, Transfers Treatment Duration: Jul 08, 2021 Frequency: At least 5 of 7 days/Wk (IRF) Estimated Hrs Per Day: 1.5 hours per day Patient and/or Family Agrees t: Yes Safety Risks/Education Patient Education: Correct Positioning, Safety Issues Teaching Recipient: Patient Teaching Methods: Demonstration, Discussion Response to Teaching: Reinforcement Needed Time/GCodes Time In: 1300 Time Out: 1330 Total Billed Treatment Time: 30 Total Billed Treatment 1 visit EX 30' JASVIR ALVES PT Jun 28, 2021 13:23
[2021-06-28 14:49] VITALS: BP 133/74
[2021-06-28 20:00] VITALS: BP 133/65
[2021-06-28] MEDS: QUEtiapine 25 MG (SEROquel) TAB IMMEDIATE RELEASE PO SCH (21:29)
[2021-06-28] MEDS: TAMSULOSIN 0.4 MG (FLOMAX) CAP PO SCH (21:29)
[2021-06-28] MEDS: MONTELUKAST 10 MG (SINGULAIR) TAB PO SCH (21:29)
[2021-06-29] MEDS: VENlafaxine XR 75 MG (EFFEXOR XR) CAP PO SCH (06:47)
[2021-06-29] MEDS: hydrALAZINE (APRESOLINE) 25 MG TAB PO SCH ×3 (06:47→22:20)
--- NOTE | 2021-06-29 08:08 | Physical Therapy Daily Note ---
PT Daily Note-Current Subjective Pt presents supine in bed upon arrival to room, agreeable to PT treatment. He states he has pain in his L knee, although, does not rate on scale. Appearance Following session, pt supine in bed with call light, tray and phone within reach. All needs met at this time. Mental Status Patient Orientation: Person, Place Transfers SCALE: Activities may be completed with or without assistive devices. 1-Fmnpwduvsi-vbsjdjp completes the activity by him/herself with no assistance from a helper. 5-Set-up or Clean-up Assistance-helper sets up or cleans up; patient completes activity. [place] assists only prior to or following the activity. 4-Supervision or Touching Assistance-helper provides verbal cues and/or touching/steadying and/or contact guard assistance as patient completes activity. Assistance may be provided throughout the activity or intermittently. 3-Partial/Moderate Assistance-helper does LESS THAN HALF the effort. [place] lifts, holds or supports trunk or limbs, but provides less than half the effort. 2-Substantial/Maximal Assistance-helper does MORE THAN HALF the effort. [place] lifts or holds trunk or limbs and provides more than half the effort. 3-Drzfmkplz-tsedig does ALL the effort. Patient does none of the effort to complete the activity. Or, the assistance of 2 or more helpers is required for the patient to complete the activity. If activity was not attempted, code reason: 7-Patient Refused. 9-Not Applicable-not attempted and the patient did not perform the activity before the current illness, exacerbation or injury. 10-Not Attempted due to Environmental Limitations-(lack of equipment, weather restraints, etc.). 88-Not Attempted due to Medical Conditions or Safety Concerns. Weight Bearing Full Weight Bearing Full Weight Bearing Exercises Supine Ex: Bridging, Ankle pumps, Quad Set, Glut sets, Heel Slides, Straight leg raise, Hip abd/add Supine Reps: 20 Treatments Bed exercises completed for LE strengthening. PROM/AAROM completed on LLE. Able to initiate minimal movement of knee extension on L. Assessment Current Status: Fair Progress Pt able to initiate small movement of knee extension on LLE, no visible or palpable muscle contraction of L ankle. PT Short Term Goals Short Term Goals Time Frame: Jun 24, 2021 Roll Left & Right: 3 Sit to lyin Lying to sitting on side of be: 3 Sit to stand: 3 Chair/oom-gt-ynkme transfer: 3 Walk 10 feet: 3 PT Half-Way Goals Touring Production Manager Goals PT Half-Way Goals Time Frame: Jul 08, 2021 Roll Left & Right (QC): 3 (Dora) Sit to Lying (QC): 3 (Dora) Lying-Sitting on Side/Bed(QC): 3 (Dora) Sit to Stand (QC): 4 (CGA) Chair/Eof-jo-Edkka Xfer(QC): 4 (CGA) Toilet Transfer (QC): 4 (CGA) Car Transfer (QC): 4 (CGA) Does the Patient Walk: Yes Walk 10 feet (QC): 4 (CGA) Walk 50ft with 2 Turns (QC): 88 Walk 150 ft (QC): 88 Walking 10ft on Uneven Surface: 3 (Dora) 1 Step (curb) (QC): 3 (Dora) 4 Steps (QC): 88 12 Steps (QC): 88 Picking up an Object (QC): 88 Wheel 50 feet with 2 turns (QC: 5 Wheel 150 feet: 5 PT Plan Problem List Problem List: Activity Tolerance, Functional Strength, Safety, Balance, Gait, Transfer, Bed Mobility, ROM Treatment/Plan Treatment Plan: Continue Plan of Care Treatment Plan: Bed Mobility, Education, Functional Activity Gwendolyn, Functional Strength, Group Therapy, Gait, Safety, Therapeutic Exercise, Transfers Treatment Duration: Jul 08, 2021 Frequency: At least 5 of 7 days/Wk (IRF) Estimated Hrs Per Day: 1.5 hours per day Patient and/or Family Agrees t: Yes Time/GCodes Time In: 750 Time Out: 803 Total Billed Treatment Time: 13 Total Billed Treatment 1 visit EX (13') LEIF ALFREDO PT Jun 29, 2021 08:08
--- NOTE | 2021-06-29 08:09 | PM&R Progress Note ---
Subjective HPI/CC On Admission Date Seen by Provider: Jun 29, 2021 Time Seen by Provider: 12:00 Subjective/Events-last exam 06/29/2021: No major issues Continues to participate in therapy Awaiting placement 06/28/2021: Patient doing pretty well Awaiting placement Bowels are moving well Denies any pain Told me about his dementia diagnosis 20 years ago 06/27/2021: Patient doing really well Bowels are moving Taking a nap currently Denies any issues 06/26/2021: Patient doing really well Eliquis and Plavix maintain Losartan started for blood pressure elevation Discontinue nystatin Singulair and Claritin will be started for congestion 06/25/2021: Patient doing pretty well Lisinopril will be changed to losartan due to reportedly cough Bowels moved today 06/24/2021: Patient participating in therapy No bowels movement for the last couple of days will give laxatives Check meds and labs 06/23/2021: Patient in a good mood No significant concerns Check meds and labs Blood sugar is good 06/22/2021: Patient doing well Knee still hurts but that is chronic Changing sliding scale to twice daily Accu-Cheks 06/21/2021: Patient doing really well Having some incontinence No pain is reported Progressing with therapy 06/20/2021: Patient progressing nicely Blood sugar 128 Bowels moved yesterday Discontinue the Hep-Lock 06/19/2021: Pt doing really well Left-sided weakness is a challenge Bowels moved twice today Magic mouthwash will be initiated because he keeps on biting the inside of his cheek Knee pain is chronic Voltaren gel will be added 06/18/2021: Pt doing really well Eating very well Sugars are okay Incontinent Bowels are moving No pain Obtaining good relief with left knee injection Review of Systems General: Fatigue, Malaise Neurological: Weakness Objective Exam Vital Signs Vital Signs Date Time Temp Pulse Resp B/P (MAP) Pulse Ox O2 Delivery O2 Flow Rate FiO2 06/29/21 20:22 36.0 88 20 134/63 (86) 95 Room Air Capillary Refill : General Appearance: No Apparent Distress, WD/WN, Chronically ill, Obese HEENT: PERRL/EOMI, Normal ENT Inspection, Pharynx Normal Neck: Full Range of Motion, Normal Inspection, Non Tender, Supple, Carotid Bruit Respiratory: Chest Non Tender, Lungs Clear, Normal Breath Sounds, No Accessory Muscle Use, No Respiratory Distress Cardiovascular: Regular Rate, Rhythm, No Edema, No Gallop, No JVD, No Murmur, Normal Peripheral Pulses Gastrointestinal: Normal Bowel Sounds, No Organomegaly, No Pulsatile Mass, Non Tender, Soft Back: Normal Inspection, No CVA Tenderness, No Vertebral Tenderness Extremity: Normal Capillary Refill, Normal Inspection, Normal Range of Motion, Non Tender, No Calf Tenderness, No Pedal Edema Neurologic/Psychiatric: Alert, Oriented x3, outpatient admitting clerk II-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 FIM Transfers Therapy Code Descriptions/Definitions Functional [place] Measure: 0=Not Assessed/NA 4=Minimal Assistance 1=Total Assistance 5=Supervision or Setup 2=Maximal Assistance 6=Modified [place] 3=Moderate Assistance 7=Complete IndependenceSCALE: Activities may be completed with or without assistive devices. 5-Xhwhwezopc-mhtdbzr completes the activity by him/herself with no assistance f rom a helper. 5-Set-up or Clean-up Assistance-helper sets up or cleans up; patient completes activity. [place] assists only prior to or following the activity. 4-Supervision or Touching Assistance-helper provides verbal cues and/or touching/steadying and/or contact guard assistance as patient completes activity. Assistance may be provided throughout the activity or intermittently. 3-Partial/Moderate Assistance-helper does LESS THAN HALF the effort. [place] lifts, holds or supports trunk or limbs, but provides less than half the effort. 2-Substantial/Maximal Assistance-helper does MORE THAN HALF the effort. [place] lifts or holds trunk or limbs and provides more than half the effort. 0-Ueyzfodvm-aekfae does ALL the effort. Patient does none of the effort to complete the activity. Or, the assistance of 2 or more helpers is required for the patient to complete the activity. If activity was not attempted, code reason: 7-Patient Refused. 9-Not Applicable-not attempted and the patient did not perform the activity before the current illness, exacerbation or injury. 10-Not Attempted due to Environmental Limitations-(lack of equipment, weather restraints, etc.). 88-Not Attempted due to Medical Conditions or Safety Concerns. Roll Left to Right (QC): 2 Sit to Lying (QC): 3 Sit to Stand (QC): 3 Chair/Kdf-ti-Szzqt Xfer(QC): 3 Car Transfer (QC): 88 Gait Training Does the Patient Walk?: Yes Distance: 6'x3 Walk 10 feet (QC): 88 Walk 50 ft with 2 Turns(QC): 88 Walk 150 ft (QC): 88 Walking 10ft/uneven surface-QC: 88 Gait Persons Needed: 1 Gait Assistive Device: Parallel Bars Wheelchair Training Does the Pt Use a Wheelchair?: Yes Distance: 50' Wheel 50 ft with 2 turns (QC): 4 Wheel 150 ft (QC): 4 Type of Wheelchair: Manual Stair Training 1 Step (curb) (QC): 88 4 Steps (QC): 88 12 Steps (QC): 88 Balance Picking up an Object (QC): 88 ADL-Treatment Eating (QC): 5 Oral Hygiene (QC): 6 Bathing Location: L Arm, R Arm, L Upper Leg, R Upper Leg, L Lower Leg (including foot), R Lower Leg (including foot), Chest, Abdomen, Buttocks, Perineal Area Shower/Bathe Self (QC): 4 (Supervision) Upper Body Dressing (QC): 2 (required verbal cues. ) Lower Body Dressing (QC): 2 On/Off Footwear (QC): 2 Toileting Hygiene (QC): 1 (Mod A x2) Toilet Transfer (QC): 1 Assessment/Plan Assessment and Plan Assess & Plan/Chief Complaint Assessment: CVA with left-sided weakness Diabetes Hypertension Hyperlipidemia Dementia Left knee pain chronic status post steroid injection per Dr. Cummings Plan: Aggressive therapy Supportive care Statin Cardiology 06/18/2021: Much improved status Fall risk 06/19/2021: Continue treatment Aggressive therapy 06/20/2021: Supportive care Aggressive therapy 06/21/2021: Monitor closely Fall risk 06/22/2021: Pain control Monitor closely 06/23/2021: Check meds Labs due tomorrow 06/24/2021: Supportive care Monitor closely 06/25/2021: Change lisinopril to losartan per Dr. Donaldson Continue aggressive therapy 06/26/2021: Supportive care Look for skilled care Medicaid application started Claritin and Singulair for congestion 06/27/2021: Supportive care 06/28/2021: Supportive care Aggressive therapy Awaiting placement 06/29/2021: Continue treatment (1) Cerebrovascular accident due to cerebral artery occlusion Status: Acute (2) T2DM (type 2 diabetes mellitus) Status: Chronic (3) HLD (hyperlipidemia) Status: Chronic (4) Obesity Status: Chronic (5) Debility Status: Acute (6) Dementia Status: Chronic (7) Right pontine stroke Status: Acute (8) HTN (hypertension) Status: Acute CIRO CABRERA DO Jun 29, 2021 08:09
[2021-06-29 08:38] VITALS: BP 140/67
[2021-06-29] MEDS: metFORMIN 500 MG (GLUCOPHAGE) TAB PO SCH ×2 (09:23→17:19)
[2021-06-29] MEDS: DOCUSATE SODIUM 100 MG (COLACE) CAP PO SCH ×2 (09:23→19:55)
[2021-06-29] MEDS: SENNA W/DOCUSATE (SENOKOT S) TABLET PO SCH ×4 (09:23→19:56)
[2021-06-29] MEDS: ASPIRIN E.C. 81 MG (ECOTRIN) TAB PO SCH (09:23)
[2021-06-29] MEDS: PANTOPRAZOLE 40 MG (PROTONIX) TAB PO SCH (09:24)
[2021-06-29] MEDS: ENOXAPARIN 40 MG/0.4 ML (LOVENOX) SYR SC SCH (09:24)
[2021-06-29] MEDS: LORATADINE (CLARITIN) 10 MG TAB PO SCH (09:24)
[2021-06-29] MEDS: DICLOFENAC 1% GEL 100 GM (VOLTAREN) TUBE TOP SCH ×4 (09:24→22:21)
[2021-06-29] MEDS: amLODIPine 10 MG (NORVASC) TAB PO SCH (09:24)
[2021-06-29] MEDS: polyethylene glycoL POWDER 17 GM (MIRALAX) PACK PO SCH ×2 (09:24→19:56)
[2021-06-29] MEDS: LOSARTAN 100 MG (COZAAR) TABLET PO SCH (09:24)
[2021-06-29 13:54] VITALS: BP 122/62
[2021-06-29 20:22] VITALS: BP 134/63
[2021-06-29] MEDS: QUEtiapine 25 MG (SEROquel) TAB IMMEDIATE RELEASE PO SCH (22:20)
[2021-06-29] MEDS: TAMSULOSIN 0.4 MG (FLOMAX) CAP PO SCH (22:20)
[2021-06-29] MEDS: MONTELUKAST 10 MG (SINGULAIR) TAB PO SCH (22:20)
[2021-06-30] MEDS: hydrALAZINE (APRESOLINE) 25 MG TAB PO SCH ×3 (06:49→21:07)
[2021-06-30] MEDS: VENlafaxine XR 75 MG (EFFEXOR XR) CAP PO SCH (06:49)
[2021-06-30 07:59] VITALS: BP 147/57
[2021-06-30] MEDS: ASPIRIN E.C. 81 MG (ECOTRIN) TAB PO SCH (08:08)
[2021-06-30] MEDS: DOCUSATE SODIUM 100 MG (COLACE) CAP PO SCH ×2 (08:08→19:43)
[2021-06-30] MEDS: PANTOPRAZOLE 40 MG (PROTONIX) TAB PO SCH (08:08)
[2021-06-30] MEDS: amLODIPine 10 MG (NORVASC) TAB PO SCH (08:08)
[2021-06-30] MEDS: LORATADINE (CLARITIN) 10 MG TAB PO SCH (08:08)
[2021-06-30] MEDS: metFORMIN 500 MG (GLUCOPHAGE) TAB PO SCH ×2 (08:08→17:00)
[2021-06-30] MEDS: SENNA W/DOCUSATE (SENOKOT S) TABLET PO SCH ×4 (08:08→19:45)
[2021-06-30] MEDS: LOSARTAN 100 MG (COZAAR) TABLET PO SCH (08:08)
[2021-06-30] MEDS: polyethylene glycoL POWDER 17 GM (MIRALAX) PACK PO SCH ×2 (08:08→19:45)
--- NOTE | 2021-06-30 08:08 | PM&R Progress Note ---
Subjective HPI/CC On Admission Date Seen by Provider: Jun 30, 2021 Time Seen by Provider: 12:00 Subjective/Events-last exam 06/30/2021: No major issues Bowels moved 2 times yesterday Picked up his left leg yesterday 06/29/2021: No major issues Continues to participate in therapy Awaiting placement 06/28/2021: Patient doing pretty well Awaiting placement Bowels are moving well Denies any pain Told me about his dementia diagnosis 20 years ago 06/27/2021: Patient doing really well Bowels are moving Taking a nap currently Denies any issues 06/26/2021: Patient doing really well Eliquis and Plavix maintain Losartan started for blood pressure elevation Discontinue nystatin Singulair and Claritin will be started for congestion 06/25/2021: Patient doing pretty well Lisinopril will be changed to losartan due to reportedly cough Bowels moved today 06/24/2021: Patient participating in therapy No bowels movement for the last couple of days will give laxatives Check meds and labs 06/23/2021: Patient in a good mood No significant concerns Check meds and labs Blood sugar is good 06/22/2021: Patient doing well Knee still hurts but that is chronic Changing sliding scale to twice daily Accu-Cheks 06/21/2021: Patient doing really well Having some incontinence No pain is reported Progressing with therapy 06/20/2021: Patient progressing nicely Blood sugar 128 Bowels moved yesterday Discontinue the Hep-Lock 06/19/2021: Pt doing really well Left-sided weakness is a challenge Bowels moved twice today Magic mouthwash will be initiated because he keeps on biting the inside of his cheek Knee pain is chronic Voltaren gel will be added 06/18/2021: Pt doing really well Eating very well Sugars are okay Incontinent Bowels are moving No pain Obtaining good relief with left knee injection Review of Systems General: Fatigue, Malaise Neurological: Weakness Objective Exam Vital Signs Vital Signs Date Time Temp Pulse Resp B/P (MAP) Pulse Ox O2 Delivery O2 Flow Rate FiO2 06/30/21 20:35 95 Room Air 06/30/21 20:00 36.4 88 20 133/73 (93) Capillary Refill : General Appearance: No Apparent Distress, WD/WN, Chronically ill, Obese HEENT: PERRL/EOMI, Normal ENT Inspection, Pharynx Normal Neck: Full Range of Motion, Normal Inspection, Non Tender, Supple, Carotid Bruit Respiratory: Chest Non Tender, Lungs Clear, Normal Breath Sounds, No Accessory Muscle Use, No Respiratory Distress Cardiovascular: Regular Rate, Rhythm, No Edema, No Gallop, No JVD, No Murmur, Normal Peripheral Pulses Gastrointestinal: Normal Bowel Sounds, No Organomegaly, No Pulsatile Mass, Non Tender, Soft Back: Normal Inspection, No CVA Tenderness, No Vertebral Tenderness Extremity: Normal Capillary Refill, Normal Inspection, Normal Range of Motion, Non Tender, No Calf Tenderness, No Pedal Edema Neurologic/Psychiatric: Alert, Oriented x3, autobody technician II-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 FIM Transfers Therapy Code Descriptions/Definitions Functional [place] Measure: 0=Not Assessed/NA 4=Minimal Assistance 1=Total Assistance 5=Supervision or Setup 2=Maximal Assistance 6=Modified [place] 3=Moderate Assistance 7=Complete IndependenceSCALE: Activities may be completed with or without assistive devices. 0-Ofcxhilmix-mnedhjj completes the activity by him/herself with no assistance from a helper. 5-Set-up or Clean-up Assistance-helper sets up or cleans up; patient completes activity. [place] assists only prior to or following the activity. 4-Supervision or Touching Assistance-helper provides verbal cues and/or touching/steadying and/or contact guard assistance as patient completes activity. Assistance may be provided throughout the activity or intermittently. 3-Partial/Moderate Assistance-helper does LESS THAN HALF the effort. [place] lifts, holds or supports trunk or limbs, but provides less than half the effort. 2-Substantial/Maximal Assistance-helper does MORE THAN HALF the effort. [place] lifts or holds trunk or limbs and provides more than half the effort. 5-Vcobxgulg-rucoil does ALL the effort. Patient does none of the effort to co mplete the activity. Or, the assistance of 2 or more helpers is required for the patient to complete the activity. If activity was not attempted, code reason: 7-Patient Refused. 9-Not Applicable-not attempted and the patient did not perform the activity before the current illness, exacerbation or injury. 10-Not Attempted due to Environmental Limitations-(lack of equipment, weather restraints, etc.). 88-Not Attempted due to Medical Conditions or Safety Concerns. Roll Left to Right (QC): 2 Sit to Lying (QC): 3 Sit to Stand (QC): 3 Chair/Iao-zo-Yovbd Xfer(QC): 3 Car Transfer (QC): 88 Gait Training Does the Patient Walk?: Yes Distance: 6'x3 Walk 10 feet (QC): 88 Walk 50 ft with 2 Turns(QC): 88 Walk 150 ft (QC): 88 Walking 10ft/uneven surface-QC: 88 Gait Persons Needed: 1 Gait Assistive Device: Parallel Bars Wheelchair Training Does the Pt Use a Wheelchair?: Yes Distance: 50' Wheel 50 ft with 2 turns (QC): 4 Wheel 150 ft (QC): 4 Type of Wheelchair: Manual Stair Training 1 Step (curb) (QC): 88 4 Steps (QC): 88 12 Steps (QC): 88 Balance Picking up an Object (QC): 88 ADL-Treatment Eating (QC): 5 Oral Hygiene (QC): 6 Bathing Location: L Arm, R Arm, L Upper Leg, R Upper Leg, L Lower Leg (including foot), R Lower Leg (including foot), Chest, Abdomen, Buttocks, Perineal Area Shower/Bathe Self (QC): 4 (Supervision) Upper Body Dressing (QC): 2 (required verbal cues. ) Lower Body Dressing (QC): 2 On/Off Footwear (QC): 2 Toileting Hygiene (QC): 1 (Mod A x2) Toilet Transfer (QC): 1 Assessment/Plan Assessment and Plan Assess & Plan/Chief Complaint Assessment: CVA with left-sided weakness Diabetes Hypertension Hyperlipidemia Dementia Left knee pain chronic status post steroid injection per Dr. Cummings Plan: Aggressive therapy Supportive care Statin Cardiology 06/18/2021: Much improved status Fall risk 06/19/2021: Continue treatment Aggressive therapy 06/20/2021: Supportive care Aggressive therapy 06/21/2021: Monitor closely Fall risk 06/22/2021: Pain control Monitor closely 06/23/2021: Check meds Labs due tomorrow 06/24/2021: Supportive care Monitor closely 06/25/2021: Change lisinopril to losartan per Dr. Donaldson Continue aggressive therapy 06/26/2021: Supportive care Look for skilled care Medicaid application started Claritin and Singulair for congestion 06/27/2021: Supportive care 06/28/2021: Supportive care Aggressive therapy Awaiting placement 06/29/2021: Continue treatment 06/30/21: Monitor closely Aggressive therapy (1) Cerebrovascular accident due to cerebral artery occlusion Status: Acute (2) T2DM (type 2 diabetes mellitus) Status: Chronic (3) HLD (hyperlipidemia) Status: Chronic (4) Obesity Status: Chronic (5) Debility Status: Acute (6) Dementia Status: Chronic (7) Right pontine stroke Status: Acute (8) HTN (hypertension) Status: Acute CIRO CABRERA DO Jun 30, 2021 08:08
[2021-06-30] MEDS: ENOXAPARIN 40 MG/0.4 ML (LOVENOX) SYR SC SCH (08:09)
[2021-06-30] MEDS: DICLOFENAC 1% GEL 100 GM (VOLTAREN) TUBE TOP SCH ×4 (08:10→21:10)
[2021-06-30 13:20] VITALS: BP 151/70
[2021-06-30 20:00] VITALS: BP 133/73
[2021-06-30] MEDS: RT--FLUTICASONE/SALMETEROL 113-14 (AIRDUO RespiCLICK) IH SCH (20:34)
[2021-06-30] MEDS ORDERED: ADVAIR HFA 115/21 MCG INHALER 8 GM IH SCH (21:00)
[2021-06-30] MEDS: QUEtiapine 25 MG (SEROquel) TAB IMMEDIATE RELEASE PO SCH (21:07)
[2021-06-30] MEDS: MONTELUKAST 10 MG (SINGULAIR) TAB PO SCH (21:07)
[2021-06-30] MEDS: TAMSULOSIN 0.4 MG (FLOMAX) CAP PO SCH (21:07)
[2021-07-01 06:04] LABS: BASOPHILS % (AUTO) 0 % (0-10); EOSINOPHILS # (AUTO) 0.4 10^3/uL (0.0-0.3); EOSINOPHILS % (AUTO) 4 % (0-10); HEMATOCRIT 40 % (40-54); HEMOGLOBIN 13.3 g/dL (13.3-17.7); LYMPHOCYTES # (AUTO) 1.5 10^3/uL (1.0-4.0); LYMPHOCYTES % (AUTO) 18 % (12-44); MEAN CORPUSCULAR HEMOGLOBIN 32 pg (25-34); MEAN CORPUSCULAR HGB CONC 34 g/dL (32-36); MEAN CORPUSCULAR VOLUME 94 fL (80-99); MEAN PLATELET VOLUME 10.6 fL (9.0-12.2); MONOCYTES # (AUTO) 0.6 10^3/uL (0.0-1.0); MONOCYTES % (AUTO) 7 % (0-12); NEUTROPHILS % (AUTO) 70 % (42-75); PLATELET COUNT 258 10^3/uL (130-400); WHITE BLOOD COUNT 8.5 10^3/uL (4.3-11.0)
[2021-07-01] MEDS: hydrALAZINE (APRESOLINE) 25 MG TAB PO SCH ×3 (06:12→21:39)
[2021-07-01] MEDS: VENlafaxine XR 75 MG (EFFEXOR XR) CAP PO SCH (06:13)
[2021-07-01 06:22] LABS: ALBUMIN 3.4 GM/DL (3.2-4.5); POTASSIUM 3.7 MMOL/L (3.6-5.0)
[2021-07-01 06:24] LABS: TOTAL PROTEIN 5.9 GM/DL (6.4-8.2)
[2021-07-01 06:26] LABS: BILIRUBIN,TOTAL 0.7 MG/DL (0.1-1.0)
[2021-07-01 06:28] LABS: CREATININE SERUM 0.8 MG/DL (0.60-1.30)
[2021-07-01] MEDS: RT--FLUTICASONE/SALMETEROL 113-14 (AIRDUO RespiCLICK) IH SCH ×2 (07:05→19:13)
[2021-07-01 08:00] VITALS: BP 149/70
[2021-07-01] MEDS: LORATADINE (CLARITIN) 10 MG TAB PO SCH (08:18)
[2021-07-01] MEDS: ASPIRIN E.C. 81 MG (ECOTRIN) TAB PO SCH (08:19)
[2021-07-01] MEDS: SENNA W/DOCUSATE (SENOKOT S) TABLET PO SCH ×4 (08:19→21:04)
[2021-07-01] MEDS: PANTOPRAZOLE 40 MG (PROTONIX) TAB PO SCH (08:19)
[2021-07-01] MEDS: LOSARTAN 100 MG (COZAAR) TABLET PO SCH (08:19)
[2021-07-01] MEDS: DOCUSATE SODIUM 100 MG (COLACE) CAP PO SCH ×2 (08:19→21:04)
[2021-07-01] MEDS: metFORMIN 500 MG (GLUCOPHAGE) TAB PO SCH ×2 (08:20→18:17)
[2021-07-01] MEDS: amLODIPine 10 MG (NORVASC) TAB PO SCH (08:21)
[2021-07-01] MEDS: ENOXAPARIN 40 MG/0.4 ML (LOVENOX) SYR SC SCH (08:21)
[2021-07-01] MEDS: polyethylene glycoL POWDER 17 GM (MIRALAX) PACK PO SCH ×2 (08:22→21:04)
[2021-07-01] MEDS: DICLOFENAC 1% GEL 100 GM (VOLTAREN) TUBE TOP SCH ×4 (08:24→21:40)
--- NOTE | 2021-07-01 08:49 | Cardiology Progress Note ---
Subjective Date Seen by Provider: Jul 01, 2021 Time Seen by Provider: 08:15 Subjective/Events-last exam Patient is sitting up in bed, continues to c/o left sided weakness. Denies any chest pain Review of Systems General: No Chills, No Night Sweats; Fatigue, Malaise; No Appetite, No Other HEENT: No Head Aches, No Visual Changes, No Eye Pain, No Ear Pain, No Dysphasia, No Sinus Congestion, No Post Nasal Drip, No Sore Throat, No Other Pulmonary: No Dyspnea, No Cough, No Pleuritic Chest Pain, No Other Cardiovascular: No: Chest Pain, Palpitations, Orthopnea, Paroxysmal Noc. Dyspnea, Edema, Lt Headedness, Other Objective-Cardiology Exam Last Set of Vital Signs Vital Signs 07/01/21 07/01/21 08:00 09:00 Temp 36.4 Pulse 78 Resp 16 B/P (MAP) 149/70 (96) Pulse Ox 92 O2 Delivery Room Air General: Alert, Oriented X3, Cooperative HEENT: Atraumatic, PERRLA Neck: Supple, No JVD Lungs: Clear to Auscultation, Normal Air Movement Heart: Regular Rate, Normal S1, Normal S2, No Murmurs Abdomen: Soft, No Tenderness Extremities: No Clubbing, No Edema Skin: No Rashes, No Significant Lesion Neuro: Normal Speech, Other Psych/Mental Status: Mental Status NL, Mood NL Results Lab Laboratory Tests 07/01/21 05:33 A/P-Cardiology Admission Diagnosis CVA HTN Dementia Assessment/Plan 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 MRI of the head reported acute/subacute pontine stroke. 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 Elevated D-dimer, venous Doppler was negative. Maintained on Lovenox. Continue to monitor Vascular dementia, had generalized weakness in the past. History of diverticulosis, BPH. Status post COVID-19 vaccination done on June 10, 2021 triggered generalized weakness, Patient was found on the floor by his neighbor Patient was seen and evaluated with Fern, examination performed, management plan was discussed, agree with the current scribed note, I made few changes to the note using Italic font. Patient is doing well. No new complaint Continue on current treatment and monitor Supervisory-Addendum Brief Supervisory Addendum Participated in pt care: history, MDM, physical Personally performed: exam, history, MDM Care discussed with: PA Results interpretation: Verified all documentation FERN MILLER Jul 01, 2021 08:49 MICHELLE HOUGH MD Jul 01, 2021 13:16
--- NOTE | 2021-07-01 09:00 | PM&R Progress Note ---
Subjective HPI/CC On Admission Date Seen by Provider: Jul 01, 2021 Time Seen by Provider: 09:00 Subjective/Events-last exam 07/01/2021: Pt doing well CXR pending Labs okay Lifted his left leg and moved his left fingers Bowels are moving 06/30/2021: No major issues Bowels moved 2 times yesterday Picked up his left leg yesterday 06/29/2021: No major issues Continues to participate in therapy Awaiting placement 06/28/2021: Patient doing pretty well Awaiting placement Bowels are moving well Denies any pain Told me about his dementia diagnosis 20 years ago 06/27/2021: Patient doing really well Bowels are moving Taking a nap currently Denies any issues 06/26/2021: Patient doing really well Eliquis and Plavix maintain Losartan started for blood pressure elevation Discontinue nystatin Singulair and Claritin will be started for congestion 06/25/2021: Patient doing pretty well Lisinopril will be changed to losartan due to reportedly cough Bowels moved today 06/24/2021: Patient participating in therapy No bowels movement for the last couple of days will give laxatives Check meds and labs 06/23/2021: Patient in a good mood No significant concerns Check meds and labs Blood sugar is good 06/22/2021: Patient doing well Knee still hurts but that is chronic Changing sliding scale to twice daily Accu-Cheks 06/21/2021: Patient doing really well Having some incontinence No pain is reported Progressing with therapy 06/20/2021: Patient progressing nicely Blood sugar 128 Bowels moved yesterday Discontinue the Hep-Lock 06/19/2021: Pt doing really well Left-sided weakness is a challenge Bowels moved twice today Magic mouthwash will be initiated because he keeps on biting the inside of his cheek Knee pain is chronic Voltaren gel will be added 06/18/2021: Pt doing really well Eating very well Sugars are okay Incontinent Bowels are moving No pain Obtaining good relief with left knee injection Review of Systems General: Fatigue, Malaise Objective Exam Vital Signs Vital Signs Date Time Temp Pulse Resp B/P (MAP) Pulse Ox O2 Delivery O2 Flow Rate FiO2 07/01/21 20:00 94 Room Air 07/01/21 20:00 36.6 79 20 145/79 (101) Capillary Refill : General Appearance: No Apparent Distress, WD/WN, Chronically ill, Obese HEENT: PERRL/EOMI, Normal ENT Inspection, Pharynx Normal Neck: Full Range of Motion, Normal Inspection, Non Tender, Supple, Carotid Bruit Respiratory: Chest Non Tender, Lungs Clear, Normal Breath Sounds, No Accessory Muscle Use, No Respiratory Distress Cardiovascular: Regular Rate, Rhythm, No Edema, No Gallop, No JVD, No Murmur, Normal Peripheral Pulses Gastrointestinal: Normal Bowel Sounds, No Organomegaly, No Pulsatile Mass, Non Tender, Soft Back: Normal Inspection, No CVA Tenderness, No Vertebral Tenderness Extremity: Normal Capillary Refill, Normal Inspection, Normal Range of Motion, Non Tender, No Calf Tenderness, No Pedal Edema Neurologic/Psychiatric: Alert, Oriented x3, wrapper selector II-XII Norm as Tested, Abnormal Gait, Depressed Affect, Facial Droop (Left), Motor Weakness (Left-sided weakness 2/5) Skin: Normal Color, Warm/Dry Lymphatic: No Adenopathy Results/Procedures Lab Laboratory Tests 07/01/21 05:33 Patient resulted labs reviewed. FIM Transfers Therapy Code Descriptions/Definitions Functional [place] Measure: 0=Not Assessed/NA 4=Minimal Assistance 1=Total Assistance 5=Supervision or Setup 2=Maximal Assistance 6=Modified [place] 3=Moderate Assistance 7=Complete IndependenceSCALE: Activities may be completed with or without assistive devices. 1-Zdvajfxhoo-pzvikuw completes the activity by him/herself with no assistance from a helper. 5-Set-up or Clean-up Assistance-helper sets up or cleans up; patient completes activity. [place] assists only prior to or following the activity. 4-Supervision or Touching Assistance-helper provides verbal cues and/or touching/steadying and/or contact guard assistance as patient completes ac tivity. Assistance may be provided throughout the activity or intermittently. 3-Partial/Moderate Assistance-helper does LESS THAN HALF the effort. [place] lifts, holds or supports trunk or limbs, but provides less than half the effort. 2-Substantial/Maximal Assistance-helper does MORE THAN HALF the effort. [place] lifts or holds trunk or limbs and provides more than half the effort. 4-Mekcbalxs-bkmhut does ALL the effort. Patient does none of the effort to complete the activity. Or, the assistance of 2 or more helpers is required for the patient to complete the activity. If activity was not attempted, code reason: 7-Patient Refused. 9-Not Applicable-not attempted and the patient did not perform the activity before the current illness, exacerbation or injury. 10-Not Attempted due to Environmental Limitations-(lack of equipment, weather restraints, etc.). 88-Not Attempted due to Medical Conditions or Safety Concerns. Roll Left to Right (QC): 2 Sit to Lying (QC): 3 Sit to Stand (QC): 3 Chair/Due-og-Ljcpe Xfer(QC): 3 Car Transfer (QC): 88 Gait Training Does the Patient Walk?: Yes Distance: 6'x3 Walk 10 feet (QC): 88 Walk 50 ft with 2 Turns(QC): 88 Walk 150 ft (QC): 88 Walking 10ft/uneven surface-QC: 88 Gait Persons Needed: 1 Gait Assistive Device: Parallel Bars Wheelchair Training Does the Pt Use a Wheelchair?: Yes Distance: 50' Wheel 50 ft with 2 turns (QC): 4 Wheel 150 ft (QC): 4 Type of Wheelchair: Manual Stair Training 1 Step (curb) (QC): 88 4 Steps (QC): 88 12 Steps (QC): 88 Balance Picking up an Object (QC): 88 ADL-Treatment Eating (QC): 5 Oral Hygiene (QC): 6 Bathing Location: L Arm, R Arm, L Upper Leg, R Upper Leg, L Lower Leg (including foot), R Lower Leg (including foot), Chest, Abdomen, Buttocks, Perineal Area Shower/Bathe Self (QC): 4 (Supervision) Upper Body Dressing (QC): 2 (required verbal cues. ) Lower Body Dressing (QC): 2 On/Off Footwear (QC): 2 Toileting Hygiene (QC): 1 (Mod A x2) Toilet Transfer (QC): 1 Assessment/Plan Assessment and Plan Assess & Plan/Chief Complaint Assessment: CVA with left-sided weakness Diabetes Hypertension Hyperlipidemia Dementia Left knee pain chronic status post steroid injection per Dr. Cummings Plan: Aggressive therapy Supportive care Statin Cardiology 06/18/2021: Much improved status Fall risk 06/19/2021: Continue treatment Aggressive therapy 06/20/2021: Supportive care Aggressive therapy 06/21/2021: Monitor closely Fall risk 06/22/2021: Pain control Monitor closely 06/23/2021: Check meds Labs due tomorrow 06/24/2021: Supportive care Monitor closely 06/25/2021: Change lisinopril to losartan per Dr. Donaldson Continue aggressive therapy 06/26/2021: Supportive care Look for skilled care Medicaid application started Claritin and Singulair for congestion 06/27/2021: Supportive care 06/28/2021: Supportive care Aggressive therapy Awaiting placement 06/29/2021: Continue treatment 06/30/21: Monitor closely Aggressive therapy 07/01/2021: Awaiting placement Await chest x-ray results (1) Cerebrovascular accident due to cerebral artery occlusion Status: Acute (2) T2DM (type 2 diabetes mellitus) Status: Chronic (3) HLD (hyperlipidemia) Status: Chronic (4) Obesity Status: Chronic (5) Debility Status: Acute (6) Dementia Status: Chronic (7) Right pontine stroke Status: Acute (8) HTN (hypertension) Status: Acute CIRO CABRERA DO Jul 01, 2021 09:00
--- NOTE | 2021-07-01 09:58 | Physical Therapy Daily Note ---
PT Daily Note-Current Subjective Patient in shower pre tx, already working with OT, agrees to PT, has unrated pain in left knee. Will be co-treating with OT due to poor patient mobility, strength, endurance, left hemiparesis, coordinate UE and LE during activity, safety and screed person risk of falls. Appearance Patient in recliner post tx with nurse call, phone, tray, all needs met. Mental Status Patient Orientation: Person, Place, Situation Transfers SCALE: Activities may be completed with or without assistive devices. 0-Pxmdlrbjgz-ksxyuob completes the activity by him/herself with no assistance from a helper. 5-Set-up or Clean-up Assistance-helper sets up or cleans up; patient completes activity. [place] assists only prior to or following the activity. 4-Supervision or Touching Assistance-helper provides verbal cues and/or touching/steadying and/or contact guard assistance as patient completes activity. Assistance may be provided throughout the activity or intermittently. 3-Partial/Moderate Assistance-helper does LESS THAN HALF the effort. [place] lifts, holds or supports trunk or limbs, but provides less than half the effort. 2-Substantial/Maximal Assistance-helper does MORE THAN HALF the effort. [place] lifts or holds trunk or limbs and provides more than half the effort. 6-Lymobfdbf-itujfq does ALL the effort. Patient does none of the effort to complete the activity. Or, the assistance of 2 or more helpers is required for the patient to complete the activity. If activity was not attempted, code reason: 7-Patient Refused. 9-Not Applicable-not attempted and the patient did not perform the activity before the current illness, exacerbation or injury. 10-Not Attempted due to Environmental Limitations-(lack of equipment, weather restraints, etc.). 88-Not Attempted due to Medical Conditions or Safety Concerns. Sit to Stand (QC): 3 Chair/Bdz-ks-Twsqj Xfer(QC): 3 Patient has to stand once from shower chair to complete dressing and then transfers to . Patient performs stand pivot to the left side with mod assist and to the right with min assist. Weight Bearing Full Weight Bearing Full Weight Bearing Gait Training Distance: 10' Walk 10 feet (QC): 3 Gait Assistive Device: Walker Jay mod assist for balance, cues for step placement and to shift weight to the right side Wheelchair Training Does the Pt Use a Wheelchair?: Yes Wheel 50 ft with 2 turns (QC): 4 Wheel 150 ft (QC): 4 Type of Wheelchair: Manual 300', 120' Exercises standing balance activity moving rings x4 Treatments PT performed standing transfers, balance activity, WC mobility, ambulation, OT performed ring activity, UE positioning and safety during activity Assessment Current Status: Fair Progress improved ambulation PT Short Term Goals Short Term Goals Time Frame: Jun 24, 2021 Roll Left & Right: 3 Sit to lyin Lying to sitting on side of be: 3 Sit to stand: 3 Chair/fbe-ow-yfchy transfer: 3 Walk 10 feet: 3 PT [facility] Goals 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 PT [facility] Goals Time Frame: Jul 08, 2021 Roll Left & Right (QC): 3 (Dora) Sit to Lying (QC): 3 (Dora) Lying-Sitting on Side/Bed(QC): 3 (Dora) Sit to Stand (QC): 4 (CGA) Chair/Opd-qp-Safsq Xfer(QC): 4 (CGA) Toilet Transfer (QC): 4 (CGA) Car Transfer (QC): 4 (CGA) Does the Patient Walk: Yes Walk 10 feet (QC): 4 (CGA) Walk 50ft with 2 Turns (QC): 88 Walk 150 ft (QC): 88 Walking 10ft on Uneven Surface: 3 (Dora) 1 Step (curb) (QC): 3 (Dora) 4 Steps (QC): 88 12 Steps (QC): 88 Picking up an Object (QC): 88 Wheel 50 feet with 2 turns (QC: 5 Wheel 150 feet: 5 PT Plan Problem List Problem List: Activity Tolerance, Functional Strength, Safety, Balance, Gait, Transfer, Bed Mobility, ROM Treatment/Plan Treatment Plan: Continue Plan of Care Treatment Plan: Bed Mobility, Education, Functional Activity Gwendolyn, Functional Strength, Group Therapy, Gait, Safety, Therapeutic Exercise, Transfers Treatment Duration: Jul 08, 2021 Frequency: At least 5 of 7 days/Wk (IRF) Estimated Hrs Per Day: 1.5 hours per day Patient and/or Family Agrees t: Yes Safety Risks/Education Patient Education: Gait Training, Transfer Techniques, Correct Positioning, W/C Management, Safety Issues Teaching Recipient: Patient Teaching Methods: Demonstration, Discussion Response to Teaching: Reinforcement Needed Time/GCodes Time In: 0900 Time Out: 1000 Total Billed Treatment Time: 60 Total Billed Treatment 1 visit EX 15' FA 45' JASVIR ALVES PT Jul 01, 2021 09:58
--- NOTE | 2021-07-01 10:58 | Diagnostic Imaging Report ---
Indication: Cough, history of stroke PA and lateral chest obtained at 1035 a.m. compared 06/12/2021 Heart and mediastinal silhouette are normal in appearance. The lungs are clear. There is no pneumothorax or pleural fluid. IMPRESSION: Negative chest. Dictated by: Dictated on workstation # [id number]
--- NOTE | 2021-07-01 12:13 | Occupational Ther Daily Note ---
OT Current Status-Daily Note Subjective Pt. alert in bed upon entry. Pt. c/o pain in L knee, rates at 6/10, Voltaren gel applied after shower. Pt. agrees to therapy. Co-Treat with PT ([id number]) Mental Status/Objective Patient Orientation: Person, Place ADL-Treatment Co-Treat with PT ([id number]) 2 clinicians required for safety and education PT focusing on LE strengthening, transfers, and standing while OT focusing on UE strengthening, functional endurance, and ADLs. Pt. requires Mod A. supine to sitting EOB. Pt. Max A x2 to stand from EOB one to stand while the other took off brief and placed shower chair with cut out. Pt. transported to in room shower using shower chair with cut out. Pt. able to perform modified UBD removal using tied hospital gown. Pt. able to cleanse face, chest, abdomen, L UE, B LE to ankles using wash cloth. Pt. required LH sponge to cleanse under R UE, back, feet, and buttocks. Pt. used wash clothe on handle of LH sponge to dry feet, lower LE and buttocks. Pt. able to lift and thread feet into proper holes of brief and shorts with assist. Pt. able to don t-shirt using one handed technique with 3 verbal cues and 1 physical cue for placement. Pt. required Max A x2 to stand from shower chair, pull brief and shorts up and transfer to w/c. Therapy Code Descriptions/Definitions Functional [place] Measure: 0=Not Assessed/NA 4=Minimal Assistance 1=Total Assistance 5=Supervision or Setup 2=Maximal Assistance 6=Modified [place] 3=Moderate Assistance 7=Complete IndependenceSCALE: Activities may be completed with or without assistive devices. 9-Jgghebrfso-wfotwgi completes the activity by him/herself with no assistance from a helper. 5-Set-up or Clean-up Assistance-helper sets up or cleans up; patient completes activity. [place] assists only prior to or following the activity. 4-Supervision or Touching Assistance-helper provides verbal cues and/or touching/steadying and/or contact guard assistance as patient completes activity . Assistance may be provided throughout the activity or intermittently. 3-Partial/Moderate Assistance-helper does LESS THAN HALF the effort. [place] lifts, holds or supports trunk or limbs, but provides less than half the effort. 2-Substantial/Maximal Assistance-helper does MORE THAN HALF the effort. [place] lifts or holds trunk or limbs and provides more than half the effort. 1-Wjlwgfvic-qsqdmf does ALL the effort. Patient does none of the effort to complete the activity. Or, the assistance of 2 or more helpers is required for the patient to complete the activity. If activity was not attempted, code reason: 7-Patient Refused. 9-Not Applicable-not attempted and the patient did not perform the activity before the current illness, exacerbation or injury. 10-Not Attempted due to Environmental Limitations-(lack of equipment, weather restraints, etc.). 88-Not Attempted due to Medical Conditions or Safety Concerns. Bathing Location: L Arm, R Arm, L Upper Leg, R Upper Leg, L Lower Leg (including foot), R Lower Leg (including foot), Chest, Abdomen, Buttocks, Perineal Area Shower/Bathe Self (QC): 4 (Supervision) Upper Body Dressing (QC): 3 (Mod A) Lower Body Dressing (QC): 1 (Max A x2) On/Off Footwear: 1 Other Treatment Co-Treat with PT ([id number]) 2 clinicians required for safety and education. PT focusing on LE strengthening, transfers, and standing while OT focusing on UE strengthening, functional endurance, and ADLs. Pt. participated in extended w/c mobility from room to windows then therapy gym, view PT note for progress. Pt. transferred from w/c to therapy mat, see PT note for progress, participated in 4 sit to stands while performing ROM arc standing. Pt. able to move 12 colored rings from one end of the arc to the other and then back all 4 times standing while wt. bearing through L hand with chair in front. Pt. participated in w/c mobility from gym to room with two verbal cues on how to get back to room. Pt. transferred from w/c to recliner, see PT note for progress. Call light/phone in reach. All needs met in room. OT Short Term Goals Short Term Goals Time Frame: Jun 28, 2021 Eatin Oral hygiene: 4 Toileting hygiene: 2 Shower/bathe self: 2 Upper body dressin Lower body dressin Putting on/taking off footwear: 2 OT Senior [facility] Goals Senior Care Goals Time Frame: Jul 08, 2021 Eating (QC): 4 Oral Hygiene (QC): 4 Toileting Hygiene (QC): 4 Shower/Bathe Self (QC): 4 Upper Body Dressing (QC): 4 Lower Body Dressing (QC): 4 On/Off Footwear (QC): 4 1=Demonstrate adherence to instructed precautions during ADL tasks. 2=Patient will verbalize/demonstrate understanding of assistive devices/modifications for ADL. 3=Patient will improve strength/tolerance for activity to enable patient to perform ADL's. OT Education/Plan Problem List/Assessment Assessment: Decreased Activ Tolerance, Decreased Safety Aware, Decreased UE Strength, Impaired Coordination, Impaired Funct Balance, Impaired Self-Care Skills, Restricted Funct UE ROM Discharge Recommendations Plan/Recommendations: Continue POC Treatment Plan/Plan of Care Patient would benefit from OT for education, treatment and training to promote independence in ADL's, mobility, safety and/or upper extremity function for ADL's. Plan of Care: ADL Retraining, Caregiver Training, Cognitive Retraining, Functional Mobility, Group Exercise/Act as Ind, UE Funct Exercise/Act, UE Neuromus Re-Ed/Coord, W/C Management Training Treatment Duration: Jul 08, 2021 Frequency: At least 5 of 7 days/Wk (IRF) Estimated Hrs Per Day: 1.5 hours per day Agreement: Yes Rehab Potential: Fair Time/GCodes Start Time: 08:30 Stop Time: 10:00 Total Time Billed (hr/min): 90 Billed Treatment Time 1 visit- ADL 4 (65 min), EX2 (25 min) Co-Treat with PT ([id number]) Individual ([id number]) HEMA RICHARDS Jul 01, 2021 12:13
[2021-07-01 13:35] VITALS: BP 137/63
--- NOTE | 2021-07-01 15:26 | Physical Therapy Daily Note ---
PT Daily Note-Current Subjective Patient in recliner pre tx, agrees to PT, has no complaints of pain. Appearance Patient in recliner post tx with nurse finishing up in room. Mental Status Patient Orientation: Person, Place, Situation Transfers SCALE: Activities may be completed with or without assistive devices. 4-Pdoybfobqm-qvrebqc completes the activity by him/herself with no assistance from a helper. 5-Set-up or Clean-up Assistance-helper sets up or cleans up; patient completes activity. [place] assists only prior to or following the activity. 4-Supervision or Touching Assistance-helper provides verbal cues and/or touching/steadying and/or contact guard assistance as patient completes activity. Assistance may be provided throughout the activity or intermittently. 3-Partial/Moderate Assistance-helper does LESS THAN HALF the effort. [place] lifts, holds or supports trunk or limbs, but provides less than half the effort. 2-Substantial/Maximal Assistance-helper does MORE THAN HALF the effort. [place] lifts or holds trunk or limbs and provides more than half the effort. 9-Bqivnabfo-yeavvc does ALL the effort. Patient does none of the effort to complete the activity. Or, the assistance of 2 or more helpers is required for the patient to complete the activity. If activity was not attempted, code reason: 7-Patient Refused. 9-Not Applicable-not attempted and the patient did not perform the activity before the current illness, exacerbation or injury. 10-Not Attempted due to Environmental Limitations-(lack of equipment, weather restraints, etc.). 88-Not Attempted due to Medical Conditions or Safety Concerns. Sit to Stand (QC): 3 Chair/Sfj-jl-Hfuvc Xfer(QC): 3 Toilet Transfer (QC): 3 after getting back to the room patient states he needs to have a BM, stand pivot to the toilet with mod assist, when done stands with mod assist while nurse cleans him and pulls his pants up, then stand pivot to WC and then stand pivot to recliner. Weight Bearing Full Weight Bearing Full Weight Bearing Wheelchair Training Does the Pt Use a Wheelchair?: Yes Wheel 50 ft with 2 turns (QC): 4 Type of Wheelchair: Manual 120'x2, SBA, uses right arm and leg to propel Exercises NuStep Minutes: 10 NuStep Workload: 5 Treatments transfers, WC mobility, functional strengthening Assessment Current Status: Poor Progress no change in mobility PT Short Term Goals Short Term Goals Time Frame: Jun 24, 2021 Roll Left & Right: 3 Sit to lyin Lying to sitting on side of be: 3 Sit to stand: 3 Chair/usj-yv-pcsvc transfer: 3 Walk 10 feet: 3 PT Care Home Goals Promotions Assistant Goals PT Promotions Assistant Goals Time Frame: Jul 08, 2021 Roll Left & Right (QC): 3 (Dora) Sit to Lying (QC): 3 (Dora) Lying-Sitting on Side/Bed(QC): 3 (Dora) Sit to Stand (QC): 4 (CGA) Chair/Hbf-jx-Lqhgf Xfer(QC): 4 (CGA) Toilet Transfer (QC): 4 (CGA) Car Transfer (QC): 4 (CGA) Does the Patient Walk: Yes Walk 10 feet (QC): 4 (CGA) Walk 50ft with 2 Turns (QC): 88 Walk 150 ft (QC): 88 Walking 10ft on Uneven Surface: 3 (Dora) 1 Step (curb) (QC): 3 (Dora) 4 Steps (QC): 88 12 Steps (QC): 88 Picking up an Object (QC): 88 Wheel 50 feet with 2 turns (QC: 5 Wheel 150 feet: 5 PT Plan Problem List Problem List: Activity Tolerance, Functional Strength, Safety, Balance, Gait, Transfer, Bed Mobility, ROM Treatment/Plan Treatment Plan: Continue Plan of Care Treatment Plan: Bed Mobility, Education, Functional Activity Gwendolyn, Functional Strength, Group Therapy, Gait, Safety, Therapeutic Exercise, Transfers Treatment Duration: Jul 08, 2021 Frequency: At least 5 of 7 days/Wk (IRF) Estimated Hrs Per Day: 1.5 hours per day Patient and/or Family Agrees t: Yes Safety Risks/Education Patient Education: Transfer Techniques, Correct Positioning, W/C Management, Safety Issues Teaching Recipient: Patient Teaching Methods: Demonstration, Discussion Response to Teaching: Reinforcement Needed Time/GCodes Time In: 1400 Time Out: 1430 Total Billed Treatment Time: 30 Total Billed Treatment 1 visit EX 10' FA 20' JASVIR ALVES PT Jul 01, 2021 15:26
[2021-07-01 20:00] VITALS: BP 145/79
[2021-07-01] MEDS: QUEtiapine 25 MG (SEROquel) TAB IMMEDIATE RELEASE PO SCH (21:39)
[2021-07-01] MEDS: TAMSULOSIN 0.4 MG (FLOMAX) CAP PO SCH (21:39)
[2021-07-01] MEDS: MONTELUKAST 10 MG (SINGULAIR) TAB PO SCH (21:39)
[2021-07-02 05:56] VITALS: BP 133/66
[2021-07-02] MEDS: hydrALAZINE (APRESOLINE) 25 MG TAB PO SCH ×3 (06:18→21:05)
[2021-07-02] MEDS: VENlafaxine XR 75 MG (EFFEXOR XR) CAP PO SCH (06:19)
[2021-07-02 08:00] VITALS: BP 147/73
[2021-07-02] MEDS: RT--FLUTICASONE/SALMETEROL 113-14 (AIRDUO RespiCLICK) IH SCH ×2 (08:02→21:21)
[2021-07-02] MEDS: LORATADINE (CLARITIN) 10 MG TAB PO SCH (08:33)
[2021-07-02] MEDS: ASPIRIN E.C. 81 MG (ECOTRIN) TAB PO SCH (08:33)
--- NOTE | 2021-07-02 08:33 | Cardiology Progress Note ---
Subjective Date Seen by Provider: Jul 02, 2021 Time Seen by Provider: 08:32 Subjective/Events-last exam Patient in bed, reports is able to move his left leg some, denies any chest pain or dyspnea. Review of Systems General: No Chills, No Night Sweats; Fatigue; No Malaise, No Appetite, No Other HEENT: No Head Aches, No Visual Changes, No Eye Pain, No Ear Pain, No Dysphasia, No Sinus Congestion, No Post Nasal Drip, No Sore Throat, No Other Pulmonary: No Dyspnea, No Cough, No Pleuritic Chest Pain, No Other Cardiovascular: No: Chest Pain, Palpitations, Orthopnea, Paroxysmal Noc. Dyspnea, Edema, Lt Headedness, Other Objective-Cardiology Exam Last Set of Vital Signs Vital Signs 07/02/21 07/02/21 08:00 08:02 Temp 36.4 Pulse 78 Resp 16 B/P (MAP) 147/73 (97) Pulse Ox 89 O2 Delivery Room Air General: Alert, Oriented X3, Cooperative HEENT: Atraumatic, PERRLA Neck: Supple, No JVD Lungs: Clear to Auscultation, Normal Air Movement Heart: Regular Rate, Normal S1, Normal S2, No Murmurs Abdomen: Soft, No Tenderness Extremities: No Clubbing, No Edema Skin: No Rashes, No Significant Lesion Neuro: Normal Speech, Other Psych/Mental Status: Mental Status NL, Mood NL A/P-Cardiology Admission Diagnosis CVA HTN Dementia Assessment/Plan 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 MRI of the head reported acute/subacute pontine stroke. 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 Elevated D-dimer, venous Doppler was negative. Maintained on Lovenox. Continue to monitor Vascular dementia, had generalized weakness in the past. History of diverticulosis, BPH. Status post COVID-19 vaccination done on June 10, 2021 triggered generalized weakness, Patient was found on the floor by his neighbor Supervisory-Addendum Brief Supervisory Addendum Participated in pt care: history, MDM, physical Personally performed: exam, history, MDM Care discussed with: CARISSA Results interpretation: Verified all documentation Notes: Patient was seen and evaluated with Mike, examination performed, management plan was discussed, agree with the current scribed note, I made few changes to the note using Italic font Patient was seen at bedside laying down comfortably No new complaint Continues to improve very slowly with physical therapy Continue to monitor blood pressure MIKE MILLER Jul 02, 2021 08:33 MICHELLE HOUGH MD Jul 02, 2021 08:52
[2021-07-02] MEDS: metFORMIN 500 MG (GLUCOPHAGE) TAB PO SCH ×2 (08:34→17:03)
[2021-07-02] MEDS: PANTOPRAZOLE 40 MG (PROTONIX) TAB PO SCH (08:34)
[2021-07-02] MEDS: ENOXAPARIN 40 MG/0.4 ML (LOVENOX) SYR SC SCH (08:34)
[2021-07-02] MEDS: SENNA W/DOCUSATE (SENOKOT S) TABLET PO SCH ×4 (08:34→21:06)
[2021-07-02] MEDS: DOCUSATE SODIUM 100 MG (COLACE) CAP PO SCH ×2 (08:34→21:06)
[2021-07-02] MEDS: LOSARTAN 100 MG (COZAAR) TABLET PO SCH (08:34)
[2021-07-02] MEDS: amLODIPine 10 MG (NORVASC) TAB PO SCH (08:34)
[2021-07-02] MEDS: DICLOFENAC 1% GEL 100 GM (VOLTAREN) TUBE TOP SCH ×4 (08:35→21:06)
[2021-07-02] MEDS: polyethylene glycoL POWDER 17 GM (MIRALAX) PACK PO SCH ×2 (08:50→21:06)
--- NOTE | 2021-07-02 09:18 | PM&R Progress Note ---
Subjective HPI/CC On Admission Date Seen by Provider: Jul 02, 2021 Time Seen by Provider: 11:30 Subjective/Events-last exam 07/02/2021: No major issues CXR was negative Has some hiccups 07/01/2021: Pt doing well CXR pending Labs okay Lifted his left leg and moved his left fingers Bowels are moving 06/30/2021: No major issues Bowels moved 2 times yesterday Picked up his left leg yesterday 06/29/2021: No major issues Continues to participate in therapy Awaiting placement 06/28/2021: Patient doing pretty well Awaiting placement Bowels are moving well Denies any pain Told me about his dementia diagnosis 20 years ago 06/27/2021: Patient doing really well Bowels are moving Taking a nap currently Denies any issues 06/26/2021: Patient doing really well Eliquis and Plavix maintain Losartan started for blood pressure elevation Discontinue nystatin Singulair and Claritin will be started for congestion 06/25/2021: Patient doing pretty well Lisinopril will be changed to losartan due to reportedly cough Bowels moved today 06/24/2021: Patient participating in therapy No bowels movement for the last couple of days will give laxatives Check meds and labs 06/23/2021: Patient in a good mood No significant concerns Check meds and labs Blood sugar is good 06/22/2021: Patient doing well Knee still hurts but that is chronic Changing sliding scale to twice daily Accu-Cheks 06/21/2021: Patient doing really well Having some incontinence No pain is reported Progressing with therapy 06/20/2021: Patient progressing nicely Blood sugar 128 Bowels moved yesterday Discontinue the Hep-Lock 06/19/2021: Pt doing really well Left-sided weakness is a challenge Bowels moved twice today Magic mouthwash will be initiated because he keeps on biting the inside of his cheek Knee pain is chronic Voltaren gel will be added 06/18/2021: Pt doing really well Eating very well Sugars are okay Incontinent Bowels are moving No pain Obtaining good relief with left knee injection Review of Systems General: Fatigue Neurological: Weakness, Incoordination Objective Exam Vital Signs Vital Signs Date Time Temp Pulse Resp B/P (MAP) Pulse Ox O2 Delivery O2 Flow Rate FiO2 07/02/21 21:21 92 Room Air 07/02/21 20:00 36.2 76 20 131/67 (88) Capillary Refill : General Appearance: No Apparent Distress, WD/WN, Chronically ill, Obese HEENT: PERRL/EOMI, Normal ENT Inspection, Pharynx Normal Neck: Full Range of Motion, Normal Inspection, Non Tender, Supple, Carotid Bruit Respiratory: Chest Non Tender, Lungs Clear, Normal Breath Sounds, No Accessory Muscle Use, No Respiratory Distress Cardiovascular: Regular Rate, Rhythm, No Edema, No Gallop, No JVD, No Murmur, Normal Peripheral Pulses Gastrointestinal: Normal Bowel Sounds, No Organomegaly, No Pulsatile Mass, Non Tender, Soft Back: Normal Inspection, No CVA Tenderness, No Vertebral Tenderness Extremity: Normal Capillary Refill, Normal Inspection, Normal Range of Motion, Non Tender, No Calf Tenderness, No Pedal Edema Neurologic/Psychiatric: Alert, Oriented x3, accounts receivable representative II-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 FIM Transfers Therapy Code Descriptions/Definitions Functional [place] Measure: 0=Not Assessed/NA 4=Minimal Assistance 1=Total Assistance 5=Supervision or Setup 2=Maximal Assistance 6=Modified [place] 3=Moderate Assistance 7=Complete IndependenceSCALE: Activities may be completed with or without assistive devices. 9-Hdifajvqom-qandxqs completes the activity by him/herself with no assistance from a helper. 5-Set-up or Clean-up Assistance-helper sets up or cleans up; patient completes activity. [place] assists only prior to or following the activity. 4-Supervision or Touching Assistance-helper provides verbal cues and/or touching/steadying and/or contact guard assistance as patient completes activity. Assistance may be provided throughout the activity or intermittently. 3-Partial/Moderate Assistance-helper does LESS THAN HALF the effort. [place] lifts, holds or supports trunk or limbs, but provides less than half the effort. 2-Substantial/Maximal Assistance-helper does MORE THAN HALF the effort. [place] lifts or holds trunk or limbs and provides more than half the effort. 6-Tsavoqkye-vfjvkt does ALL the effort. Patient does none of the effort to complete the activity. Or, the assistance of 2 or more helpers is required for the patient to complete the activity. If activity was not attempted, code reason: 7-Patient Refused. 9-Not Applicable-not attempted and the patient did not perform the activity before the current illness, exacerbation or injury. 10-Not Attempted due to Environmental Limitations-(lack of equipment, weather restraints, etc.). 88-Not Attempted due to Medical Conditions or Safety Concerns. Roll Left to Right (QC): 2 Sit to Lying (QC): 3 Sit to Stand (QC): 3 Chair/Wij-xc-Phvya Xfer(QC): 3 Car Transfer (QC): 88 Gait Training Does the Patient Walk?: Yes Distance: 10' Walk 10 feet (QC): 3 Walk 50 ft with 2 Turns(QC): 88 Walk 150 ft (QC): 88 Walking 10ft/uneven surface-QC: 88 Gait Persons Needed: 1 Gait Assistive Device: Walker Jay Wheelchair Training Does the Pt Use a Wheelchair?: Yes Distance: 50' Wheel 50 ft with 2 turns (QC): 4 Wheel 150 ft (QC): 4 Type of Wheelchair: Manual Stair Training 1 Step (curb) (QC): 88 4 Steps (QC): 88 12 Steps (QC): 88 Balance Picking up an Object (QC): 88 ADL-Treatment Eating (QC): 5 Oral Hygiene (QC): 6 Bathing Location: L Arm, R Arm, L Upper Leg, R Upper Leg, L Lower Leg (including foot), R Lower Leg (including foot), Chest, Abdomen, Buttocks, Perineal Area Shower/Bathe Self (QC): 4 (Supervision) Upper Body Dressing (QC): 3 (Mod A) Lower Body Dressing (QC): 1 (Max A x2) On/Off Footwear (QC): 1 Toileting Hygiene (QC): 1 (Mod A x2) Toilet Transfer (QC): 1 Assessment/Plan Assessment and Plan Assess & Plan/Chief Complaint Assessment: CVA with left-sided weakness Diabetes Hypertension Hyperlipidemia Dementia Left knee pain chronic status post steroid injection per Dr. Cummings Plan: Aggressive therapy Supportive care Statin Cardiology 06/18/2021: Much improved status Fall risk 06/19/2021: Continue treatment Aggressive therapy 06/20/2021: Supportive care Aggressive therapy 06/21/2021: Monitor closely Fall risk 06/22/2021: Pain control Monitor closely 06/23/2021: Check meds Labs due tomorrow 06/24/2021: Supportive care Monitor closely 06/25/2021: Change lisinopril to losartan per Dr. Donaldson Continue aggressive therapy 06/26/2021: Supportive care Look for skilled care Medicaid application started Claritin and Singulair for congestion 06/27/2021: Supportive care 06/28/2021: Supportive care Aggressive therapy Awaiting placement 06/29/2021: Continue treatment 06/30/21: Monitor closely Aggressive therapy 07/01/2021: Awaiting placement Await chest x-ray results 07/02/2021: Supportive care Await [facility] placement (1) Cerebrovascular accident due to cerebral artery occlusion Status: Acute (2) T2DM (type 2 diabetes mellitus) Status: Chronic (3) HLD (hyperlipidemia) Status: Chronic (4) Obesity Status: Chronic (5) Debility Status: Acute (6) Dementia Status: Chronic (7) Right pontine stroke Status: Acute (8) HTN (hypertension) Status: Acute CIRO CABRERA DO Jul 02, 2021 09:18
--- NOTE | 2021-07-02 09:33 | Occupational Ther Daily Note ---
OT Current Status-Daily Note Subjective Pt. resting in bed upon entry. Pt. agrees to therapy. Nursing in room, states already applied Voltaren Gel to L knee and giving medications. CO-Treat with PT ([id number]) Mental Status/Objective Patient Orientation: Person, Place ADL-Treatment Pt. Mod A. supine to sitting EOB due to retropulsiveness. Pt. able to verbally recall dressing technique, required Mod A and verbal cues to complete UBD due to drowsiness. Pt. Max A transfer sitting EOB to w/c. Pt. able to lift B LE individually to assist in threading feet into proper holes of shorts. Pt. Mod A. to stand with assist of bed rail, 2nd person to hike shorts over hips. Pt. transported using w/c to sink. Pt. agrees to oral care, required Min. verbal cues to identify where oral hygiene items were around the sink due to clutter of other items. Therapy Code Descriptions/Definitions Functional [place] Measure: 0=Not Assessed/NA 4=Minimal Assistance 1=Total Assistance 5=Supervision or Setup 2=Maximal Assistance 6=Modified [place] 3=Moderate Assistance 7=Complete IndependenceSCALE: Activities may be completed with or without assistive devices. 3-Ufitmlmrmg-vurtidn completes the activity by him/herself with no assistance from a helper. 5-Set-up or Clean-up Assistance-helper sets up or cleans up; patient completes activity. [place] assists only prior to or following the activity. 4-Supervision or Touching Assistance-helper provides verbal cues and/or gayle josy/steadying and/or contact guard assistance as patient completes activity. Assistance may be provided throughout the activity or intermittently. 3-Partial/Moderate Assistance-helper does LESS THAN HALF the effort. [place] lifts, holds or supports trunk or limbs, but provides less than half the effort. 2-Substantial/Maximal Assistance-helper does MORE THAN HALF the effort. [place] lifts or holds trunk or limbs and provides more than half the effort. 3-Yfmnbzkus-kpjbor does ALL the effort. Patient does none of the effort to complete the activity. Or, the assistance of 2 or more helpers is required for the patient to complete the activity. If activity was not attempted, code reason: 7-Patient Refused. 9-Not Applicable-not attempted and the patient did not perform the activity before the current illness, exacerbation or injury. 10-Not Attempted due to Environmental Limitations-(lack of equipment, weather restraints, etc.). 88-Not Attempted due to Medical Conditions or Safety Concerns. Oral Hygiene (QC): 4 (Verbal cues to find care items.) Upper Body Dressing (QC): 3 (Mod A) Lower Body Dressing (QC): 1 On/Off Footwear: 1 Other Treatment Co-Treat with PT ([id number]) 2 clinicians required for safety and instruction. PT focusing on LE strengthening, transfers, walking while OT focusing on ADLs, functional activities, UE strength.Pt. participated in w/c mobility to therapy gym with Mod A verbal cues for directions. Pt. PROM with L arm ex's shoulder shrugs and ~90* shoulder flexion to attempt subluxation correcting. Pt. par ticipated in torito-walker walking activity, assist x2, using L arm sling to prevent subluxation and torito walker, see PT note for progress. Pt. left in care of PT. All needs met in gym OT Short Term Goals Short Term Goals Time Frame: Jun 28, 2021 Eatin Oral hygiene: 4 Toileting hygiene: 2 Shower/bathe self: 2 Upper body dressin Lower body dressin Putting on/taking off footwear: 2 OT Half-Way Goals Half-Way Goals Time Frame: Jul 08, 2021 Eating (QC): 4 Oral Hygiene (QC): 4 Toileting Hygiene (QC): 4 Shower/Bathe Self (QC): 4 Upper Body Dressing (QC): 4 Lower Body Dressing (QC): 4 On/Off Footwear (QC): 4 1=Demonstrate adherence to instructed precautions during ADL tasks. 2=Patient will verbalize/demonstrate understanding of assistive devices/modifications for ADL. 3=Patient will improve strength/tolerance for activity to enable patient to perform ADL's. OT Education/Plan Problem List/Assessment Assessment: Decreased Activ Tolerance, Decreased Safety Aware, Decreased UE Strength, Impaired Coordination, Impaired Funct Balance, Impaired Self-Care Skills, Restricted Funct UE ROM Discharge Recommendations Plan/Recommendations: Continue POC Treatment Plan/Plan of Care Patient would benefit from OT for education, treatment and training to promote independence in ADL's, mobility, safety and/or upper extremity function for ADL's. Plan of Care: ADL Retraining, Caregiver Training, Cognitive Retraining, Functional Mobility, Group Exercise/Act as Ind, UE Funct Exercise/Act, UE Neuromus Re-Ed/Coord, W/C Management Training Treatment Duration: Jul 08, 2021 Frequency: At least 5 of 7 days/Wk (IRF) Estimated Hrs Per Day: 1.5 hours per day Agreement: Yes Rehab Potential: Fair Time/GCodes Start Time: 08:30 Stop Time: 09:30 Total Time Billed (hr/min): 60 Billed Treatment Time 1 visit- ADL 2 (25 min), Ex 2 (35 min) Co-Treat with PT ([id number]) Individual ([id number]) HEMA RICHARDS Jul 02, 2021 09:33
--- NOTE | 2021-07-02 09:38 | Physical Therapy Daily Note ---
PT Daily Note-Current Subjective Patient in WC pre tx, agrees to PT, has no complaints of pain. Will be co- treating with OT due to poor patient mobility, strength, endurance, left hemiparesis, coordinate UE and LE during activity, safety and reduce risk of falls. Appearance Patient in recliner post tx with nurse call, phone, tray, all needs met. Mental Status Patient Orientation: Person, Place, Situation Transfers SCALE: Activities may be completed with or without assistive devices. 6-Bnrzefuieh-alwngdo completes the activity by him/herself with no assistance from a helper. 5-Set-up or Clean-up Assistance-helper sets up or cleans up; patient completes activity. [place] assists only prior to or following the activity. 4-Supervision or Touching Assistance-helper provides verbal cues and/or touching/steadying and/or contact guard assistance as patient completes activity. Assistance may be provided throughout the activity or intermittently. 3-Partial/Moderate Assistance-helper does LESS THAN HALF the effort. [place] lifts, holds or supports trunk or limbs, but provides less than half the effort. 2-Substantial/Maximal Assistance-helper does MORE THAN HALF the effort. [place] lifts or holds trunk or limbs and provides more than half the effort. 9-Akcvitccm-xtdidx does ALL the effort. Patient does none of the effort to complete the activity. Or, the assistance of 2 or more helpers is required for the patient to complete the activity. If activity was not attempted, code reason: 7-Patient Refused. 9-Not Applicable-not attempted and the patient did not perform the activity before the current illness, exacerbation or injury. 10-Not Attempted due to Environmental Limitations-(lack of equipment, weather restraints, etc.). 88-Not Attempted due to Medical Conditions or Safety Concerns. Sit to Stand (QC): 3 Chair/Sev-hb-Hquoi Xfer(QC): 3 Weight Bearing Full Weight Bearing Full Weight Bearing Gait Training Distance: 15', 10'x2 Walk 10 feet (QC): 2 Gait Assistive Device: Walker Jay assist with balance, cues for step placement, assist with left side trunk extension to promote left foot clearance during step-through. Wheelchair Training Does the Pt Use a Wheelchair?: Yes Wheel 50 ft with 2 turns (QC): 4 Wheel 150 ft (QC): 4 Type of Wheelchair: Manual 120', 200' Treatments PT performed mobility, ambulation, transfers, OT performed UE positioning and safety during activity Assessment Current Status: Fair Progress slightly improved step-through with left leg but still needs a lot of assist PT Short Term Goals Short Term Goals Time Frame: Jun 24, 2021 Roll Left & Right: 3 Sit to lyin Lying to sitting on side of be: 3 Sit to stand: 3 Chair/gfb-uq-ecktt transfer: 3 Walk 10 feet: 3 PT [facility] Goals Cement Gun Operator Goals PT [facility] Goals Time Frame: Jul 08, 2021 Roll Left & Right (QC): 3 (Dora) Sit to Lying (QC): 3 (Dora) Lying-Sitting on Side/Bed(QC): 3 (Dora) Sit to Stand (QC): 4 (CGA) Chair/Zey-ri-[place] Xfer(QC): 4 (CGA) Toilet Transfer (QC): 4 (CGA) Car Transfer (QC): 4 (CGA) Does the Patient Walk: Yes Walk 10 feet (QC): 4 (CGA) Walk 50ft with 2 Turns (QC): 88 Walk 150 ft (QC): 88 Walking 10ft on Uneven Surface: 3 (Dora) 1 Step (curb) (QC): 3 (Dora) 4 Steps (QC): 88 12 Steps (QC): 88 Picking up an Object (QC): 88 Wheel 50 feet with 2 turns (QC: 5 Wheel 150 feet: 5 PT Plan Problem List Problem List: Activity Tolerance, Functional Strength, Safety, Balance, Gait, Transfer, Bed Mobility, ROM Treatment/Plan Treatment Plan: Continue Plan of Care Treatment Plan: Bed Mobility, Education, Functional Activity Gwendolyn, Functional Strength, Group Therapy, Gait, Safety, Therapeutic Exercise, Transfers Treatment Duration: Jul 08, 2021 Frequency: At least 5 of 7 days/Wk (IRF) Estimated Hrs Per Day: 1.5 hours per day Patient and/or Family Agrees t: Yes Safety Risks/Education Patient Education: Gait Training, Transfer Techniques, Correct Positioning, W/C Management, Safety Issues Teaching Recipient: Patient Teaching Methods: Demonstration, Discussion Response to Teaching: Reinforcement Needed Time/GCodes Time In: 0900 Time Out: 0945 Total Billed Treatment Time: 45 Total Billed Treatment 1 visit FA 45' co-treat for 45' JASVIR ALVES PT Jul 02, 2021 09:37
--- NOTE | 2021-07-02 15:05 | Therapy Group Daily Note ---
Therapy Daily Group Note Patient Education Topic Other List Below (memory, ARU expectations/description) Exercises LE Seated Exercise, UE Exercise Session Ratio (pt:therapist): 4:1 Goal of Session: Education on ARU Expectations, Memory Strategies, UE/LE Strengthing Goal Met for this Session: Yes Pt Benefit of Group: Contributions to Others, F/U Use of Strategies @Home, Increased Functional Safety, Increased Functional Strength, Improved Cognition, Recognition of Peers, Socialization Other/Notes Pt transported via w/c to [facility] for OT/PT group. Group consisted of introductions (name, place living, favorite holiday), socialization, B UE/LE seated exercises, memory activity and education on memory strategies. Pt introduced self appropriately and actively listened to peers. Pt participated in group discussions and contributed to educational topic verbally/gestures. Pt acknowledge understanding of educational topics by giving personal strategies used. Pt able to complete memory activity matching game with 100% accuracy. After group, pt sitting in recliner with call light/phone in reach. All needs met in room. Start Time: 13:30 Stop Time: 14:50 Total Billed Treatment Time: 80 Total Billed Treatment 1-GRP HEMA RICHARDS Jul 02, 2021 15:05
[2021-07-02 20:00] VITALS: BP 131/67
[2021-07-02] MEDS: MONTELUKAST 10 MG (SINGULAIR) TAB PO SCH (21:05)
[2021-07-02] MEDS: TAMSULOSIN 0.4 MG (FLOMAX) CAP PO SCH (21:06)
[2021-07-02] MEDS: QUEtiapine 25 MG (SEROquel) TAB IMMEDIATE RELEASE PO SCH (21:06)
[2021-07-03] MEDS: hydrALAZINE (APRESOLINE) 25 MG TAB PO SCH ×3 (06:34→21:39)
[2021-07-03] MEDS: VENlafaxine XR 75 MG (EFFEXOR XR) CAP PO SCH (06:34)
[2021-07-03] MEDS: RT--FLUTICASONE/SALMETEROL 113-14 (AIRDUO RespiCLICK) IH SCH ×2 (07:13→20:33)
[2021-07-03 08:00] VITALS: BP 123/58
--- NOTE | 2021-07-03 08:49 | Cardiology Progress Note ---
Subjective Date Seen by Provider: Jul 03, 2021 Time Seen by Provider: 08:10 Subjective/Events-last exam Patient is sitting up in bed, no new complaints. Denies any chest pain or in creased dyspnea. Review of Systems General: No Chills, No Night Sweats, No Fatigue, No Malaise, No Appetite, No Other HEENT: No Head Aches, No Visual Changes, No Eye Pain, No Ear Pain, No Dysphasia, No Sinus Congestion, No Post Nasal Drip, No Sore Throat, No Other Pulmonary: No Dyspnea, No Cough, No Pleuritic Chest Pain, No Other Cardiovascular: No: Chest Pain, Palpitations, Orthopnea, Paroxysmal Noc. Dyspnea, Edema, Lt Headedness, Other Objective-Cardiology Exam Last Set of Vital Signs Vital Signs 07/03/21 07/03/21 08:00 10:01 Temp 36.4 Pulse 78 Resp 18 B/P (MAP) 123/58 (79) Pulse Ox 92 O2 Delivery Room Air General: Alert, Oriented X3, Cooperative HEENT: Atraumatic, PERRLA Neck: Supple, No JVD Lungs: Clear to Auscultation, Normal Air Movement Heart: Regular Rate, Normal S1, Normal S2, No Murmurs Abdomen: Soft, No Tenderness Extremities: No Clubbing, No Edema Skin: No Rashes, No Significant Lesion Neuro: Normal Speech, Other Psych/Mental Status: Mental Status NL, Mood NL A/P-Cardiology Admission Diagnosis CVA HTN Dementia Assessment/Plan 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 MRI of the head reported acute/subacute pontine stroke. 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 Elevated D-dimer, venous Doppler was negative. Maintained on Lovenox. Continue to monitor Vascular dementia, had generalized weakness in the past. History of diverticulosis, BPH. Status post COVID-19 vaccination done on June 10, 2021 triggered generalized weakness, Patient was found on the floor by his neighbor Supervisory-Addendum Brief Supervisory Addendum Participated in pt care: history, MDM, physical Personally performed: exam, history, MDM Care discussed with: CARISSA Results interpretation: Verified all documentation Notes: Patient was seen and evaluated with Mike, examination performed, management plan was discussed, agree with the current scribed note, I made few changes to the note using Italic font Patient was seen at bedside, laying down comfortably, no active complaint Heart rate and blood pressure are stable Continue with physical therapy and continue to monitor MIKE MILLER Jul 03, 2021 08:49 MICHELLE HOUGH MD Jul 03, 2021 14:40
[2021-07-03] MEDS: SENNA W/DOCUSATE (SENOKOT S) TABLET PO SCH ×4 (09:14→21:40)
[2021-07-03] MEDS: polyethylene glycoL POWDER 17 GM (MIRALAX) PACK PO SCH ×2 (09:14→21:40)
[2021-07-03] MEDS: DOCUSATE SODIUM 100 MG (COLACE) CAP PO SCH ×2 (09:14→21:40)
[2021-07-03] MEDS: ENOXAPARIN 40 MG/0.4 ML (LOVENOX) SYR SC SCH (09:15)
[2021-07-03] MEDS: LORATADINE (CLARITIN) 10 MG TAB PO SCH (09:15)
[2021-07-03] MEDS: LOSARTAN 100 MG (COZAAR) TABLET PO SCH (09:15)
[2021-07-03] MEDS: DICLOFENAC 1% GEL 100 GM (VOLTAREN) TUBE TOP SCH ×4 (09:15→21:40)
[2021-07-03] MEDS: PANTOPRAZOLE 40 MG (PROTONIX) TAB PO SCH (09:15)
[2021-07-03] MEDS: metFORMIN 500 MG (GLUCOPHAGE) TAB PO SCH ×2 (09:15→17:34)
[2021-07-03] MEDS: ASPIRIN E.C. 81 MG (ECOTRIN) TAB PO SCH (09:15)
[2021-07-03] MEDS: amLODIPine 10 MG (NORVASC) TAB PO SCH (09:15)
--- NOTE | 2021-07-03 10:12 | Occupational Ther Daily Note ---
OT Current Status-Daily Note Subjective Pt. alert in bed. Pt. stating c/o of "usual bum knee pain". Pt. agrees to therapy. Mental Status/Objective Patient Orientation: Person, Place ADL-Treatment Pt. requests DORSEY to shave him, DORSEY states the need for pt. to try Pt. agrees. Pt. Mod A. to transfer supine to sitting EOB, required verbal cues and physical assist repositioning. Pt. Max A x2 EOB sitting to standing one person to stand and pivot with pt. the other moved shower chair with cut out into place. Pt. able to shave self once set up. Pt. agrees to shower, requests to brush teeth and soak dentures first. Pt. able to perform oral care by self. Pt. required Max A x2 to stand from shower chair with cut out to doff brief/shorts one person to stand while the other removed LBD and placed shower chair with cut out. Pt. able to recall how to doff shirt and successful first attempt at doffing. Pt. transported into shower using shower chair with cut out. Pt. able to cleanse face, chest, abdomen, upper legs, and lm area. Pt. required assist to remember LH sponge in shower and that pt. previously used it to cleanse under R arm and down the side. Pt. used LH sponge to cleanse. lower legs, back, feet, and buttocks. Pt. dried face, chest, abdomen, B UE, B upper legs, required assist to dry feet, back and buttocks. Pt. able to lift B LE to assist in donning of brief/shorts. Pt. able to lift B UE to place into hospital gown. Pt. able to flex ankles and have shoes placed/put on with assist. Therapy Code Descriptions/Definitions Functional [place] Measure: 0=Not Assessed/NA 4=Minimal Assistance 1=Total Assistance 5=Supervision or Setup 2=Maximal Assistance 6=Modified [place] 3=Moderate Assistance 7=Complete IndependenceSCALE: Activities may be completed with or without assistive devices. 4-Xfubawlbdb-qucxdje completes the activity by him/herself with no assistance from a helper. 5-Set-up or Clean-up Assistance-helper sets up or cleans up; patient completes activity. [place] assists only prior to or following the activity. 4-Supervision or Touching Assistance-helper provides verbal cues and/or touching/steadying and/or contact guard assistance as patient completes activity. Assistance may be provided throughout the activity or intermittently. 3-Partial/Moderate Assistance-helper does LESS THAN HALF the effort. [place] lift s, holds or supports trunk or limbs, but provides less than half the effort. 2-Substantial/Maximal Assistance-helper does MORE THAN HALF the effort. [place] lifts or holds trunk or limbs and provides more than half the effort. 5-Iqvavutxf-agbcbd does ALL the effort. Patient does none of the effort to complete the activity. Or, the assistance of 2 or more helpers is required for the patient to complete the activity. If activity was not attempted, code reason: 7-Patient Refused. 9-Not Applicable-not attempted and the patient did not perform the activity before the current illness, exacerbation or injury. 10-Not Attempted due to Environmental Limitations-(lack of equipment, weather restraints, etc.). 88-Not Attempted due to Medical Conditions or Safety Concerns. Eating (QC): 6 (per clinical judgment) Oral Hygiene (QC): 6 Bathing Location: L Arm, R Arm, L Upper Leg, R Upper Leg, L Lower Leg (including foot), R Lower Leg (including foot), Chest, Abdomen, Buttocks, Perineal Area Shower/Bathe Self (QC): 4 (Min verbal cues to recall technique. ) Lower Body Dressing (QC): 2 On/Off Footwear: 2 Other Treatment Pt. participated in w/c mobility from room to therapy gym without any rest breaks. Pt. performed fine motor pinching activity with clothes pins of varying resistances removing the clothes pins from dowel geno container to designated area on L side with 2# wrist weight applied, did not require any rest breaks. Pt. questioned what the 2# wrist weight was for stating "it wasn't doing anyth ing". DORSEY applied 3# wrist weight and pt. performed the same activity, required 4 rest breaks during activity. Pt. participated in w/c mobility from therapy gym to room Min verbal cues to identify Pt. room. These activities performed to increase UE strength to participate in functional daily activities. Pt. in w/c in room, call light/phone in reach. All needs met in room. OT Short Term Goals Short Term Goals Time Frame: Jun 28, 2021 Eatin Oral hygiene: 4 Toileting hygiene: 2 Shower/bathe self: 2 Upper body dressin Lower body dressin Putting on/taking off footwear: 2 OT Fdc Goals Automotive Parts Coordinator Goals Time Frame: Jul 08, 2021 Eating (QC): 4 Oral Hygiene (QC): 4 Toileting Hygiene (QC): 4 Shower/Bathe Self (QC): 4 Upper Body Dressing (QC): 4 Lower Body Dressing (QC): 4 On/Off Footwear (QC): 4 1=Demonstrate adherence to instructed precautions during ADL tasks. 2=Patient will verbalize/demonstrate understanding of assistive devices/modifications for ADL. 3=Patient will improve strength/tolerance for activity to enable patient to perform ADL's. OT Education/Plan Problem List/Assessment Assessment: Decreased Activ Tolerance, Decreased Safety Aware, Decreased UE Strength, Impaired Coordination, Impaired Self-Care Skills Discharge Recommendations Plan/Recommendations: Continue POC Treatment Plan/Plan of Care Patient would benefit from OT for education, treatment and training to promote independence in ADL's, mobility, safety and/or upper extremity function for ADL's. Plan of Care: ADL Retraining, Caregiver Training, Cognitive Retraining, Functional Mobility, Group Exercise/Act as Ind, UE Funct Exercise/Act, UE Neuromus Re-Ed/Coord, W/C Management Training Treatment Duration: Jul 08, 2021 Frequency: At least 5 of 7 days/Wk (IRF) Estimated Hrs Per Day: 1.5 hours per day Agreement: Yes Rehab Potential: Fair Time/GCodes Start Time: 08:30 Stop Time: 10:00 Total Time Billed (hr/min): 90 Billed Treatment Time 1 visit- ADL 4 (60 min), EX 2 (30 min) HEMA RICHARDS Jul 03, 2021 10:12
--- NOTE | 2021-07-03 11:25 | PM&R Progress Note ---
Subjective HPI/CC On Admission Date Seen by Provider: Jul 03, 2021 Time Seen by Provider: 09:00 Subjective/Events-last exam 07/03/2021: Pt standing better Bowels moved yesterday DC planned to a longterm DC planned for 07/10/21 will be goal Moving his left leg 07/02/2021: No major issues CXR was negative Has some hiccups 07/01/2021: Pt doing well CXR pending Labs okay Lifted his left leg and moved his left fingers Bowels are moving 06/30/2021: No major issues Bowels moved 2 times yesterday Picked up his left leg yesterday 06/29/2021: No major issues Continues to participate in therapy Awaiting placement 06/28/2021: Patient doing pretty well Awaiting placement Bowels are moving well Denies any pain Told me about his dementia diagnosis 20 years ago 06/27/2021: Patient doing really well Bowels are moving Taking a nap currently Denies any issues 06/26/2021: Patient doing really well Eliquis and Plavix maintain Losartan started for blood pressure elevation Discontinue nystatin Singulair and Claritin will be started for congestion 06/25/2021: Patient doing pretty well Lisinopril will be changed to losartan due to reportedly cough Bowels moved today 06/24/2021: Patient participating in therapy No bowels movement for the last couple of days will give laxatives Check meds and labs 06/23/2021: Patient in a good mood No significant concerns Check meds and labs Blood sugar is good 06/22/2021: Patient doing well Knee still hurts but that is chronic Changing sliding scale to twice daily Accu-Cheks 06/21/2021: Patient doing really well Having some incontinence No pain is reported Progressing with therapy 06/20/2021: Patient progressing nicely Blood sugar 128 Bowels moved yesterday Discontinue the Hep-Lock 06/19/2021: Pt doing really well Left-sided weakness is a challenge Bowels moved twice today Magic mouthwash will be initiated because he keeps on biting the inside of his cheek Knee pain is chronic Voltaren gel will be added 06/18/2021: Pt doing really well Eating very well Sugars are okay Incontinent Bowels are moving No pain Obtaining good relief with left knee injection Review of Systems General: Fatigue, Malaise Objective Exam Vital Signs Vital Signs Date Time Temp Pulse Resp B/P (MAP) Pulse Ox O2 Delivery O2 Flow Rate FiO2 07/03/21 20:37 36.7 83 20 134/68 (90) 91 Room Air Capillary Refill : General Appearance: No Apparent Distress, WD/WN, Chronically ill, Obese HEENT: PERRL/EOMI, Normal ENT Inspection, Pharynx Normal Neck: Full Range of Motion, Normal Inspection, Non Tender, Supple, Carotid Brui t Respiratory: Chest Non Tender, Lungs Clear, Normal Breath Sounds, No Accessory Muscle Use, No Respiratory Distress Cardiovascular: Regular Rate, Rhythm, No Edema, No Gallop, No JVD, No Murmur, Normal Peripheral Pulses Gastrointestinal: Normal Bowel Sounds, No Organomegaly, No Pulsatile Mass, Non Tender, Soft Back: Normal Inspection, No CVA Tenderness, No Vertebral Tenderness Extremity: Normal Capillary Refill, Normal Inspection, Normal Range of Motion, Non Tender, No Calf Tenderness, No Pedal Edema Neurologic/Psychiatric: Alert, Oriented x3, extractor operator solvent process II-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 FIM Transfers Therapy Code Descriptions/Definitions Functional [place] Measure: 0=Not Assessed/NA 4=Minimal Assistance 1=Total Assistance 5=Supervision or Setup 2=Maximal Assistance 6=Modified [place] 3=Moderate Assistance 7=Complete IndependenceSCALE: Activities may be completed with or without assistive devices. 6-Mdfloanxmb-edvitvr completes the activity by him/herself with no assistance from a helper. 5-Set-up or Clean-up Assistance-helper sets up or cleans up; patient completes activity. [place] assists only prior to or following the activity. 4-Supervision or Touching Assistance-helper provides verbal cues and/or touching/steadying and/or contact guard assistance as patient completes activity. Assistance may be provided throughout the activity or intermittently. 3-Partial/Moderate Assistance-helper does LESS THAN HALF the effort. [place] lifts, holds or supports trunk or limbs, but provides less than half the effort. 2-Substantial/Maximal Assistance-helper does MORE THAN HALF the effort. [place] lifts or holds trunk or limbs and provides more than half the effort. 1-Yirigzcji-ipezwr does ALL the effort. Patient does none of the effort to complete the activity. Or, the assistance of 2 or more helpers is required for the patient to complete the activity. If activity was not attempted, code reason: 7-Patient Refused. 9-Not Applicable-not attempted and the patient did not perform the activity before the current illness, exacerbation or injury. 10-Not Attempted due to Environmental Limitations-(lack of equipment, weather restraints, etc.). 88-Not Attempted due to Medical Conditions or Safety Concerns. Roll Left to Right (QC): 2 Sit to Lying (QC): 3 Sit to Stand (QC): 3 Chair/Dsb-ac-Xvjly Xfer(QC): 3 Car Transfer (QC): 88 Gait Training Does the Patient Walk?: Yes Distance: 15', 10'x2 Walk 10 feet (QC): 2 Walk 50 ft with 2 Turns(QC): 88 Walk 150 ft (QC): 88 Walking 10ft/uneven surface-QC: 88 Gait Persons Needed: 1 Gait Assistive Device: Walker Jay Wheelchair Training Does the Pt Use a Wheelchair?: Yes Distance: 50' Wheel 50 ft with 2 turns (QC): 4 Wheel 150 ft (QC): 4 Type of Wheelchair: Manual Stair Training 1 Step (curb) (QC): 88 4 Steps (QC): 88 12 Steps (QC): 88 Balance Picking up an Object (QC): 88 ADL-Treatment Eating (QC): 6 (per clinical judgment) Oral Hygiene (QC): 6 Bathing Location: L Arm, R Arm, L Upper Leg, R Upper Leg, L Lower Leg (including foot), R Lower Leg (including foot), Chest, Abdomen, Buttocks, Perineal Area Shower/Bathe Self (QC): 3 (Min verbal cues to recall technique. ) Upper Body Dressing (QC): 3 (Mod A) Lower Body Dressing (QC): 2 On/Off Footwear (QC): 2 Toileting Hygiene (QC): 1 (Mod A x2) Toilet Transfer (QC): 1 Assessment/Plan Assessment and Plan Assess & Plan/Chief Complaint Assessment: CVA with left-sided weakness Diabetes Hypertension Hyperlipidemia Dementia Left knee pain chronic status post steroid injection per Dr. Cummings Plan: Aggressive therapy Supportive care Statin Cardiology 06/18/2021: Much improved status Fall risk 06/19/2021: Continue treatment Aggressive therapy 06/20/2021: Supportive care Aggressive therapy 06/21/2021: Monitor closely Fall risk 06/22/2021: Pain control Monitor closely 06/23/2021: Check meds Labs due tomorrow 06/24/2021: Supportive care Monitor closely 06/25/2021: Change lisinopril to losartan per Dr. Donaldson Continue aggressive therapy 06/26/2021: Supportive care Look for skilled care Medicaid application started Claritin and Singulair for congestion 06/27/2021: Supportive care 06/28/2021: Supportive care Aggressive therapy Awaiting placement 06/29/2021: Continue treatment 06/30/21: Monitor closely Aggressive therapy 07/01/2021: Awaiting placement Await chest x-ray results 07/02/2021: Supportive care Await longterm placement 07/03/2021: Supportive care Awaiting longterm placement Discharge 07/10/2021 (1) Cerebrovascular accident due to cerebral artery occlusion Status: Acute (2) T2DM (type 2 diabetes mellitus) Status: Chronic (3) HLD (hyperlipidemia) Status: Chronic (4) Obesity Status: Chronic (5) Debility Status: Acute (6) Dementia Status: Chronic (7) Right pontine stroke Status: Acute (8) HTN (hypertension) Status: Acute CIRO CABRERA DO Jul 03, 2021 11:25
--- NOTE | 2021-07-03 11:59 | Physical Therapy Daily Note ---
PT Daily Note-Current Subjective Patient in recliner pre tx, agrees to PT, has no complaints of pain. Appearance Patient in recliner post tx with nurse call, phone, tray, all needs met. Mental Status Patient Orientation: Person, Place, Situation Transfers SCALE: Activities may be completed with or without assistive devices. 6-Sazybafrrb-hqcmole completes the activity by him/herself with no assistance from a helper. 5-Set-up or Clean-up Assistance-helper sets up or cleans up; patient completes activity. [place] assists only prior to or following the activity. 4-Supervision or Touching Assistance-helper provides verbal cues and/or gayle josy/steadying and/or contact guard assistance as patient completes activity. Assistance may be provided throughout the activity or intermittently. 3-Partial/Moderate Assistance-helper does LESS THAN HALF the effort. [place] lifts, holds or supports trunk or limbs, but provides less than half the effort. 2-Substantial/Maximal Assistance-helper does MORE THAN HALF the effort. [place] lifts or holds trunk or limbs and provides more than half the effort. 9-Exjewymdw-pdxjvw does ALL the effort. Patient does none of the effort to complete the activity. Or, the assistance of 2 or more helpers is required for the patient to complete the activity. If activity was not attempted, code reason: 7-Patient Refused. 9-Not Applicable-not attempted and the patient did not perform the activity before the current illness, exacerbation or injury. 10-Not Attempted due to Environmental Limitations-(lack of equipment, weather restraints, etc.). 88-Not Attempted due to Medical Conditions or Safety Concerns. Sit to Stand (QC): 3 Chair/Sgo-ak-Phpol Xfer(QC): 3 Toilet Transfer (QC): 3 Mod assist for sit to stand and transfers, cues for hand placement and positioning. During tx patient states he needs to use the restroom to have a BM. He propels his WC back to his room and is transferred to toilet, an aide is used to get his pants down, when done he is mod assist to stand, aide cleans him and pulls his pants back up, then mod assist transfer back to . Weight Bearing Full Weight Bearing Full Weight Bearing Gait Training Distance: 15' Walk 10 feet (QC): 3 Gait Persons Needed: 1 Gait Assistive Device: Walker Jay mod assist, needs assist with balance and trunk extension when stepping with his left foot, sometimes needs assist advancing his left foot. Wheelchair Training Does the Pt Use a Wheelchair?: Yes Wheel 50 ft with 2 turns (QC): 4 Wheel 150 ft (QC): 4 Type of Wheelchair: Manual 200', 120'x3 Exercises standing in parallel bars x3 raising left foot from floor x5 each stand Treatments transfers, ambulation, WC mobility, balance training Assessment Current Status: Poor Progress slight improvement in ambulation PT Short Term Goals Short Term Goals Time Frame: Jun 24, 2021 Roll Left & Right: 3 Sit to lyin Lying to sitting on side of be: 3 Sit to stand: 3 Chair/asf-fx-txgvd transfer: 3 Walk 10 feet: 3 PT Care Home Goals It Engineer Goals PT Care Home Goals Time Frame: Jul 08, 2021 Roll Left & Right (QC): 3 (Dora) Sit to Lying (QC): 3 (Dora) Lying-Sitting on Side/Bed(QC): 3 (Dora) Sit to Stand (QC): 4 (CGA) Chair/Gyu-ek-Xqtxk Xfer(QC): 4 (CGA) Toilet Transfer (QC): 4 (CGA) Car Transfer (QC): 4 (CGA) Does the Patient Walk: Yes Walk 10 feet (QC): 4 (CGA) Walk 50ft with 2 Turns (QC): 88 Walk 150 ft (QC): 88 Walking 10ft on Uneven Surface: 3 (Dora) 1 Step (curb) (QC): 3 (Dora) 4 Steps (QC): 88 12 Steps (QC): 88 Picking up an Object (QC): 88 Wheel 50 feet with 2 turns (QC: 5 Wheel 150 feet: 5 PT Plan Problem List Problem List: Activity Tolerance, Functional Strength, Safety, Balance, Gait, Transfer, Bed Mobility, ROM Treatment/Plan Treatment Plan: Continue Plan of Care Treatment Plan: Bed Mobility, Education, Functional Activity Gwendolyn, Functional Strength, Group Therapy, Gait, Safety, Therapeutic Exercise, Transfers Treatment Duration: Jul 08, 2021 Frequency: At least 5 of 7 days/Wk (IRF) Estimated Hrs Per Day: 1.5 hours per day Patient and/or Family Agrees t: Yes Safety Risks/Education Patient Education: Gait Training, Transfer Techniques, Correct Positioning, W/C Management, Safety Issues Teaching Recipient: Patient Teaching Methods: Demonstration, Discussion Response to Teaching: Reinforcement Needed Time/GCodes Time In: 1100 Time Out: 1200 Total Billed Treatment Time: 60 Total Billed Treatment 1 visit FA Morena' JASVIR ALVES PT Jul 03, 2021 11:59
--- NOTE | 2021-07-03 13:30 | Physical Therapy Daily Note ---
PT Daily Note-Current Subjective Pt in recliner and agrees to tx. Pt has no c/o pain. Mental Status Patient Orientation: Person, Place Transfers SCALE: Activities may be completed with or without assistive devices. 1-Dfsihfozaq-eoewmtf completes the activity by him/herself with no assistance from a helper. 5-Set-up or Clean-up Assistance-helper sets up or cleans up; patient completes activity. [place] assists only prior to or following the activity. 4-Supervision or Touching Assistance-helper provides verbal cues and/or touching /steadying and/or contact guard assistance as patient completes activity. Assistance may be provided throughout the activity or intermittently. 3-Partial/Moderate Assistance-helper does LESS THAN HALF the effort. [place] lifts, holds or supports trunk or limbs, but provides less than half the effort. 2-Substantial/Maximal Assistance-helper does MORE THAN HALF the effort. [place] lifts or holds trunk or limbs and provides more than half the effort. 5-Yiliyeyjo-zvgcfo does ALL the effort. Patient does none of the effort to complete the activity. Or, the assistance of 2 or more helpers is required for the patient to complete the activity. If activity was not attempted, code reason: 7-Patient Refused. 9-Not Applicable-not attempted and the patient did not perform the activity before the current illness, exacerbation or injury. 10-Not Attempted due to Environmental Limitations-(lack of equipment, weather restraints, etc.). 88-Not Attempted due to Medical Conditions or Safety Concerns. Sit to Lying (QC): 3 Sit to Stand (QC): 3 Chair/Ivu-rh-Vhxpw Xfer(QC): 3 Weight Bearing Full Weight Bearing Full Weight Bearing Exercises Supine Ex: Ankle pumps, Heel Slides, Scooting, Straight leg raise, Hip abd/add Supine Reps: 10 PROM/AAROM on L LE Treatments Pt in recliner and completes supine ex. Pt instructed on how to scoot self up in recliner w/ leg rest up and pushing w/ R LE. Pt then SPT to bed ModA and sit to supine ModA, requiring A to bring B LE into bed. Pt instructed on scooting w/ use of R LE and grabbing hand rail w/ R UE. Pt scoots self to HOB. Pt remains in bed with all needs met, call light in hand. Assessment Current Status: Fair Progress Pt increasing strength, endurance, and mobility. PT Short Term Goals Short Term Goals Time Frame: Jun 24, 2021 Roll Left & Right: 3 Sit to lyin Lying to sitting on side of be: 3 Sit to stand: 3 Chair/zwl-rh-tzqqa transfer: 3 Walk 10 feet: 3 PT Senior Care Goals Polish Maker Goals PT Senior Care Goals Time Frame: Jul 08, 2021 Roll Left & Right (QC): 3 (Dora) Sit to Lying (QC): 3 (Dora) Lying-Sitting on Side/Bed(QC): 3 (Dora) Sit to Stand (QC): 4 (CGA) Chair/Igo-al-Qilkd Xfer(QC): 4 (CGA) Toilet Transfer (QC): 4 (CGA) Car Transfer (QC): 4 (CGA) Does the Patient Walk: Yes Walk 10 feet (QC): 4 (CGA) Walk 50ft with 2 Turns (QC): 88 Walk 150 ft (QC): 88 Walking 10ft on Uneven Surface: 3 (Dora) 1 Step (curb) (QC): 3 (Dora) 4 Steps (QC): 88 12 Steps (QC): 88 Picking up an Object (QC): 88 Wheel 50 feet with 2 turns (QC: 5 Wheel 150 feet: 5 PT Plan Treatment/Plan Treatment Plan: Continue Plan of Care Treatment Plan: Bed Mobility, Education, Functional Activity Gwendolyn, Functional Strength, Group Therapy, Gait, Safety, Therapeutic Exercise, Transfers Treatment Duration: Jul 08, 2021 Frequency: At least 5 of 7 days/Wk (IRF) Estimated Hrs Per Day: 1.5 hours per day Patient and/or Family Agrees t: Yes Time/GCodes Time In: 1300 Time Out: 1330 Total Billed Treatment Time: 30 Total Billed Treatment 1, FA, EX BRANDY,BRINA LICENSED AIRCRAFT MAINTENANCE ENGINEER Jul 03, 2021 13:30
[2021-07-03 20:37] VITALS: BP 134/68
[2021-07-03] MEDS: MONTELUKAST 10 MG (SINGULAIR) TAB PO SCH (21:38)
[2021-07-03] MEDS: TAMSULOSIN 0.4 MG (FLOMAX) CAP PO SCH (21:38)
[2021-07-03] MEDS: QUEtiapine 25 MG (SEROquel) TAB IMMEDIATE RELEASE PO SCH (21:38)
[2021-07-04] MEDS: VENlafaxine XR 75 MG (EFFEXOR XR) CAP PO SCH (06:06)
[2021-07-04] MEDS: hydrALAZINE (APRESOLINE) 25 MG TAB PO SCH ×3 (06:06→21:25)
[2021-07-04 07:58] VITALS: BP 172/82
[2021-07-04] MEDS: DOCUSATE SODIUM 100 MG (COLACE) CAP PO SCH ×2 (08:03→21:00)
[2021-07-04] MEDS: amLODIPine 10 MG (NORVASC) TAB PO SCH (08:03)
[2021-07-04] MEDS: metFORMIN 500 MG (GLUCOPHAGE) TAB PO SCH ×2 (08:03→17:35)
[2021-07-04] MEDS: ASPIRIN E.C. 81 MG (ECOTRIN) TAB PO SCH (08:03)
--- NOTE | 2021-07-04 08:03 | Cardiology Progress Note ---
Subjective Date Seen by Provider: Jul 04, 2021 Time Seen by Provider: 08:02 Subjective/Events-last exam Patient in bed, no new complaints. Denies chest pain or palpitations. Review of Systems General: No Chills, No Night Sweats; Fatigue; No Malaise, No Appetite, No Other HEENT: No Head Aches, No Visual Changes, No Eye Pain, No Ear Pain, No Dysphasia, No Sinus Congestion, No Post Nasal Drip, No Sore Throat, No Other Pulmonary: No Dyspnea, No Cough, No Pleuritic Chest Pain, No Other Cardiovascular: No: Chest Pain, Palpitations, Orthopnea, Paroxysmal Noc. Dyspnea, Edema, Lt Headedness, Other Objective-Cardiology Exam Last Set of Vital Signs Vital Signs 07/04/21 07:58 Temp 36.4 Pulse 76 Resp 16 B/P (MAP) 172/82 (112) Pulse Ox 91 O2 Delivery Room Air General: Alert, Oriented X3, Cooperative HEENT: Atraumatic, PERRLA Neck: Supple, No JVD Lungs: Clear to Auscultation, Normal Air Movement Heart: Regular Rate, Normal S1, Normal S2, No Murmurs Abdomen: Soft, No Tenderness Extremities: No Clubbing, No Edema Skin: No Rashes, No Significant Lesion Neuro: Normal Speech, Other Psych/Mental Status: Mental Status NL, Mood NL A/P-Cardiology Admission Diagnosis CVA HTN Dementia Assessment/Plan 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 MRI of the head reported acute/subacute pontine stroke. Maintained on aspirin, monitor blood pressure Malignant hypertension, maintained on Norvasc 10 mg, hydralazine 25 mg and changed from lisinopril to losartan 100 mg daily due to persistent cough, adding Toprol-XL 25 mg daily and evaluate tolerance and response Elevated D-dimer, venous Doppler was negative. Maintained on Lovenox. Continue to monitor Vascular dementia, had generalized weakness in the past. History of diverticulosis, BPH. Status post COVID-19 vaccination done on June 10, 2021 triggered generalized weakness, Patient was found on the floor by his neighbor Supervisory-Addendum Brief Supervisory Addendum Participated in pt care: history, MDM, physical Personally performed: exam, history, MDM Care discussed with: CARISSA Results interpretation: Verified all documentation Notes: Patient was seen and evaluated with Mike, examination performed, management plan was discussed, agree with the current scribed note, I made few changes to the note using Italic font Patient was seen at bedside, laying down comfortably, no new complaint Having occasional PVCs, blood pressure is elevated today Adding Toprol-XL and evaluate tolerance and response MIKE MILLER Jul 04, 2021 08:03 MICHELLE HOUGH MD Jul 04, 2021 08:39
[2021-07-04] MEDS: PANTOPRAZOLE 40 MG (PROTONIX) TAB PO SCH (08:04)
[2021-07-04] MEDS: SENNA W/DOCUSATE (SENOKOT S) TABLET PO SCH ×4 (08:04→21:00)
[2021-07-04] MEDS: LORATADINE (CLARITIN) 10 MG TAB PO SCH (08:04)
[2021-07-04] MEDS: LOSARTAN 100 MG (COZAAR) TABLET PO SCH (08:04)
[2021-07-04] MEDS: ENOXAPARIN 40 MG/0.4 ML (LOVENOX) SYR SC SCH (08:04)
[2021-07-04] MEDS: DICLOFENAC 1% GEL 100 GM (VOLTAREN) TUBE TOP SCH ×4 (08:08→21:25)
[2021-07-04] MEDS: polyethylene glycoL POWDER 17 GM (MIRALAX) PACK PO SCH ×2 (08:08→21:00)
--- NOTE | 2021-07-04 08:46 | Physical Therapy Daily Note ---
PT Daily Note-Current Subjective Patient in bed pre tx, agrees to PT, has no complaints of pain. Needs dressed max assist for shorts and shoes Appearance Patient in restroom on toilet post tx with nurse call Mental Status Patient Orientation: Person, Place, Situation Transfers SCALE: Activities may be completed with or without assistive devices. 7-Gzsvqegwow-ngegaha completes the activity by him/herself with no assistance from a helper. 5-Set-up or Clean-up Assistance-helper sets up or cleans up; patient completes activity. [place] assists only prior to or following the activity. 4-Supervision or Touching Assistance-helper provides verbal cues and/or touching/steadying and/or contact guard assistance as patient completes activity. Assistance may be provided throughout the activity or intermittently. 3-Partial/Moderate Assistance-helper does LESS THAN HALF the effort. [place] l ifts, holds or supports trunk or limbs, but provides less than half the effort. 2-Substantial/Maximal Assistance-helper does MORE THAN HALF the effort. [place] lifts or holds trunk or limbs and provides more than half the effort. 3-Uefhgidxh-holwae does ALL the effort. Patient does none of the effort to complete the activity. Or, the assistance of 2 or more helpers is required for t he patient to complete the activity. If activity was not attempted, code reason: 7-Patient Refused. 9-Not Applicable-not attempted and the patient did not perform the activity before the current illness, exacerbation or injury. 10-Not Attempted due to Environmental Limitations-(lack of equipment, weather restraints, etc.). 88-Not Attempted due to Medical Conditions or Safety Concerns. Roll Left & Right (QC): 3 Lying to Sitting/Side of Bed(Q: 3 Sit to Stand (QC): 3 Chair/Ewk-jh-Hkapv Xfer(QC): 3 Toilet Transfer (QC): 3 mod assist for all transfers, after tx in therapy gym patient states he needs to use the restroom, mod assist for toilet transfer, nurse pulls down shorts on the way to the toilet, after standing with mod assist, nurse cleans patient and pulls a new brief up and then he transfer to , then transfer to recliner. Weight Bearing Full Weight Bearing Full Weight Bearing Wheelchair Training Does the Pt Use a Wheelchair?: Yes Wheel 50 ft with 2 turns (QC): 4 Wheel 150 ft (QC): 4 Type of Wheelchair: Manual 200', 120' Exercises NuStep Minutes: 15 NuStep Workload: 5 Treatments dressing, toileting, functional strengthening, WC mobility, transfers Assessment Current Status: Poor Progress no change in mobility PT Short Term Goals Short Term Goals Time Frame: Jun 24, 2021 Roll Left & Right: 3 Sit to lyin Lying to sitting on side of be: 3 Sit to stand: 3 Chair/uxd-gw-wpjum transfer: 3 Walk 10 feet: 3 PT Resource Agent Goals Fpc Goals PT Fpc Goals Time Frame: Jul 08, 2021 Roll Left & Right (QC): 3 (Dora) Sit to Lying (QC): 3 (Dora) Lying-Sitting on Side/Bed(QC): 3 (Dora) Sit to Stand (QC): 4 (CGA) Chair/Avy-fi-Aiweq Xfer(QC): 4 (CGA) Toilet Transfer (QC): 4 (CGA) Car Transfer (QC): 4 (CGA) Does the Patient Walk: Yes Walk 10 feet (QC): 4 (CGA) Walk 50ft with 2 Turns (QC): 88 Walk 150 ft (QC): 88 Walking 10ft on Uneven Surface: 3 (Dora) 1 Step (curb) (QC): 3 (Dora) 4 Steps (QC): 88 12 Steps (QC): 88 Picking up an Object (QC): 88 Wheel 50 feet with 2 turns (QC: 5 Wheel 150 feet: 5 PT Plan Problem List Problem List: Activity Tolerance, Functional Strength, Safety, Balance, Gait, Transfer, Bed Mobility, ROM Treatment/Plan Treatment Plan: Continue Plan of Care Treatment Plan: Bed Mobility, Education, Functional Activity Gwendolyn, Functional Strength, Group Therapy, Gait, Safety, Therapeutic Exercise, Transfers Treatment Duration: Jul 08, 2021 Frequency: At least 5 of 7 days/Wk (IRF) Estimated Hrs Per Day: 1.5 hours per day Patient and/or Family Agrees t: Yes Safety Risks/Education Patient Education: Transfer Techniques, Correct Positioning, W/C Management, Safety Issues Teaching Recipient: Patient Teaching Methods: Demonstration, Discussion Response to Teaching: Reinforcement Needed Time/GCodes Time In: 0800 Time Out: 0900 Total Billed Treatment Time: 60 Total Billed Treatment 1 visit EX 15' FA 45' JASVIR ALVES PT Jul 04, 2021 08:46
--- NOTE | 2021-07-04 09:59 | PM&R Progress Note ---
Subjective HPI/CC On Admission Date Seen by Provider: Jul 04, 2021 Time Seen by Provider: 10:00 Subjective/Events-last exam 07/04/2021: Patient doing well Blood pressure bit elevated Toprol was added by Dr. Donaldson Bowels moved today long term placement 07/03/2021: Pt standing better Bowels moved yesterday DC planned to a long-term DC planned for 07/10/21 will be goal Moving his left leg 07/02/2021: No major issues CXR was negative Has some hiccups 07/01/2021: Pt doing well CXR pending Labs okay Lifted his left leg and moved his left fingers Bowels are moving 06/30/2021: No major issues Bowels moved 2 times yesterday Picked up his left leg yesterday 06/29/2021: No major issues Continues to participate in therapy Awaiting placement 06/28/2021: Patient doing pretty well Awaiting placement Bowels are moving well Denies any pain Told me about his dementia diagnosis 20 years ago 06/27/2021: Patient doing really well Bowels are moving Taking a nap currently Denies any issues 06/26/2021: Patient doing really well Eliquis and Plavix maintain Losartan started for blood pressure elevation Discontinue nystatin Singulair and Claritin will be started for congestion 06/25/2021: Patient doing pretty well Lisinopril will be changed to losartan due to reportedly cough Bowels moved today 06/24/2021: Patient participating in therapy No bowels movement for the last couple of days will give laxatives Check meds and labs 06/23/2021: Patient in a good mood No significant concerns Check meds and labs Blood sugar is good 06/22/2021: Patient doing well Knee still hurts but that is chronic Changing sliding scale to twice daily Accu-Cheks 06/21/2021: Patient doing really well Having some incontinence No pain is reported Progressing with therapy 06/20/2021: Patient progressing nicely Blood sugar 128 Bowels moved yesterday Discontinue the Hep-Lock 06/19/2021: Pt doing really well Left-sided weakness is a challenge Bowels moved twice today Magic mouthwash will be initiated because he keeps on biting the inside of his cheek Knee pain is chronic Voltaren gel will be added 06/18/2021: Pt doing really well Eating very well Sugars are okay Incontinent Bowels are moving No pain Obtaining good relief with left knee injection Review of Systems General: Fatigue, Malaise Neurological: Incoordination Objective Exam Vital Signs Vital Signs Date Time Temp Pulse Resp B/P (MAP) Pulse Ox O2 Delivery O2 Flow Rate FiO2 07/04/21 12:59 74 128/63 (84) 07/04/21 10:28 91 Room Air 07/04/21 07:58 36.4 16 Capillary Refill : General Appearance: No Apparent Distress, WD/WN, Chronically ill, Obese HEENT: PERRL/EOMI, Normal ENT Inspection, Pharynx Normal Neck: Full Range of Motion, Normal Inspection, Non Tender, Supple, Carotid Bruit Respiratory: Chest Non Tender, Lungs Clear, Normal Breath Sounds, No Accessory Muscle Use, No Respiratory Distress Cardiovascular: Regular Rate, Rhythm, No Edema, No Gallop, No JVD, No Murmur, Normal Peripheral Pulses Gastrointestinal: Normal Bowel Sounds, No Organomegaly, No Pulsatile Mass, Non Tender, Soft Back: Normal Inspection, No CVA Tenderness, No Vertebral Tenderness Extremity: Normal Capillary Refill, Normal Inspection, Normal Range of Motion, Non Tender, No Calf Tenderness, No Pedal Edema Neurologic/Psychiatric: Alert, Oriented x3, environmental intern II-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 FIM Transfers Therapy Code Descriptions/Definitions Functional [place] Measure: 0=Not Assessed/NA 4=Minimal Assistance 1=Total Assistance 5=Supervision or Setup 2=Maximal Assistance 6=Modified [place] 3=Moderate Assistance 7=Complete IndependenceSCALE: Activities may be completed with or without assistive devices. 6-Hoygvbpfho-tkrjlzj completes the activity by him/herself with no assistance from a helper. 5-Set-up or Clean-up Assistance-helper sets up or cleans up; patient completes activity. [place] assists only prior to or following the activity. 4-Supervision or Touching Assistance-helper provides verbal cues and/or touching/steadying and/or contact guard assistance as patient completes activity. Assistance may be provided throughout the activity or intermittently. 3-Partial/Moderate Assistance-helper does LESS THAN HALF the effort. [place] lifts, holds or supports trunk or limbs, but provides less than half the effort. 2-Substantial/Maximal Assistance-helper does MORE THAN HALF the effort. [place] lifts or holds trunk or limbs and provides more than half the effort. 8-Hpqmcxpsa-miivsg does ALL the effort. Patient does none of the effort to complete the activity. Or, the assistance of 2 or more helpers is required for the patient to complete the activity. If activity was not attempted, code reason: 7-Patient Refused. 9-Not Applicable-not attempted and the patient did not perform the activity before the current illness, exacerbation or injury. 10-Not Attempted due to Environmental Limitations-(lack of equipment, weather restraints, etc.). 88-Not Attempted due to Medical Conditions or Safety Concerns. Roll Left to Right (QC): 3 Sit to Lying (QC): 3 Sit to Stand (QC): 3 Chair/Pea-ka-Vdtyv Xfer(QC): 3 Car Transfer (QC): 88 Gait Training Does the Patient Walk?: Yes Distance: 15' Walk 10 feet (QC): 3 Walk 50 ft with 2 Turns(QC): 88 Walk 150 ft (QC): 88 Walking 10ft/uneven surface-QC: 88 Gait Persons Needed: 1 Gait Assistive Device: Walker Jay Wheelchair Training Does the Pt Use a Wheelchair?: Yes Distance: 50' Wheel 50 ft with 2 turns (QC): 4 Wheel 150 ft (QC): 4 Type of Wheelchair: Manual Stair Training 1 Step (curb) (QC): 88 4 Steps (QC): 88 12 Steps (QC): 88 Balance Picking up an Object (QC): 88 ADL-Treatment Eating (QC): 6 (per clinical judgment) Oral Hygiene (QC): 6 Bathing Location: L Arm, R Arm, L Upper Leg, R Upper Leg, L Lower Leg (including foot), R Lower Leg (including foot), Chest, Abdomen, Buttocks, Perineal Area Shower/Bathe Self (QC): 4 (Min verbal cues to recall technique. ) Upper Body Dressing (QC): 3 (Mod A) Lower Body Dressing (QC): 2 On/Off Footwear (QC): 2 Toileting Hygiene (QC): 1 (Mod A x2) Toilet Transfer (QC): 1 Assessment/Plan Assessment and Plan Assess & Plan/Chief Complaint Assessment: CVA with left-sided weakness Diabetes Hypertension Hyperlipidemia Dementia Left knee pain chronic status post steroid injection per Dr. Cummings Plan: Aggressive therapy Supportive care Statin Cardiology 06/18/2021: Much improved status Fall risk 06/19/2021: Continue treatment Aggressive therapy 06/20/2021: Supportive care Aggressive therapy 06/21/2021: Monitor closely Fall risk 06/22/2021: Pain control Monitor closely 06/23/2021: Check meds Labs due tomorrow 06/24/2021: Supportive care Monitor closely 06/25/2021: Change lisinopril to losartan per Dr. Donaldson Continue aggressive therapy 06/26/2021: Supportive care Look for skilled care Medicaid application started Claritin and Singulair for congestion 06/27/2021: Supportive care 06/28/2021: Supportive care Aggressive therapy Awaiting placement 06/29/2021: Continue treatment 06/30/21: Monitor closely Aggressive therapy 07/01/2021: Awaiting placement Await chest x-ray results 07/02/2021: Supportive care Await long-term placement 07/03/2021: Supportive care Awaiting long-term placement Discharge 07/10/2021 07/04/2021: Supportive care Monitor closely (1) Cerebrovascular accident due to cerebral artery occlusion Status: Acute (2) T2DM (type 2 diabetes mellitus) Status: Chronic (3) HLD (hyperlipidemia) Status: Chronic (4) Obesity Status: Chronic (5) Debility Status: Acute (6) Dementia Status: Chronic (7) Right pontine stroke Status: Acute (8) HTN (hypertension) Status: Acute CIRO CABRERA DO Jul 04, 2021 09:58
--- NOTE | 2021-07-04 10:02 | Occupational Ther Daily Note ---
OT Current Status-Daily Note Subjective (1st session)Pt. dozing in recliner, easy to wake. Pt. agrees to therapy, informs of accident with bowels/urination this morning states doesn't want to get up from chair to perform oral care. (2nd session) Pt. dozing in recliner, easy to wake. Pt. agrees to therapy. Mental Status/Objective Patient Orientation: Person, Place ADL-Treatment (2nd Session) ([id number]) Pt. feeling better than previous session, agrees to perform oral care. Pt. Mod A sit to stand recliner to w/c. Pt. transported to sink to perform oral hygiene. Pt. able to perform care independently. Pt. feeling nostalgic, enjoyment of recalling past events. Pt. transported using w/c back to room. Pt. Mod A. transfer from w/c to recliner. Pt. Mod A. to stand from recliner to adjust/sit back farther in chair. Pt. resting in recliner, call light/phone in reach. All needs met in gym. Therapy Code Descriptions/Definitions Functional [place] Measure: 0=Not Assessed/NA 4=Minimal Assistance 1=Total Assistance 5=Supervision or Setup 2=Maximal Assistance 6=Modified [place] 3=Moderate Assistance 7=Complete IndependenceSCALE: Activities may be completed with or without assistive devices. 9-Stohapxqcu-cjggdol completes the activity by him/herself with no assistance from a helper. 5-Set-up or Clean-up Assistance-helper sets up or cleans up; patient completes activity. [place] assists only prior to or following the activity. 4-Supervision or Touching Assistance-helper provides verbal cues and/or touching/steadying and/or contact guard assistance as patient completes activity. Assistance may be provided throughout the activity or intermittently. 3-Partial/Moderate Assistance-helper does LESS THAN HALF the effort. [place] lifts, holds or supports trunk or limbs, but provides less than half the effort. 2-Substantial/Maximal Assistance-helper does MORE THAN HALF the effort. [place] lifts or holds trunk or limbs and provides more than half the effort. 8-Hzfbefksy-ugvxtd does ALL the effort. Patient does none of the effort to complete the activity. Or, the assistance of 2 or more helpers is required for the patient to complete the activity. If activity was not attempted, code reason: 7-Patient Refused. 9-Not Applicable-not attempted and the patient did not perform the activity before the current illness, exacerbation or injury. 10-Not Attempted due to Environmental Limitations-(lack of equipment, weather restraints, etc.). 88-Not Attempted due to Medical Conditions or Safety Concerns. Other Treatment (1st session) Pt took increased time to complete B UE ROM tasks due to hyper- talkativeness from anxiety of discharge plans and issues during morning routines. Pt calmed during OT session and was less anxious. Pt performed shoulder shrugs 10 reps 3 sets R shoulder AAROM L shoulder PROM. Pt. performed R UE AROM ex's while PROM done by DORSEY on L for shoulder flexion to ~85*, elbow flexion, pron/sup 10 reps 4 sets message/palpation between ea. set. Pt. able isolate extension on index finger and ring finger supported on arm of recliner. Pt. seated in recliner, call light/phone in reach. All needs met in room. 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 2=Patient will verbalize/demonstrate understanding of assistive devices/modifications for ADL. 3=Patient will improve strength/tolerance for activity to enable patient to perform ADL's. OT Education/Plan Problem List/Assessment Assessment: Decreased Activ Tolerance, Decreased Safety Aware, Decreased UE Strength, Impaired Self-Care Skills, Restricted Funct UE ROM Discharge Recommendations Plan/Recommendations: Continue POC Treatment Plan/Plan of Care Patient would benefit from OT for education, treatment and training to promote independence in ADL's, mobility, safety and/or upper extremity function for ADL's. Plan of Care: ADL Retraining, Caregiver Training, Cognitive Retraining, Functional Mobility, Group Exercise/Act as Ind, UE Funct Exercise/Act, UE Neuromus Re-Ed/Coord, W/C Management Training Treatment Duration: Jul 08, 2021 Frequency: At least 5 of 7 days/Wk (IRF) Estimated Hrs Per Day: 1.5 hours per day Agreement: Yes Rehab Potential: Fair Time/GCodes Start Time: 09:00 (1130) Stop Time: 10:00 (1200) Total Time Billed (hr/min): 90 Billed Treatment Time (1st session) ([id number]) 1 visit- EX 3 (40 min), NM 1 (20 min) (2nd session) ([id number]) 1 visit- ADL 2 (30 min) HEMA RICHARDS Jul 04, 2021 10:01
[2021-07-04] MEDS: RT--FLUTICASONE/SALMETEROL 113-14 (AIRDUO RespiCLICK) IH SCH ×2 (10:28→21:20)
[2021-07-04 12:59] VITALS: BP 128/63
--- NOTE | 2021-07-04 14:30 | Physical Therapy Daily Note ---
PT Daily Note-Current Subjective Patient in recliner pre tx, agrees to PT, has no complaints of pain. Appearance Patient in recliner post tx with nurse call, phone, tray, all needs met. Mental Status Patient Orientation: Person, Place, Situation Transfers SCALE: Activities may be completed with or without assistive devices. 1-Vbuppkbfxc-hlstqsy completes the activity by him/herself with no assistance from a helper. 5-Set-up or Clean-up Assistance-helper sets up or cleans up; patient completes activity. [place] assists only prior to or following the activity. 4-Supervision or Touching Assistance-helper provides verbal cues and/or gayle josy/steadying and/or contact guard assistance as patient completes activity. Assistance may be provided throughout the activity or intermittently. 3-Partial/Moderate Assistance-helper does LESS THAN HALF the effort. [place] lifts, holds or supports trunk or limbs, but provides less than half the effort. 2-Substantial/Maximal Assistance-helper does MORE THAN HALF the effort. [place] lifts or holds trunk or limbs and provides more than half the effort. 2-Goqdsydfw-ndxzbt does ALL the effort. Patient does none of the effort to complete the activity. Or, the assistance of 2 or more helpers is required for the patient to complete the activity. If activity was not attempted, code reason: 7-Patient Refused. 9-Not Applicable-not attempted and the patient did not perform the activity before the current illness, exacerbation or injury. 10-Not Attempted due to Environmental Limitations-(lack of equipment, weather restraints, etc.). 88-Not Attempted due to Medical Conditions or Safety Concerns. Sit to Stand (QC): 3 Chair/Lov-wg-Ttlnx Xfer(QC): 3 Weight Bearing Full Weight Bearing Full Weight Bearing Gait Training Distance: 10', 15'x2 Walk 10 feet (QC): 3 Gait Assistive Device: Walker Jay min assist for balance, better stepping with left leg, better foot clearance Wheelchair Training Does the Pt Use a Wheelchair?: Yes Wheel 50 ft with 2 turns (QC): 3 Wheel 150 ft (QC): 3 Type of Wheelchair: Manual 150'x2, needs assist occasionally around obstacles, needs frequent rest breaks Treatments transfers, ambulation, WC mobility Assessment Current Status: Fair Progress improved ambulation PT Short Term Goals Short Term Goals Time Frame: Jun 24, 2021 Roll Left & Right: 3 Sit to lyin Lying to sitting on side of be: 3 Sit to stand: 3 Chair/agh-dr-sphlb transfer: 3 Walk 10 feet: 3 PT Longterm Goals Longterm Goals PT Data Collector Goals Time Frame: Jul 08, 2021 Roll Left & Right (QC): 3 (Dora) Sit to Lying (QC): 3 (Dora) Lying-Sitting on Side/Bed(QC): 3 (Dora) Sit to Stand (QC): 4 (CGA) Chair/Bdw-gk-Lwbdf Xfer(QC): 4 (CGA) Toilet Transfer (QC): 4 (CGA) Car Transfer (QC): 4 (CGA) Does the Patient Walk: Yes Walk 10 feet (QC): 4 (CGA) Walk 50ft with 2 Turns (QC): 88 Walk 150 ft (QC): 88 Walking 10ft on Uneven Surface: 3 (Dora) 1 Step (curb) (QC): 3 ([place]) 4 Steps (QC): 88 12 Steps (QC): 88 Picking up an Object (QC): 88 Wheel 50 feet with 2 turns (QC: 5 Wheel 150 feet: 5 PT Plan Problem List Problem List: Activity Tolerance, Functional Strength, Safety, Balance, Gait, Transfer, Bed Mobility, ROM Treatment/Plan Treatment Plan: Continue Plan of Care Treatment Plan: Bed Mobility, Education, Functional Activity Gwendolyn, Functional Strength, Group Therapy, Gait, Safety, Therapeutic Exercise, Transfers Treatment Duration: Jul 08, 2021 Frequency: At least 5 of 7 days/Wk (IRF) Estimated Hrs Per Day: 1.5 hours per day Patient and/or Family Agrees t: Yes Safety Risks/Education Patient Education: Gait Training, Transfer Techniques, Correct Positioning, W/C Management, Safety Issues Teaching Recipient: Patient Teaching Methods: Demonstration, Discussion Response to Teaching: Reinforcement Needed Time/GCodes Time In: 1400 Time Out: 1430 Total Billed Treatment Time: 30 Total Billed Treatment 1 visit FA 30' JASVIR ALVES PT Jul 04, 2021 14:30
[2021-07-04 20:00] VITALS: BP 138/67
[2021-07-04] MEDS: TAMSULOSIN 0.4 MG (FLOMAX) CAP PO SCH (21:24)
[2021-07-04] MEDS: MONTELUKAST 10 MG (SINGULAIR) TAB PO SCH (21:25)
[2021-07-04] MEDS: QUEtiapine 25 MG (SEROquel) TAB IMMEDIATE RELEASE PO SCH (21:25)
[2021-07-05 06:09] VITALS: BP 151/78
[2021-07-05] MEDS: VENlafaxine XR 75 MG (EFFEXOR XR) CAP PO SCH (06:09)
[2021-07-05] MEDS: hydrALAZINE (APRESOLINE) 25 MG TAB PO SCH ×3 (06:09→21:00)
[2021-07-05] MEDS: RT--FLUTICASONE/SALMETEROL 113-14 (AIRDUO RespiCLICK) IH SCH ×2 (07:16→20:33)
[2021-07-05 07:50] VITALS: BP 134/65
--- NOTE | 2021-07-05 08:16 | PM&R Progress Note ---
Subjective HPI/CC On Admission Date Seen by Provider: Jul 05, 2021 Time Seen by Provider: 05:45 Subjective/Events-last exam 07/05/2021: Patient sleeping soundly No pain is reported Still trying to figure out which [facility] he will go to since he will need long-term care 07/04/2021: Patient doing well Blood pressure bit elevated Toprol was added by Dr. Donaldson Bowels moved today residential placement 07/03/2021: Pt standing better Bowels moved yesterday DC planned to a [facility] DC planned for 07/10/21 will be goal Moving his left leg 07/02/2021: No major issues CXR was negative Has some hiccups 07/01/2021: Pt doing well CXR pending Labs okay Lifted his left leg and moved his left fingers Bowels are moving 06/30/2021: No major issues Bowels moved 2 times yesterday Picked up his left leg yesterday 06/29/2021: No major issues Continues to participate in therapy Awaiting placement 06/28/2021: Patient doing pretty well Awaiting placement Bowels are moving well Denies any pain Told me about his dementia diagnosis 20 years ago 06/27/2021: Patient doing really well Bowels are moving Taking a nap currently Denies any issues 06/26/2021: Patient doing really well Eliquis and Plavix maintain Losartan started for blood pressure elevation Discontinue nystatin Singulair and Claritin will be started for congestion 06/25/2021: Patient doing pretty well Lisinopril will be changed to losartan due to reportedly cough Bowels moved today 06/24/2021: Patient participating in therapy No bowels movement for the last couple of days will give laxatives Check meds and labs 06/23/2021: Patient in a good mood No significant concerns Check meds and labs Blood sugar is good 06/22/2021: Patient doing well Knee still hurts but that is chronic Changing sliding scale to twice daily Accu-Cheks 06/21/2021: Patient doing really well Having some incontinence No pain is reported Progressing with therapy 06/20/2021: Patient progressing nicely Blood sugar 128 Bowels moved yesterday Discontinue the Hep-Lock 06/19/2021: Pt doing really well Left-sided weakness is a challenge Bowels moved twice today Magic mouthwash will be initiated because he keeps on biting the inside of his cheek Knee pain is chronic Voltaren gel will be added 06/18/2021: Pt doing really well Eating very well Sugars are okay Incontinent Bowels are moving No pain Obtaining good relief with left knee injection Review of Systems General: Fatigue Neurological: Weakness, Incoordination Objective Exam Vital Signs Vital Signs Date Time Temp Pulse Resp B/P (MAP) Pulse Ox O2 Delivery O2 Flow Rate FiO2 07/05/21 13:58 73 132/65 (87) 07/05/21 09:21 Room Air 07/05/21 07:50 36.2 16 94 Capillary Refill : General Appearance: No Apparent Distress, WD/WN, Chronically ill, Obese HEENT: PERRL/EOMI, Normal ENT Inspection, Pharynx Normal Neck: Full Range of Motion, Normal Inspection, Non Tender, Supple, Carotid Brui t Respiratory: Chest Non Tender, Lungs Clear, Normal Breath Sounds, No Accessory Muscle Use, No Respiratory Distress Cardiovascular: Regular Rate, Rhythm, No Edema, No Gallop, No JVD, No Murmur, Normal Peripheral Pulses Gastrointestinal: Normal Bowel Sounds, No Organomegaly, No Pulsatile Mass, Non Tender, Soft Back: Normal Inspection, No CVA Tenderness, No Vertebral Tenderness Extremity: Normal Capillary Refill, Normal Inspection, Normal Range of Motion, Non Tender, No Calf Tenderness, No Pedal Edema Neurologic/Psychiatric: Alert, Oriented x3, upper inspector II-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 FIM Transfers Therapy Code Descriptions/Definitions Functional [place] Measure: 0=Not Assessed/NA 4=Minimal Assistance 1=Total Assistance 5=Supervision or Setup 2=Maximal Assistance 6=Modified [place] 3=Moderate Assistance 7=Complete IndependenceSCALE: Activities may be completed with or without assistive devices. 0-Ajeqiaumzm-zplsjei completes the activity by him/herself with no assistance from a helper. 5-Set-up or Clean-up Assistance-helper sets up or cleans up; patient completes activity. [place] assists only prior to or following the activity. 4-Supervision or Touching Assistance-helper provides verbal cues and/or touching/steadying and/or contact guard assistance as patient completes activity. Assistance may be provided throughout the activity or intermittently. 3-Partial/Moderate Assistance-helper does LESS THAN HALF the effort. [place] lifts, holds or supports trunk or limbs, but provides less than half the effort. 2-Substantial/Maximal Assistance-helper does MORE THAN HALF the effort. [place] lifts or holds trunk or limbs and provides more than half the effort. 9-Rutuwciqr-hiapel does ALL the effort. Patient does none of the effort to complete the activity. Or, the assistance of 2 or more helpers is required for the patient to complete the activity. If activity was not attempted, code reason: 7-Patient Refused. 9-Not Applicable-not attempted and the patient did not perform the activity before the current illness, exacerbation or injury. 10-Not Attempted due to Environmental Limitations-(lack of equipment, weather restraints, etc.). 88-Not Attempted due to Medical Conditions or Safety Concerns. Roll Left to Right (QC): 3 Sit to Lying (QC): 3 Sit to Stand (QC): 3 Chair/Dqg-uw-Vtjdz Xfer(QC): 3 Car Transfer (QC): 88 Gait Training Does the Patient Walk?: Yes Distance: 10', 15'x2 Walk 10 feet (QC): 3 Walk 50 ft with 2 Turns(QC): 88 Walk 150 ft (QC): 88 Walking 10ft/uneven surface-QC: 88 Gait Persons Needed: 1 Gait Assistive Device: Walker Jay Wheelchair Training Does the Pt Use a Wheelchair?: Yes Distance: 50' Wheel 50 ft with 2 turns (QC): 3 Wheel 150 ft (QC): 3 Type of Wheelchair: Manual Stair Training 1 Step (curb) (QC): 88 4 Steps (QC): 88 12 Steps (QC): 88 Balance Picking up an Object (QC): 88 ADL-Treatment Eating (QC): 6 (per clinical judgment) Oral Hygiene (QC): 6 Bathing Location: L Arm, R Arm, L Upper Leg, R Upper Leg, L Lower Leg (including foot), R Lower Leg (including foot), Chest, Abdomen, Buttocks, Perineal Area Shower/Bathe Self (QC): 4 (Min verbal cues to recall technique. ) Upper Body Dressing (QC): 3 (Mod A) Lower Body Dressing (QC): 2 On/Off Footwear (QC): 2 Toileting Hygiene (QC): 1 (Mod A x2) Toilet Transfer (QC): 1 Assessment/Plan Assessment and Plan Assess & Plan/Chief Complaint Assessment: CVA with left-sided weakness Diabetes Hypertension Hyperlipidemia Dementia Left knee pain chronic status post steroid injection per Dr. Cummings Plan: Aggressive therapy Supportive care Statin Cardiology 06/18/2021: Much improved status Fall risk 06/19/2021: Continue treatment Aggressive therapy 06/20/2021: Supportive care Aggressive therapy 06/21/2021: Monitor closely Fall risk 06/22/2021: Pain control Monitor closely 06/23/2021: Check meds Labs due tomorrow 06/24/2021: Supportive care Monitor closely 06/25/2021: Change lisinopril to losartan per Dr. Donaldson Continue aggressive therapy 06/26/2021: Supportive care Look for skilled care Medicaid application started Claritin and Singulair for congestion 06/27/2021: Supportive care 06/28/2021: Supportive care Aggressive therapy Awaiting placement 06/29/2021: Continue treatment 06/30/21: Monitor closely Aggressive therapy 07/01/2021: Awaiting placement Await chest x-ray results 07/02/2021: Supportive care Await usp placement 07/03/2021: Supportive care Awaiting usp placement Discharge 07/10/2021 07/04/2021: Supportive care Monitor closely 07/05/2021: Supportive care Monitor closely Await usp placement (1) Cerebrovascular accident due to cerebral artery occlusion Status: Acute (2) T2DM (type 2 diabetes mellitus) Status: Chronic (3) HLD (hyperlipidemia) Status: Chronic (4) Obesity Status: Chronic (5) Debility Status: Acute (6) Dementia Status: Chronic (7) Right pontine stroke Status: Acute (8) HTN (hypertension) Status: Acute CIRO CABRERA DO Jul 05, 2021 08:16
--- NOTE | 2021-07-05 08:59 | Physical Therapy Daily Note ---
PT Daily Note-Current Subjective Patient in bed pre tx, agrees to PT, has no complaints of pain. Will be co- treating for part of tx due to poor patient mobility, strength, endurance, left hemiparesis, coordinate UE and LE during activity, safety and reduce risk of falls. Appearance Patient in WC post tx to continue with OT. Mental Status Patient Orientation: Person, Place, Situation Transfers SCALE: Activities may be completed with or without assistive devices. 3-Nqvymydiqo-hjfohmg completes the activity by him/herself with no assistance from a helper. 5-Set-up or Clean-up Assistance-helper sets up or cleans up; patient completes activity. [place] assists only prior to or following the activity. 4-Supervision or Touching Assistance-helper provides verbal cues and/or touching/steadying and/or contact guard assistance as patient completes activity. Assistance may be provided throughout the activity or intermittently. 3-Partial/Moderate Assistance-helper does LESS THAN HALF the effort. [place] lifts, holds or supports trunk or limbs, but provides less than half the effort. 2-Substantial/Maximal Assistance-helper does MORE THAN HALF the effort. [place] lifts or holds trunk or limbs and provides more than half the effort. 8-Nljiydqta-fufesr does ALL the effort. Patient does none of the effort to complete the activity. Or, the assistance of 2 or more helpers is required for the patient to complete the activity. If activity was not attempted, code reason: 7-Patient Refused. 9-Not Applicable-not attempted and the patient did not perform the activity before the current illness, exacerbation or injury. 10-Not Attempted due to Environmental Limitations-(lack of equipment, weather restraints, etc.). 88-Not Attempted due to Medical Conditions or Safety Concerns. Roll Left & Right (QC): 3 Lying to Sitting/Side of Bed(Q: 2 Sit to Stand (QC): 3 Chair/Cvt-ij-Pjjxt Xfer(QC): 3 Patient much harder to sit on the side of the bed this morning, could be because he was asleep and is still tired but left leg seems very stiff. Patient stands with mod assist and put shorts on, transfer to , leave room, not long before patient states he needs to use the restroom, propel back to room and transfer to toilet, assist from another therapist to get his shorts down, when done assist with getting shorts up while standing. Patient then ambulates a short distance to the shower bench, showers, then transfer to WC, standing to get her brief all the way up and then in WC to continue with OT. Weight Bearing Full Weight Bearing Full Weight Bearing Wheelchair Training Does the Pt Use a Wheelchair?: Yes Wheel 50 ft with 2 turns (QC): 4 Wheel 150 ft (QC): 4 Type of Wheelchair: Manual 150'x2, SBA, patient takes occasional rest breaks due to fatigue, uses his right arm and leg to propel Treatments PT performed bed mobility and transfers, ambulation, WC mobility, standing and positioning for dressing and bathing, OT performed dressing and bathing, UE positioning and safety during activity. Assessment Current Status: Poor Progress no change in mobility PT Short Term Goals Short Term Goals Time Frame: Jun 24, 2021 Roll Left & Right: 3 Sit to lyin Lying to sitting on side of be: 3 Sit to stand: 3 Chair/lez-nm-qytnq transfer: 3 Walk 10 feet: 3 PT Senior Living Goals Die Maker Trim Goals PT Die Maker Trim Goals Time Frame: Jul 08, 2021 Roll Left & Right (QC): 3 (Dora) Sit to Lying (QC): 3 (Dora) Lying-Sitting on Side/Bed(QC): 3 (Dora) Sit to Stand (QC): 4 (CGA) Chair/Cvk-xh-Eombq Xfer(QC): 4 (CGA) Toilet Transfer (QC): 4 (CGA) Car Transfer (QC): 4 (CGA) Does the Patient Walk: Yes Walk 10 feet (QC): 4 (CGA) Walk 50ft with 2 Turns (QC): 88 Walk 150 ft (QC): 88 Walking 10ft on Uneven Surface: 3 (Dora) 1 Step (curb) (QC): 3 (Dora) 4 Steps (QC): 88 12 Steps (QC): 88 Picking up an Object (QC): 88 Wheel 50 feet with 2 turns (QC: 5 Wheel 150 feet: 5 PT Plan Problem List Problem List: Activity Tolerance, Functional Strength, Safety, Balance, Gait, Transfer, Bed Mobility, ROM Treatment/Plan Treatment Plan: Continue Plan of Care Treatment Plan: Bed Mobility, Education, Functional Activity Gwendolyn, Functional Strength, Group Therapy, Gait, Safety, Therapeutic Exercise, Transfers Treatment Duration: Jul 08, 2021 Frequency: At least 5 of 7 days/Wk (IRF) Estimated Hrs Per Day: 1.5 hours per day Patient and/or Family Agrees t: Yes Safety Risks/Education Patient Education: Gait Training, Transfer Techniques, Correct Positioning, W/C Management, Safety Issues Teaching Recipient: Patient Teaching Methods: Demonstration, Discussion Response to Teaching: Reinforcement Needed Time/GCodes Time In: 0800 Time Out: 899 Total Billed Treatment Time: 60 Total Billed Treatment 1 visit FA 60' co-treated with OT from [id number] JASVIR ALVES PT Jul 05, 2021 08:59
--- NOTE | 2021-07-05 09:09 | Occupational Ther Daily Note ---
OT Current Status-Daily Note Subjective Pt. in bed sleeping. Pt. agrees to therapy. Co-Treat with PT () Mental Status/Objective Patient Orientation: Person, Place ADL-Treatment 1st session(): Co-Treat with PT () 2 clinicians required for safety and instruction. PT focusing on LE strengthening, and walking while OT focusing on ADLs, transfers, and UE strength. Pt. Mod A. transfer to shower [facility]. Pt able to cleanse face, chest, abdomen, L UE, upper legs, and lm area with wash cloth. Pt. required reminder of LH sponge for cleansing of R UE, lower LE, and feet. Pt. toileted before shower, assist to cleanse buttocks. Pt. able to dry chest, abdomen, L UE, Upper LE, lm area. Pt. required assist to dry R UE, lower LE, and feet. Pt. able to lift L foot with R foot to place in brief hole then place R foot in brief hole, required assist to hold brief low enough and open for threading. Pt. transferred from shower bench to w/c by PT, see PT note for progress. Pt. required assist to don shoes. Pt. Mod A transfer from w/c to recliner. Pt. set up for eating, required assist opening cereal bowl and milk carton. Pt. able to remove plastic lid from other beverage cup. Pt able to feed self after set up. Nursing entered inquired about nights rest and pain level. Pt. stated sleeping so well they didn't wake to eat breakfast, c/o pain in L knee. Nursing applied Voltaren Gel and prepared medications. Pt. in recli ner call light/phone in reach. All needs met in room. Nursing still in room. 2nd session ([id number]): Pt. alert in recliner after lunch. Pt required assistance to adjust position in chair. Pt unable to right self in chair. Pt. agreeable to perform oral care. Pt. set up to perform oral care seated in the recliner, once set up pt. able to complete by self. Pt. hyper-talkative, r equired multiple verbal cues to stay on task. Pt. seated in recliner, call light/phone in reach. All needs met in room. Therapy Code Descriptions/Definitions Functional [place] Measure: 0=Not Assessed/NA 4=Minimal Assistance 1=Total Assistance 5=Supervision or Setup 2=Maximal Assistance 6=Modified [place] 3=Moderate Assistance 7=Complete IndependenceSCALE: Activities may be completed with or without assistive devices. 8-Udxkslerbk-bgjhask completes the activity by him/herself with no assistance from a helper. 5-Set-up or Clean-up Assistance-helper sets up or cleans up; patient completes activity. [place] assists only prior to or following the activity. 4-Supervision or Touching Assistance-helper provides verbal cues and/or touching/steadying and/or contact guard assistance as patient completes activity. Assistance may be provided throughout the activity or intermittently. 3-Partial/Moderate Assistance-helper does LESS THAN HALF the effort. [place] lifts, holds or supports trunk or limbs, but provides less than half the effort. 2-Substantial/Maximal Assistance-helper does MORE THAN HALF the effort. [place] lifts or holds trunk or limbs and provides more than half the effort. 7-Yxaggkeqz-cezehg does ALL the effort. Patient does none of the effort to complete the activity. Or, the assistance of 2 or more helpers is required for the patient to complete the activity. If activity was not attempted, code reason: 7-Patient Refused. 9-Not Applicable-not attempted and the patient did not perform the activity before the current illness, exacerbation or injury. 10-Not Attempted due to Environmental Limitations-(lack of equipment, weather restraints, etc.). 88-Not Attempted due to Medical Conditions or Safety Concerns. Eating (QC): 3 Oral Hygiene (QC): 4 Bathing Location: L Arm, R Arm, L Upper Leg, R Upper Leg, L Lower Leg (including foot), R Lower Leg (including foot), Chest, Abdomen, Perineal Area Shower/Bathe Self (QC): 3 Lower Body Dressing (QC): 2 On/Off Footwear: 1 Toileting Hygiene (QC): 1 Toilet Transfer (QC): 2 OT Short Term Goals Short Term Goals Time Frame: Jun 28, 2021 Eatin Oral hygiene: 4 Toileting hygiene: 2 Shower/bathe self: 2 Upper body dressin Lower body dressin Putting on/taking off footwear: 2 OT Senior Living Goals Senior Living Goals Time Frame: Jul 08, 2021 Eating (QC): 4 Oral Hygiene (QC): 4 Toileting Hygiene (QC): 4 Shower/Bathe Self (QC): 4 Upper Body Dressing (QC): 4 Lower Body Dressing (QC): 4 On/Off Footwear (QC): 4 1=Demonstrate adherence to instructed precautions during ADL tasks. 2=Patient will verbalize/demonstrate understanding of assistive devices/modifi cations for ADL. 3=Patient will improve strength/tolerance for activity to enable patient to perform ADL's. OT Education/Plan Problem List/Assessment Assessment: Decreased Safety Aware, Decreased UE Strength, Impaired Self-Care Skills, Restricted Funct UE ROM Discharge Recommendations Plan/Recommendations: Continue POC Treatment Plan/Plan of Care Patient would benefit from OT for education, treatment and training to promote independence in ADL's, mobility, safety and/or upper extremity function for ADL's. Plan of Care: ADL Retraining, Caregiver Training, Cognitive Retraining, Functional Mobility, Group Exercise/Act as Ind, UE Funct Exercise/Act, UE Neuromus Re-Ed/Coord, W/C Management Training Treatment Duration: Jul 08, 2021 Frequency: At least 5 of 7 days/Wk (IRF) Estimated Hrs Per Day: 1.5 hours per day Agreement: Yes Rehab Potential: Fair Time/GCodes Start Time: 08:30 (1220) Stop Time: 09:30 (1250) Total Time Billed (hr/min): 90 Billed Treatment Time (1st session)1 visit([id number])-ADL 4 (60 min) co-treat with PT [id number], individual [id number] (2nd session)1 visit ([id number]) - ADL 2 (30 min) HEMA RICHARDS Jul 05, 2021 09:09
[2021-07-05] MEDS: LOSARTAN 100 MG (COZAAR) TABLET PO SCH (09:13)
[2021-07-05] MEDS: PANTOPRAZOLE 40 MG (PROTONIX) TAB PO SCH (09:13)
[2021-07-05] MEDS: metFORMIN 500 MG (GLUCOPHAGE) TAB PO SCH ×2 (09:13→17:19)
[2021-07-05] MEDS: DOCUSATE SODIUM 100 MG (COLACE) CAP PO SCH ×2 (09:13→21:00)
[2021-07-05] MEDS: LORATADINE (CLARITIN) 10 MG TAB PO SCH (09:13)
[2021-07-05] MEDS: ENOXAPARIN 40 MG/0.4 ML (LOVENOX) SYR SC SCH (09:14)
[2021-07-05] MEDS: ASPIRIN E.C. 81 MG (ECOTRIN) TAB PO SCH (09:14)
[2021-07-05] MEDS: SENNA W/DOCUSATE (SENOKOT S) TABLET PO SCH ×4 (09:14→21:00)
[2021-07-05] MEDS: amLODIPine 10 MG (NORVASC) TAB PO SCH (09:15)
[2021-07-05] MEDS: DICLOFENAC 1% GEL 100 GM (VOLTAREN) TUBE TOP SCH ×4 (09:15→21:01)
[2021-07-05] MEDS: polyethylene glycoL POWDER 17 GM (MIRALAX) PACK PO SCH ×2 (09:15→21:01)
[2021-07-05 13:58] VITALS: BP 132/65
--- NOTE | 2021-07-05 13:59 | Physical Therapy Daily Note ---
PT Daily Note-Current Subjective Patient in recliner pre tx, agrees to PT, has no complaints of pain. Appearance Patient in recliner post tx with nurse call, phone, tray, all needs met. Mental Status Patient Orientation: Person, Place, Situation Transfers SCALE: Activities may be completed with or without assistive devices. 0-Qyhuectcyb-uagxzpp completes the activity by him/herself with no assistance from a helper. 5-Set-up or Clean-up Assistance-helper sets up or cleans up; patient completes activity. [place] assists only prior to or following the activity. 4-Supervision or Touching Assistance-helper provides verbal cues and/or gayle josy/steadying and/or contact guard assistance as patient completes activity. Assistance may be provided throughout the activity or intermittently. 3-Partial/Moderate Assistance-helper does LESS THAN HALF the effort. [place] lifts, holds or supports trunk or limbs, but provides less than half the effort. 2-Substantial/Maximal Assistance-helper does MORE THAN HALF the effort. [place] lifts or holds trunk or limbs and provides more than half the effort. 0-Mhfjuvmsa-gjapzl does ALL the effort. Patient does none of the effort to complete the activity. Or, the assistance of 2 or more helpers is required for the patient to complete the activity. If activity was not attempted, code reason: 7-Patient Refused. 9-Not Applicable-not attempted and the patient did not perform the activity before the current illness, exacerbation or injury. 10-Not Attempted due to Environmental Limitations-(lack of equipment, weather restraints, etc.). 88-Not Attempted due to Medical Conditions or Safety Concerns. Sit to Stand (QC): 3 Chair/Hmd-lg-Ejmpv Xfer(QC): 3 Weight Bearing Full Weight Bearing Full Weight Bearing Gait Training Distance: 10'x2 Walk 10 feet (QC): 3 Gait Persons Needed: 1 Gait Assistive Device: [place] Jay mod assist for balance, some assist extending his trunk on the left side to improve left foot clearance Wheelchair Training Does the Pt Use a Wheelchair?: Yes Wheel 50 ft with 2 turns (QC): 4 Type of Wheelchair: Manual 120'x2 Exercises Seated Therapy Exercises: Long arc quads (AAROM left side), Hip flexion (AAROM left side), Hip abd/add (with ball and RTB) Treatments transfers, ambulation, WC mobility, LE strengthening Assessment Current Status: Poor Progress no change in mobility PT Short Term Goals Short Term Goals Time Frame: Jun 24, 2021 Roll Left & Right: 3 Sit to lyin Lying to sitting on side of be: 3 Sit to stand: 3 Chair/hnx-pq-wcbuh transfer: 3 Walk 10 feet: 3 PT Group Home Goals Special Agent Secret Service Goals PT Special Agent [employer] Goals Time Frame: Jul 08, 2021 Roll Left & Right (QC): 3 (Dora) Sit to Lying (QC): 3 (Dora) Lying-Sitting on Side/Bed(QC): 3 (Dora) Sit to Stand (QC): 4 (CGA) Chair/Bry-mg-Pymmb Xfer(QC): 4 (CGA) Toilet Transfer (QC): 4 (CGA) Car Transfer (QC): 4 (CGA) Does the Patient Walk: Yes Walk 10 feet (QC): 4 (CGA) Walk 50ft with 2 Turns (QC): 88 Walk 150 ft (QC): 88 Walking 10ft on Uneven Surface: 3 (Dora) 1 Step (curb) (QC): 3 (Dora) 4 Steps (QC): 88 12 Steps (QC): 88 Picking up an Object (QC): 88 Wheel 50 feet with 2 turns (QC: 5 Wheel 150 feet: 5 PT Plan Problem List Problem List: Activity Tolerance, Functional Strength, Safety, Balance, Gait, Transfer, Bed Mobility, ROM Treatment/Plan Treatment Plan: Continue Plan of Care Treatment Plan: Bed Mobility, Education, Functional Activity Gwendolyn, Functional Strength, Group Therapy, Gait, Safety, Therapeutic Exercise, Transfers Treatment Duration: Jul 08, 2021 Frequency: At least 5 of 7 days/Wk (IRF) Estimated Hrs Per Day: 1.5 hours per day Patient and/or Family Agrees t: Yes Safety Risks/Education Patient Education: Gait Training, Transfer Techniques, Correct Positioning, W/C Management, Safety Issues Teaching Recipient: Patient Teaching Methods: Demonstration, Discussion Response to Teaching: Reinforcement Needed Time/GCodes Time In: 1330 Time Out: 1400 Total Billed Treatment Time: 30 Total Billed Treatment 1 visit EX 10' FA 20' AJSVIR ALVES PT Jul 05, 2021 13:59
[2021-07-05 19:55] VITALS: BP 135/67
[2021-07-05] MEDS: TAMSULOSIN 0.4 MG (FLOMAX) CAP PO SCH (21:00)
[2021-07-05] MEDS: QUEtiapine 25 MG (SEROquel) TAB IMMEDIATE RELEASE PO SCH (21:01)
[2021-07-05] MEDS: MONTELUKAST 10 MG (SINGULAIR) TAB PO SCH (21:01)
--- NOTE | 2021-07-06 05:57 | PM&R Progress Note ---
Subjective HPI/CC On Admission Date Seen by Provider: Jul 06, 2021 Time Seen by Provider: 05:40 Subjective/Events-last exam 07/06/2021: Patient doing well No major concerns Discharge plan next week 07/05/2021: Patient sleeping soundly No pain is reported Still trying to figure out which custodial he will go to since he will need long-term care 07/04/2021: Patient doing well Blood pressure bit elevated Toprol was added by Dr. Donaldson Bowels moved today [facility] 07/03/2021: Pt standing better Bowels moved yesterday DC planned to a custodial DC planned for 07/10/21 will be goal Moving his left leg 07/02/2021: No major issues CXR was negative Has some hiccups 07/01/2021: Pt doing well CXR pending Labs okay Lifted his left leg and moved his left fingers Bowels are moving 06/30/2021: No major issues Bowels moved 2 times yesterday Picked up his left leg yesterday 06/29/2021: No major issues Continues to participate in therapy Awaiting placement 06/28/2021: Patient doing pretty well Awaiting placement Bowels are moving well Denies any pain Told me about his dementia diagnosis 20 years ago 06/27/2021: Patient doing really well Bowels are moving Taking a nap currently Denies any issues 06/26/2021: Patient doing really well Eliquis and Plavix maintain Losartan started for blood pressure elevation Discontinue nystatin Singulair and Claritin will be started for congestion 06/25/2021: Patient doing pretty well Lisinopril will be changed to losartan due to reportedly cough Bowels moved today 06/24/2021: Patient participating in therapy No bowels movement for the last couple of days will give laxatives Check meds and labs 06/23/2021: Patient in a good mood No significant concerns Check meds and labs Blood sugar is good 06/22/2021: Patient doing well Knee still hurts but that is chronic Changing sliding scale to twice daily Accu-Cheks 06/21/2021: Patient doing really well Having some incontinence No pain is reported Progressing with therapy 06/20/2021: Patient progressing nicely Blood sugar 128 Bowels moved yesterday Discontinue the Hep-Lock 06/19/2021: Pt doing really well Left-sided weakness is a challenge Bowels moved twice today Magic mouthwash will be initiated because he keeps on biting the inside of his cheek Knee pain is chronic Voltaren gel will be added 06/18/2021: Pt doing really well Eating very well Sugars are okay Incontinent Bowels are moving No pain Obtaining good relief with left knee injection Review of Systems General: Fatigue, Malaise Neurological: Weakness, Incoordination Objective Exam Vital Signs Vital Signs Date Time Temp Pulse Resp B/P (MAP) Pulse Ox O2 Delivery O2 Flow Rate FiO2 07/06/21 14:27 72 121/68 (85) 07/06/21 08:57 Room Air 07/06/21 07:30 36.4 18 93 Capillary Refill : General Appearance: No Apparent Distress, WD/WN, Chronically ill, Obese HEENT: PERRL/EOMI, Normal ENT Inspection, Pharynx Normal Neck: Full Range of Motion, Normal Inspection, Non Tender, Supple, Carotid Bruit Respiratory: Chest Non Tender, Lungs Clear, Normal Breath Sounds, No Accessory Muscle Use, No Respiratory Distress Cardiovascular: Regular Rate, Rhythm, No Edema, No Gallop, No JVD, No Murmur, Normal Peripheral Pulses Gastrointestinal: Normal Bowel Sounds, No Organomegaly, No Pulsatile Mass, Non Tender, Soft Back: Normal Inspection, No CVA Tenderness, No Vertebral Tenderness Extremity: Normal Capillary Refill, Normal Inspection, Normal Range of Motion, Non Tender, No Calf Tenderness, No Pedal Edema Neurologic/Psychiatric: Alert, Oriented x3, 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 FIM Transfers Therapy Code Descriptions/Definitions Functional [place] Measure: 0=Not Assessed/NA 4=Minimal Assistance 1=Total Assistance 5=Supervision or Setup 2=Maximal Assistance 6=Modified [place] 3=Moderate Assistance 7=Complete IndependenceSCALE: Activities may be completed with or without assistive devices. 5-Ryireoxabf-xhfsrtq completes the activity by him/herself with no assistance from a helper. 5-Set-up or Clean-up Assistance-helper sets up or cleans up; patient completes activity. [place] assists only prior to or following the activity. 4-Supervision or Touching Assistance-helper provides verbal cues and/or touching/steadying and/or contact guard assistance as patient completes activi ty. Assistance may be provided throughout the activity or intermittently. 3-Partial/Moderate Assistance-helper does LESS THAN HALF the effort. [place] lifts, holds or supports trunk or limbs, but provides less than half the effort. 2-Substantial/Maximal Assistance-helper does MORE THAN HALF the effort. [place] lifts or holds trunk or limbs and provides more than half the effort. 5-Lyxrvbfck-spojcs does ALL the effort. Patient does none of the effort to complete the activity. Or, the assistance of 2 or more helpers is required for the patient to complete the activity. If activity was not attempted, code reason: 7-Patient Refused. 9-Not Applicable-not attempted and the patient did not perform the activity before the current illness, exacerbation or injury. 10-Not Attempted due to Environmental Limitations-(lack of equipment, weather restraints, etc.). 88-Not Attempted due to Medical Conditions or Safety Concerns. Roll Left to Right (QC): 3 Sit to Lying (QC): 3 Sit to Stand (QC): 3 Chair/Bhs-oz-Zafso Xfer(QC): 3 Car Transfer (QC): 88 Gait Training Does the Patient Walk?: Yes Distance: 10'x2 Walk 10 feet (QC): 3 Walk 50 ft with 2 Turns(QC): 88 Walk 150 ft (QC): 88 Walking 10ft/uneven surface-QC: 88 Gait Persons Needed: 1 Gait Assistive Device: Walker Jay Wheelchair Training Does the Pt Use a Wheelchair?: Yes Distance: 50' Wheel 50 ft with 2 turns (QC): 4 Wheel 150 ft (QC): 4 Type of Wheelchair: Manual Stair Training 1 Step (curb) (QC): 88 4 Steps (QC): 88 12 Steps (QC): 88 Balance Picking up an Object (QC): 88 ADL-Treatment Eating (QC): 3 Oral Hygiene (QC): 4 Bathing Location: L Arm, R Arm, L Upper Leg, R Upper Leg, L Lower Leg (including foot), R Lower Leg (including foot), Chest, Abdomen, Perineal Area Shower/Bathe Self (QC): 3 Upper Body Dressing (QC): 3 (Mod A) Lower Body Dressing (QC): 2 On/Off Footwear (QC): 1 Toileting Hygiene (QC): 1 Toilet Transfer (QC): 2 Assessment/Plan Assessment and Plan Assess & Plan/Chief Complaint Assessment: CVA with left-sided weakness Diabetes Hypertension Hyperlipidemia Dementia Left knee pain chronic status post steroid injection per Dr. Cummings Plan: Aggressive therapy Supportive care Statin Cardiology 06/18/2021: Much improved status Fall risk 06/19/2021: Continue treatment Aggressive therapy 06/20/2021: Supportive care Aggressive therapy 06/21/2021: Monitor closely Fall risk 06/22/2021: Pain control Monitor closely 06/23/2021: Check meds Labs due tomorrow 06/24/2021: Supportive care Monitor closely 06/25/2021: Change lisinopril to losartan per Dr. Donaldson Continue aggressive therapy 06/26/2021: Supportive care Look for skilled care Medicaid application started Claritin and Singulair for congestion 06/27/2021: Supportive care 06/28/2021: Supportive care Aggressive therapy Awaiting placement 06/29/2021: Continue treatment 06/30/21: Monitor closely Aggressive therapy 07/01/2021: Awaiting placement Await chest x-ray results 07/02/2021: Supportive care Await custodial placement 07/03/2021: Supportive care Awaiting custodial placement Discharge 07/10/2021 07/04/2021: Supportive care Monitor closely 07/05/2021: Supportive care Monitor closely Await custodial placement 07/06/2021: Continue aggressive therapy (1) Cerebrovascular accident due to cerebral artery occlusion Status: Acute (2) T2DM (type 2 diabetes mellitus) Status: Chronic (3) HLD (hyperlipidemia) Status: Chronic (4) Obesity Status: Chronic (5) Debility Status: Acute (6) Dementia Status: Chronic (7) Right pontine stroke Status: Acute (8) HTN (hypertension) Status: Acute CIRO CABRERA DO Jul 06, 2021 05:57
[2021-07-06] MEDS: hydrALAZINE (APRESOLINE) 25 MG TAB PO SCH ×3 (06:02→20:47)
[2021-07-06] MEDS: VENlafaxine XR 75 MG (EFFEXOR XR) CAP PO SCH (06:02)
[2021-07-06] MEDS: RT--FLUTICASONE/SALMETEROL 113-14 (AIRDUO RespiCLICK) IH SCH ×2 (07:19→21:32)
[2021-07-06 07:30] VITALS: BP 131/62
[2021-07-06] MEDS: metFORMIN 500 MG (GLUCOPHAGE) TAB PO SCH ×2 (08:48→17:29)
[2021-07-06] MEDS: amLODIPine 10 MG (NORVASC) TAB PO SCH (08:48)
[2021-07-06] MEDS: LORATADINE (CLARITIN) 10 MG TAB PO SCH (08:48)
[2021-07-06] MEDS: SENNA W/DOCUSATE (SENOKOT S) TABLET PO SCH ×4 (08:48→20:46)
[2021-07-06] MEDS: PANTOPRAZOLE 40 MG (PROTONIX) TAB PO SCH (08:48)
[2021-07-06] MEDS: ASPIRIN E.C. 81 MG (ECOTRIN) TAB PO SCH (08:49)
[2021-07-06] MEDS: DOCUSATE SODIUM 100 MG (COLACE) CAP PO SCH ×2 (08:49→20:47)
[2021-07-06] MEDS: polyethylene glycoL POWDER 17 GM (MIRALAX) PACK PO SCH ×2 (08:49→20:07)
[2021-07-06] MEDS: LOSARTAN 100 MG (COZAAR) TABLET PO SCH (08:49)
[2021-07-06] MEDS: ENOXAPARIN 40 MG/0.4 ML (LOVENOX) SYR SC SCH (08:50)
[2021-07-06] MEDS: DICLOFENAC 1% GEL 100 GM (VOLTAREN) TUBE TOP SCH ×4 (08:50→20:47)
[2021-07-06] MEDS: HYDROcodone/APAP 5 MG/325 MG (LORTAB) TAB PO PRN (09:27)
[2021-07-06 14:27] VITALS: BP 121/68
--- NOTE | 2021-07-06 14:34 | Physical Therapy Daily Note ---
PT Daily Note-Current Transfers SCALE: Activities may be completed with or without assistive devices. 9-Oysbqvmlnu-icozieb completes the activity by him/herself with no assistance from a helper. 5-Set-up or Clean-up Assistance-helper sets up or cleans up; patient completes activity. [place] assists only prior to or following the activity. 4-Supervision or Touching Assistance-helper provides verbal cues and/or touching/steadying and/or contact guard assistance as patient completes activity. Assistance may be provided throughout the activity or intermittently. 3-Partial/Moderate Assistance-helper does LESS THAN HALF the effort. [place] lifts, holds or supports trunk or limbs, but provides less than half the effort. 2-Substantial/Maximal Assistance-helper does MORE THAN HALF the effort. [place] lifts or holds trunk or limbs and provides more than half the effort. 0-Enhccwkga-vtnvlv does ALL the effort. Patient does none of the effort to complete the activity. Or, the assistance of 2 or more helpers is required for the patient to complete the activity. If activity was not attempted, code reason: 7-Patient Refused. 9-Not Applicable-not attempted and the patient did not perform the activity before the current illness, exacerbation or injury. 10-Not Attempted due to Environmental Limitations-(lack of equipment, weather restraints, etc.). 88-Not Attempted due to Medical Conditions or Safety Concerns. transferred supine to sitting at EOB with moderate assist. Educated on rolling technique. Educated on approach to chair and bed using a jay cane. Weight Bearing Full Weight Bearing Full Weight Bearing Gait Training Gait Assistive Device: Walker Jay Ambulate 15 ft x 3 trials using jay walker and min A for balance. Edcated on step sequence. Assessment Pt making gains with ambulation and transfers. PT Short Term Goals Short Term Goals Time Frame: Jun 24, 2021 Roll Left & Right: 3 Sit to lyin Lying to sitting on side of be: 3 Sit to stand: 3 Chair/hwp-aa-frbll transfer: 3 Walk 10 feet: 3 PT Long-Term Goals Long-Term Goals PT Long-Term Goals Time Frame: Jul 08, 2021 Roll Left & Right (QC): 3 (Dora) Sit to Lying (QC): 3 (Dora) Lying-Sitting on Side/Bed(QC): 3 (Dora) Sit to Stand (QC): 4 (CGA) Chair/Xhr-nr-Wytgn Xfer(QC): 4 (CGA) Toilet Transfer (QC): 4 (CGA) Car Transfer (QC): 4 (CGA) Does the Patient Walk: Yes Walk 10 feet (QC): 4 (CGA) Walk 50ft with 2 Turns (QC): 88 Walk 150 ft (QC): 88 Walking 10ft on Uneven Surface: 3 (Dora) 1 Step (curb) (QC): 3 (Dora) 4 Steps (QC): 88 12 Steps (QC): 88 Picking up an Object (QC): 88 Wheel 50 feet with 2 turns (QC: 5 Wheel 150 feet: 5 PT Plan Treatment/Plan Treatment Plan: Continue Plan of Care Treatment Plan: Bed Mobility, Education, Functional Activity Gwendolyn, Functional Strength, Group Therapy, Gait, Safety, Therapeutic Exercise, Transfers Treatment Duration: Jul 08, 2021 Frequency: At least 5 of 7 days/Wk (IRF) Estimated Hrs Per Day: 1.5 hours per day Patient and/or Family Agrees t: Yes Time/GCodes Time In: 1145 Time Out: 1200 Total Billed Treatment Time: 15 Total Billed Treatment visit, FA 10 min, GT 5 min KEYSHAWN PABLO PT Jul 06, 2021 14:34
[2021-07-06 19:59] VITALS: BP 148/78
[2021-07-06] MEDS: TAMSULOSIN 0.4 MG (FLOMAX) CAP PO SCH (20:46)
[2021-07-06] MEDS: QUEtiapine 25 MG (SEROquel) TAB IMMEDIATE RELEASE PO SCH (20:46)
[2021-07-06] MEDS: MONTELUKAST 10 MG (SINGULAIR) TAB PO SCH (20:46)
[2021-07-07] MEDS: VENlafaxine XR 75 MG (EFFEXOR XR) CAP PO SCH (05:56)
[2021-07-07] MEDS: hydrALAZINE (APRESOLINE) 25 MG TAB PO SCH ×3 (05:57→21:01)
--- NOTE | 2021-07-07 06:15 | PM&R Progress Note ---
Subjective HPI/CC On Admission Date Seen by Provider: Jul 07, 2021 Time Seen by Provider: 06:20 Subjective/Events-last exam 07/07/2021: Patient sleeping soundly RN has no concerns 07/06/2021: Patient doing well No major concerns Discharge plan next week 07/05/2021: Patient sleeping soundly No pain is reported Still trying to figure out which jail he will go to since he will need long-term care 07/04/2021: Patient doing well Blood pressure bit elevated Toprol was added by Dr. Donaldson Bowels moved today jail placement 07/03/2021: Pt standing better Bowels moved yesterday DC planned to a jail DC planned for 07/10/21 will be goal Moving his left leg 07/02/2021: No major issues CXR was negative Has some hiccups 07/01/2021: Pt doing well CXR pending Labs okay Lifted his left leg and moved his left fingers Bowels are moving 06/30/2021: No major issues Bowels moved 2 times yesterday Picked up his left leg yesterday 06/29/2021: No major issues Continues to participate in therapy Awaiting placement 06/28/2021: Patient doing pretty well Awaiting placement Bowels are moving well Denies any pain Told me about his dementia diagnosis 20 years ago 06/27/2021: Patient doing really well Bowels are moving Taking a nap currently Denies any issues 06/26/2021: Patient doing really well Eliquis and Plavix maintain Losartan started for blood pressure elevation Discontinue nystatin Singulair and Claritin will be started for congestion 06/25/2021: Patient doing pretty well Lisinopril will be changed to losartan due to reportedly cough Bowels moved today 06/24/2021: Patient participating in therapy No bowels movement for the last couple of days will give laxatives Check meds and labs 06/23/2021: Patient in a good mood No significant concerns Check meds and labs Blood sugar is good 06/22/2021: Patient doing well Knee still hurts but that is chronic Changing sliding scale to twice daily Accu-Cheks 06/21/2021: Patient doing really well Having some incontinence No pain is reported Progressing with therapy 06/20/2021: Patient progressing nicely Blood sugar 128 Bowels moved yesterday Discontinue the Hep-Lock 06/19/2021: Pt doing really well Left-sided weakness is a challenge Bowels moved twice today Magic mouthwash will be initiated because he keeps on biting the inside of his cheek Knee pain is chronic Voltaren gel will be added 06/18/2021: Pt doing really well Eating very well Sugars are okay Incontinent Bowels are moving No pain Obtaining good relief with left knee injection Review of Systems Neurological: Weakness Objective Exam Vital Signs Vital Signs Date Time Temp Pulse Resp B/P (MAP) Pulse Ox O2 Delivery O2 Flow Rate FiO2 07/07/21 09:49 93 Room Air 07/07/21 07:30 36.4 64 18 119/67 (84) Capillary Refill : General Appearance: No Apparent Distress, WD/WN, Chronically ill, Obese HEENT: PERRL/EOMI, Normal ENT Inspection, Pharynx Normal Neck: Full Range of Motion, Normal Inspection, Non Tender, Supple, Carotid Bruit Respiratory: Chest Non Tender, Lungs Clear, Normal Breath Sounds, No Accessory Muscle Use, No Respiratory Distress Cardiovascular: Regular Rate, Rhythm, No Edema, No Gallop, No JVD, No Murmur, Normal Peripheral Pulses Gastrointestinal: Normal Bowel Sounds, No Organomegaly, No Pulsatile Mass, Non Tender, Soft Back: Normal Inspection, No CVA Tenderness, No Vertebral Tenderness Extremity: Normal Capillary Refill, Normal Inspection, Normal Range of Motion, Non Tender, No Calf Tenderness, No Pedal Edema Neurologic/Psychiatric: Alert, 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 FIM Transfers Therapy Code Descriptions/Definitions Functional [place] Measure: 0=Not Assessed/NA 4=Minimal Assistance 1=Total Assistance 5=Supervision or Setup 2=Maximal Assistance 6=Modified [place] 3=Moderate Assistance 7=Complete IndependenceSCALE: Activities may be completed with or without assistive devices. 7-Qrjjjfiadz-sxfxnvp completes the activity by him/herself with no assistance from a helper. 5-Set-up or Clean-up Assistance-helper sets up or cleans up; patient completes activity. [place] assists only prior to or following the activity. 4-Supervision or Touching Assistance-helper provides verbal cues and/or touching/steadying and/or contact guard assistance as patient completes activity. Assistance may be provided throughout the activity or intermittently. 3-Partial/Moderate Assistance-helper does LESS THAN HALF the effort. [place] lifts, holds or supports trunk or limbs, but provides less than half the effort. 2-Substantial/Maximal Assistance-helper does MORE THAN HALF the effort. [place] lifts or holds trunk or limbs and provides more than half the effort. 3-Dsqnknjzt-zfmphn does ALL the effort. Patient does none of the effort to complete the activity. Or, the assistance of 2 or more helpers is required for the patient to complete the activity. If activity was not attempted, code reason: 7-Patient Refused. 9-Not Applicable-not attempted and the patient did not perform the activity before the current illness, exacerbation or injury. 10-Not Attempted due to Environmental Limitations-(lack of equipment, weather restraints, etc.). 88-Not Attempted due to Medical Conditions or Safety Concerns. Roll Left to Right (QC): 3 Sit to Lying (QC): 3 Sit to Stand (QC): 3 Chair/Omz-ua-Yktpc Xfer(QC): 3 Car Transfer (QC): 88 Gait Training Does the Patient Walk?: Yes Distance: 10'x2 Walk 10 feet (QC): 3 Walk 50 ft with 2 Turns(QC): 88 Walk 150 ft (QC): 88 Walking 10ft/uneven surface-QC: 88 Gait Persons Needed: 1 Gait Assistive Device: Walker Jay Wheelchair Training Does the Pt Use a Wheelchair?: Yes Distance: 50' Wheel 50 ft with 2 turns (QC): 4 Wheel 150 ft (QC): 4 Type of Wheelchair: Manual Stair Training 1 Step (curb) (QC): 88 4 Steps (QC): 88 12 Steps (QC): 88 Balance Picking up an Object (QC): 88 ADL-Treatment Eating (QC): 3 Oral Hygiene (QC): 4 Bathing Location: L Arm, R Arm, L Upper Leg, R Upper Leg, L Lower Leg (including foot), R Lower Leg (including foot), Chest, Abdomen, Perineal Area Shower/Bathe Self (QC): 3 Upper Body Dressing (QC): 3 (Mod A) Lower Body Dressing (QC): 2 On/Off Footwear (QC): 1 Toileting Hygiene (QC): 1 Toilet Transfer (QC): 2 Assessment/Plan Assessment and Plan Assess & Plan/Chief Complaint Assessment: CVA with left-sided weakness Diabetes Hypertension Hyperlipidemia Dementia Left knee pain chronic status post steroid injection per Dr. Cummings Plan: Aggressive therapy Supportive care Statin Cardiology 06/18/2021: Much improved status Fall risk 06/19/2021: Continue treatment Aggressive therapy 06/20/2021: Supportive care Aggressive therapy 06/21/2021: Monitor closely Fall risk 06/22/2021: Pain control Monitor closely 06/23/2021: Check meds Labs due tomorrow 06/24/2021: Supportive care Monitor closely 06/25/2021: Change lisinopril to losartan per Dr. Donaldson Continue aggressive therapy 06/26/2021: Supportive care Look for skilled care Medicaid application started Claritin and Singulair for congestion 06/27/2021: Supportive care 06/28/2021: Supportive care Aggressive therapy Awaiting placement 06/29/2021: Continue treatment 06/30/21: Monitor closely Aggressive therapy 07/01/2021: Awaiting placement Await chest x-ray results 07/02/2021: Supportive care Await jail placement 07/03/2021: Supportive care Awaiting jail placement Discharge 07/10/2021 07/04/2021: Supportive care Monitor closely 07/05/2021: Supportive care Monitor closely Await jail placement 07/06/2021: Continue aggressive therapy 07/07/2021: Discharge planned to jail (1) Cerebrovascular accident due to cerebral artery occlusion Status: Acute (2) T2DM (type 2 diabetes mellitus) Status: Chronic (3) HLD (hyperlipidemia) Status: Chronic (4) Obesity Status: Chronic (5) Debility Status: Acute (6) Dementia Status: Chronic (7) Right pontine stroke Status: Acute (8) HTN (hypertension) Status: Acute CIRO CABRERA DO Jul 07, 2021 06:15
[2021-07-07 07:30] VITALS: BP 119/67
[2021-07-07] MEDS: LOSARTAN 100 MG (COZAAR) TABLET PO SCH (08:14)
[2021-07-07] MEDS: PANTOPRAZOLE 40 MG (PROTONIX) TAB PO SCH (08:15)
[2021-07-07] MEDS: amLODIPine 10 MG (NORVASC) TAB PO SCH (08:15)
[2021-07-07] MEDS: LORATADINE (CLARITIN) 10 MG TAB PO SCH (08:15)
[2021-07-07] MEDS: metFORMIN 500 MG (GLUCOPHAGE) TAB PO SCH ×2 (08:15→17:53)
[2021-07-07] MEDS: ASPIRIN E.C. 81 MG (ECOTRIN) TAB PO SCH (08:15)
[2021-07-07] MEDS: ENOXAPARIN 40 MG/0.4 ML (LOVENOX) SYR SC SCH (08:16)
[2021-07-07] MEDS: DICLOFENAC 1% GEL 100 GM (VOLTAREN) TUBE TOP SCH ×4 (08:17→20:21)
[2021-07-07] MEDS: RT--FLUTICASONE/SALMETEROL 113-14 (AIRDUO RespiCLICK) IH SCH ×2 (09:49→21:04)
[2021-07-07] MEDS: DOCUSATE SODIUM 100 MG (COLACE) CAP PO SCH ×2 (09:54→20:21)
[2021-07-07] MEDS: polyethylene glycoL POWDER 17 GM (MIRALAX) PACK PO SCH ×2 (09:54→19:03)
[2021-07-07] MEDS: SENNA W/DOCUSATE (SENOKOT S) TABLET PO SCH ×4 (09:54→20:20)
[2021-07-07 20:03] VITALS: BP 136/68
[2021-07-07] MEDS: MONTELUKAST 10 MG (SINGULAIR) TAB PO SCH (20:20)
[2021-07-07] MEDS: TAMSULOSIN 0.4 MG (FLOMAX) CAP PO SCH (20:21)
[2021-07-07] MEDS: QUEtiapine 25 MG (SEROquel) TAB IMMEDIATE RELEASE PO SCH (20:21)
[2021-07-07] MEDS: HYDROcodone/APAP 5 MG/325 MG (LORTAB) TAB PO PRN (20:28)
[2021-07-08] MEDS: hydrALAZINE (APRESOLINE) 25 MG TAB PO SCH ×3 (05:37→22:47)
[2021-07-08] MEDS: VENlafaxine XR 75 MG (EFFEXOR XR) CAP PO SCH (05:37)
[2021-07-08 06:11] LABS: BASOPHILS % (AUTO) 1 % (0-10); EOSINOPHILS # (AUTO) 0.5 10^3/uL (0.0-0.3); EOSINOPHILS % (AUTO) 7 % (0-10); HEMATOCRIT 41 % (40-54); HEMOGLOBIN 13.5 g/dL (13.3-17.7); LYMPHOCYTES # (AUTO) 1.3 10^3/uL (1.0-4.0); LYMPHOCYTES % (AUTO) 21 % (12-44); MEAN CORPUSCULAR HEMOGLOBIN 31 pg (25-34); MEAN CORPUSCULAR HGB CONC 33 g/dL (32-36); MEAN CORPUSCULAR VOLUME 94 fL (80-99); MEAN PLATELET VOLUME 10.3 fL (9.0-12.2); MONOCYTES # (AUTO) 0.5 10^3/uL (0.0-1.0); MONOCYTES % (AUTO) 7 % (0-12); NEUTROPHILS % (AUTO) 64 % (42-75); PLATELET COUNT 242 10^3/uL (130-400); WHITE BLOOD COUNT 6.3 10^3/uL (4.3-11.0)
[2021-07-08 06:47] LABS: ALBUMIN 3.5 GM/DL (3.2-4.5)
[2021-07-08 06:48] LABS: POTASSIUM 3.8 MMOL/L (3.6-5.0)
[2021-07-08 06:49] LABS: CALCIUM 9.4 MG/DL (8.5-10.1)
[2021-07-08 06:52] LABS: BILIRUBIN,TOTAL 0.7 MG/DL (0.1-1.0)
[2021-07-08 06:54] LABS: CREATININE SERUM 0.82 MG/DL (0.60-1.30)
[2021-07-08] MEDS: RT--FLUTICASONE/SALMETEROL 113-14 (AIRDUO RespiCLICK) IH SCH ×2 (07:00→20:16)
[2021-07-08 08:00] VITALS: BP 130/63
[2021-07-08] MEDS: PANTOPRAZOLE 40 MG (PROTONIX) TAB PO SCH (08:53)
[2021-07-08] MEDS: ASPIRIN E.C. 81 MG (ECOTRIN) TAB PO SCH (08:53)
[2021-07-08] MEDS: LORATADINE (CLARITIN) 10 MG TAB PO SCH (08:53)
[2021-07-08] MEDS: DOCUSATE SODIUM 100 MG (COLACE) CAP PO SCH ×2 (08:53→22:18)
[2021-07-08] MEDS: polyethylene glycoL POWDER 17 GM (MIRALAX) PACK PO SCH ×2 (08:53→21:00)
[2021-07-08] MEDS: metFORMIN 500 MG (GLUCOPHAGE) TAB PO SCH ×2 (08:53→17:02)
[2021-07-08] MEDS: LOSARTAN 100 MG (COZAAR) TABLET PO SCH (08:53)
[2021-07-08] MEDS: SENNA W/DOCUSATE (SENOKOT S) TABLET PO SCH ×4 (08:53→22:22)
[2021-07-08] MEDS: DICLOFENAC 1% GEL 100 GM (VOLTAREN) TUBE TOP SCH ×4 (08:54→22:25)
[2021-07-08] MEDS: amLODIPine 10 MG (NORVASC) TAB PO SCH (08:54)
[2021-07-08] MEDS: ENOXAPARIN 40 MG/0.4 ML (LOVENOX) SYR SC SCH (08:55)
--- NOTE | 2021-07-08 08:58 | Cardiology Progress Note ---
Subjective Date Seen by Provider: Jul 08, 2021 Time Seen by Provider: 08:53 Subjective/Events-last exam Patient is with PT, no new complaints. Denies any chest pain Review of Systems General: No Chills, No Night Sweats; Fatigue, Malaise; No Appetite, No Other HEENT: No Head Aches, No Visual Changes, No Eye Pain, No Ear Pain, No Dysphasia, No Sinus Congestion, No Post Nasal Drip, No Sore Throat, No Other Pulmonary: No Dyspnea, No Cough, No Pleuritic Chest Pain, No Other Cardiovascular: No: Chest Pain, Palpitations, Orthopnea, Paroxysmal Noc. Dyspnea, Edema, Lt Headedness, Other Objective-Cardiology Exam Last Set of Vital Signs Vital Signs 07/08/21 07/08/21 08:00 09:16 Temp 36.1 Pulse 69 Resp 18 B/P (MAP) 130/63 (85) Pulse Ox 93 O2 Delivery Room Air General: Alert, Oriented X3, Cooperative HEENT: Atraumatic, PERRLA Neck: Supple, No JVD Lungs: Clear to Auscultation, Normal Air Movement Heart: Regular Rate, Normal S1, Normal S2, No Murmurs Abdomen: Soft, No Tenderness Extremities: No Clubbing, No Edema Skin: No Rashes, No Significant Lesion Neuro: Normal Speech, Other Psych/Mental Status: Mental Status NL, Mood NL Results Lab Laboratory Tests 07/08/21 05:36 A/P-Cardiology Admission Diagnosis CVA HTN Dementia Assessment/Plan 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 MRI of the head re ported acute/subacute pontine stroke. Maintained on aspirin, monitor blood pressure Malignant hypertension, maintained on Norvasc 10 mg, hydralazine 25 mg,Toprol XL 25mg and changed from lisinopril to losartan 100 mg daily due to persistent cough. Elevated D-dimer, venous Doppler was negative. Maintained on Lovenox. Continue to monitor Vascular dementia, had generalized weakness in the past. History of diverticulosis, BPH. Status post COVID-19 vaccination done on June 10, 2021 triggered generalized weakness, Patient was found on the floor by his neighbor Supervisory-Addendum Brief Supervisory Addendum Participated in pt care: history, MDM, physical Personally performed: exam, history, MDM Care discussed with: CARISSA Results interpretation: Verified all documentation Notes: Patient was seen and evaluated with Mike, examination performed, management plan was discussed, agree with the current scribed note, I made few changes to the note using Italic font Patient was seen at bedside, sitting comfortably, still having generalized weakness Denied any chest pain Blood pressure is better controlled Continue current medication and continue physical therapy MIKE MILLER Jul 08, 2021 08:58 MICHELLE HOUGH MD Jul 08, 2021 09:50
--- NOTE | 2021-07-08 08:58 | Physical Therapy Daily Note ---
PT Daily Note-Current Subjective Patient in bed pre tx, agrees to PT, has unrated left knee pain. Needs dressed, max assist for shorts. Will be co-treating with OT for part of tx due to poor patient mobility, strength, endurance, left hemiparesis, coordinate UE and LE during activity, safety and reduce risk of falls. Appearance Patient in WC to finish up with OT Mental Status Patient Orientation: Person, Place, Situation Transfers SCALE: Activities may be completed with or without assistive devices. 2-Fbpnroewgl-olccwui completes the activity by him/herself with no assistance from a helper. 5-Set-up or Clean-up Assistance-helper sets up or cleans up; patient completes activity. [place] assists only prior to or following the activity. 4-Supervision or Touching Assistance-helper provides verbal cues and/or touching/steadying and/or contact guard assistance as patient completes activ ity. Assistance may be provided throughout the activity or intermittently. 3-Partial/Moderate Assistance-helper does LESS THAN HALF the effort. [place] lifts, holds or supports trunk or limbs, but provides less than half the effort. 2-Substantial/Maximal Assistance-helper does MORE THAN HALF the effort. [place] lifts or holds trunk or limbs and provides more than half the effort. 3-Lypspogke-khqmjt does ALL the effort. Patient does none of the effort to complete the activity. Or, the assistance of 2 or more helpers is required for the patient to complete the activity. If activity was not attempted, code reason: 7-Patient Refused. 9-Not Applicable-not attempted and the patient did not perform the activity before the current illness, exacerbation or injury. 10-Not Attempted due to Environmental Limitations-(lack of equipment, weather restraints, etc.). 88-Not Attempted due to Medical Conditions or Safety Concerns. Roll Left & Right (QC): 3 Lying to Sitting/Side of Bed(Q: 2 Sit to Stand (QC): 3 Chair/Aeb-fr-Qlrmz Xfer(QC): 3 Weight Bearing Full Weight Bearing Full Weight Bearing Gait Training Distance: 10', 15'x2 Walk 10 feet (QC): 3 Gait Assistive Device: Walker Jay min to mod assist for balance, still has a hard time with step through on the left leg, needs assist to extend trunk on the left side to promote step-through. Wheelchair Training Does the Pt Use a Wheelchair?: Yes Wheel 50 ft with 2 turns (QC): 4 Type of Wheelchair: Manual 120'x2 Exercises NuStep Minutes: 15 NuStep Workload: 5 Treatments PT performed dressing, transfers, ambulation, functional strengthening, OT performed UE positioning and safety during activity, UE ROM and stabilization Assessment Current Status: Poor Progress no change in mobility PT Short Term Goals Short Term Goals Time Frame: Jun 24, 2021 Roll Left & Right: 3 Sit to lyin Lying to sitting on side of be: 3 Sit to stand: 3 Chair/lus-yb-isfna transfer: 3 Walk 10 feet: 3 PT Donkey Ride Operator Goals Fpc Goals PT Fpc Goals Time Frame: Jul 08, 2021 Roll Left & Right (QC): 3 (Dora) Sit to Lying (QC): 3 (Dora) Lying-Sitting on Side/Bed(QC): 3 (Dora) Sit to Stand (QC): 4 (CGA) Chair/Yos-bp-Squyf Xfer(QC): 4 (CGA) Toilet Transfer (QC): 4 (CGA) Car Transfer (QC): 4 (CGA) Does the Patient Walk: Yes Walk 10 feet (QC): 4 (CGA) Walk 50ft with 2 Turns (QC): 88 Walk 150 ft (QC): 88 Walking 10ft on Uneven Surface: 3 (Dora) 1 Step (curb) (QC): 3 (Dora) 4 Steps (QC): 88 12 Steps (QC): 88 Picking up an Object (QC): 88 Wheel 50 feet with 2 turns (QC: 5 Wheel 150 feet: 5 PT Plan Problem List Problem List: Activity Tolerance, Functional Strength, Safety, Balance, Gait, Transfer, Bed Mobility, ROM Treatment/Plan Treatment Plan: Continue Plan of Care Treatment Plan: Bed Mobility, Education, Functional Activity Gwendolyn, Functional Strength, Group Therapy, Gait, Safety, Therapeutic Exercise, Transfers Treatment Duration: Jul 08, 2021 Frequency: At least 5 of 7 days/Wk (IRF) Estimated Hrs Per Day: 1.5 hours per day Patient and/or Family Agrees t: Yes Safety Risks/Education Patient Education: Gait Training, Transfer Techniques, Correct Positioning, W/C Management, Safety Issues Teaching Recipient: Patient Teaching Methods: Demonstration, Discussion Response to Teaching: Reinforcement Needed Time/GCodes Time In: 0800 Time Out: 0900 Total Billed Treatment Time: 60 Total Billed Treatment 1 visit EX 15' FA 45' co-treated with OT for 30' from [id number] JASVIR ALVES PT Jul 08, 2021 08:57
[2021-07-08] MEDS ORDERED: ARTIFICAL TEARS 0.4 ML UNIT DOSE (REFRESH PLUS) OU PRN (10:45)
--- NOTE | 2021-07-08 10:58 | PM&R Progress Note ---
Subjective HPI/CC On Admission Date Seen by Provider: Jul 08, 2021 Time Seen by Provider: 10:00 Subjective/Events-last exam 07/08/2021: Patient set for discharge Thursday Bowels are moving Denies any new issues 07/07/2021: Patient sleeping soundly RN has no concerns 07/06/2021: Patient doing well No major concerns Discharge plan next week 07/05/2021: Patient sleeping soundly No pain is reported Still trying to figure out which [facility] he will go to since he will need long-term care 07/04/2021: Patient doing well Blood pressure bit elevated Toprol was added by Dr. Donaldson Bowels moved today [facility] placement 07/03/2021: Pt standing better Bowels moved yesterday DC planned to a [facility] DC planned for 07/10/21 will be goal Moving his left leg 07/02/2021: No major issues CXR was negative Has some hiccups 07/01/2021: Pt doing well CXR pending Labs okay Lifted his left leg and moved his left fingers Bowels are moving 06/30/2021: No major issues Bowels moved 2 times yesterday Picked up his left leg yesterday 06/29/2021: No major issues Continues to participate in therapy Awaiting placement 06/28/2021: Patient doing pretty well Awaiting placement Bowels are moving well Denies any pain Told me about his dementia diagnosis 20 years ago 06/27/2021: Patient doing really well Bowels are moving Taking a nap currently Denies any issues 06/26/2021: Patient doing really well Eliquis and Plavix maintain Losartan started for blood pressure elevation Discontinue nystatin Singulair and Claritin will be started for congestion 06/25/2021: Patient doing pretty well Lisinopril will be changed to losartan due to reportedly cough Bowels moved today 06/24/2021: Patient participating in therapy No bowels movement for the last couple of days will give laxatives Check meds and labs 06/23/2021: Patient in a good mood No significant concerns Check meds and labs Blood sugar is good 06/22/2021: Patient doing well Knee still hurts but that is chronic Changing sliding scale to twice daily Accu-Cheks 06/21/2021: Patient doing really well Having some incontinence No pain is reported Progressing with therapy 06/20/2021: Patient progressing nicely Blood sugar 128 Bowels moved yesterday Discontinue the Hep-Lock 06/19/2021: Pt doing really well Left-sided weakness is a challenge Bowels moved twice today Magic mouthwash will be initiated because he keeps on biting the inside of his cheek Knee pain is chronic Voltaren gel will be added 06/18/2021: Pt doing really well Eating very well Sugars are okay Incontinent Bowels are moving No pain Obtaining good relief with left knee injection Review of Systems General: Fatigue, Malaise Objective Exam Vital Signs Vital Signs Date Time Temp Pulse Resp B/P (MAP) Pulse Ox O2 Delivery O2 Flow Rate FiO2 07/08/21 21:00 Room Air 07/08/21 20:16 89 07/08/21 19:44 36.4 73 18 120/61 (80) Capillary Refill : General Appearance: No Apparent Distress, WD/WN, Chronically ill, Obese HEENT: PERRL/EOMI, Normal ENT Inspection, Pharynx Normal Neck: Full Range of Motion, Normal Inspection, Non Tender, Supple, Carotid Bruit Respiratory: Chest Non Tender, Lungs Clear, Normal Breath Sounds, No Accessory Muscle Use, No Respiratory Distress Cardiovascular: Regular Rate, Rhythm, No Edema, No Gallop, No JVD, No Murmur, Normal Peripheral Pulses Gastrointestinal: Normal Bowel Sounds, No Organomegaly, No Pulsatile Mass, Non Tender, Soft Back: Normal Inspection, No CVA Tenderness, No Vertebral Tenderness Extremity: Normal Capillary Refill, Normal Inspection, Normal Range of Motion, Non Tender, No Calf Tenderness, No Pedal Edema Neurologic/Psychiatric: Alert, Oriented x3, router tender II-XII Norm as Tested, Abnormal Gait, Depressed Affect, Facial Droop (Left), Motor Weakness (Left-sided weakness 2/5) Skin: Normal Color, Warm/Dry Lymphatic: No Adenopathy Results/Procedures Lab Laboratory Tests 07/08/21 05:36 Patient resulted labs reviewed. FIM Transfers Therapy Code Descriptions/Definitions Functional [place] Measure: 0=Not Assessed/NA 4=Minimal Assistance 1=Total Assistance 5=Supervision or Setup 2=Maximal Assistance 6=Modified [place] 3=Moderate Assistance 7=Complete IndependenceSCALE: Activities may be completed with or without assistive devices. 4-Pvjpsbfgjo-qqdgkpv completes the activity by him/herself with no assistance from a helper. 5-Set-up or Clean-up Assistance-helper sets up or cleans up; patient completes activity. [place] assists only prior to or following the activity. 4-Supervision or Touching Assistance-helper provides verbal cues and/or touching/steadying and/or contact guard assistance as patient completes activity. Assistance may be provided throughout the activity or intermittently. 3-Partial/Moderate Assistance-helper does LESS THAN HALF the effort. [place] lifts, holds or supports trunk or limbs, but provides less than half the effort. 2-Substantial/Maximal Assistance-helper does MORE THAN HALF the effort. [place] lifts or holds trunk or limbs and provides more than half the effort. 1-Dpqayhbbg-gsjfzf does ALL the effort. Patient does none of the effort to complete the activity. Or, the assistance of 2 or more helpers is required for the patient to complete the activity. If activity was not attempted, code reason: 7-Patient Refused. 9-Not Applicable-not attempted and the patient did not perform the activity before the current illness, exacerbation or injury. 10-Not Attempted due to Environmental Limitations-(lack of equipment, weather r estraints, etc.). 88-Not Attempted due to Medical Conditions or Safety Concerns. Roll Left to Right (QC): 3 Sit to Lying (QC): 3 Sit to Stand (QC): 3 Chair/Gev-vl-Pklsj Xfer(QC): 3 Car Transfer (QC): 88 Gait Training Does the Patient Walk?: Yes Distance: 10', 15'x2 Walk 10 feet (QC): 3 Walk 50 ft with 2 Turns(QC): 88 Walk 150 ft (QC): 88 Walking 10ft/uneven surface-QC: 88 Gait Persons Needed: 1 Gait Assistive Device: Walker Jay Wheelchair Training Does the Pt Use a Wheelchair?: Yes Distance: 50' Wheel 50 ft with 2 turns (QC): 4 Wheel 150 ft (QC): 4 Type of Wheelchair: Manual Stair Training 1 Step (curb) (QC): 88 4 Steps (QC): 88 12 Steps (QC): 88 Balance Picking up an Object (QC): 88 ADL-Treatment Eating (QC): 3 Oral Hygiene (QC): 4 Bathing Location: L Arm, R Arm, L Upper Leg, R Upper Leg, L Lower Leg (including foot), R Lower Leg (including foot), Chest, Abdomen, Perineal Area Shower/Bathe Self (QC): 3 Upper Body Dressing (QC): 3 (Mod A) Lower Body Dressing (QC): 2 On/Off Footwear (QC): 1 Toileting Hygiene (QC): 1 Toilet Transfer (QC): 2 Assessment/Plan Assessment and Plan Assess & Plan/Chief Complaint Assessment: CVA with left-sided weakness Diabetes Hypertension Hyperlipidemia Dementia Left knee pain chronic status post steroid injection per Dr. Cummings Plan: Aggressive therapy Supportive care Statin Cardiology 06/18/2021: Much improved status Fall risk 06/19/2021: Continue treatment Aggressive therapy 06/20/2021: Supportive care Aggressive therapy 06/21/2021: Monitor closely Fall risk 06/22/2021: Pain control Monitor closely 06/23/2021: Check meds Labs due tomorrow 06/24/2021: Supportive care Monitor closely 06/25/2021: Change lisinopril to losartan per Dr. Donaldson Continue aggressive therapy 06/26/2021: Supportive care Look for skilled care Medicaid application started Claritin and Singulair for congestion 06/27/2021: Supportive care 06/28/2021: Supportive care Aggressive therapy Awaiting placement 06/29/2021: Continue treatment 06/30/21: Monitor closely Aggressive therapy 07/01/2021: Awaiting placement Await chest x-ray results 07/02/2021: Supportive care Await [facility] placement 07/03/2021: Supportive care Awaiting [facility] placement Discharge 07/10/2021 07/04/2021: Supportive care Monitor closely 07/05/2021: Supportive care Monitor closely Await [facility] placement 07/06/2021: Continue aggressive therapy 07/07/2021: Discharge planned to [facility] 07/08/2021: Discharge plan Thursday (1) Cerebrovascular accident due to cerebral artery occlusion Status: Acute (2) T2DM (type 2 diabetes mellitus) Status: Chronic (3) HLD (hyperlipidemia) Status: Chronic (4) Obesity Status: Chronic (5) Debility Status: Acute (6) Dementia Status: Chronic (7) Right pontine stroke Status: Acute (8) HTN (hypertension) Status: Acute CIRO CABRERA DO Jul 08, 2021 10:58
--- NOTE | 2021-07-08 12:31 | Occupational Ther Daily Note ---
OT Current Status-Daily Note Subjective Pt alert, sitting in recliner. Pt agrees to therapy. No c/o pain. Mental Status/Objective Patient Orientation: Person, Place, Time, Situation ADL-Treatment 1st session(): Pt brushed mouth and dentures independently. Assist given to open denture tablet package to soak dentures before brushing. Pt complete all other grooming by self. After therapy, pt sitting in recliner with call light/phone in reach. All needs met in room. 2nd session([id number]): Pt requires set up for eating then able to manipulate utensils to cut food and feed self. Therapy Code Descriptions/Definitions Functional [place] Measure: 0=Not Assessed/NA 4=Minimal Assistance 1=Total Assistance 5=Supervision or Setup 2=Maximal Assistance 6=Modified [place] 3=Moderate Assistance 7=Complete IndependenceSCALE: Activities may be completed with or without assistive devices. 0-Nkypgwbzye-xdxnvmt completes the activity by him/herself with no assistance from a helper. 5-Set-up or Clean-up Assistance-helper sets up or cleans up; patient completes activity. [place] assists only prior to or following the activity. 4-Supervision or Touching Assistance-helper provides verbal cues and/or touching/steadying and/or contact guard assistance as patient completes activity. Assistance may be provided throughout the activity or intermittently. 3-Partial/Moderate Assistance-helper does LESS THAN HALF the effort. [place] lifts, holds or supports trunk or limbs, but provides less than half the effort. 2-Substantial/Maximal Assistance-helper does MORE THAN HALF the effort. [place] lifts or holds trunk or limbs and provides more than half the effort. 8-Xjlzdxdtl-uiddef does ALL the effort. Patient does none of the effort to complete the activity. Or, the assistance of 2 or more helpers is required for the patient to complete the activity. If activity was not attempted, code reason: 7-Patient Refused. 9-Not Applicable-not attempted and the patient did not perform the activity before the current illness, exacerbation or injury. 10-Not Attempted due to Environmental Limitations-(lack of equipment, weather restraints, etc.). 88-Not Attempted due to Medical Conditions or Safety Concerns. Eating (QC): 6 Oral Hygiene (QC): 6 Other Treatment 1st session (): Co-treat with PT ([id number]), skills of 2 clinicians required for increased safety to decrease fall risk and increase B UE/LE mobility and strength. PT focusing on B LE strengthening and transfers while OT focusing on L UE ROM and ADLs. APROM completed during Nustep exercising to mimic alternating patterns of B UE during mobility. 2nd session([id number]): Pt able to initiate movement of L shldr flex and horizontal shldr abd/add without pain, APROM 2 sets 5 reps each before muscle fatigue. After session, pt sitting in recliner with call light/phone in reach. All needs met in room. OT Short Term Goals Short Term Goals Time Frame: Jun 28, 2021 Eatin Oral hygiene: 4 Toileting hygiene: 2 Shower/bathe self: 2 Upper body dressin Lower body dressin Putting on/taking off footwear: 2 OT Guest Service Host Goals Guest Service Host Goals Time Frame: Jul 08, 2021 Eating (QC): 4 Oral Hygiene (QC): 4 Toileting Hygiene (QC): 4 Shower/Bathe Self (QC): 4 Upper Body Dressing (QC): 4 Lower Body Dressing (QC): 4 On/Off Footwear (QC): 4 1=Demonstrate adherence to instructed precautions during ADL tasks. 2=Patient will verbalize/demonstrate understanding of assistive devices/modifications for ADL. 3=Patient will improve strength/tolerance for activity to enable patient to perform ADL's. OT Education/Plan Problem List/Assessment Assessment: Decreased Activ Tolerance, Decreased Safety Aware, Decreased UE Strength, Impaired Bed Mobility, Impaired Coordination, Impaired Funct Balance, Impaired Self-Care Skills, Restricted Funct UE ROM Discharge Recommendations Plan/Recommendations: Continue POC Treatment Plan/Plan of Care Patient would benefit from OT for education, treatment and training to promote independence in ADL's, mobility, safety and/or upper extremity function for ADL's. Plan of Care: ADL Retraining, Caregiver Training, Cognitive Retraining, Functional Mobility, Group Exercise/Act as Ind, UE Funct Exercise/Act, UE Neuromus Re-Ed/Coord, W/C Management Training Treatment Duration: Jul 08, 2021 Frequency: At least 5 of 7 days/Wk (IRF) Estimated Hrs Per Day: 1.5 hours per day Agreement: Yes Rehab Potential: Fair Time/GCodes Start Time: 08:30 (1230) Stop Time: 09:30 (1300) Total Time Billed (hr/min): 90 Billed Treatment Time 1 visit([id number]) EX 2 (30 min) ADL 2 (30 min) co-treat with PT [id number], individual [id number] 1 visit([id number]) ADL 1 (15 min) NM 1 (15 min) HEMA RICHARDS Jul 08, 2021 12:31
[2021-07-08 14:03] VITALS: BP 136/63
--- NOTE | 2021-07-08 14:56 | Occ Therapy Rehab Re-Cert ---
OT Re-Certification Form Plan of Care: ADL Retraining, Caregiver Training, Cognitive Retraining, Functional Mobility, Group Exercise/Act as Ind, UE Funct Exercise/Act, UE Neuromus Re-Ed/Coord, W/C Management Training Time frame extended, termite exterminator goals updated. Slow progression with meeting goals. Treatment Duration: 07/19/21 Frequency: At least 5 of 7 days/Wk (IRF) Estimated Hrs Per Day: 1.5 hours per day Agreement: Yes Rehab Potential: Fair OT Short Term Goals Short Term Goals Time Frame: Jul 12, 2021 Eatin Oral hygiene: 4 Toileting hygiene: 2 Shower/bathe self: 3 Upper body dressin Lower body dressin Putting on/taking off footwear: 2 OT Submarine Worker Goals Snf Goals Time Frame: Jul 19, 2021 Eating (QC): 5 Oral Hygiene (QC): 5 Toileting Hygiene (QC): 3 Shower/Bathe Self (QC): 4 Upper Body Dressing (QC): 4 Lower Body Dressing (QC): 3 On/Off Footwear (QC): 2 1=Demonstrate adherence to instructed precautions during ADL tasks. 2=Patient will verbalize/demonstrate understanding of assistive devices/modifications for ADL. 3=Patient will improve strength/tolerance for activity to enable patient to perform ADL's. Genia Mckeon OT Jul 08, 2021 14:56
--- NOTE | 2021-07-08 15:03 | Physical Therapy Daily Note ---
PT Daily Note-Current Subjective Patient in recliner pre tx, agrees to PT, has no complaints of pain. Appearance Patient in recliner post tx with nurse call, phone, tray, all needs met. Mental Status Patient Orientation: Person, Place, Situation Transfers SCALE: Activities may be completed with or without assistive devices. 2-Jsoaepzfug-bdeahuc completes the activity by him/herself with no assistance from a helper. 5-Set-up or Clean-up Assistance-helper sets up or cleans up; patient completes activity. [place] assists only prior to or following the activity. 4-Supervision or Touching Assistance-helper provides verbal cues and/or gayle josy/steadying and/or contact guard assistance as patient completes activity. Assistance may be provided throughout the activity or intermittently. 3-Partial/Moderate Assistance-helper does LESS THAN HALF the effort. [place] lifts, holds or supports trunk or limbs, but provides less than half the effort. 2-Substantial/Maximal Assistance-helper does MORE THAN HALF the effort. [place] lifts or holds trunk or limbs and provides more than half the effort. 4-Xmmyhicjo-mxsosf does ALL the effort. Patient does none of the effort to complete the activity. Or, the assistance of 2 or more helpers is required for the patient to complete the activity. If activity was not attempted, code reason: 7-Patient Refused. 9-Not Applicable-not attempted and the patient did not perform the activity before the current illness, exacerbation or injury. 10-Not Attempted due to Environmental Limitations-(lack of equipment, weather restraints, etc.). 88-Not Attempted due to Medical Conditions or Safety Concerns. Sit to Stand (QC): 3 Chair/Zdy-pj-Cdyta Xfer(QC): 3 Weight Bearing Full Weight Bearing Full Weight Bearing Gait Training Distance: 20'x3 Walk 10 feet (QC): 3 Gait Persons Needed: 1 Gait Assistive Device: Walker Jay WC follow, continuing improvement in step through on the left leg but it decreases with fatigue Wheelchair Training Does the Pt Use a Wheelchair?: Yes Wheel 50 ft with 2 turns (QC): 4 Type of Wheelchair: Manual 120'x2 Treatments transfers, ambulation, WC mobility Assessment Current Status: Fair Progress improving ambulation PT Short Term Goals Short Term Goals Time Frame: Jun 24, 2021 Roll Left & Right: 3 Sit to lyin Lying to sitting on side of be: 3 Sit to stand: 3 Chair/jcl-eq-mtfoe transfer: 3 Walk 10 feet: 3 PT Gun Fertilizer Goals Senior Living Goals PT Senior Living Goals Time Frame: Jul 08, 2021 Roll Left & Right (QC): 3 (Dora) Sit to Lying (QC): 3 (Dora) Lying-Sitting on Side/Bed(QC): 3 (Dora) Sit to Stand (QC): 4 (CGA) Chair/Zwj-kt-Vqluy Xfer(QC): 4 (CGA) Toilet Transfer (QC): 4 (CGA) Car Transfer (QC): 4 (CGA) Does the Patient Walk: Yes Walk 10 feet (QC): 4 (CGA) Walk 50ft with 2 Turns (QC): 88 Walk 150 ft (QC): 88 Walking 10ft on Uneven Surface: 3 (Dora) 1 Step (curb) (QC): 3 (Dora) 4 Steps (QC): 88 12 Steps (QC): 88 Picking up an Object (QC): 88 Wheel 50 feet with 2 turns (QC: 5 Wheel 150 feet: 5 PT Plan Problem List Problem List: Activity Tolerance, Functional Strength, Safety, Balance, Gait, Transfer, Bed Mobility, ROM Treatment/Plan Treatment Plan: Continue Plan of Care Treatment Plan: Bed Mobility, Education, Functional Activity Gwendolyn, Functional Strength, Group Therapy, Gait, Safety, Therapeutic Exercise, Transfers Treatment Duration: Jul 08, 2021 Frequency: At least 5 of 7 days/Wk (IRF) Estimated Hrs Per Day: 1.5 hours per day Patient and/or Family Agrees t: Yes Safety Risks/Education Patient Education: Gait Training, Transfer Techniques, Correct Positioning, Safety Issues Teaching Recipient: Patient Teaching Methods: Demonstration, Discussion Response to Teaching: Reinforcement Needed Time/GCodes Time In: 1430 Time Out: 1500 Total Billed Treatment Time: 30 Total Billed Treatment 1 visit FA 30' JASVIR ALVES PT Jul 08, 2021 15:03
[2021-07-08] MEDS: ARTIFICAL TEARS 0.4 ML UNIT DOSE (REFRESH PLUS) OU PRN (17:03)
[2021-07-08 19:44] VITALS: BP 120/61
[2021-07-08] MEDS: MONTELUKAST 10 MG (SINGULAIR) TAB PO SCH (21:00)
[2021-07-08] MEDS: QUEtiapine 25 MG (SEROquel) TAB IMMEDIATE RELEASE PO SCH (22:18)
[2021-07-08] MEDS: TAMSULOSIN 0.4 MG (FLOMAX) CAP PO SCH (22:21)
[2021-07-08] MEDS: HYDROcodone/APAP 5 MG/325 MG (LORTAB) TAB PO PRN (22:23)
[2021-07-09] MEDS: hydrALAZINE (APRESOLINE) 25 MG TAB PO SCH ×3 (06:38→21:54)
[2021-07-09] MEDS: VENlafaxine XR 75 MG (EFFEXOR XR) CAP PO SCH (06:38)
[2021-07-09] MEDS: RT--FLUTICASONE/SALMETEROL 113-14 (AIRDUO RespiCLICK) IH SCH ×2 (07:36→20:52)
[2021-07-09 08:15] VITALS: BP 145/69
[2021-07-09] MEDS: SENNA W/DOCUSATE (SENOKOT S) TABLET PO SCH ×4 (08:19→21:01)
[2021-07-09] MEDS: ASPIRIN E.C. 81 MG (ECOTRIN) TAB PO SCH (08:19)
[2021-07-09] MEDS: metFORMIN 500 MG (GLUCOPHAGE) TAB PO SCH ×2 (08:19→17:04)
[2021-07-09] MEDS: DOCUSATE SODIUM 100 MG (COLACE) CAP PO SCH ×2 (08:19→21:00)
[2021-07-09] MEDS: amLODIPine 10 MG (NORVASC) TAB PO SCH (08:20)
[2021-07-09] MEDS: LOSARTAN 100 MG (COZAAR) TABLET PO SCH (08:20)
[2021-07-09] MEDS: PANTOPRAZOLE 40 MG (PROTONIX) TAB PO SCH (08:20)
[2021-07-09] MEDS: ENOXAPARIN 40 MG/0.4 ML (LOVENOX) SYR SC SCH (08:20)
[2021-07-09] MEDS: polyethylene glycoL POWDER 17 GM (MIRALAX) PACK PO SCH ×2 (08:20→21:00)
[2021-07-09] MEDS: LORATADINE (CLARITIN) 10 MG TAB PO SCH (08:20)
--- NOTE | 2021-07-09 08:28 | Cardiology Progress Note ---
Subjective Date Seen by Provider: Jul 09, 2021 Time Seen by Provider: 08:10 Subjective/Events-last exam Patient is sitting up in bed, c/o fatigue. Review of Systems General: No Chills, No Night Sweats; Fatigue; No Malaise, No Appetite, No Other HEENT: No Head Aches, No Visual Changes, No Eye Pain, No Ear Pain, No Dysphasia, No Sinus Congestion, No Post Nasal Drip, No Sore Throat, No Other Pulmonary: No Dyspnea, No Cough, No Pleuritic Chest Pain, No Other Cardiovascular: No: Chest Pain, Palpitations, Orthopnea, Paroxysmal Noc. Dyspnea, Edema, Lt Headedness, Other Objective-Cardiology Exam Last Set of Vital Signs Vital Signs 07/09/21 08:15 Temp 36.1 Pulse 64 Resp 18 B/P (MAP) 145/69 (94) Pulse Ox 93 O2 Delivery Room Air General: Alert, Oriented X3, Cooperative HEENT: Atraumatic, PERRLA Neck: Supple, No JVD Lungs: Clear to Auscultation, Normal Air Movement Heart: Regular Rate, Normal S1, Normal S2, No Murmurs Abdomen: Soft, No Tenderness Extremities: No Clubbing, No Edema Skin: No Rashes, No Significant Lesion Neuro: Normal Speech, Other Psych/Mental Status: Mental Status NL, Mood NL A/P-Cardiology Admission Diagnosis CVA HTN Dementia Assessment/Plan 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 MRI of the head reported acute/subacute pontine stroke. Maintained on aspirin, monitor blood pressure Malignant hypertension, maintained on Norvasc 10 mg, hydralazine 25 mg,Toprol XL 25mg and changed from lisinopril to losartan 100 mg daily due to persistent cough. Elevated D-dimer, venous Doppler was negative. Maintained on Lovenox. Continue to monitor Vascular dementia, had generalized weakness in the past. History of diverticulosis, BPH. Status post COVID-19 vaccination done on June 10, 2021 triggered generalized weakness, Patient was found on the floor by his neighbor Supervisory-Addendum Brief Supervisory Addendum Participated in pt care: history, MDM, physical Personally performed: exam, history, MDM Care discussed with: CARISSA Results interpretation: Verified all documentation Notes: Patient was seen and evaluated with Mike, examination performed, management plan was discussed, agree with the current scribed note, I made few changes to the note using Italic font Patient was seen at bedside, sitting in bed, eating breakfast Appeared to be mildly depressed, for transfer to nursing facility tomorrow Blood pressure is stable No changes are recommended. MIKE MILLER Jul 09, 2021 08:28 MICHELLE HOUGH MD Jul 09, 2021 08:45
[2021-07-09] MEDS: DICLOFENAC 1% GEL 100 GM (VOLTAREN) TUBE TOP SCH ×4 (08:29→21:54)
--- NOTE | 2021-07-09 09:09 | Physical Therapy Daily Note ---
PT Daily Note-Current Subjective Patient in bed pre tx, agrees to PT, voices no complaints of pain. Will be co- treating with OT due to poor patient mobility, strength, endurance, left hemiparesis, coordinate UE and LE during activity, safety and reduce risk of falls. Appearance Patient in recliner post tx with nurse call, phone, tray, all needs met. Mental Status Patient Orientation: Person, Place, Situation Transfers SCALE: Activities may be completed with or without assistive devices. 1-Wdnbjpphgr-mhimare completes the activity by him/herself with no assistance from a helper. 5-Set-up or Clean-up Assistance-helper sets up or cleans up; patient completes activity. [place] assists only prior to or following the activity. 4-Supervision or Touching Assistance-helper provides verbal cues and/or touching/steadying and/or contact guard assistance as patient completes activity. Assistance may be provided throughout the activity or intermittently. 3-Partial/Moderate Assistance-helper does LESS THAN HALF the effort. Notus lifts, holds or supports trunk or limbs, but provides less than half the effort. 2-Substantial/Maximal Assistance-helper does MORE THAN HALF the effort. Notus lifts or holds trunk or limbs and provides more than half the effort. 2-Mwousiwsa-tahjwz does ALL the effort. Patient does none of the effort to complete the activity. Or, the assistance of 2 or more helpers is required for the patient to complete the activity. If activity was not attempted, code reason: 7-Patient Refused. 9-Not Applicable-not attempted and the patient did not perform the activity before the current illness, exacerbation or injury. 10-Not Attempted due to Environmental Limitations-(lack of equipment, weather restraints, etc.). 88-Not Attempted due to Medical Conditions or Safety Concerns. Roll Left & Right (QC): 3 Sit to Lying (QC): 3 Lying to Sitting/Side of Bed(Q: 3 Sit to Stand (QC): 3 Chair/Bvb-cp-Zcddq Xfer(QC): 3 Toilet Transfer (QC): 3 Car Transfer (QC): 3 Patient performs bed mobility and supine <-> sit mod assist, sit <-> stand and stand pivot transfers mod assist, car transfer mod assist. Patient needs f requent cues for hand placement and positioning. Patient ambulated to shower in his restroom to begin with and sat on shower bench, started undressing, stood to get his shorts off, showered, transferred to WC, started dressing, stood to get shorts up. WC to therapy gym. Weight Bearing Full Weight Bearing Full Weight Bearing Gait Training Distance: 10', 20'x3 Walk 10 feet (QC): 3 Walk 50 ft with 2 Turns(QC): 88 Walk 150 ft (QC): 88 Walking 10ft/uneven surface-QC: 88 Gait Assistive Device: Walker Jay Patient can ambulate 20' with a hemiwalker with mod assist. Patient needs assist with balance and to extend his trunk on the left side to promote step through on left side, cues for safety. Wheelchair Training Wheel 50 ft with 2 turns (QC): 4 Wheel 150 ft (QC): 4 Type of Wheelchair: Manual 150'x2 SBA Stair Training 1 Step (curb) (QC): 88 4 Steps (QC): 88 12 Steps (QC): 88 Balance Picking up an Object (QC): 88 Treatments PT performed WC mobility, bed mobility and transfers, ambulation, standing and positioning during shower and dressing, OT performed shower and dressing, UE positioning and safety during activity. Assessment Current Status: Poor Progress Slight improvement in ambulation but still needs significant assist with supine <-> sit. PT Short Term Goals Short Term Goals Time Frame: Jun 24, 2021 Roll Left & Right: 3 Sit to lyin Lying to sitting on side of be: 3 Sit to stand: 3 Chair/jrv-ws-xvevo transfer: 3 Walk 10 feet: 3 PT Penitentiary Goals Penitentiary Goals PT Penitentiary Goals Time Frame: Jul 08, 2021 Roll Left & Right (QC): 3 (Dora) Sit to Lying (QC): 3 (Dora) Lying-Sitting on Side/Bed(QC): 3 (Dora) Sit to Stand (QC): 4 (CGA) Chair/Zvj-wi-Sxxws Xfer(QC): 4 (CGA) Toilet Transfer (QC): 4 (CGA) Car Transfer (QC): 4 (CGA) Does the Patient Walk: Yes Walk 10 feet (QC): 4 (CGA) Walk 50ft with 2 Turns (QC): 88 Walk 150 ft (QC): 88 Walking 10ft on Uneven Surface: 3 (Dora) 1 Step (curb) (QC): 3 (Dora) 4 Steps (QC): 88 12 Steps (QC): 88 Picking up an Object (QC): 88 Wheel 50 feet with 2 turns (QC: 5 Wheel 150 feet: 5 PT Plan Problem List Problem List: Activity Tolerance, Functional Strength, Safety, Balance, Gait, Transfer, Bed Mobility, ROM Treatment/Plan Treatment Plan: Continue Plan of Care Treatment Plan: Bed Mobility, Education, Functional Activity Gwendolyn, Functional Strength, Group Therapy, Gait, Safety, Therapeutic Exercise, Transfers Treatment Duration: Jul 08, 2021 Frequency: At least 5 of 7 days/Wk (IRF) Estimated Hrs Per Day: 1.5 hours per day Patient and/or Family Agrees t: Yes Safety Risks/Education Patient Education: Gait Training, Transfer Techniques, Correct Positioning, W/C Management, Safety Issues Teaching Recipient: Patient Teaching Methods: Demonstration, Discussion Response to Teaching: Reinforcement Needed Time/GCodes Time In: 0850 Time Out: 1000 Total Billed Treatment Time: 70 Total Billed Treatment 1 visit FA 70' co-treated for 70' JASVIR ALVES PT Jul 09, 2021 09:08
--- NOTE | 2021-07-09 09:59 | Occupational Ther Daily Note ---
OT Current Status-Daily Note Subjective Pt alert, lying in bed. Pt agrees to therapy. No c/o pain. Mental Status/Objective Patient Orientation: Person, Place, Time, Situation ADL-Treatment Pt requires set up for eating then uses regular utensils to eat. Co-treat with PT ([id number]), requires skills of 2 clinicians for instruction and care to increase mobility and decrease fall risk. PT focusing on mobility, transfers and ambulation while OT focusing on ADLs, functional mobility and B UE placement. Pt agrees to shower. Pt ambulated using torito-walker to ambulate into bathroom with PT and transfer into shower, see PT notes for progress. One person assist to hike pants over hips and cleanse buttocks while another person stabilizes pt in standing. Using shower bench, hand held shower, grabbars and LH sponge to bathe and dry all areas except feet and buttocks. Pt takes increased time to don/doff shirt after set up using one handed dressing technique. Assist to thread L foot and pt able to thread R foot into pants then while pt stabilizes self with grabbar, assist to hike pants over hips. Max A to don/doff footwear. Pt able to complete oral care with set up only to open denture tablet package then pt able to complete all other oral care by self. Therapy Code Descriptions/Definitions Functional [place] Measure: 0=Not Assessed/NA 4=Minimal Assistance 1=Total Assistance 5=Supervision or Setup 2=Maximal Assistance 6=Modified [place] 3=Moderate Assistance 7=Complete IndependenceSCALE: Activities may be completed with or without assistive devices. 8-Alvgffbetd-ladowtt completes the activity by him/herself with no assistance from a helper. 5-Set-up or Clean-up Assistance-helper sets up or cleans up; patient completes activity. [place] assists only prior to or following the activity. 4-Supervision or Touching Assistance-helper provides verbal cues and/or touching/steadying and/or contact guard assistance as patient completes activity. Assistance may be provided throughout the activity or intermittently. 3-Partial/Moderate Assistance-helper does LESS THAN HALF the effort. [place] lifts, holds or supports trunk or limbs, but provides less than half the effort. 2-Substantial/Maximal Assistance-helper does MORE THAN HALF the effort. [place] lifts or holds trunk or limbs and provides more than half the effort. 6-Qdrykjazw-hqxgnt does ALL the effort. Patient does none of the effort to complete the activity. Or, the assistance of 2 or more helpers is required for the patient to complete the activity. If activity was not attempted, code reason: 7-Patient Refused. 9-Not Applicable-not attempted and the patient did not perform the activity before the current illness, exacerbation or injury. 10-Not Attempted due to Environmental Limitations-(lack of equipment, weather restraints, etc.). 88-Not Attempted due to Medical Conditions or Safety Concerns. Eating (QC): 5 (Set up only, pt able to use utensils to eat and is able to g rasp cups and bring to mouth to drink.) Oral Hygiene (QC): 5 (Pt demonstrates ability to complete own oral set up with tooth brushing though requires assist to open denture package to soak dentures.) Bathing Location: L Arm, R Arm, L Upper Leg, R Upper Leg, Chest, Abdomen, Perineal Area Shower/Bathe Self (QC): 3 Upper Body Dressing (QC): 4 Lower Body Dressing (QC): 2 On/Off Footwear: 2 Toileting Hygiene (QC): 1 Toilet Transfer (QC): 2 Other Treatment See PT notes for ambulation progress. After session, pt sitting in recliner with call light/phone in reach. All needs met in room. OT Short Term Goals Short Term Goals Time Frame: Jul 12, 2021 Eatin Oral hygiene: 4 Toileting hygiene: 2 Shower/bathe self: 3 Upper body dressin Lower body dressin Putting on/taking off footwear: 2 OT Nursing Home Goals [employer] Manager Goals Time Frame: Jul 19, 2021 Eating (QC): 5 (met) Oral Hygiene (QC): 5 (met) Toileting Hygiene (QC): 3 (not me) Shower/Bathe Self (QC): 4 (not met) Upper Body Dressing (QC): 4 (met) Lower Body Dressing (QC): 3 (not met) On/Off Footwear (QC): 2 (met) 1=Demonstrate adherence to instructed precautions during ADL tasks. 2=Patient will verbalize/demonstrate understanding of assistive devices/modifications for ADL. 3=Patient will improve strength/tolerance for activity to enable patient to per form ADL's. OT Education/Plan Problem List/Assessment Assessment: Decreased Activ Tolerance, Decreased Safety Aware, Decreased UE Strength, Impaired Bed Mobility, Impaired Cognition, Impaired Coordination, Impa ired Funct Balance, Impaired I ADL's, Impaired Self-Care Skills, Restricted Funct UE ROM Discharge Recommendations Plan/Recommendations: Continue POC Treatment Plan/Plan of Care Patient would benefit from OT for education, treatment and training to promote independence in ADL's, mobility, safety and/or upper extremity function for ADL's. Plan of Care: ADL Retraining, Caregiver Training, Cognitive Retraining, Functional Mobility, Group Exercise/Act as Ind, UE Funct Exercise/Act, UE Neuromus Re-Ed/Coord, W/C Management Training Treatment Duration: Jul 08, 2021 Frequency: At least 5 of 7 days/Wk (IRF) Estimated Hrs Per Day: 1.5 hours per day Agreement: Yes Rehab Potential: Fair Time/GCodes Start Time: 08:30 Stop Time: 10:00 Total Time Billed (hr/min): 90 Billed Treatment Time 1 visit-ADL 4 (60 min) FA 2 (30 min) co-treat with PT [id number], individual [id number] HEMA RICHARDS Jul 09, 2021 09:59
[2021-07-09 13:43] VITALS: BP 123/61
--- NOTE | 2021-07-09 14:09 | Speech Therapy Daily Note ---
Speech Daily Progress Note Subjective Time Seen by Provider: 12:00 Pt sitting up in [facility]. Lunch meal arrived and pt agreeable to speech therapy. Pt reports he is still having some difficulty swallowing, but he knows what foods to avoid. He also reports he is taking meds 1-2 pills at a time and does not seem to have difficulty. He indicates the sore in his mouth has improved which makes eating a lot easier. Discharge planned for tomorrows ate to [facility]. Objective Pt observed during lunch meal. Current diet: soft/thin liquids. Pt tolerated with no overt difficulty or s/s of aspiration/penetration. Pt verbalized strategies he uses for safe intake. Assessment Assessment Current Status: Good Progress Treatment Plan Continue Plan of Care Speech Short Term Goals Short Term Goals Short Term Goals 1. The pt will follow compensatory swallow strategies for safe PO intake with 90% accy. 2. The pt will complete labial/lingual exercises to increase strength on left side. 3. Pt will complete laryngeal exercises x10. 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 The pt will tolerate least restrictive diet with no overt s/s of aspiration/penetration during observed snack/meal. Speech-Plan Treatment Plan Speech Therapy Treatment Plan: Continue Plan of Care Treatment Duration: Jun 18, 2021 Frequency: 3 times per week Estimated Hrs Per Day: .5 hour per day Rehab Potential: Fair Time Speech Therapy Time In: 12:00 Speech Therapy Time Out: 12:30 Billed Treatment Time 1, DYST 30 MINS MUNA GARCIA Jul 09, 2021 14:09
[2021-07-09] MEDS: MONTELUKAST 10 MG (SINGULAIR) TAB PO SCH (20:38)
[2021-07-09] MEDS: TAMSULOSIN 0.4 MG (FLOMAX) CAP PO SCH (20:38)
--- NOTE | 2021-07-09 20:47 | PM&R Progress Note ---
Subjective HPI/CC On Admission Date Seen by Provider: Jul 09, 2021 Time Seen by Provider: 10:30 Subjective/Events-last exam 07/09/2021: Patient set for discharge tomorrow Bowels are moving 07/08/2021: Patient set for discharge Thursday Bowels are moving Denies any new issues 07/07/2021: Patient sleeping soundly RN has no concerns 07/06/2021: Patient doing well No major concerns Discharge plan next week 07/05/2021: Patient sleeping soundly No pain is reported Still trying to figure out which custodial he will go to since he will need long-term care 07/04/2021: Patient doing well Blood pressure bit elevated Toprol was added by Dr. Donaldson Bowels moved today residential placement 07/03/2021: Pt standing better Bowels moved yesterday DC planned to a custodial DC planned for 07/10/21 will be goal Moving his left leg 07/02/2021: No major issues CXR was negative Has some hiccups 07/01/2021: Pt doing well CXR pending Labs okay Lifted his left leg and moved his left fingers Bowels are moving 06/30/2021: No major issues Bowels moved 2 times yesterday Picked up his left leg yesterday 06/29/2021: No major issues Continues to participate in therapy Awaiting placement 06/28/2021: Patient doing pretty well Awaiting placement Bowels are moving well Denies any pain Told me about his dementia diagnosis 20 years ago 06/27/2021: Patient doing really well Bowels are moving Taking a nap currently Denies any issues 06/26/2021: Patient doing really well Eliquis and Plavix maintain Losartan started for blood pressure elevation Discontinue nystatin Singulair and Claritin will be started for congestion 06/25/2021: Patient doing pretty well Lisinopril will be changed to losartan due to reportedly cough Bowels moved today 06/24/2021: Patient participating in therapy No bowels movement for the last couple of days will give laxatives Check meds and labs 06/23/2021: Patient in a good mood No significant concerns Check meds and labs Blood sugar is good 06/22/2021: Patient doing well Knee still hurts but that is chronic Changing sliding scale to twice daily Accu-Cheks 06/21/2021: Patient doing really well Having some incontinence No pain is reported Progressing with therapy 06/20/2021: Patient progressing nicely Blood sugar 128 Bowels moved yesterday Discontinue the Hep-Lock 06/19/2021: Pt doing really well Left-sided weakness is a challenge Bowels moved twice today Magic mouthwash will be initiated because he keeps on biting the inside of his cheek Knee pain is chronic Voltaren gel will be added 06/18/2021: Pt doing really well Eating very well Sugars are okay Incontinent Bowels are moving No pain Obtaining good relief with left knee injection Review of Systems General: Fatigue, Malaise Objective Exam Vital Signs Vital Signs Date Time Temp Pulse Resp B/P (MAP) Pulse Ox O2 Delivery O2 Flow Rate FiO2 07/09/21 21:30 74 133/69 (90) 07/09/21 20:56 93 Room Air 07/09/21 20:53 36.2 18 Capillary Refill : General Appearance: No Apparent Distress, WD/WN, Chronically ill, Obese HEENT: PERRL/EOMI, Normal ENT Inspection, Pharynx Normal Neck: Full Range of Motion, Normal Inspection, Non Tender, Supple, Carotid Bruit Respiratory: Chest Non Tender, Lungs Clear, Normal Breath Sounds, No Accessory Muscle Use, No Respiratory Distress Cardiovascular: Regular Rate, Rhythm, No Edema, No Gallop, No JVD, No Murmur, Normal Peripheral Pulses Gastrointestinal: Normal Bowel Sounds, No Organomegaly, No Pulsatile Mass, Non Tender, Soft Back: Normal Inspection, No CVA Tenderness, No Vertebral Tenderness Extremity: Normal Capillary Refill, Normal Inspection, Normal Range of Motion, Non Tender, No Calf Tenderness, No Pedal Edema Neurologic/Psychiatric: Alert, Oriented x3, etymology professor II-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 FIM Transfers Therapy Code Descriptions/Definitions Functional [place] Measure: 0=Not Assessed/NA 4=Minimal Assistance 1=Total Assistance 5=Supervision or Setup 2=Maximal Assistance 6=Modified [place] 3=Moderate Assistance 7=Complete IndependenceSCALE: Activities may be completed with or without assistive devices. 8-Mbbkzbvqvx-uglpmuv completes the activity by him/herself with no assistance from a helper. 5-Set-up or Clean-up Assistance-helper sets up or cleans up; patient completes activity. [place] assists only prior to or following the activity. 4-Supervision or Touching Assistance-helper provides verbal cues and/or touching/steadying and/or contact guard assistance as patient completes activity. Assistance may be provided throughout the activity or intermittently. 3-Partial/Moderate Assistance-helper does LESS THAN HALF the effort. [place] lifts, holds or supports trunk or limbs, but provides less than half the effort. 2-Substantial/Maximal Assistance-helper does MORE THAN HALF the effort. [place] lifts or holds trunk or limbs and provides more than half the effort. 6-Lkjuwpvcs-nuwawz does ALL the effort. Patient does none of the effort to complete the activity. Or, the assistance of 2 or more helpers is required for the patient to complete the activity. If activity was not attempted, code reason: 7-Patient Refused. 9-Not Applicable-not attempted and the patient did not perform the activity before the current illness, exacerbation or injury. 10-Not Attempted due to Environmental Limitations-(lack of equipment, weather restraints, etc.). 88-Not Attempted due to Medical Conditions or Safety Concerns. Roll Left to Right (QC): 3 Sit to Lying (QC): 3 Sit to Stand (QC): 3 Chair/Qge-cw-Jlhtt Xfer(QC): 3 Car Transfer (QC): 3 Gait Training Does the Patient Walk?: Yes Distance: 10', 20'x3 Walk 10 feet (QC): 3 Walk 50 ft with 2 Turns(QC): 88 Walk 150 ft (QC): 88 Walking 10ft/uneven surface-QC: 88 Gait Persons Needed: 1 Gait Assistive Device: Walker Jay Wheelchair Training Does the Pt Use a Wheelchair?: Yes Distance: 50' Wheel 50 ft with 2 turns (QC): 4 Wheel 150 ft (QC): 4 Type of Wheelchair: Manual Stair Training 1 Step (curb) (QC): 88 4 Steps (QC): 88 12 Steps (QC): 88 Balance Picking up an Object (QC): 88 ADL-Treatment Eating (QC): 5 (Set up only, pt able to use utensils to eat and is able to grasp cups and bring to mouth to drink.) Oral Hygiene (QC): 5 (Pt demonstrates ability to complete own oral set up with tooth brushing though requires assist to open denture package to soak dentures.) Bathing Location: L Arm, R Arm, L Upper Leg, R Upper Leg, Chest, Abdomen, Perineal Area Shower/Bathe Self (QC): 3 Upper Body Dressing (QC): 4 Lower Body Dressing (QC): 2 On/Off Footwear (QC): 2 Toileting Hygiene (QC): 1 Toilet Transfer (QC): 2 Assessment/Plan Assessment and Plan Assess & Plan/Chief Complaint Assessment: CVA with left-sided weakness Diabetes Hypertension Hyperlipidemia Dementia Left knee pain chronic status post steroid injection per Dr. Cummings Plan: Aggressive therapy Supportive care Statin Cardiology 06/18/2021: Much improved status Fall risk 06/19/2021: Continue treatment Aggressive therapy 06/20/2021: Supportive care Aggressive therapy 06/21/2021: Monitor closely Fall risk 06/22/2021: Pain control Monitor closely 06/23/2021: Check meds Labs due tomorrow 06/24/2021: Supportive care Monitor closely 06/25/2021: Change lisinopril to losartan per Dr. Donaldson Continue aggressive therapy 06/26/2021: Supportive care Look for skilled care Medicaid application started Claritin and Singulair for congestion 06/27/2021: Supportive care 06/28/2021: Supportive care Aggressive therapy Awaiting placement 06/29/2021: Continue treatment 06/30/21: Monitor closely Aggressive therapy 07/01/2021: Awaiting placement Await chest x-ray results 07/02/2021: Supportive care Await custodial placement 07/03/2021: Supportive care Awaiting custodial placement Discharge 07/10/2021 07/04/2021: Supportive care Monitor closely 07/05/2021: Supportive care Monitor closely Await custodial placement 07/06/2021: Continue aggressive therapy 07/07/2021: Discharge planned to custodial 07/08/2021: Discharge plan Thursday07/09/2021: Discharge plan tomorrow (1) Cerebrovascular accident due to cerebral artery occlusion Status: Acute (2) T2DM (type 2 diabetes mellitus) Status: Chronic (3) HLD (hyperlipidemia) Status: Chronic (4) Obesity Status: Chronic (5) Debility Status: Acute (6) Dementia Status: Chronic (7) Right pontine stroke Status: Acute (8) HTN (hypertension) Status: Acute CIRO CABRERA DO Jul 09, 2021 20:47
[2021-07-09] MEDS ORDERED: DOCU100C37 PO (21:20)
[2021-07-09] MEDS ORDERED: LOSA100T57 PO (21:20)
[2021-07-09] MEDS ORDERED: LACT20SO2 PO (21:20)
[2021-07-09] MEDS ORDERED: ACET325T49 PO (21:20)
[2021-07-09] MEDS ORDERED: MONT10TA32 PO (21:20)
[2021-07-09] MEDS ORDERED: FLUT1AER4 IH (21:20)
[2021-07-09] MEDS ORDERED: DICL100G13 TOP (21:20)
[2021-07-09] MEDS ORDERED: CARB1DRO OU (21:20)
[2021-07-09] MEDS ORDERED: TMSL.4C PO (21:20)
[2021-07-09] MEDS ORDERED: ENOX40DI8 SC (21:20)
[2021-07-09] MEDS ORDERED: VENL150C98 PO (21:20)
[2021-07-09] MEDS ORDERED: LORA10TA7 PO (21:20)
[2021-07-09] MEDS ORDERED: QUET25TA35 PO (21:20)
[2021-07-09] MEDS ORDERED: ASPI-1238 PO (21:20)
[2021-07-09] MEDS ORDERED: ACHD5005 PO (21:20)
[2021-07-09] MEDS ORDERED: AMLO-251 PO (21:20)
[2021-07-09] MEDS ORDERED: ATOR40TA PO (21:20)
[2021-07-09] MEDS ORDERED: MTP25TSR PO (21:20)
--- NOTE | 2021-07-09 21:21 | Discharge Inst-Skilled Nursing ---
Discharge Inst-Skilled NF Reconcile Patient Problems Problems Reviewed?: Yes Patient Instructions Patient Problems: CVA Goal: Regain independence Consult/Follow Up/Orders Follow Up Appt.: PCP 2 weeks Skilled NF Admit to: Certification (SNF) I certify that SNF services are required to be given on an inpatient basis because of the above named patient's need for long-term care on a continuing basis for the conditions(s) for which he/she was receiving inpatient hospital services prior to his/her transfer to the SNF. [facility] Order: Nursing Services, Operations Manager Assistant-Evaluate & Treat, Physical Therapy-Evaluate & Treat, Speech Language-Evaluate & Treat Oxygen Delivery Method: Room Air Discharge Diet: ADA Diet Daily Activity as Tolerated: Yes Resuscitation Status: Full Code New & Resume Previous Orders New Medications: Acetaminophen (Acetaminophen) 325 Mg Tablet 650 MG PO Q4H PRN for PAIN-MILD (1-4), #90 TAB Amlodipine Besylate (Amlodipine Besylate) 10 Mg Tablet 10 MG PO DAILY, #90 TAB Aspirin (Aspirin EC) 81 Mg Tablet.dr 81 MG PO DAILY, #90 TAB Atorvastatin Calcium (Lipitor) 40 Mg Tablet 40 MG PO HS, #90 TAB Carboxymethylcellulose Sodium (Refresh Plus) 1 Each Droperette 0 EACH OU PRN PRN for DRY EYES, #3 DROP Diclofenac Sodium (Diclofenac Sodium) 100 Gm Gel..gram. 0 GM TOP QID, #3 TUBE Docusate Sodium (Docusate Sodium) 100 Mg Capsule 100 MG PO BID, #60 CAP Enoxaparin Sodium (Enoxaparin Sodium) 40 Mg/0.4 Ml Syringe 40 MG SC Q24H, #30 SYRINGE Fluticasone/Salmeterol (Fluticasone-Salmeterol 113-14) 1 Each Aer.pow.ba 0 EACH IH RTBID, #1 GM Hydrocodone Bit/Acetaminophen (HYDROcodone/APAP 5 MG/325 MG TAB) 1 Tab Tab 1 EA PO Q4H PRN for PAIN-MODERATE (5-7), #20 TAB Lactulose (Lactulose) 20 Gm/30 Ml Solution 10 GM PO BID PRN for CONSTIPATION-2ND LINE, #1 EA Loratadine (Loratadine) 10 Mg Tablet 10 MG PO DAILY, #90 TAB Losartan Potassium (Losartan Potassium) 100 Mg Tablet 100 MG PO DAILY, #90 TAB Metoprolol Succinate (Metoprolol Succinate) 25 Mg Tab.er.24h 25 MG PO DAILY, #90 TAB Montelukast Sodium (Montelukast Sodium) 10 Mg Tablet 10 MG PO HS, #90 TAB Continued Medications: Metformin HCl (Metformin HCl) 1,000 Mg Tablet 1000 MG PO BID, TAB Omeprazole (Omeprazole) 40 Mg Capsule.dr 40 MG PO DAILY, CAP Quetiapine Fumarate (Quetiapine Fumarate) 25 Mg Tablet 25 MG PO HS, #90 TAB (This prescription has been renewed) LAST FILLED 12-05-2020 #90 Tamsulosin HCl (Flomax) 0.4 Mg Cap 0.4 MG PO HS, #90 CAP (This prescription has been renewed) Venlafaxine HCl (Venlafaxine HCl ER) 150 Mg Cap.er.24h 150 MG PO DAILY, #90 CAP (This prescription has been renewed) Discontinued Medications: Acetaminophen (Tylenol Extra Strength) 500 Mg Tablet 1000 MG PO Q8H PRN for PAIN-MILD (1-4), TAB Amlodipine Besylate (Amlodipine Besylate) 5 Mg Tablet 5 MG PO DAILY, TAB Ibuprofen (Ibuprofen) 200 Mg Tablet 400-600 MG PO Q8H PRN for PAIN-MILD (1-4), TAB Lisinopril (Lisinopril) 10 Mg Tablet 10 MG PO DAILY, TAB Milla Diaz Jul 09, 2021 21:20 MILLA DIAZ DO Jul 09, 2021 21:21
[2021-07-09 21:30] VITALS: BP 133/69
[2021-07-09] MEDS: QUEtiapine 25 MG (SEROquel) TAB IMMEDIATE RELEASE PO SCH (21:54)
[2021-07-10] MEDS: VENlafaxine XR 75 MG (EFFEXOR XR) CAP PO SCH (06:16)
[2021-07-10] MEDS: hydrALAZINE (APRESOLINE) 25 MG TAB PO SCH (06:28)
[2021-07-10 06:29] VITALS: BP 123/67
[2021-07-10] MEDS: RT--FLUTICASONE/SALMETEROL 113-14 (AIRDUO RespiCLICK) IH SCH (07:20)
[2021-07-10 08:00] VITALS: BP 108/61
--- NOTE | 2021-07-10 08:14 | Cardiology Progress Note ---
Subjective Date Seen by Provider: Jul 10, 2021 Time Seen by Provider: 08:13 Subjective/Events-last exam Patient is sitting up in bed, denies any chest pain or dyspnea. Objective-Cardiology Exam Last Set of Vital Signs Vital Signs 07/09/21 07/10/21 07/10/21 20:53 06:29 07:21 Temp 36.2 Pulse 69 Resp 18 B/P (MAP) 123/67 (85) Pulse Ox 90 O2 Delivery Room Air General: Alert, Oriented X3, Cooperative HEENT: Atraumatic, PERRLA Neck: Supple, No JVD Lungs: Clear to Auscultation, Normal Air Movement Heart: Regular Rate, Normal S1, Normal S2, No Murmurs Abdomen: Soft, No Tenderness Extremities: No Clubbing, No Edema Skin: No Rashes, No Significant Lesion Neuro: Normal Speech, Other Psych/Mental Status: Mental Status NL, Mood NL A/P-Cardiology Admission Diagnosis CVA HTN Dementia Assessment/Plan 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 MRI of the head reported acute/subacute pontine stroke. Maintained on aspirin, monitor blood pressure Malignant hypertension, maintained on Norvasc 10 mg, hydralazine 25 mg,Toprol XL 25mg and changed from lisinopril to losartan 100 mg daily due to persistent cough. Elevated D-dimer, venous Doppler was negative. Maintained on Lovenox. Continue to monitor Vascular dementia, had generalized weakness in the past. History of diverticulosis, BPH. Status post COVID-19 vaccination done on June 10, 2021 triggered generalized weakness, Patient was found on the floor by his neighbor OK for discharge from cardiology standpoint. F/u in 4-6 weeks. MIKE MILLER Jul 10, 2021 08:13
[2021-07-10] MEDS: ASPIRIN E.C. 81 MG (ECOTRIN) TAB PO SCH (08:25)
[2021-07-10] MEDS: amLODIPine 10 MG (NORVASC) TAB PO SCH (08:25)
[2021-07-10] MEDS: metFORMIN 500 MG (GLUCOPHAGE) TAB PO SCH (08:25)
[2021-07-10] MEDS: ENOXAPARIN 40 MG/0.4 ML (LOVENOX) SYR SC SCH (08:25)
[2021-07-10] MEDS: LOSARTAN 100 MG (COZAAR) TABLET PO SCH (08:25)
[2021-07-10] MEDS: PANTOPRAZOLE 40 MG (PROTONIX) TAB PO SCH (08:25)
[2021-07-10] MEDS: LORATADINE (CLARITIN) 10 MG TAB PO SCH (08:25)
[2021-07-10] MEDS: DICLOFENAC 1% GEL 100 GM (VOLTAREN) TUBE TOP SCH (08:26)
--- NOTE | 2021-07-10 08:33 | Discharge Summary ---
Diagnosis/Chief Complaint Date of Admission Jun 17, 2021 at 13:00 Date of Discharge Discharge Date: Jul 10, 2021 Discharge Diagnosis Assessment: CVA with left-sided weakness Diabetes Hypertension Hyperlipidemia Dementia Left knee pain chronic status post steroid injection per Dr. Cummings Plan: Aggressive therapy Supportive care Statin Cardiology 06/18/2021: Much improved status Fall risk 06/19/2021: Continue treatment Aggressive therapy 06/20/2021: Supportive care Aggressive therapy 06/21/2021: Monitor closely Fall risk 06/22/2021: Pain control Monitor closely 06/23/2021: Check meds Labs due tomorrow 06/24/2021: Supportive care Monitor closely 06/25/2021: Change lisinopril to losartan per Dr. Donaldson Continue aggressive therapy 06/26/2021: Supportive care Look for skilled care Medicaid application started Claritin and Singulair for congestion 06/27/2021: Supportive care 06/28/2021: Supportive care Aggressive therapy Awaiting placement 06/29/2021: Continue treatment 06/30/21: Monitor closely Aggressive therapy 07/01/2021: Awaiting placement Await chest x-ray results 07/02/2021: Supportive care Await retirement placement 07/03/2021: Supportive care Awaiting retirement placement Discharge 07/10/2021 07/04/2021: Supportive care Monitor closely 07/05/2021: Supportive care Monitor closely Await retirement placement 07/06/2021: Continue aggressive therapy 07/07/2021: Discharge planned to retirement 07/08/2021: Discharge plan Thursday07/09/2021: Discharge plan tomorrow (1) Cerebrovascular accident due to cerebral artery occlusion Status: Acute (2) T2DM (type 2 diabetes mellitus) Status: Chronic (3) HLD (hyperlipidemia) Status: Chronic (4) Obesity Status: Chronic (5) Debility Status: Acute (6) Dementia Status: Chronic (7) Right pontine stroke Status: Acute (8) HTN (hypertension) Status: Acute Discharge Summary Discharge Physical Examination Allergies: Coded Allergies: No Known Drug Allergies (Unverified , 08/26/16) Vitals & I&Os Vital Signs Date Time Temp Pulse Resp B/P (MAP) Pulse Ox O2 Delivery O2 Flow Rate FiO2 07/10/21 10:20 37.4 88 16 108/61 94 Room Air General Appearance: Alert, Oriented X3, Cooperative Respiratory: Clear to Auscultation Cardiovascular: Regular Rate Psych/Mental Status: Mental Status NL Hospital Course Was the Problem List Reviewed?: Yes Hospital course: Patient had a lengthy hospital course for 24 days after he was admitted for inpatient rehab after suffering a stroke. He had significant deficits on his left side but he was able to work with therapy and regain movement of his left hand and left leg 1/5 strength. Blood pressure returned to good control after multiple med changes from cardiology. Bowel function returned back to normal eating and drinking well he was deemed stable for discharge to the retirement for long-term care. Labs (last 24 hrs) Laboratory Tests 06/17/21 16:53: Glucometer 214H 06/17/21 21:56: Glucometer 266H 06/18/21 05:33: Glucometer 176H 06/18/21 06:09: White Blood Count 11.2H, Red Blood Count 4.50, Hemoglobin 14.1, Hematocrit 42, Mean Corpuscular Volume 94, Mean Corpuscular Hemoglobin 31, Mean Corpuscular Hemoglobin Concent 33, Red Cell Distribution Width 12.4, Platelet Count 225, Mean Platelet Volume 10.8, Immature Granulocyte % (Auto) 1, Neutrophils (%) (Auto) 82H, Lymphocytes (%) (Auto) 11L, Monocytes (%) (Auto) 5, Eosinophils (%) (Auto) 0, Basophils (%) (Auto) 0, Neutrophils # (Auto) 9.2H, Lymphocytes # (Auto) 1.3, Monocytes # (Auto) 0.6, Eosinophils # (Auto) 0.0, Basophils # (Auto) 0.0, Immature Granulocyte # (Auto) 0.1 06/18/21 07:02: Sodium Level 136, Potassium Level 4.4, Chloride Level 104, Carbon Dioxide Level 21, Anion Gap 11, Blood Urea Nitrogen 20H, Creatinine 0.77, Estimat Glomerular Filtration Rate 97, BUN/Creatinine Ratio 26, Glucose Level 153H, Calcium Level 9.3, Corrected Calcium 9.6, Total Bilirubin 1.2H, Aspartate Amino Transf (AST/SGOT) 15, Alanine Aminotransferase (ALT/SGPT) 28, Alkaline Phosphatase 84, Total Protein 6.3L, Albumin 3.6 06/18/21 10:36: Glucometer 182H 06/18/21 16:49: Glucometer 152H 06/18/21 21:40: Glucometer 136H 06/19/21 05:32: Glucometer 107 06/19/21 11:15: Glucometer 97 06/19/21 16:18: Glucometer 136H 06/19/21 20:29: Glucometer 155H 06/20/21 05:33: Glucometer 128H 06/20/21 11:07: Glucometer 123H 06/20/21 15:52: Glucometer 155H 06/20/21 20:55: Glucometer 145H 06/21/21 05:23: Glucometer 128H 06/21/21 11:09: Glucometer 126H 06/21/21 15:51: Glucometer 99 06/21/21 20:49: Glucometer 153H 06/22/21 06:22: Glucometer 126H 06/22/21 11:28: Glucometer 150H 06/22/21 15:43: Glucometer 121H 06/23/21 06:28: Glucometer 100 06/23/21 16:35: Glucometer 155H 06/24/21 05:23: Glucometer 108 06/24/21 05:42: White Blood Count 8.0, Red Blood Count 4.25L, Hemoglobin 13.4, Hematocrit 40, Mean Corpuscular Volume 94, Mean Corpuscular Hemoglobin 32, Mean Corpuscular Hemoglobin Concent 34, Red Cell Distribution Width 12.5, Platelet Count 184, Mean Platelet Volume 11.0, Immature Granulocyte % (Auto) 2, Neutrophils (%) (Auto) 66, Lymphocytes (%) (Auto) 20, Monocytes (%) (Auto) 6, Eosinophils (%) (Auto) 5, Basophils (%) (Auto) 1, Neutrophils # (Auto) 5.3, Lymphocytes # (Auto) 1.6, Monocytes # (Auto) 0.5, Eosinophils # (Auto) 0.4H, Basophils # (Auto) 0.0, Immature Granulocyte # (Auto) 0.2H, Percent Immature Platelet Fraction 4.3, Sodium Level 137, Potassium Level 4.1, Chloride Level 104, Carbon Dioxide Level 21, Anion Gap 12, Blood Urea Nitrogen 18, Creatinine 0.77, Estimat Glomerular Filtration Rate 97, BUN/Creatinine Ratio 23, Glucose Level 112H, Calcium Level 8.8, Corrected Calcium 9.4, Total Bilirubin 0.6, Aspartate Amino Transf (AST/SGOT) 13, Alanine Aminotransferase (ALT/SGPT) 21, Alkaline Phosphatase 85, Total Protein 5.8L, Albumin 3.3, Smear Scan YES 06/24/21 15:26: Glucometer 128H 06/25/21 05:35: Glucometer 98 06/25/21 15:59: Glucometer 129H 06/26/21 05:33: Glucometer 104 06/26/21 16:46: Glucometer 121H 06/27/21 05:25: Glucometer 121H 06/27/21 15:18: Glucometer 134H 06/28/21 05:52: Glucometer 100 06/28/21 17:18: Glucometer 104 06/29/21 05:14: Glucometer 115H 06/29/21 15:32: Glucometer 142H 06/30/21 06:48: Glucometer 120H 06/30/21 16:04: Glucometer 116H 07/01/21 05:33: White Blood Count 8.5, Red Blood Count 4.22L, Hemoglobin 13.3, Hematocrit 40, Mean Corpuscular Volume 94, Mean Corpuscular Hemoglobin 32, Mean Corpuscular Hemoglobin Concent 34, Red Cell Distribution Width 12.4, Platelet Count 258, Mean Platelet Volume 10.6, Immature Granulocyte % (Auto) 1, Neutrophils (%) (Auto) 70, Lymphocytes (%) (Auto) 18, Monocytes (%) (Auto) 7, Eosinophils (%) (Auto) 4, Basophils (%) (Auto) 0, Neutrophils # (Auto) 6.0, Lymphocytes # (Auto) 1.5, Monocytes # (Auto) 0.6, Eosinophils # (Auto) 0.4H, Basophils # (Auto) 0.0, Immature Granulocyte # (Auto) 0.1, Sodium Level 137, Potassium Level 3.7, Chloride Level 102, Carbon Dioxide Level 25, Anion Gap 10, Blood Urea Nitrogen 18, Creatinine 0.80, Estimat Glomerular Filtration Rate 93, BUN/Creatinine Ratio 23, Glucose Level 104, Calcium Level 9.0, Corrected Calcium 9.5, Total Bilirubin 0.7, Aspartate Amino Transf (AST/SGOT) 13, Alanine Aminotransferase (ALT/SGPT) 14, Alkaline Phosphatase 88, Total Protein 5.9L, Albumin 3.4 07/08/21 05:36: White Blood Count 6.3, Red Blood Count 4.33, Hemoglobin 13.5, Hematocrit 41, Mean Corpuscular Volume 94, Mean Corpuscular Hemoglobin 31, Mean Corpuscular Hemoglobin Concent 33, Red Cell Distribution Width 12.5, Platelet Count 242, Mean Platelet Volume 10.3, Immature Granulocyte % (Auto) 1, Neutrophils (%) (Auto) 64, Lymphocytes (%) (Auto) 21, Monocytes (%) (Auto) 7, Eosinophils (%) (Auto) 7, Basophils (%) (Auto) 1, Neutrophils # (Auto) 4.0, Lymphocytes # (Auto) 1.3, Monocytes # (Auto) 0.5, Eosinophils # (Auto) 0.5H, Basophils # (Auto) 0.0, Immature Granulocyte # (Auto) 0.1, Sodium Level 140, Potassium Level 3.8, Chloride Level 105, Carbon Dioxide Level 24, Anion Gap 11, Blood Urea Nitrogen 16, Creatinine 0.82, Estimat Glomerular Filtration Rate 91, BUN/Creatinine Ratio 20, Glucose Level 97, Calcium Level 9.4, Corrected Calcium 9.8, Total Bilirubin 0.7, Aspartate Amino Transf (AST/SGOT) 12, Alanine Aminotransferase (ALT/SGPT) 19, Alkaline Phosphatase 76, Total Protein 6.0L, Albumin 3.5 07/09/21 14:10: SARS-CoV-2 RNA (RT-PCR) Not Detected Pending Labs Laboratory Tests 06/17/21 16:53: Glucometer 214 06/17/21 21:56: Glucometer 266 06/18/21 05:33: Glucometer 176 06/18/21 06:09: White Blood Count 11.2, Red Blood Count 4.50, Hemoglobin 14.1, Hematocrit 42, Mean Corpuscular Volume 94, Mean Corpuscular Hemoglobin 31, Mean Corpuscular Hemoglobin Concent 33, Red Cell Distribution Width 12.4, Platelet Count 225, Mean Platelet Volume 10.8, Immature Granulocyte % (Auto) 1, Neutrophils (%) (Auto) 82, Lymphocytes (%) (Auto) 11, Monocytes (%) (Auto) 5, Eosinophils (%) (Auto) 0, Basophils (%) (Auto) 0, Neutrophils # (Auto) 9.2, Lymphocytes # (Auto) 1.3, Monocytes # (Auto) 0.6, Eosinophils # (Auto) 0.0, Basophils # (Auto) 0.0, Immature Granulocyte # (Auto) 0.1 06/18/21 07:02: Sodium Level 136, Potassium Level 4.4, Chloride Level 104, Carbon Dioxide Level 21, Anion Gap 11, Blood Urea Nitrogen 20, Creatinine 0.77, Estimat Glomerular Filtration Rate 97, BUN/Creatinine Ratio 26, Glucose Level 153, Calcium Level 9.3, Corrected Calcium 9.6, Total Bilirubin 1.2, Aspartate Amino Transf (AST/SGO T) 15, Alanine Aminotransferase (ALT/SGPT) 28, Alkaline Phosphatase 84, Total Protein 6.3, Albumin 3.6 06/18/21 10:36: Glucometer 182 06/18/21 16:49: Glucometer 152 06/18/21 21:40: Glucometer 136 06/19/21 05:32: Glucometer 107 06/19/21 11:15: Glucometer 97 06/19/21 16:18: Glucometer 136 06/19/21 20:29: Glucometer 155 06/20/21 05:33: Glucometer 128 06/20/21 11:07: Glucometer 123 06/20/21 15:52: Glucometer 155 06/20/21 20:55: Glucometer 145 06/21/21 05:23: Glucometer 128 06/21/21 11:09: Glucometer 126 06/21/21 15:51: Glucometer 99 06/21/21 20:49: Glucometer 153 06/22/21 06:22: Glucometer 126 06/22/21 11:28: Glucometer 150 06/22/21 15:43: Glucometer 121 06/23/21 06:28: Glucometer 100 06/23/21 16:35: Glucometer 155 06/24/21 05:23: Glucometer 108 06/24/21 05:42: White Blood Count 8.0, Red Blood Count 4.25, Hemoglobin 13.4, Hematocrit 40, Mean Corpuscular Volume 94, Mean Corpuscular Hemoglobin 32, Mean Corpuscular Hemoglobin Concent 34, Red Cell Distribution Width 12.5, Platelet Count 184, Mean Platelet Volume 11.0, Immature Granulocyte % (Auto) 2, Neutrophils (%) (Auto) 66, Lymphocytes (%) (Auto) 20, Monocytes (%) (Auto) 6, Eosinophils (%) (Auto) 5, Basophils (%) (Auto) 1, Neutrophils # (Auto) 5.3, Lymphocytes # (Auto) 1.6, Monocytes # (Auto) 0.5, Eosinophils # (Auto) 0.4, Basophils # (Auto) 0.0, Immature Granulocyte # (Auto) 0.2, Percent Immature Platelet Fraction 4.3, Sodium Level 137, Potassium Level 4.1, Chloride Level 104, Carbon Dioxide Level 21, Anion Gap 12, Blood Urea Nitrogen 18, Creatinine 0.77, Estimat Glomerular Filtration Rate 97, BUN/Creatinine Ratio 23, Glucose Level 112, Calcium Level 8.8, Corrected Calcium 9.4, Total Bilirubin 0.6, Aspartate Amino Transf (AST/SGOT) 13, Alanine Aminotransferase (ALT/SGPT) 21, Alkaline Phosphatase 85, Total Protein 5.8, Albumin 3.3, Smear Scan YES 06/24/21 15:26: Glucometer 128 06/25/21 05:35: Glucometer 98 06/25/21 15:59: Glucometer 129 06/26/21 05:33: Glucometer 104 06/26/21 16:46: Glucometer 121 06/27/21 05:25: Glucometer 121 06/27/21 15:18: Glucometer 134 06/28/21 05:52: Glucometer 100 06/28/21 17:18: Glucometer 104 06/29/21 05:14: Glucometer 115 06/29/21 15:32: Glucometer 142 06/30/21 06:48: Glucometer 120 06/30/21 16:04: Glucometer 116 07/01/21 05:33: White Blood Count 8.5, Red Blood Count 4.22, Hemoglobin 13.3, Hematocrit 40, Mean Corpuscular Volume 94, Mean Corpuscular Hemoglobin 32, Mean Corpuscular Hemoglobin Concent 34, Red Cell Distribution Width 12.4, Platelet Count 258, Mean Platelet Volume 10.6, Immature Granulocyte % (Auto) 1, Neutrophils (%) (Auto) 70, Lymphocytes (%) (Auto) 18, Monocytes (%) (Auto) 7, Eosinophils (%) (Auto) 4, Basophils (%) (Auto) 0, Neutrophils # (Auto) 6.0, Lymphocytes # (Auto) 1.5, Monocytes # (Auto) 0.6, Eosinophils # (Auto) 0.4, Basophils # (Auto) 0.0, Immature Granulocyte # (Auto) 0.1, Sodium Level 137, Potassium Level 3.7, Ch loride Level 102, Carbon Dioxide Level 25, Anion Gap 10, Blood Urea Nitrogen 18, Creatinine 0.80, Estimat Glomerular Filtration Rate 93, BUN/Creatinine Ratio 23, Glucose Level 104, Calcium Level 9.0, Corrected Calcium 9.5, Total Bilirubin 0.7, Aspartate Amino Transf (AST/SGOT) 13, Alanine Aminotransferase (ALT/SGPT) 14, Alkaline Phosphatase 88, Total Protein 5.9, Albumin 3.4 07/08/21 05:36: White Blood Count 6.3, Red Blood Count 4.33, Hemoglobin 13.5, Hematocrit 41, Mean Corpuscular Volume 94, Mean Corpuscular Hemoglobin 31, Mean Corpuscular Hemoglobin Concent 33, Red Cell Distribution Width 12.5, Platelet Count 242, Mean Platelet Volume 10.3, Immature Granulocyte % (Auto) 1, Neutrophils (%) (Auto) 64, Lymphocytes (%) (Auto) 21, Monocytes (%) (Auto) 7, Eosinophils (%) (Auto) 7, Basophils (%) (Auto) 1, Neutrophils # (Auto) 4.0, Lymphocytes # (Auto) 1.3, Monocytes # (Auto) 0.5, Eosinophils # (Auto) 0.5, Basophils # (Auto) 0.0, Immature Granulocyte # (Auto) 0.1, Sodium Level 140, Potassium Level 3.8, Chloride Level 105, Carbon Dioxide Level 24, Anion Gap 11, Blood Urea Nitrogen 16, Creatinine 0.82, Estimat Glomerular Filtration Rate 91, BUN/Creatinine Ratio 20, Glucose Level 97, Calcium Level 9.4, Corrected Calcium 9.8, Total Bilirubin 0.7, Aspartate Amino Transf (AST/SGOT) 12, Alanine Aminotransferase (ALT/SGPT) 19, Alkaline Phosphatase 76, Total Protein 6.0, Albumin 3.5 07/09/21 14:10: SARS-CoV-2 RNA (RT-PCR) Not Detected Discharge Home Medications: Active Scripts Active Docusate Sodium 100 Mg Capsule 100 Mg PO BID Refresh Plus (Carboxymethylcellulose Sodium) 1 Each Droperette 0 Each OU PRN PRN Montelukast Sodium 10 Mg Tablet 10 Mg PO HS Fluticasone-Salmeterol 113-14 (Fluticasone/Salmeterol) 1 Each Aer.pow.ba 0 Each IH RTBID Lactulose 20 Gm/30 Ml Solution 10 Gm PO BID PRN Acetaminophen 325 Mg Tablet 650 Mg PO Q4H PRN HYDROcodone/APAP 5 MG/325 MG TAB (Acetaminophen/Hydrocodone Bitart) 1 Tab Tab 1 Ea PO Q4H PRN Diclofenac Sodium 100 Gm Gel..gram. 0 Gm TOP QID Aspirin EC (Aspirin) 81 Mg Tablet.dr 81 Mg PO DAILY Losartan Potassium 100 Mg Tablet 100 Mg PO DAILY Amlodipine Besylate 10 Mg Tablet 10 Mg PO DAILY Metoprolol Succinate 25 Mg Tab.er.24h 25 Mg PO DAILY Lipitor (Atorvastatin Calcium) 40 Mg Tablet 40 Mg PO HS Enoxaparin Sodium 40 Mg/0.4 Ml Syringe 40 Mg SC Q24H Loratadine 10 Mg Tablet 10 Mg PO DAILY Venlafaxine HCl ER (Venlafaxine HCl) 150 Mg Cap.er.24h 150 Mg PO DAILY Quetiapine Fumarate 25 Mg Tablet 25 Mg PO HS LAST FILLED 12-05-2020 #90 Flomax (Tamsulosin HCl) 0.4 Mg Cap 0.4 Mg PO HS Reported Metformin HCl 1,000 Mg Tablet 1,000 Mg PO BID Omeprazole 40 Mg Capsule.dr 40 Mg PO DAILY Instructions to patient/family Please see electronic discharge instructions given to patient. Diagnosis/Problems Diagnosis/Problems (1) Cerebrovascular accident due to cerebral artery occlusion Status: Acute (2) T2DM (type 2 diabetes mellitus) Status: Chronic (3) HLD (hyperlipidemia) Status: Chronic (4) Obesity Status: Chronic (5) Debility Status: Acute (6) Dementia Status: Chronic (7) Right pontine stroke Status: Acute (8) HTN (hypertension) Status: Acute CIRO CABRERA DO Jul 10, 2021 08:33
[2021-07-10] MEDS: polyethylene glycoL POWDER 17 GM (MIRALAX) PACK PO SCH (09:00)
[2021-07-10] MEDS: DOCUSATE SODIUM 100 MG (COLACE) CAP PO SCH (09:00)
[2021-07-10] MEDS: SENNA W/DOCUSATE (SENOKOT S) TABLET PO SCH ×2 (09:00)
[2021-07-10 10:20] VITALS: BP 108/61
--- NOTE | 2021-07-10 14:34 | Therapy Team Discharge Summary ---
Therapy Discharge Summary Discharge Recommendations Date of Discharge Jul 10, 2021 at 10:21 Therapy D/C Recommendations: [facility] (TCU/NH) Occupational Therapy Pt presented to ER with Left sided weakness and slurred speech. CTA revealed occlusion of a 2 level and Left JOSE GUADALUPE infarct which did not correlate with physical findings. MRI revealed: Acute/subacute infarct, right paramidline yolanda.Extensive periventricular and subcortical white matter signal foci consistent with chronic microvascular ischemia. No acute intracranial hemorrhage was detected. On evaluation, pt was dependent for bathing, UB dressing, LB dressing, footwear, toileting, and transfers. While he was on rehab, OT focused on balance, proprioception/awareness, coordination, FM control, ROM/Strength, compensatory strategies, activity tolerance/endurance, and safety needed during adls and transfers. Pt made slow progress while here and met 4 out of 7 goals including eating, oral care, upper body dressing, and footwear. Pt is now set up for eating and oral care, sba for Upper body dressing, min a for bathing, max a for lower body dressing, footwear, and toilet transfer, and dependent for toilet hygiene. Pt will benefit from continued skilled OT services in effort to increase indep and participation in adls. Pt is discharged from this facility and will be discharged from OT. Decreased Activ Tolerance, Decreased Safety Aware, Decreased UE Strength, Impaired Bed Mobility, Impaired Cognition, Impaired Coordination, Impaired Funct Balance, Impaired I ADL's, Impaired Self-Care Skills, Restricted Funct UE ROM PT [employer] Goals [facility] Goals PT [employer] Goals Time Frame: Jul 08, 2021 Roll Left to Right (QC): 3 (Dora) Sit to Lying (QC): 3 (Dora) Lying-Sitting on Side/Bed(QC): 3 (Dora) Sit to Stand (QC): 4 (CGA) Chair/Blx-bo-Edahy Xfer(QC): 4 (CGA) Car Transfer (QC): 4 (CGA) Does the Patient Walk: Yes Walk 10 feet (QC): 4 (CGA) Walk 10ft-Uneven Surface(QC): 3 (Dora) Walk 50ft with 2 Turns (QC): 88 Walk 150 ft (QC): 88 Wheel 50 feet with 2 turns (QC: 5 1 Step (curb) (QC): 3 (Dora) 4 Steps (QC): 88 12 Steps (QC): 88 Picking up an Object (QC): 88 OT [employer] Goals [facility] Goals Time Frame: Jul 19, 2021 Eating (QC): 5 (met) Oral Hygiene (QC): 5 (met) Shower/Bathe Self (QC): 4 (not met) Upper Body Dressing (QC): 4 (met) Lower Body Dressing (QC): 3 (not met) On/Off Footwear (QC): 2 (met) Toileting Hygiene (QC): 3 (not me) Toilet/Commode Transfer (QC): 4 (CGA) 1=Demonstrate adherence to instructed precautions during ADL tasks. 2=Patient will verbalize/demonstrate understanding of assistive devices/modifications for ADL. 3=Patient will improve strength/tolerance for activity to enable patient to perform ADL's. Speech [employer] Goals [facility]iary Goals 1. The pt will tolerate least restrictive diet with no overt s/s of aspiration/penetration during observed snack/meal. Genia Mckeon OT Jul 10, 2021 14:34
--- NOTE | 2021-07-10 15:26 | Therapy Team Discharge Summary ---
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 Upon evaluation patient performed bed mobility and supine <-> sit with max assist, sit <-> stand mod assist, transfers mod assist, ambulated 3' in the parallel bars with max assist, and propelled a manual WC 50' with max assist. Patient has been performing bed mobility and transfer training, balance and endurance training, functional strengthening, gait training, and education. Patient has made some progress but has not met any of his care home goals. Now, patient performs bed mobility and supine <-> sit mod assist, sit <-> stand and stand pivot transfers mod assist, car transfer mod assist, ambulate 20' with a hemiwalker with mod assist, propels a manual WC 150' with SBA. Patient has been discharged from this facility and will be discharged from PT at this time. 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 Time Frame: Jul 08, 2021 Roll Left to Right (QC): 3 (Dora) Sit to Lying (QC): 3 (Dora) Lying-Sitting on Side/Bed(QC): 3 (Dora) Sit to Stand (QC): 4 (CGA) Chair/Bas-io-Clxmv Xfer(QC): 4 (CGA) Car Transfer (QC): 4 (CGA) Does the Patient Walk: Yes Walk 10 feet (QC): 4 (CGA) Walk 10ft-Uneven Surface(QC): 3 (Dora) Walk 50ft with 2 Turns (QC): 88 Walk 150 ft (QC): 88 Wheel 50 feet with 2 turns (QC: 5 1 Step (curb) (QC): 3 (Dora) 4 Steps (QC): 88 12 Steps (QC): 88 Picking up an Object (QC): 88 OT [employer] Goals [facility] Goals Time Frame: Jul 19, 2021 Eating (QC): 5 (met) Oral Hygiene (QC): 5 (met) Shower/Bathe Self (QC): 4 (not met) Upper Body Dressing (QC): 4 (met) Lower Body Dressing (QC): 3 (not met) On/Off Footwear (QC): 2 (met) Toileting Hygiene (QC): 3 (not me) Toilet/Commode Transfer (QC): 4 (CGA) 1=Demonstrate adherence to instructed precautions during ADL tasks. 2=Patient will verbalize/demonstrate understanding of assistive devices/modifications for ADL. 3=Patient will improve strength/tolerance for activity to enable patient to per form ADL's. Speech [facility] Goals [employer] Goals 1. The pt will tolerate least restrictive diet with no overt s/s of aspiration/penetration during observed snack/meal. JASVIR ALVES PT Jul 10, 2021 15:26
== END 2021-07-10 10:21 | DRG 57 ==
PROVIDERS: ADMIT Internal Medicine; ATTEND Internal Medicine
DX: I69.354 Hemiplegia and hemiparesis following cerebral infarction affecting left non-dominant side (principal); I69.392 Facial weakness following cerebral infarction; F01.50 Vascular dementia, unspecified severity, without behavioral disturbance, psychotic disturbance, mood disturbance, and anxiety; I10 Essential (primary) hypertension; E11.9 Type 2 diabetes mellitus without complications; F32.A Depression, unspecified; M17.12 Unilateral primary osteoarthritis, left knee; K21.9 Gastro-esophageal reflux disease without esophagitis; Z20.822 Contact with and (suspected) exposure to COVID-19; E66.9 Obesity, unspecified; Z68.34 Body mass index [BMI] 34.0-34.9, adult; E78.00 Pure hypercholesterolemia, unspecified; E78.5 Hyperlipidemia, unspecified; K57.90 Diverticulosis of intestine, part unspecified, without perforation or abscess without bleeding; N40.0 Benign prostatic hyperplasia without lower urinary tract symptoms; Z79.84 Long term (current) use of oral hypoglycemic drugs; Z87.891 Personal history of nicotine dependence; Z81.2 Family history of tobacco abuse and dependence
CPT/HCPCS: 36415; 71046; 80053; 82947; 85025; 87636; 94640; 94760